=== PATIENT | female | born 1955 | race African-American/Black ===

== ENCOUNTER 2016-09-27 15:43 | Inpatient (IN) | payer OTHER ==
[2016-09-27 16:54] LABS: BASOPHIL 0.5 % (0-2.0); EOSINOPHIL 1.6 % (0-4.5); MCH 26.3 pg (25.7-33.7); MCHC 30.2 g/dl (32.0-36.0); MEAN CELL VOLUME 87.2 fl (80-96); NEUTROPHILS 73.9 % (42.8-82.8); PLATELET COUNT 122 K/MM3 (134-434); RDW 18.5 % (11.6-15.6); WHITE BLOOD COUNT 7.3 K/mm3 (4.0-10.0)
[2016-09-27 17:17] LABS: ALBUMIN 3.4 g/dl (3.4-5.0); CALCIUM 9.5 mg/dL (8.5-10.1); CREATININE 1.2 mg/dL (0.55-1.02)
[2016-09-27 17:21] LABS: BILIRUBIN,TOTAL 1.2 mg/dL (0.2-1.0)
[2016-09-27] MEDS ORDERED: oxyCODONE HCL 5 MG TABLET PO ONE (17:23)
--- NOTE | 2016-09-27 17:23 | PDOC ---
History of Present Illness - General History Source: Patient Exam Limitations: No Limitations - History of Present Illness Initial Comments: 09/27/16 17:49 The patient is a 61 year old female, with significant past medical history of A- fib,CHF, COPD, GERD, DM, sarcoidosis, renal insufficiency, chronic back pain, who presents today complaining of bilateral LE edema for 2 to 3 weeks. She reports that she has a small hole on the medial aspect of the right ankle that has been leaking pus since this afternoon. She reports that her normal weight is 220lb and her weight today is 260lb. She reports that her breasts have also been edematous. She is taking Lasix regularly. Dr. Estrada has advised her to take 1 additional Lasix every other day, which she has not done. She states that she lives at home with her daughter. Denies fever, chills, nausea, vomiting. Denies chest pain, SOB. Allergies: None reported PCP- Dr. Kt Estrada Marine Service Operator: Dr. Emily Hurt <Ro Dorado - Last Filed: 09/27/16 17:59> <Lu Raphael - Last Filed: 09/27/16 18:17> - General Chief Complaint: Edema Stated Complaint: WEAKNESS, SWOLLEN LEGS Time Seen by Provider: 09/27/16 16:06 Past History <Ro Dorado - Last Filed: 09/27/16 17:59> - Past Medical History Anemia: No Asthma: No Cancer: No Cardiac Disorders: No CVA: No COPD: (SARCOIDOSIS) CHF: Yes Dementia: No Diabetes: Yes GI Disorders: Yes (Acid reflex) Disorders: Yes (renal insufficiency from NSAIDs) HTN: Yes Hypercholesterolemia: No Liver Disease: No Psychiatric Problems: Yes (DEPRESSION.) Seizures: No Thyroid Disease: No - Surgical History Abdominal Surgery: No Appendectomy: No Cardiac Surgery: No Cholecystectomy: No Lung Surgery: No Neurologic Surgery: No Orthopedic Surgery: Yes (Herniated discs removed) - Psycho/Social/Smoking Cessation Hx Anxiety: No Suicidal Ideation: No Smoking Status: Yes Smoking History: Former smoker Have you smoked in the past 12 months: No Number of Cigarettes Smoked Daily: 0 If you are a former smoker, when did you quit?: 2007 Information on smoking cessation initiated: No Hx Alcohol Use: No Drug/Substance Use Hx: No Substance Use Type: None Hx Substance Use Treatment: No <DonavonJorge LuisLu - Last Filed: 09/27/16 18:17> - Past Medical History Allergies/Adverse Reactions: Allergies Allergy/AdvReac Type Severity Reaction Status Date / Time No Known Allergies Allergy Verified 09/27/16 15:45 Home Medications: Ambulatory Orders Rivaroxaban [Xarelto -] 20 mg PO DAILY #0 tablet 06/13/13 Albuterol 0.083% Nebulizer Felipa [Ventolin 0.083% Nebulizer Soln -] 1 neb NEB Q8H PRN #0 vial 03/19/15 Docusate Sodium [Colace -] 100 mg PO Q12H PRN #0 capsule 03/19/15 Duloxetine HCl [Cymbalta -] 30 mg PO DAILY capsule. 03/19/15 Montelukast Na [Singulair -] 10 mg PO HS tablet 03/19/15 Ranitidine [Zantac -] 150 mg PO BID tablet 03/19/15 Calcium Carbonate/Vitamin D3 [Calcium 600-Vit D3 800 Tablet] 1 each PO DAILY Cholecalciferol (Vitamin D3) [Vitamin D3] 2,000 unit PO DAILY 05/05/15 Digoxin [Digitek] 125 mcg PO DAILY 05/05/15 Isosorbide Mononitrate [Isosorbide Mononitrate ER] 30 mg PO DAILY 05/05/15 Sennosides [Senna Lax] 2 tab PO HS 05/05/15 Losartan Potassium [Cozaar -] 25 mg PO DAILY #30 tablet 05/11/15 Nystatin/Triamcinolone Top Cr [Mycolog II -] 1 applic TP BID #1 applic 05/11/15 Oxycodone HCl [Roxicodone -] 10 mg PO Q6H PRN #0 tablet 05/11/15 Bupropion HCl [Wellbutrin Xl -] 150 mg PO DAILY 06/14/15 Cyanocobalamin (Vitamin B-12) [Vitamin B-12] 1,000 mcg PO DAILY 06/14/15 Prednisone 10 mg PO DAILY 06/14/15 Atorvastatin Ca [Lipitor -] 10 mg PO HS #30 tablet 06/26/15 Cefuroxime Axetil [Ceftin -] 250 mg PO BID #20 tablet 10/09/15 Furosemide [Lasix -] 80 mg PO DAILY #30 tablet 06/26/15 Magnesium Chloride [Slow-Mag -] 128 mg PO DAILY #100 tablet.sa 06/26/15 Metoprolol Succinate [Toprol XL -] 50 mg PO DAILY #30 tab.sr.24h 06/26/15 Spironolactone [Aldactone] 25 mg PO DAILY #30 tablet 06/26/15 Review of Systems - Review of Systems Able to Perform ROS?: Yes Comments:: 09/27/16 17:50 GENERAL/CONSTITUTIONAL: No: fever, chills, weakness, loss of appetite. HEAD, EYES, EARS, NOSE AND THROAT: No: change in vision, ear pain, discharge, sore throat, throat swelling. CARDIOVASCULAR: No: chest pain, lightheadedness, palpitations, syncope RESPIRATORY: No: cough, shortness of breath, wheezing, hemoptysis, stridor. GASTROINTESTINAL: No: nausea, vomiting, abdominal cramping, diarrhea, rectal bleeding, constipation. GENITOURINARY: No: dysuria, hematuria, frequency, urgency, flank pain. MUSCULOSKELETAL: No: back pain, neck pain, joint pain, muscle swelling or pain SKIN: Yes: bilateral LE edema. No: lesions, pallor, rash or easy bruising. NEUROLOGIC: No: headache, vertigo, paresthesias, weakness ENDOCRINE: No: unexplained weight gain or loss HEMATOLOGIC/LYMPHATIC: No: anemia, easy bleeding, swelling nodes <Ro Dorado - Last Filed: 09/27/16 17:59> *Physical Exam - Vital Signs Last Vital Signs Temp Pulse Resp BP Pulse Ox 98.3 F 87 18 129/66 93 L 09/27/16 15:46 09/27/16 15:46 09/27/16 15:46 09/27/16 15:46 09/27/16 15:46 - Physical Exam Comments: 09/27/16 17:50 GENERAL: The patient is in no acute distress. HEAD: Normal with no signs of trauma. EYES: PERRLA, EOMI, sclera anicteric, conjunctiva clear. ENT: Ears normal, nares patent, oropharynx clear without exudates. Moist mucous membranes. NECK: Normal range of motion, supple without lymphadenopathy, JVD, or masses. LUNGS: Breath sounds equal, clear to auscultation bilaterally. No wheezes, and no crackles. HEART:Regular rate and rhythm, normal S1 and S2 without murmur, rub or gallop. ABDOMEN: Soft, nontender, normoactive bowel sounds. No guarding, no rebound. EXTREMITIES: 3+ pitting edema. Normal range of motion. No clubbing or cyanosis. No erythema, or tenderness. NEUROLOGICAL: Cranial nerves II through XII grossly intact. Normal speech. No focal neurological deficits. MUSCULOSKELETAL: Back nontender to palpation, no CVA tenderness SKIN: skin defect in the right medial distal LE. No visible purulence but a streak of dried fluid on that leg.Warm, Dry, normal turgor, no lesions noted. <Ro Dorado - Last Filed: 09/27/16 17:59> - Vital Signs Last Vital Signs Temp Pulse Resp BP Pulse Ox 98.3 F 87 18 129/66 93 L 09/27/16 15:46 09/27/16 15:46 09/27/16 15:46 09/27/16 15:46 09/27/16 15:46 <Lu Raphael - Last Filed: 09/27/16 18:17> ED Treatment Course - LABORATORY CBC & Chemistry Diagram: 09/27/16 16:43 09/27/16 16:43 - ADDITIONAL ORDERS Additional order review: Laboratory Results 09/27/16 16:43 Sodium 141 Potassium 3.8 Chloride 103 Carbon Dioxide 35 H D Anion Gap 3 L BUN 20 H Creatinine 1.2 H Creat Clearance w eGFR 45.67 Random Glucose 88 D Calcium 9.5 Total Bilirubin 1.2 H AST 15 ALT 11 L Alkaline Phosphatase 121 H B-Natriuretic Peptide 5368.83 H Total Protein 7.0 Albumin 3.4 09/27/16 16:43 RBC 5.13 MCV 87.2 MCHC 30.2 L RDW 18.5 H MPV 8.0 Neutrophils % 73.9 Lymphocytes % 12.3 Monocytes % 11.7 H Eosinophils % 1.6 D Basophils % 0.5 - RADIOLOGY Radiograph Interpretation: 09/27/16 17:59 EXAM#: TYPE/EXAM: RESULT: [id number] RAD/CHEST X-RAY PORTABLE* Edema Portable chest x-ray in upright position. Since 06/16/2015, there remains moderate cardiomegaly with mild unfolding of the aortic arch. There are bilateral interstitial opacities is suggestive of mild pulmonary venous congestion. Impression: Moderate cardiomegaly and mild pulmonary venous congestion. Cannot rule out superimposed infiltrates. Reported By: Morris Murrieta MD 09/27/16 [id number] <Ro Dorado - Last Filed: 09/27/16 17:59> - LABORATORY CBC & Chemistry Diagram: 09/27/16 16:43 09/27/16 16:43 - RADIOLOGY Radiology Studies Ordered: Category Date Time Status CHEST X-RAY PORTABLE* [RAD] Stat Radiology 09/27/16 16:20 Completed <Lu Raphael - Last Filed: 09/27/16 18:17> Medical Decision Making - Medical Decision Making 09/27/16 17:50 Dr. Estrada was paged via sceniosing service at 5:51pm. Awaiting call back. Dr. Estrada called back at 6:00pm and spoke with Dr. Raphael regarding the patient's care. <Ro Doardo - Last Filed: 09/27/16 17:59> - Medical Decision Making A portion of this note was documented by scribe services under my direction. I have reviewed the details of the note, within reason, and agree with the documentation with the following case summary and management plan written by me. Nursing documentation reviewed and incorporated into medical decision making 09/27/16 18:03 This is a 61-year-old female with a history of congestive heart failure, fluid overloading, COPD, diabetes (ebt-advwvud-sqnoitxzf dependent) disease, chronic pain in physical therapy who presents emergency department with a complaint of worsening lotion be edema. Patient has been on Lasix, was told by her primary care physician to start taking an additional dose of Lasix today. Patient has not been compliant with this and reports that she is a possibly [address] No fevers, no chills. Patient denies cough. Pt has lower extremity edema (she is currently on a blood thinners) Pt has been drinking a 2L pepsi daily due to increased thirst Pt has chronic back/hip pain DD CHF Will do labs including BNP Will do cxr Will give pt her home medications for pain Will re assess 09/27/16 18:09 Laboratory Tests 07/29/16 07/29/16 09/27/16 12:04 12:04 16:43 WBC 7.9 7.3 Hgb 14.3 13.5 Hct 44.5 44.4 Plt Count 109 L 122 L BUN 17 D Creatinine 1.0 D B-Natriuretic Peptide 09/27/16 16:43 WBC Hgb Hct Plt Count BUN 20 H Creatinine 1.2 H B-Natriuretic Peptide 5368.83 H Case reviewed with Dr Estrada Pt is not doing well with diuresing herself as an outpatient Will give LAsix Will do blood cultures Will give a dose of Ancef for possible cellulitis Will hold on duplex (pt is on anticoagulant) <Lu Raphael - Last Filed: 09/27/16 18:17> *DC/Admit/Observation/Transfer - Attestations Scribe Attestion: 09/27/16 17:52 Documentation prepared by BAMBI Givens, acting as medical record librarian for Lu Raphael MD. <Ro Dorado - Last Filed: 09/27/16 17:59> - Discharge Dispostion Admit: Yes <Lu Raphael - Last Filed: 09/27/16 18:17> Diagnosis at time of Disposition: CHF (congestive heart failure) Qualifiers: Congestive heart failure type: unspecified congestive heart failure type Congestive heart failure chronicity: acute on chronic Qualified Code(s): I50.9 - Heart failure, unspecified Cellulitis Qualifiers: Site of cellulitis: extremity Site of cellulitis of extremity: lower extremity Laterality: right Qualified Code(s): L03.115 - Cellulitis of right lower limb - Discharge Dispostion Condition at time of disposition: Stable - Referrals Referrals: Kt Estrada MD [Primary Care Provider] -
[2016-09-27] MEDS ORDERED: OXYCODONE/APAP 5/325MG COMBO TABLET ONE (17:55)
[2016-09-27] MEDS ORDERED: FUROSEMIDE 40 MG/4 ML INJECTABLE VIAL IVPB ONE (18:02)
[2016-09-27] MEDS ORDERED: CEFAZOLIN 1 GM in DEXTROSE 5%-WATER - 50 ML IVPB ONE (18:15)
[2016-09-27] MEDS ORDERED: FUROSEMIDE 40 MG/4 ML INJECTABLE VIAL ONE (18:22)
[2016-09-27] MEDS ORDERED: CEFAZOLIN (PRE-DOCKED) 50 ML IVPB ONE (18:22)
[2016-09-27 19:01] LABS: TROPONIN I 0.04 ng/ml (0.00-0.05)
[2016-09-27] MEDS ORDERED: morphine CARPU-JECT 4 MG/1 ML DISP.SYRIN IVPUSH ONE (19:04)
[2016-09-27] MEDS ORDERED: morphine CARPU-JECT 2 MG/1 ML DISP.SYRIN ONE (20:05)
[2016-09-27] MEDS ORDERED: oxyCODONE HCL 5 MG TABLET PO PRN (21:22)
[2016-09-27] MEDS: CEFAZOLIN 1 GM/D5W 50 ML IVPB SCH (22:01)
[2016-09-27] MEDS: PRAMIPEXOLE DIHYDROCHLORIDE 0.5 MG TABLET PO SCH (22:55)
[2016-09-27] MEDS: DABIGATRAN ETEXILATE MESYLATE 150 MG CAPSULE PO SCH (22:55)
[2016-09-27] MEDS: ATORVASTATIN CA 10 MG TABLET (FP) PO SCH (22:55)
[2016-09-27] MEDS: MONTELUKAST NA 10 MG TABLET PO SCH (22:56)
[2016-09-28 00:32] VITALS: BMI 44.1
[2016-09-28] MEDS ORDERED: morphine CARPU-JECT 2 MG/1 ML DISP.SYRIN IVPUSH ONE ×2 (02:30→11:40)
[2016-09-28 06:15] LABS: URINE APPEARANCE CLEAR; URINE BILIRUBIN NEGATIVE (NEGATIVE); URINE BLOOD NEGATIVE (NEGATIVE); URINE COLOR LT. YELLOW; URINE GLUCOSE (UA) NEGATIVE (NEGATIVE); URINE KETONE NEGATIVE (NEGATIVE); URINE NITRITE NEGATIVE (NEGATIVE); URINE PROTEIN NEGATIVE (NEGATIVE); URINE UROBILINOGEN 0.2 E.U/dl E.U./dl (0.2-1.0)
[2016-09-28 06:19] LABS: URINE LEUK ESTERASE 1+ (NEGATIVE)
[2016-09-28 06:34] LABS: URINE BACTERIA RARE /hpf (NONE SEEN); URINE RBC 1 /hpf (0-3); URINE WBC 9 /hpf (3-5)
[2016-09-28 08:41] LABS: CALCIUM 8.8 mg/dL (8.5-10.1); CREATININE 1.3 mg/dL (0.55-1.02); DIGOXIN LEVEL 0.6943 ng/ml (0.8-2.0); MAGNESIUM 2.2 mg/dL (1.8-2.4); THYROID STIMULATING HORMONE 1.16 uIU/ml (0.358-3.74)
[2016-09-28] MEDS ORDERED: PT OWN MED DRAWER 7, Y5N ONE ×3 (08:45→21:00)
--- NOTE | 2016-09-28 09:37 | EKG ---
Test Reason : Blood Pressure : / mmHG Vent. Rate : 086 BPM Atrial Rate : 082 BPM P-R Int : 000 ms QRS Dur : 132 ms QT Int : 384 ms P-R-T Axes : 000 -55 142 degrees QTc Int : 459 ms POOR DATA QUALITY, INTERPRETATION MAY BE ADVERSELY AFFECTED WIDE QRS RHYTHM LEFT AXIS DEVIATION RIGHT BUNDLE BRANCH BLOCK POSSIBLE LATERAL INFARCT , AGE UNDETERMINED ABNORMAL ECG Confirmed by ORAL PÉREZ, PABLO ([id number]) on 09/28/2016 9:37:13 AM Referred By: Confirmed By:PABLO MIXON MD
[2016-09-28] MEDS: FUROSEMIDE 40 MG/4 ML INJECTABLE VIAL IVPUSH SCH (10:32)
[2016-09-28] MEDS: CEFAZOLIN 1 GM/D5W 50 ML IVPB SCH ×2 (10:32→21:21)
[2016-09-28] MEDS: RANITIDINE HCL 150 MG TABLET (FP) PO SCH (10:33)
[2016-09-28] MEDS: METOPROLOL SUCCINATE 25 MG TAB.SR.24H (FP) PO SCH (10:33)
[2016-09-28] MEDS: predniSONE 10 MG TABLET (UD) PO SCH (10:33)
[2016-09-28] MEDS: ISOSORBIDE MONONITRATE 30 MG TAB.SR.24H (FP) PO SCH (10:34)
[2016-09-28] MEDS: DABIGATRAN ETEXILATE MESYLATE 150 MG CAPSULE PO SCH ×2 (10:35→21:21)
[2016-09-28] MEDS: DOCUSATE SODIUM 100 MG CAPSULE (FP) PO SCH (10:35)
[2016-09-28] MEDS: DULoxetine HCL 20 MG CAPSULE.DR (FP) PO SCH (10:35)
[2016-09-28] MEDS: DIGOXIN 0.125 MG TABLET (FP) PO SCH (10:35)
--- NOTE | 2016-09-28 11:21 | CONSULT ---
Consult Consult Specialty:: Cardiology - History of Present Illness History of Present Illness: The patient is a 61 year old female, with significant past medical history of A- fib,CHF, COPD, GERD, DM, sarcoidosis, renal insufficiency, chronic back pain, who presents today complaining of bilateral LE edema for 2 to 3 weeks. She reports that she has a small hole on the medial aspect of the right ankle that has been leaking pus since this afternoon. She reports that her normal weight is 220lb and her weight today is 260lb. She reports that her breasts have also been edematous. She is taking Lasix regularly. Dr. Estrada has advised her to take 1 additional Lasix every other day, which she has not done. She states that she lives at home with her daughter. Denies fever, chills, nausea, vomiting. Denies chest pain, SOB. Allergies: None reported PCP- Dr. Kt Estrada Orientor: Dr. Emily Hurt - Past Medical History Cardio/Vascular: Yes: AFIB (? paroxysmal), CHF, HTN, Hyperlipdemia, Pulmonary Hypertension Pulmonary: Yes: COPD (ex-smoker), O2 Dependent, Other (Hx of sarcoid?) Gastrointestinal: Yes: Diverticulosis, GERD Renal/: Yes: Renal Inusuff Psych: Yes: Depression Musculoskeletal: Yes: Chronic low back pain, Osteoarthritis (Rt hip) Rheumatology: Yes: Sarcoidosis Endocrine: Yes: Osteopenia, Other (obesity//Possible DM) - Alcohol/Substance Use Hx Alcohol Use: No History of Substance Use: reports: None - Smoking History Smoking history: Former smoker Have you smoked in the past 12 months: No Aproximately how many cigarettes per day: 0 If you are a former smoker, when did you quit?: 2007 - Social History Usual Living Arrangement: With Child ADL: Family Assistance 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 Travel: No Home Medications - Allergies Allergies/Adverse Reactions: Allergies Allergy/AdvReac Type Severity Reaction Status Date / Time No Known Allergies Allergy Verified 09/27/16 15:45 - Home Medications Home Medications: Ambulatory Orders Albuterol Sulfate Inhaler - [Ventolin Hfa Inhaler -] 1 - 2 inh PO QID 09/27/16 Atorvastatin Ca [Lipitor] 10 mg PO HS 09/27/16 Bupropion HCl [Bupropion HCl ER] 150 mg PO DAILY 09/27/16 Calcium Carbonate [Calcium] 1,200 mg PO DAILY 09/27/16 Dabigatran Etexilate Mesylate [Pradaxa -] 150 mg PO BID 09/27/16 Digoxin [Digitek] 125 mcg PO DAILY 09/27/16 Duloxetine HCl 30 mg PO DAILY 09/27/16 Furosemide [Lasix] 80 mg PO DAILY 09/27/16 Isosorbide Mononitrate [Isosorbide Mononitrate ER] 30 mg PO DAILY 09/27/16 Magnesium Oxide [Magnesium] 500 mg PO DAILY 09/27/16 Metformin HCl [Metformin HCl ER] 500 mg PO DAILY 09/27/16 Metoprolol Succinate [Toprol Xl] 50 mg PO DAILY 09/27/16 Montelukast Na [Singulair -] 10 mg PO HS 09/27/16 Oxycodone HCl/Acetaminophen [Oxycodone-Acetaminophen 10-325] 1 each PO DAILY 07/04 Pramipexole Dihydrochloride [Mirapex -] 0.5 mg PO TID 09/27/16 Prednisone 10 mg PO DAILY 09/27/16 Ranitidine [Zantac -] 150 mg PO DAILY 09/27/16 Spironolactone 25 mg PO DAILY 09/27/16 Review of Systems - Review of Systems Constitutional: reports: No Symptoms Eyes: reports: No Symptoms HENT: reports: No Symptoms Neck: reports: No Symptoms Cardiovascular: reports: Edema Respiratory: reports: SOB Gastrointestinal: reports: No Symptoms Genitourinary: reports: No Symptoms Breasts: reports: No Symptoms Reported Musculoskeletal: reports: No Symptoms Integumentary: reports: No Symptoms Neurological: reports: No Symptoms Endocrine: reports: No Symptoms Hematology/Lymphatic: reports: No Symptoms Psychiatric: reports: No Symptoms Vital Signs: Vital Signs Temperature 97.7 F 09/28/16 06:00 Pulse Rate 76 09/28/16 10:35 Respiratory Rate 20 09/28/16 10:00 Blood Pressure 112/56 09/28/16 10:00 O2 Sat by Pulse Oximetry (%) 96 09/27/16 22:28 Constitutional: Yes: Well Nourished, No Distress, Calm Eyes: Yes: WNL, Conjunctiva Clear, EOM Intact HENT: Yes: WNL, Atraumatic, Normocephalic Neck: Yes: WNL, Supple, Trachea Midline Respiratory: Yes: WNL, Regular, CTA Bilaterally Gastrointestinal: Yes: WNL, Normal Bowel Sounds Renal/: Yes: WNL Cardiovascular: Yes: WNL, Regular Rate and Rhythm Musculoskeletal: Yes: WNL Extremities: Yes: WNL Integumentary: Yes: WNL Neurological: Yes: WNL, Alert, Oriented ...Motor Strength: WNL Psychiatric: Yes: WNL, Alert, Oriented - Other Data Labs, Other Data: CBC, BMP 09/28/16 06:20 Laboratory Tests 09/27/16 09/27/16 09/27/16 16:43 16:43 16:43 WBC 7.3 RBC 5.13 Hgb 13.5 Hct 44.4 MCV 87.2 MCHC 30.2 L RDW 18.5 H Plt Count 122 L MPV 8.0 Neutrophils % 73.9 Lymphocytes % 12.3 Monocytes % 11.7 H Eosinophils % 1.6 D Basophils % 0.5 Sodium 141 Potassium 3.8 Chloride 103 Carbon Dioxide 35 H D Anion Gap 3 L BUN 20 H Creatinine 1.2 H Creat Clearance w eGFR 45.67 POC Glucometer Random Glucose 88 D Calcium 9.5 Magnesium Total Bilirubin 1.2 H AST 15 ALT 11 L Alkaline Phosphatase 121 H Creatine Kinase 46 Troponin I 0.04 B-Natriuretic Peptide 5368.83 H Total Protein 7.0 Albumin 3.4 TSH Urine Color Urine Appearance Urine pH Ur Specific [place] Urine Protein Urine Glucose (UA) Urine Ketones Urine Blood Urine Nitrite Urine Bilirubin Urine Urobilinogen Ur Leukocyte Esterase Urine RBC Urine WBC Ur Epithelial Cells Urine Bacteria Digoxin 09/27/16 09/28/16 09/28/16 18:09 00:30 05:56 WBC RBC Hgb Hct MCV MCHC RDW Plt Count MPV Neutrophils % Lymphocytes % Monocytes % Eosinophils % Basophils % Sodium Potassium Chloride Carbon Dioxide Anion Gap BUN Creatinine Creat Clearance w eGFR POC Glucometer 107 Random Glucose Calcium Magnesium Total Bilirubin AST ALT Alkaline Phosphatase Creatine Kinase Cancelled Troponin I Cancelled B-Natriuretic Peptide Total Protein Albumin TSH Urine Color Lt. yellow Urine Appearance Clear Urine pH 7.0 Ur Specific [place] 1.010 Urine Protein Negative Urine Glucose (UA) Negative Urine Ketones Negative Urine Blood Negative Urine Nitrite Negative Urine Bilirubin Negative Urine Urobilinogen 0.2 e.u/dl Ur Leukocyte Esterase 1+ H Urine RBC 1 Urine WBC 9 Ur Epithelial Cells Few Urine Bacteria Rare Digoxin 09/28/16 06:20 WBC RBC Hgb Hct MCV MCHC RDW Plt Count MPV Neutrophils % Lymphocytes % Monocytes % Eosinophils % Basophils % Sodium 143 Potassium 3.7 Chloride 103 Carbon Dioxide 32 Anion Gap 8 BUN 19 H Creatinine 1.3 H Creat Clearance w eGFR POC Glucometer Random Glucose 105 Calcium 8.8 Magnesium 2.2 Total Bilirubin AST ALT Alkaline Phosphatase Creatine Kinase Troponin I B-Natriuretic Peptide Total Protein Albumin TSH 1.16 D Urine Color Urine Appearance Urine pH Ur Specific [place] Urine Protein Urine Glucose (UA) Urine Ketones Urine Blood Urine Nitrite Urine Bilirubin Urine Urobilinogen Ur Leukocyte Esterase Urine RBC Urine WBC Ur Epithelial Cells Urine Bacteria Digoxin 0.6943 L Imaging - Results Chest X-ray: Image Reviewed (no i/e) EKG: Image Reviewed (sr RBBB) Problem List - Problems (1) CHF (congestive heart failure) Code(s): I50.9 - HEART FAILURE, UNSPECIFIED Qualifiers: Congestive heart failure type: unspecified congestive heart failure type Congestive heart failure chronicity: acute on chronic Qualified Code(s ): I50.9 - Heart failure, unspecified (2) Cellulitis Code(s): L03.90 - CELLULITIS, UNSPECIFIED Qualifiers: Site of cellulitis: extremity Site of cellulitis of extremity: lower extremity Laterality: right Qualified Code(s): L03.115 - Cellulitis of right lower limb (3) A-fib Code(s): I48.91 - UNSPECIFIED ATRIAL FIBRILLATION (4) Acute on chronic systolic and diastolic heart failure, NYHA class 3 Code(s): I50.43 - ACUTE ON CHRONIC COMBINED SYSTOLIC AND DIASTOLIC HRT FAIL (5) Atrial fib/flutter, transient Code(s): [id number] - (6) Back pain Code(s): M54.9 - DORSALGIA, UNSPECIFIED (7) COPD (chronic obstructive pulmonary disease) with emphysema Code(s): J43.9 - EMPHYSEMA, UNSPECIFIED Qualifiers: Emphysema type: unspecified Qualified Code(s): J43.9 - Emphysema, unspecified (8) Cat bite - wound Code(s): W55.01XA - BITTEN BY CAT, INITIAL ENCOUNTER (9) Cellulitis of calf Code(s): L03.119 - CELLULITIS OF UNSPECIFIED PART OF LIMB (10) Dehydration Code(s): E86.0 - DEHYDRATION (11) Depression Code(s): F32.9 - MAJOR DEPRESSIVE DISORDER, SINGLE EPISODE, UNSPECIFIED (12) Edema Code(s): R60.9 - EDEMA, UNSPECIFIED (13) Edema leg Code(s): R60.0 - LOCALIZED EDEMA Qualifiers: Laterality: left Qualified Code(s): R60.0 - Localized edema (14) Failure to thrive in adult Code(s): R62.7 - ADULT FAILURE TO THRIVE (15) GERD (gastroesophageal reflux disease) Code(s): K21.9 - GASTRO-ESOPHAGEAL REFLUX DISEASE WITHOUT ESOPHAGITIS Qualifiers: Esophagitis presence: without esophagitis Qualified Code(s): K21.9 - Gastro-esophageal reflux disease without esophagitis (16) Hip osteoarthritis Code(s): M16.9 - OSTEOARTHRITIS OF HIP, UNSPECIFIED Qualifiers: Osteoarthritis type: primary Laterality: right Qualified Code(s): M16.11 - Unilateral primary osteoarthritis, right hip (17) Hyperlipidemia Code(s): E78.5 - HYPERLIPIDEMIA, UNSPECIFIED (18) Hypertensive cardiovascular disease Code(s): I11.9 - HYPERTENSIVE HEART DISEASE WITHOUT HEART FAILURE (19) Intractable pain Code(s): R52 - PAIN, UNSPECIFIED (20) Lumbar pain with radiation down right leg Code(s): M54.5 - LOW BACK PAIN (21) Major depressive disorder, recurrent Code(s): F33.9 - MAJOR DEPRESSIVE DISORDER, RECURRENT, UNSPECIFIED (22) ROHIT (obstructive sleep apnea) Code(s): G47.33 - OBSTRUCTIVE SLEEP APNEA (ADULT) (PEDIATRIC) (23) ROHIT treated with BiPAP Code(s): G47.33 - OBSTRUCTIVE SLEEP APNEA (ADULT) (PEDIATRIC) (24) Obesities, morbid Code(s): E66.01 - MORBID (SEVERE) OBESITY DUE TO EXCESS CALORIES Qualifiers: Obesity type: due to excess calories Qualified Code(s): E66.01 - Morbid (severe) obesity due to excess calories (25) Obesity Code(s): E66.9 - OBESITY, UNSPECIFIED (26) Osteoarthritis Code(s): M19.90 - UNSPECIFIED OSTEOARTHRITIS, UNSPECIFIED SITE (27) Sacroiliitis Code(s): M46.1 - SACROILIITIS, NOT ELSEWHERE CLASSIFIED (28) Sarcoid Code(s): D86.9 - SARCOIDOSIS, UNSPECIFIED (29) Somnolence Code(s): R40.0 - SOMNOLENCE (30) UTI (urinary tract infection) Code(s): N39.0 - URINARY TRACT INFECTION, SITE NOT SPECIFIED Qualifiers: Urinary tract infection type: site unspecified Hematuria presence: without hematuria Qualified Code(s): N39.0 - Urinary tract infection, site not specified Assessment/Plan paf chf edema copd cri plan; agree with ABX and IV lasix cont AC
--- NOTE | 2016-09-28 17:10 | HP ---
Admitting History and Physical - Primary Care Physician PCP: Kt Estrada - Admission Chief Complaint: worsening swelling of legs History of Present Illness: 61 y/o F with Hx of CHF, COPD, ATF, DM who is steroid dependent, now has worsening of chronic swelling, or both legs; feels more lethargic. Denies any CP ; dizziness, denies any SOB. She also noted some drainage of cloudy fluid from pin-point lesion on the distal rLE, which developed when may have scratched it some weeks ago.She also denies any fever, chills, malaise, diarrhea, rashes. History Source: Patient, Medical Record Limitations to Obtaining History: No Limitations - Past Medical History Cardiovascular: Yes: AFIB (? paroxysmal), CHF, HTN, Hyperlipdemia, Pulmonary Hypertension Pulmonary: Yes: COPD (ex-smoker), O2 Dependent, Other (Hx of sarcoid?) Gastrointestinal: Yes: Diverticulosis, GERD Renal/: Yes: Renal Inusuff ...: No Heme/Onc: Yes: Other (Hx of erythrocytosis) Psych: Yes: Depression Musculoskeletal: Yes: Chronic low back pain, Osteoarthritis (Rt hip) Rheumatology: Yes: Sarcoidosis Endocrine: Yes: Osteopenia, Other (obesity//Possible DM) - Smoking History Smoking history: Former smoker Have you smoked in the past 12 months: No Aproximately how many cigarettes per day: 0 If you are a former smoker, when did you quit?: 2007 - Alcohol/Substance Use Hx Alcohol Use: No History of Substance Use: reports: None - Social History Usual [facility] Arrangement: [facility]: [facility] ADL: Family Assistance 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 Travel: No Home Medications - Allergies Allergies/Adverse Reactions: Allergies Allergy/AdvReac Type Severity Reaction Status Date / Time No Known Allergies Allergy Verified 09/27/16 15:45 - Home Medications Home Medications: Ambulatory Orders Albuterol Sulfate Inhaler - [Ventolin Hfa Inhaler -] 1 - 2 inh PO QID 09/27/16 Atorvastatin Ca [Lipitor] 10 mg PO HS 09/27/16 Bupropion HCl [Bupropion HCl ER] 150 mg PO DAILY 09/27/16 Calcium Carbonate [Calcium] 1,200 mg PO DAILY 09/27/16 Dabigatran Etexilate Mesylate [Pradaxa -] 150 mg PO BID 09/27/16 Digoxin [Digitek] 125 mcg PO DAILY 09/27/16 Duloxetine HCl 30 mg PO DAILY 09/27/16 Furosemide [Lasix] 80 mg PO DAILY 09/27/16 Isosorbide Mononitrate [Isosorbide Mononitrate ER] 30 mg PO DAILY 09/27/16 Magnesium Oxide [Magnesium] 500 mg PO DAILY 09/27/16 Metformin HCl [Metformin HCl ER] 500 mg PO DAILY 09/27/16 Metoprolol Succinate [Toprol Xl] 50 mg PO DAILY 09/27/16 Montelukast Na [Singulair -] 10 mg PO HS 09/27/16 Oxycodone HCl/Acetaminophen [Oxycodone-Acetaminophen 10-325] 1 each PO DAILY 07/04 Pramipexole Dihydrochloride [Mirapex -] 0.5 mg PO TID 09/27/16 Prednisone 10 mg PO DAILY 09/27/16 Ranitidine [Zantac -] 150 mg PO DAILY 09/27/16 Spironolactone 25 mg PO DAILY 09/27/16 Family Disease History - Family Disease History Family History: Unremarkable Review of Systems - Review of Systems Constitutional: reports: Lethargy Eyes: reports: No Symptoms HENT: reports: No Symptoms Neck: reports: No Symptoms Cardiovascular: reports: No Symptoms Respiratory: reports: Exercise Intolerance Gastrointestinal: reports: No Symptoms Genitourinary: reports: No Symptoms Breasts: reports: Skin Changes (feel heavy) Musculoskeletal: reports: Back Pain, Decreased ROM Integumentary: reports: Other (focal drainage from rLE) Neurological: reports: No Symptoms Endocrine: reports: No Symptoms Hematology/Lymphatic: reports: No Symptoms Psychiatric: reports: No Symptoms Physical Examination Vital Signs: Vital Signs Temperature 98.6 F 09/28/16 14:24 Pulse Rate 80 09/28/16 14:24 Respiratory Rate 24 09/28/16 14:24 Blood Pressure 132/68 09/28/16 14:24 O2 Sat by Pulse Oximetry (%) 96 09/27/16 22:28 Constitutional: Yes: No Distress Eyes: Yes: Conjunctiva Clear, EOM Intact HENT: Yes: WNL, Other (upper edentoulus) Neck: Yes: WNL Cardiovascular: Yes: Regular Rate and Rhythm Respiratory: Yes: Regular Gastrointestinal: Yes: Normal Bowel Sounds, Soft, Abdomen, Obese ...Rectal Exam: Yes: Deferred Renal/: Yes: WNL Breast(s): Yes: Other (no masses felt) Musculoskeletal: Yes: Back Pain Extremities: Yes: WNL Edema: Yes Edema: LLE: 3+, RLE: 3+ Peripheral Pulses: Left Radial: 1+, Right Radial: 1+, Left Doralis Pedis: 1+, Right Dorsalis Pedis: 1+ Integumentary: Yes: Skin Tear (tiny skin tear on distal ant Rt ankle) Neurological: Yes: WNL, Alert, Oriented, Pre-Existing Deficit, Unsteady Gait ...Motor Strength: WNL Psychiatric: Yes: WNL Labs: CBC, BMP 09/28/16 06:20 CBCD WBC 7.3 K/mm3 (4.0-10.0) 09/27/16 16:43 RBC 5.13 M/mm3 (3.60-5.2) 09/27/16 16:43 Hgb 13.5 GM/dL (10.7-15.3) 09/27/16 16:43 Hct 44.4 % (32.4-45.2) 09/27/16 16:43 MCV 87.2 fl (80-96) 09/27/16 16:43 MCHC 30.2 g/dl (32.0-36.0) L 09/27/16 16:43 RDW 18.5 % (11.6-15.6) H 09/27/16 16:43 Plt Count 122 K/MM3 (134-434) L 09/27/16 16:43 MPV 8.0 fl (7.5-11.1) 09/27/16 16:43 CMP Sodium 143 mmol/L (136-145) 09/28/16 06:20 Potassium 3.7 mmol/L (3.5-5.1) 09/28/16 06:20 Chloride 103 mmol/L (98-107) 09/28/16 06:20 Carbon Dioxide 32 mmol/L (21-32) 09/28/16 06:20 Anion Gap 8 (8-16) 09/28/16 06:20 BUN 19 mg/dL (7-18) H 09/28/16 06:20 Creatinine 1.3 mg/dL (0.55-1.02) H 09/28/16 06:20 Creat Clearance w eGFR 45.67 (>60) 09/27/16 16:43 Random Glucose 105 mg/dL (74-106) 09/28/16 06:20 Calcium 8.8 mg/dL (8.5-10.1) 09/28/16 06:20 Total Bilirubin 1.2 mg/dL (0.2-1.0) H 09/27/16 16:43 AST 15 U/L (15-37) 09/27/16 16:43 ALT 11 U/L (12-78) L 09/27/16 16:43 Alkaline Phosphatase 121 U/L (45-117) H 09/27/16 16:43 Total Protein 7.0 g/dl (6.4-8.2) 09/27/16 16:43 Albumin 3.4 g/dl (3.4-5.0) 09/27/16 16:43 CARDIAC ENZYMES Creatine Kinase Cancelled 09/27/16 18:09 Troponin I Cancelled 09/27/16 18:09 Urine Test Results Urine Color Lt. yellow 09/28/16 00:30 Urine Appearance Clear 09/28/16 00:30 Urine pH 7.0 (5.0-8.0) 09/28/16 00:30 Ur Specific [place] 1.010 (1.001-1.035) 09/28/16 00:30 Urine Protein Negative (NEGATIVE) 09/28/16 00:30 Urine Glucose (UA) Negative (NEGATIVE) 09/28/16 00:30 Urine Ketones Negative (NEGATIVE) 09/28/16 00:30 Urine Blood Negative (NEGATIVE) 09/28/16 00:30 Urine Nitrite Negative (NEGATIVE) 09/28/16 00:30 Urine Bilirubin Negative (NEGATIVE) 09/28/16 00:30 Ur Leukocyte Esterase 1+ (NEGATIVE) H 09/28/16 00:30 Urine RBC 1 /hpf (0-3) 09/28/16 00:30 Urine WBC 9 /hpf (3-5) 09/28/16 00:30 Ur Epithelial Cells Few /hpf (FEW) 09/28/16 00:30 Urine Bacteria Rare /hpf (NONE SEEN) 09/28/16 00:30 Imaging - Results Chest X-ray: Report Reviewed EKG: Report Reviewed Problem List - Problems (1) CHF (congestive heart failure) Assessment/Plan: combined CHF; BNP high; with physical evidence and Radiol evidence of fluid overload; PLAN: Diuresis; NTG, BB, (may not be a good candidate for CARLOS-I) Code(s): I50.9 - HEART FAILURE, UNSPECIFIED Qualifiers: Congestive heart failure type: unspecified congestive heart failure type Congestive heart failure chronicity: acute on chronic Qualified Code(s ): I50.9 - Heart failure, unspecified (2) A-fib Assessment/Plan: on Pradaxa Code(s): I48.91 - UNSPECIFIED ATRIAL FIBRILLATION Qualifiers: Atrial fibrillation type: paroxysmal Qualified Code(s): I48.0 - Paroxysmal atrial fibrillation (3) Cellulitis Assessment/Plan: as suggested by mild erythema of the skin of the RLE; no gross tenderness. PLAN : IV Cefaz Code(s): L03.90 - CELLULITIS, UNSPECIFIED Qualifiers: Site of cellulitis: extremity Site of cellulitis of extremity: lower extremity Laterality: right Qualified Code(s): L03.115 - Cellulitis of right lower limb (4) COPD (chronic obstructive pulmonary disease) with emphysema Assessment/Plan: does not wish to use oxygen at home; nor CPAP for ASA: PLAN: nasal Oxygen Code(s): J43.9 - EMPHYSEMA, UNSPECIFIED Qualifiers: Emphysema type: unspecified Qualified Code(s): J43.9 - Emphysema, unspecified (5) Edema Assessment/Plan: affecting her beyond the legs; excess fluid also seen on her recent Mammogaphy; PLAN: IV Lasix Code(s): R60.9 - EDEMA, UNSPECIFIED Qualifiers: Edema type: generalized Qualified Code(s): R60.1 - Generalized edema (6) Back pain Assessment/Plan: chronic LBP; longstanding; for which she has been RX opiates at home. She is not a candidate for corrective surgery; use of NSAIDs, and has not been helped by epidural shots. PLAN: Cont IV MS Prn; with precautions Code(s): M54.9 - DORSALGIA, UNSPECIFIED Qualifiers: Back pain location: low back pain Back pain laterality: bilateral Sciatica presence: without sciatica (7) Hip osteoarthritis Assessment/Plan: advanced; but she is not deemed a candidate for THR Code(s): M16.9 - OSTEOARTHRITIS OF HIP, UNSPECIFIED Qualifiers: Osteoarthritis type: primary Laterality: right Qualified Code(s): M16.11 - Unilateral primary osteoarthritis, right hip (8) Sarcoid Assessment/Plan: controlled with Prednisone Code(s): D86.9 - SARCOIDOSIS, UNSPECIFIED (9) Hypertensive heart and renal disease with heart failure Assessment/Plan: not new; Bun/Cr has been stable; watch daily chemistries Code(s): I13.0 - HYP HRT & CHR KDNY DIS W HRT FAIL AND STG 1-4/UNSP CHR KDNY I50.9 - HEART FAILURE, UNSPECIFIED N18.9 - CHRONIC KIDNEY DISEASE, UNSPECIFIED (10) Restless leg syndrome Assessment/Plan: on Mirapex Code(s): G25.81 - RESTLESS LEGS SYNDROME (11) Hyperlipidemia Assessment/Plan: on Statin Code(s): E78.5 - HYPERLIPIDEMIA, UNSPECIFIED Assessment/Plan 61 y/o with advanced heart Dz /COPD who is in decomp heart failure ~~~~~~~~~~~~~~~~~~~~~~~~ Dr Estrada--50 Min
[2016-09-28] MEDS: PRAMIPEXOLE DIHYDROCHLORIDE 0.5 MG TABLET PO SCH (21:21)
[2016-09-28] MEDS: MONTELUKAST NA 10 MG TABLET PO SCH (21:21)
[2016-09-28] MEDS: ATORVASTATIN CA 10 MG TABLET (FP) PO SCH (21:21)
[2016-09-29] MEDS ORDERED: PT OWN MED DRAWER 7, Y5N ONE ×3 (09:19→22:41)
[2016-09-29] MEDS ORDERED: METOLAZONE 2.5 MG TABLET (FP) PO ONE (09:30)
[2016-09-29] MEDS: morphine CARPU-JECT 2 MG/1 ML DISP.SYRIN IVPUSH PRN ×2 (10:38→23:12)
[2016-09-29] MEDS: DABIGATRAN ETEXILATE MESYLATE 150 MG CAPSULE PO SCH ×2 (10:39→22:39)
[2016-09-29] MEDS: DULoxetine HCL 20 MG CAPSULE.DR (FP) PO SCH (10:39)
[2016-09-29] MEDS: predniSONE 10 MG TABLET (UD) PO SCH (10:39)
[2016-09-29] MEDS: ISOSORBIDE MONONITRATE 30 MG TAB.SR.24H (FP) PO SCH (10:40)
[2016-09-29] MEDS: METOPROLOL SUCCINATE 25 MG TAB.SR.24H (FP) PO SCH (10:40)
[2016-09-29] MEDS: DOCUSATE SODIUM 100 MG CAPSULE (FP) PO SCH (10:40)
[2016-09-29] MEDS: DIGOXIN 0.125 MG TABLET (FP) PO SCH (10:40)
[2016-09-29] MEDS: RANITIDINE HCL 150 MG TABLET (FP) PO SCH (10:41)
[2016-09-29] MEDS: CEFAZOLIN 1 GM/D5W 50 ML IVPB SCH ×2 (10:41→22:39)
[2016-09-29] MEDS: FUROSEMIDE 40 MG/4 ML INJECTABLE VIAL IVPUSH SCH (11:21)
[2016-09-29 13:32] LABS: CALCIUM 8.6 mg/dL (8.5-10.1); CREATININE 1.1 mg/dL (0.55-1.02)
--- NOTE | 2016-09-29 15:21 | PN ---
Progress Note, Physician Chief Complaint: Pt alert and oriented; no chest pain or dyspnea; depressed that her health remains poor. History of Present Illness: The patient is a 61 year old female, with significant past medical history of A- fib,CHF, COPD, GERD, DM, sarcoidosis, renal insufficiency, chronic back pain, who presents today complaining of bilateral LE edema for 2 to 3 weeks. She reports that she has a small hole on the medial aspect of the right ankle that has been leaking pus since this afternoon. She reports that her normal weight is 220lb and her weight today is 260lb. She reports that her breasts have also been edematous. She is taking Lasix regularly. Dr. Estrada has advised her to take 1 additional Lasix every other day, which she has not done. She states that she lives at home with her daughter. Denies fever, chills, nausea, vomiting. Denies chest pain, SOB. Allergies: None reported PCP- Dr. Kt Estrada Resident Assistant Cna: Dr. Emily Hurt - Current Medication List Current Medications: Active Medications Atorvastatin Calcium (Lipitor -) 10 mg PO HS [facility] Last Admin: 09/28/16 21:21 Dose: 10 mg Bupropion HCl (Wellbutrin Xl -) 150 mg PO DAILY [facility] Last Admin: 09/29/16 10:39 Dose: 150 mg Dabigatran (Pradaxa -) 150 mg PO BID [facility] Last Admin: 09/29/16 10:39 Dose: 150 mg Digoxin (Lanoxin -) 0.125 mg PO DAILY [facility] Last Admin: 09/29/16 10:40 Dose: 0.125 mg Docusate Sodium (Colace -) 100 mg PO DAILY [facility] Last Admin: 09/29/16 10:40 Dose: 100 mg Duloxetine HCl (Cymbalta -) 40 mg PO DAILY [facility] Last Admin: 09/29/16 10:39 Dose: 40 mg Furosemide (Lasix Injection -) 40 mg IVPUSH DAILY [facility] Last Admin: 09/29/16 11:21 Dose: 40 mg Cefazolin Sodium (Ancef 1 Gm Premixed Ivpb -) 50 mls @ 100 mls/hr IVPB BID [facility] Last Admin: 09/29/16 10:41 Dose: 100 mls/hr Isosorbide Mononitrate (Imdur -) 30 mg PO DAILY [facility] Last Admin: 09/29/16 10:40 Dose: 30 mg Metoprolol Succinate (Toprol Xl -) 12.5 mg PO DAILY [facility] Last Admin: 09/29/16 10:40 Dose: 12.5 mg Montelukast Sodium (Singulair -) 10 mg PO HS [facility] Last Admin: 09/28/16 21:21 Dose: 10 mg Morphine Sulfate (Morphine Injection -) 0.5 mg IVPUSH Q8H PRN PRN Reason: PAIN Last Admin: 09/29/16 10:38 Dose: 0.5 mg Pramipexole Dihydrochloride (Mirapex -) 0.5 mg PO HS [facility] Last Admin: 09/28/16 21:21 Dose: 0.5 mg Prednisone (Deltasone -) 10 mg PO DAILY [facility] Last Admin: 09/29/16 10:39 Dose: 10 mg Ranitidine HCl (Zantac -) 150 mg PO DAILY [facility] Last Admin: 09/29/16 10:41 Dose: 150 mg - Objective Vital Signs: Vital Signs Temperature 98.3 F 09/29/16 10:00 Pulse Rate 65 09/29/16 10:40 Respiratory Rate 20 09/29/16 10:00 Blood Pressure 124/56 09/29/16 10:00 O2 Sat by Pulse Oximetry (%) 92 L 09/29/16 09:00 Constitutional: Yes: Anxious Eyes: Yes: WNL HENT: Yes: WNL Neck: Yes: WNL Cardiovascular: Yes: Pulse Irregular Respiratory: Yes: Diminished Gastrointestinal: Yes: Soft, Abdomen, Obese ...Rectal Exam: Yes: Deferred Genitourinary: No: Anuria Breast(s): Yes: WNL Musculoskeletal: Yes: Back Pain, Joint Stiffness, Muscle Weakness Extremities: Yes: Cool Edema: Yes Edema: LLE: Trace, RLE: Trace Peripheral Pulses WNL: No Peripheral Pulses: Left Doralis Pedis: 1+, Right Dorsalis Pedis: 1+ Integumentary: Yes: Bruising Neurological: Yes: Alert, Oriented, Weakness Psychiatric: Yes: Other (anxiety/depression) Labs: CBC, BMP 09/29/16 07:00 Abnormal Lab Results 09/29/16 07:00 Anion Gap 7 L BUN 19 H Creatinine 1.1 H - ....Imaging Ultrasound: Image Reviewed (ECHO: normal LVEF; moderate pulmonary HTN) Problem List - Problems (1) Cellulitis Code(s): L03.90 - CELLULITIS, UNSPECIFIED Qualifiers: Site of cellulitis: extremity Site of cellulitis of extremity: lower extremity Laterality: right Qualified Code(s): L03.115 - Cellulitis of right lower limb (2) Hypertensive heart and renal disease with heart failure Code(s): I13.0 - HYP HRT & CHR KDNY DIS W HRT FAIL AND STG 1-4/UNSP CHR KDNY I50.9 - HEART FAILURE, UNSPECIFIED N18.9 - CHRONIC KIDNEY DISEASE, UNSPECIFIED (3) A-fib Code(s): I48.91 - UNSPECIFIED ATRIAL FIBRILLATION Qualifiers: Atrial fibrillation type: paroxysmal Qualified Code(s): I48.0 - Paroxysmal atrial fibrillation (4) Back pain Code(s): M54.9 - DORSALGIA, UNSPECIFIED Qualifiers: Back pain location: low back pain Back pain laterality: bilateral Sciatica presence: without sciatica (5) COPD (chronic obstructive pulmonary disease) with emphysema Code(s): J43.9 - EMPHYSEMA, UNSPECIFIED Qualifiers: Emphysema type: unspecified Qualified Code(s): J43.9 - Emphysema, unspecified (6) Depression Assessment/Plan: Pt is depressed over her health. Her weight (and wheelchair), combined with a lack of easy elevator access, make her feel "like a prisoner" at home. She takes antidepressants, and feels seeing a psychiatrist would just give her another doctor to see. Code(s): F32.9 - MAJOR DEPRESSIVE DISORDER, SINGLE EPISODE, UNSPECIFIED (7) Edema Code(s): R60.9 - EDEMA, UNSPECIFIED Qualifiers: Edema type: generalized Qualified Code(s): R60.1 - Generalized edema (8) GERD (gastroesophageal reflux disease) Code(s): K21.9 - GASTRO-ESOPHAGEAL REFLUX DISEASE WITHOUT ESOPHAGITIS Qualifiers: Esophagitis presence: without esophagitis Qualified Code(s): K21.9 - Gastro-esophageal reflux disease without esophagitis (9) Hyperlipidemia Code(s): E78.5 - HYPERLIPIDEMIA, UNSPECIFIED (10) ROHIT (obstructive sleep apnea) Code(s): G47.33 - OBSTRUCTIVE SLEEP APNEA (ADULT) (PEDIATRIC) (11) Obesity Code(s): E66.9 - OBESITY, UNSPECIFIED (12) Osteoarthritis Code(s): M19.90 - UNSPECIFIED OSTEOARTHRITIS, UNSPECIFIED SITE (13) Sarcoid Code(s): D86.9 - SARCOIDOSIS, UNSPECIFIED (14) Diastolic CHF Assessment/Plan: On furosemide and Xeroxylyn. F/u BUN/Cr, electrolytes, Is and Os, daily weight. Pt says depression over her health makes her binge eat and drink (sodas, tea). Code(s): I50.30 - UNSPECIFIED DIASTOLIC (CONGESTIVE) HEART FAILURE
--- NOTE | 2016-09-29 16:08 | PN ---
Progress Note (short form) - Note Progress Note: Current Medications Atorvastatin Calcium (Lipitor -) 10 mg PO HS [facility] Last Admin: 09/28/16 21:21 Dose: 10 mg Bupropion HCl (Wellbutrin Xl -) 150 mg PO DAILY [facility] Last Admin: 09/29/16 10:39 Dose: 150 mg Dabigatran (Pradaxa -) 150 mg PO BID [facility] Last Admin: 09/29/16 10:39 Dose: 150 mg Digoxin (Lanoxin -) 0.125 mg PO DAILY [facility] Last Admin: 09/29/16 10:40 Dose: 0.125 mg Docusate Sodium (Colace -) 100 mg PO DAILY [facility] Last Admin: 09/29/16 10:40 Dose: 100 mg Duloxetine HCl (Cymbalta -) 40 mg PO DAILY [facility] Last Admin: 09/29/16 10:39 Dose: 40 mg Furosemide (Lasix Injection -) 40 mg IVPUSH DAILY [facility] Last Admin: 09/29/16 11:21 Dose: 40 mg Cefazolin Sodium (Ancef 1 Gm Premixed Ivpb -) 50 mls @ 100 mls/hr IVPB BID [facility] Last Admin: 09/29/16 10:41 Dose: 100 mls/hr Isosorbide Mononitrate (Imdur -) 30 mg PO DAILY [facility] Last Admin: 09/29/16 10:40 Dose: 30 mg Metoprolol Succinate (Toprol Xl -) 12.5 mg PO DAILY [facility] Last Admin: 09/29/16 10:40 Dose: 12.5 mg Montelukast Sodium (Singulair -) 10 mg PO HS [facility] Last Admin: 09/28/16 21:21 Dose: 10 mg Morphine Sulfate (Morphine Injection -) 0.5 mg IVPUSH Q8H PRN PRN Reason: PAIN Last Admin: 09/29/16 10:38 Dose: 0.5 mg Pramipexole Dihydrochloride (Mirapex -) 0.5 mg PO HS [facility] Last Admin: 09/28/16 21:21 Dose: 0.5 mg Prednisone (Deltasone -) 10 mg PO DAILY [facility] Last Admin: 09/29/16 10:39 Dose: 10 mg Ranitidine HCl (Zantac -) 150 mg PO DAILY [facility] Last Admin: 09/29/16 10:41 Dose: 150 mg Laboratory Results - last 24 hr 09/28/16 09/29/16 09/29/16 17:45 06:48 07:00 Sodium 143 Potassium 3.7 Chloride 105 Carbon Dioxide 31 Anion Gap 7 L BUN 19 H Creatinine 1.1 H POC Glucometer 123 99 Random Glucose 89 Calcium 8.6 Vital Signs Temp 98.5 F 09/29/16 14:57 Pulse 74 09/29/16 14:57 Resp 24 09/29/16 14:57 BP 121/72 09/29/16 14:57 Pulse Ox 92 L 09/29/16 09:00 Intake & Output 09/28/16 09/29/16 09/29/16 23:59 11:59 23:59 Intake Total 750 335 235 Balance 750 335 235 Weight 240 lb 2 oz Intake: IVPB 50 Oral 750 285 235 Other: Voiding Method Toilet Diaper Bowel Movement No Yes # Bowel Movements 0 1 Weight Measurement Method Standing Scale CC: no new issues; other than pain `````````````````````````````` skin--no new lesions RLE focus seems to be closed; erythema less lungs--diminished heart--Distant irreg abd--obese ext--no ischemic changes; (+) bilat edema neuro--fully coherent; no focal deficits ``````````````````````````````````` Summ > CHF--significantly volume over loaded; but appears to have lost a fair amount of weight, and says that she is voiding heavily. Bun/cr stable; and will cont same regimen for now. Echo shows preserved LVF; but increased RT Vent pressures > ATF--HR okay; cont BB & Dig & Pradaxa > wound infection--RLE; but seems subclinical; on IV Cefazolin; will switch to Keflex PO; and await C&S. > DM--made worse by use of Prednisone; but seems to be controlled now. > Sarcoid--chronic but seems stable; managed by Prednisone ~~~~~~~~~~~~~~~~~~~~~~ Dr Estrada Problem List - Problems (1) CHF (congestive heart failure) Code(s): I50.9 - HEART FAILURE, UNSPECIFIED Qualifiers: Congestive heart failure type: unspecified congestive heart failure type Congestive heart failure chronicity: acute on chronic Qualified Code(s ): I50.9 - Heart failure, unspecified (2) A-fib Code(s): I48.91 - UNSPECIFIED ATRIAL FIBRILLATION Qualifiers: Atrial fibrillation type: paroxysmal Qualified Code(s): I48.0 - Paroxysmal atrial fibrillation (3) Cellulitis Code(s): L03.90 - CELLULITIS, UNSPECIFIED Qualifiers: Site of cellulitis: extremity Site of cellulitis of extremity: lower extremity Laterality: right Qualified Code(s): L03.115 - Cellulitis of right lower limb (4) COPD (chronic obstructive pulmonary disease) with emphysema Code(s): J43.9 - EMPHYSEMA, UNSPECIFIED Qualifiers: Emphysema type: unspecified Qualified Code(s): J43.9 - Emphysema, unspecified (5) Edema Code(s): R60.9 - EDEMA, UNSPECIFIED Qualifiers: Edema type: generalized Qualified Code(s): R60.1 - Generalized edema (6) Back pain Code(s): M54.9 - DORSALGIA, UNSPECIFIED Qualifiers: Back pain location: low back pain Back pain laterality: bilateral Sciatica presence: without sciatica (7) Hip osteoarthritis Code(s): M16.9 - OSTEOARTHRITIS OF HIP, UNSPECIFIED Qualifiers: Osteoarthritis type: primary Laterality: right Qualified Code(s): M16.11 - Unilateral primary osteoarthritis, right hip (8) Sarcoid Code(s): D86.9 - SARCOIDOSIS, UNSPECIFIED (9) Hypertensive heart and renal disease with heart failure Code(s): I13.0 - HYP HRT & CHR KDNY DIS W HRT FAIL AND STG 1-4/UNSP CHR KDNY I50.9 - HEART FAILURE, UNSPECIFIED N18.9 - CHRONIC KIDNEY DISEASE, UNSPECIFIED (10) Restless leg syndrome Code(s): G25.81 - RESTLESS LEGS SYNDROME (11) Hyperlipidemia Code(s): E78.5 - HYPERLIPIDEMIA, UNSPECIFIED
[2016-09-29] MEDS: ATORVASTATIN CA 10 MG TABLET (FP) PO SCH (22:39)
[2016-09-29] MEDS: MONTELUKAST NA 10 MG TABLET PO SCH (22:39)
[2016-09-29] MEDS: PRAMIPEXOLE DIHYDROCHLORIDE 0.5 MG TABLET PO SCH (23:05)
[2016-09-30] MEDS: morphine CARPU-JECT 2 MG/1 ML DISP.SYRIN IVPUSH PRN (05:43)
[2016-09-30 08:43] LABS: CREATININE 1.1 mg/dL (0.55-1.02); MAGNESIUM 2.1 mg/dL (1.8-2.4)
[2016-09-30] MEDS ORDERED: METOLAZONE 2.5 MG TABLET (FP) PO ONE (09:30)
[2016-09-30] MEDS ORDERED: PT OWN MED DRAWER 7, Y5N ONE ×2 (09:53→22:55)
[2016-09-30] MEDS: CEFAZOLIN 1 GM/D5W 50 ML IVPB SCH (10:11)
[2016-09-30] MEDS: DULoxetine HCL 20 MG CAPSULE.DR (FP) PO SCH (10:12)
[2016-09-30] MEDS: DIGOXIN 0.125 MG TABLET (FP) PO SCH (10:13)
[2016-09-30] MEDS: ISOSORBIDE MONONITRATE 30 MG TAB.SR.24H (FP) PO SCH (10:13)
[2016-09-30] MEDS: DABIGATRAN ETEXILATE MESYLATE 150 MG CAPSULE PO SCH ×2 (10:14→23:03)
[2016-09-30] MEDS: METOPROLOL SUCCINATE 25 MG TAB.SR.24H (FP) PO SCH (10:15)
[2016-09-30] MEDS: DOCUSATE SODIUM 100 MG CAPSULE (FP) PO SCH (10:17)
[2016-09-30] MEDS: predniSONE 10 MG TABLET (UD) PO SCH (10:19)
[2016-09-30] MEDS: RANITIDINE HCL 150 MG TABLET (FP) PO SCH (10:19)
[2016-09-30] MEDS: FUROSEMIDE 40 MG/4 ML INJECTABLE VIAL IVPUSH SCH (11:01)
--- NOTE | 2016-09-30 11:47 | PN ---
Progress Note, Physician History of Present Illness: The patient is a 61 year old female, with significant past medical history of A- fib,CHF, COPD, GERD, DM, sarcoidosis, renal insufficiency, chronic back pain, who presents today complaining of bilateral LE edema for 2 to 3 weeks. She reports that she has a small hole on the medial aspect of the right ankle that has been leaking pus since this afternoon. She reports that her normal weight is 220lb and her weight today is 260lb. She reports that her breasts have also been edematous. She is taking Lasix regularly. Dr. Estrada has advised her to take 1 additional Lasix every other day, which she has not done. She states that she lives at home with her daughter. Denies fever, chills, nausea, vomiting. Denies chest pain, SOB. Allergies: None reported PCP- Dr. Kt Estrada Manager Shell: Dr. Emily Hurt - Current Medication List Current Medications: Active Medications Atorvastatin Calcium (Lipitor -) 10 mg PO HS [facility] Last Admin: 09/29/16 22:39 Dose: 10 mg Bupropion HCl (Wellbutrin Xl -) 150 mg PO DAILY [facility] Last Admin: 09/30/16 10:15 Dose: 150 mg Dabigatran (Pradaxa -) 150 mg PO BID [facility] Last Admin: 09/30/16 10:14 Dose: 150 mg Digoxin (Lanoxin -) 0.125 mg PO DAILY [facility] Last Admin: 09/30/16 10:13 Dose: 0.125 mg Docusate Sodium (Colace -) 100 mg PO DAILY [facility] Last Admin: 09/30/16 10:17 Dose: Not Given Duloxetine HCl (Cymbalta -) 40 mg PO DAILY [facility] Last Admin: 09/30/16 10:12 Dose: 40 mg Furosemide (Lasix Injection -) 40 mg IVPUSH DAILY [facility] Last Admin: 09/30/16 11:01 Dose: 40 mg Cefazolin Sodium (Ancef 1 Gm Premixed Ivpb -) 50 mls @ 100 mls/hr IVPB BID [facility] Last Admin: 09/30/16 10:11 Dose: 100 mls/hr Isosorbide Mononitrate (Imdur -) 30 mg PO DAILY [facility] Last Admin: 09/30/16 10:13 Dose: 30 mg Metoprolol Succinate (Toprol Xl -) 12.5 mg PO DAILY [facility] Last Admin: 09/30/16 10:15 Dose: 12.5 mg Montelukast Sodium (Singulair -) 10 mg PO [facility] Last Admin: 09/29/16 22:39 Dose: 10 mg Morphine Sulfate (Morphine Injection -) 0.5 mg IVPUSH Q8H PRN PRN Reason: PAIN Last Admin: 09/30/16 05:43 Dose: 0.5 mg Pramipexole Dihydrochloride (Mirapex -) 0.5 mg PO [facility] Last Admin: 09/29/16 23:05 Dose: 0.5 mg Prednisone (Deltasone -) 10 mg PO DAILY [facility] Last Admin: 09/30/16 10:19 Dose: 10 mg Ranitidine HCl (Zantac -) 150 mg PO DAILY [facility] Last Admin: 09/30/16 10:19 Dose: 150 mg - Objective Vital Signs: Vital Signs Temperature 98.0 F 09/30/16 10:00 Pulse Rate 82 09/30/16 10:13 Respiratory Rate 20 09/30/16 10:00 Blood Pressure 108/70 09/30/16 10:00 O2 Sat by Pulse Oximetry (%) 92 L 09/29/16 09:00 Eyes: Yes: WNL, Conjunctiva Clear, EOM Intact HENT: Yes: WNL, Atraumatic, Normocephalic Neck: Yes: WNL, Supple, Trachea Midline Cardiovascular: Yes: WNL, Regular Rate and Rhythm Respiratory: Yes: WNL, Regular, CTA Bilaterally Gastrointestinal: Yes: WNL, Normal Bowel Sounds Genitourinary: Yes: WNL Musculoskeletal: Yes: WNL Extremities: Yes: WNL Edema: Yes Edema: LLE: 1+, RLE: 1+ Integumentary: Yes: WNL Neurological: Yes: WNL, Alert, Oriented ...Motor Strength: WNL Psychiatric: Yes: WNL Labs: CBC, BMP 09/30/16 07:00 Problem List - Problems (1) CHF (congestive heart failure) Code(s): I50.9 - HEART FAILURE, UNSPECIFIED Qualifiers: Congestive heart failure type: unspecified congestive heart failure type Congestive heart failure chronicity: acute on chronic Qualified Code(s ): I50.9 - Heart failure, unspecified (2) Cellulitis Code(s): L03.90 - CELLULITIS, UNSPECIFIED Qualifiers: Site of cellulitis: extremity Site of cellulitis of extremity: lower extremity Laterality: right Qualified Code(s): L03.115 - Cellulitis of right lower limb (3) A-fib Code(s): I48.91 - UNSPECIFIED ATRIAL FIBRILLATION Qualifiers: Atrial fibrillation type: paroxysmal Qualified Code(s): I48.0 - Paroxysmal atrial fibrillation (4) Acute on chronic systolic and diastolic heart failure, NYHA class 3 Code(s): I50.43 - ACUTE ON CHRONIC COMBINED SYSTOLIC AND DIASTOLIC HRT FAIL (5) Atrial fib/flutter, transient Code(s): [id number] - (6) Back pain Code(s): M54.9 - DORSALGIA, UNSPECIFIED Qualifiers: Back pain location: low back pain Back pain laterality: bilateral Sciatica presence: without sciatica (7) COPD (chronic obstructive pulmonary disease) with emphysema Code(s): J43.9 - EMPHYSEMA, UNSPECIFIED Qualifiers: Emphysema type: unspecified Qualified Code(s): J43.9 - Emphysema, unspecified (8) Cat bite - wound Code(s): W55.01XA - BITTEN BY CAT, INITIAL ENCOUNTER (9) Cellulitis of calf Code(s): L03.119 - CELLULITIS OF UNSPECIFIED PART OF LIMB (10) Dehydration Code(s): E86.0 - DEHYDRATION (11) Depression Code(s): F32.9 - MAJOR DEPRESSIVE DISORDER, SINGLE EPISODE, UNSPECIFIED (12) Edema Code(s): R60.9 - EDEMA, UNSPECIFIED Qualifiers: Edema type: generalized Qualified Code(s): R60.1 - Generalized edema (13) Edema leg Code(s): R60.0 - LOCALIZED EDEMA Qualifiers: Laterality: left Qualified Code(s): R60.0 - Localized edema (14) Failure to thrive in adult Code(s): R62.7 - ADULT FAILURE TO THRIVE (15) GERD (gastroesophageal reflux disease) Code(s): K21.9 - GASTRO-ESOPHAGEAL REFLUX DISEASE WITHOUT ESOPHAGITIS Qualifiers: Esophagitis presence: without esophagitis Qualified Code(s): K21.9 - Gastro-esophageal reflux disease without esophagitis (16) Hip osteoarthritis Code(s): M16.9 - OSTEOARTHRITIS OF HIP, UNSPECIFIED Qualifiers: Osteoarthritis type: primary Laterality: right Qualified Code(s): M16.11 - Unilateral primary osteoarthritis, right hip (17) Hyperlipidemia Code(s): E78.5 - HYPERLIPIDEMIA, UNSPECIFIED (18) Hypertensive cardiovascular disease Code(s): I11.9 - HYPERTENSIVE HEART DISEASE WITHOUT HEART FAILURE (19) Intractable pain Code(s): R52 - PAIN, UNSPECIFIED (20) Lumbar pain with radiation down right leg Code(s): M54.5 - LOW BACK PAIN (21) Major depressive disorder, recurrent Code(s): F33.9 - MAJOR DEPRESSIVE DISORDER, RECURRENT, UNSPECIFIED (22) ROHIT (obstructive sleep apnea) Code(s): G47.33 - OBSTRUCTIVE SLEEP APNEA (ADULT) (PEDIATRIC) (23) ROHIT treated with BiPAP Code(s): G47.33 - OBSTRUCTIVE SLEEP APNEA (ADULT) (PEDIATRIC) (24) Obesities, morbid Code(s): E66.01 - MORBID (SEVERE) OBESITY DUE TO EXCESS CALORIES Qualifiers: Obesity type: due to excess calories Qualified Code(s): E66.01 - Morbid (severe) obesity due to excess calories (25) Obesity Code(s): E66.9 - OBESITY, UNSPECIFIED (26) Osteoarthritis Code(s): M19.90 - UNSPECIFIED OSTEOARTHRITIS, UNSPECIFIED SITE (27) Sacroiliitis Code(s): M46.1 - SACROILIITIS, NOT ELSEWHERE CLASSIFIED (28) Sarcoid Code(s): D86.9 - SARCOIDOSIS, UNSPECIFIED (29) Somnolence Code(s): R40.0 - SOMNOLENCE (30) UTI (urinary tract infection) Code(s): N39.0 - URINARY TRACT INFECTION, SITE NOT SPECIFIED Qualifiers: Urinary tract infection type: site unspecified Hematuria presence: without hematuria Qualified Code(s): N39.0 - Urinary tract infection, site not specified Assessment/Plan paf chf edema copd cri plan; agree with ABX and IV lasix cont AC - Problems (1) Cellulitis Code(s): L03.90 - CELLULITIS, UNSPECIFIED Qualifiers: Site of cellulitis: extremity Site of cellulitis of extremity: lower extremity Laterality: right Qualified Code(s): L03.115 - Cellulitis of right lower limb (2) Hypertensive heart and renal disease with heart failure Code(s): I13.0 - HYP HRT & CHR KDNY DIS W HRT FAIL AND STG 1-4/UNSP CHR KDNY I50.9 - HEART FAILURE, UNSPECIFIED N18.9 - CHRONIC KIDNEY DISEASE, UNSPECIFIED (3) A-fib Code(s): I48.91 - UNSPECIFIED ATRIAL FIBRILLATION Qualifiers: Atrial fibrillation type: paroxysmal Qualified Code(s): I48.0 - Paroxysmal atrial fibrillation (4) Back pain Code(s): M54.9 - DORSALGIA, UNSPECIFIED Qualifiers: Back pain location: low back pain Back pain laterality: bilateral Sciatica presence: without sciatica (5) COPD (chronic obstructive pulmonary disease) with emphysema Code(s): J43.9 - EMPHYSEMA, UNSPECIFIED Qualifiers: Emphysema type: unspecified Qualified Code(s): J43.9 - Emphysema, unspecified (6) Depression Assessment/Plan: Pt is depressed over her health. Her weight (and wheelchair), combined with a lack of easy elevator access, make her feel "like a prisoner" at home. She takes antidepressants, and feels seeing a psychiatrist would just give her another doctor to see. Code(s): F32.9 - MAJOR DEPRESSIVE DISORDER, SINGLE EPISODE, UNSPECIFIED (7) Edema Code(s): R60.9 - EDEMA, UNSPECIFIED Qualifiers: Edema type: generalized Qualified Code(s): R60.1 - Generalized edema (8) GERD (gastroesophageal reflux disease) Code(s): K21.9 - GASTRO-ESOPHAGEAL REFLUX DISEASE WITHOUT ESOPHAGITIS Qualifiers: Esophagitis presence: without esophagitis Qualified Code(s): K21.9 - Gastro-esophageal reflux disease without esophagitis (9) Hyperlipidemia Code(s): E78.5 - HYPERLIPIDEMIA, UNSPECIFIED (10) ROHIT (obstructive sleep apnea) Code(s): G47.33 - OBSTRUCTIVE SLEEP APNEA (ADULT) (PEDIATRIC) (11) Obesity Code(s): E66.9 - OBESITY, UNSPECIFIED (12) Osteoarthritis Code(s): M19.90 - UNSPECIFIED OSTEOARTHRITIS, UNSPECIFIED SITE (13) Sarcoid Code(s): D86.9 - SARCOIDOSIS, UNSPECIFIED (14) Diastolic CHF Assessment/Plan: On furosemide and Xeroxylyn. F/u BUN/Cr, electrolytes, Is and Os, daily weight. Pt says depression over her health makes her binge eat and drink (sodas, tea). Code(s): I50.30 - UNSPECIFIED DIASTOLIC (CONGESTIVE) HEART FAILURE
--- NOTE | 2016-09-30 17:26 | PN ---
Progress Note (short form) - Note Progress Note: Current Medications Atorvastatin Calcium (Lipitor -) 10 mg PO HS [facility] Last Admin: 09/29/16 22:39 Dose: 10 mg Bupropion HCl (Wellbutrin Xl -) 150 mg PO DAILY [facility] Last Admin: 09/30/16 10:15 Dose: 150 mg Cephalexin HCl (Keflex -) 500 mg PO BID [facility] Dabigatran (Pradaxa -) 150 mg PO BID [facility] Last Admin: 09/30/16 10:14 Dose: 150 mg Digoxin (Lanoxin -) 0.125 mg PO DAILY [facility] Last Admin: 09/30/16 10:13 Dose: 0.125 mg Docusate Sodium (Colace -) 100 mg PO DAILY [facility] Last Admin: 09/30/16 10:17 Dose: Not Given Duloxetine HCl (Cymbalta -) 40 mg PO DAILY [facility] Last Admin: 09/30/16 10:12 Dose: 40 mg Furosemide (Lasix Injection -) 40 mg IVPUSH DAILY [facility] Last Admin: 09/30/16 11:01 Dose: 40 mg Isosorbide Mononitrate (Imdur -) 30 mg PO DAILY [facility] Last Admin: 09/30/16 10:13 Dose: 30 mg Metolazone (Zaroxolyn -) 2.5 mg PO ONCE ONE Stop: 10/01/16 09:31 Metoprolol Succinate (Toprol Xl -) 12.5 mg PO DAILY [facility] Last Admin: 09/30/16 10:15 Dose: 12.5 mg Montelukast Sodium (Singulair -) 10 mg PO HS [facility] Last Admin: 09/29/16 22:39 Dose: 10 mg Morphine Sulfate (Morphine Injection -) 0.5 mg IVPUSH Q8H PRN PRN Reason: PAIN Last Admin: 09/30/16 05:43 Dose: 0.5 mg Potassium Chloride (K-Dur -) 10 meq PO DAILY [facility] Pramipexole Dihydrochloride (Mirapex -) 0.5 mg PO HS [facility] Last Admin: 09/29/16 23:05 Dose: 0.5 mg Prednisone (Deltasone -) 10 mg PO DAILY [facility] Last Admin: 09/30/16 10:19 Dose: 10 mg Ranitidine HCl (Zantac -) 150 mg PO DAILY [facility] Last Admin: 09/30/16 10:19 Dose: 150 mg Laboratory Results - last 24 hr 09/30/16 09/30/16 09/30/16 05:25 07:00 17:03 Sodium 143 Potassium 3.4 L Chloride 100 Carbon Dioxide 36 H Anion Gap 7 L BUN 21 H Creatinine 1.1 H POC Glucometer 89 113 Random Glucose 83 Calcium 9.0 Magnesium 2.1 Vital Signs Temp 97.9 F 09/30/16 14:51 Pulse 68 09/30/16 14:51 Resp 24 09/30/16 14:51 BP 125/63 09/30/16 14:51 Pulse Ox 92 L 09/30/16 09:00 Intake & Output 09/29/16 09/30/16 09/30/16 23:59 11:59 23:59 Intake Total 685 465 160 Balance 685 465 160 Weight 245 lb 0.8 oz Intake: IVPB 100 100 Oral 585 365 160 Other: Voiding Method Incontinent Toilet # Unmeasured Voids Void 3 Bowel Movement No Yes # Bowel Movements 1 1 Weight Measurement Method Standing Scale CC: no new issues; other than usual pain `````````````````````````````` skin--no new lesions RLE focus seems to be closed; erythema less lungs--diminished heart--Distant irreg abd--obese ext--no ischemic changes; (+) bilat edema neuro--drowsy but fully coherent; no focal deficits ``````````````````````````````````` Summ > CHF--significantly volume over loaded; again says that she is voiding heavily. Bun/cr stable; and will cont same regimen for now. Echo shows preserved LVF; but increased RT Vent pressures > ATF--HR okay; cont BB & Dig & Pradaxa > wound infection--RLE; but seems subclinical; fluid culture is negative; will switch to Keflex PO > DM--made worse by use of Prednisone; but glucose levels in low 100's now. > Sarcoid--chronic but seems stable; managed by Prednisone > Low K+--will replenish as needed; 2nd Diuresis ~~~~~~~~~~~~~~~~~~~~~~ Dr Sean Problem List - Problems (1) CHF (congestive heart failure) Code(s): I50.9 - HEART FAILURE, UNSPECIFIED Qualifiers: Congestive heart failure type: unspecified congestive heart failure type Congestive heart failure chronicity: acute on chronic Qualified Code(s ): I50.9 - Heart failure, unspecified (2) A-fib Code(s): I48.91 - UNSPECIFIED ATRIAL FIBRILLATION Qualifiers: Atrial fibrillation type: paroxysmal Qualified Code(s): I48.0 - Paroxysmal atrial fibrillation (3) Cellulitis Code(s): L03.90 - CELLULITIS, UNSPECIFIED Qualifiers: Site of cellulitis: extremity Site of cellulitis of extremity: lower extremity Laterality: right Qualified Code(s): L03.115 - Cellulitis of right lower limb (4) COPD (chronic obstructive pulmonary disease) with emphysema Code(s): J43.9 - EMPHYSEMA, UNSPECIFIED Qualifiers: Emphysema type: unspecified Qualified Code(s): J43.9 - Emphysema, unspecified (5) Edema Code(s): R60.9 - EDEMA, UNSPECIFIED Qualifiers: Edema type: generalized Qualified Code(s): R60.1 - Generalized edema (6) Back pain Code(s): M54.9 - DORSALGIA, UNSPECIFIED Qualifiers: Back pain location: low back pain Back pain laterality: bilateral Sciatica presence: without sciatica (7) Hip osteoarthritis Code(s): M16.9 - OSTEOARTHRITIS OF HIP, UNSPECIFIED Qualifiers: Osteoarthritis type: primary Laterality: right Qualified Code(s): M16.11 - Unilateral primary osteoarthritis, right hip (8) Sarcoid Code(s): D86.9 - SARCOIDOSIS, UNSPECIFIED (9) Hypertensive heart and renal disease with heart failure Code(s): I13.0 - HYP HRT & CHR KDNY DIS W HRT FAIL AND STG 1-4/UNSP CHR KDNY I50.9 - HEART FAILURE, UNSPECIFIED N18.9 - CHRONIC KIDNEY DISEASE, UNSPECIFIED (10) Restless leg syndrome Code(s): G25.81 - RESTLESS LEGS SYNDROME (11) Hyperlipidemia Code(s): E78.5 - HYPERLIPIDEMIA, UNSPECIFIED
[2016-09-30] MEDS: POTASSIUM CHLORIDE TABS 10 MEQ TABLET.ER (FP) PO SCH (18:30)
[2016-09-30] MEDS: CEPHALEXIN MONOHYDRATE 500 MG CAPSULE (UD) PO SCH (23:02)
[2016-09-30] MEDS: ATORVASTATIN CA 10 MG TABLET (FP) PO SCH (23:02)
[2016-09-30] MEDS: PRAMIPEXOLE DIHYDROCHLORIDE 0.5 MG TABLET PO SCH (23:03)
[2016-09-30] MEDS: MONTELUKAST NA 10 MG TABLET PO SCH (23:04)
[2016-10-01] MEDS ORDERED: METOLAZONE 2.5 MG TABLET (FP) PO ONE (09:30)
[2016-10-01] MEDS ORDERED: PT OWN MED DRAWER 7, Y5N ONE ×3 (10:18→21:00)
[2016-10-01 10:37] LABS: MCH 27.6 pg (25.7-33.7); MCHC 31.7 g/dl (32.0-36.0); MEAN CELL VOLUME 87.1 fl (80-96); MEAN PLT VOLUME 8.2 fl (7.5-11.1); PLATELET COUNT 107 K/MM3 (134-434); RDW 18.1 % (11.6-15.6); WHITE BLOOD COUNT 6.3 K/mm3 (4.0-10.0)
[2016-10-01] MEDS: FUROSEMIDE 40 MG/4 ML INJECTABLE VIAL IVPUSH SCH (10:53)
[2016-10-01] MEDS: ISOSORBIDE MONONITRATE 30 MG TAB.SR.24H (FP) PO SCH (10:56)
[2016-10-01] MEDS: POTASSIUM CHLORIDE TABS 10 MEQ TABLET.ER (FP) PO SCH (10:56)
[2016-10-01] MEDS: DIGOXIN 0.125 MG TABLET (FP) PO SCH (10:57)
[2016-10-01] MEDS: predniSONE 10 MG TABLET (UD) PO SCH (10:57)
[2016-10-01] MEDS: DOCUSATE SODIUM 100 MG CAPSULE (FP) PO SCH (10:57)
[2016-10-01] MEDS: RANITIDINE HCL 150 MG TABLET (FP) PO SCH (10:58)
[2016-10-01] MEDS: METOPROLOL SUCCINATE 25 MG TAB.SR.24H (FP) PO SCH (10:58)
[2016-10-01] MEDS: DULoxetine HCL 20 MG CAPSULE.DR (FP) PO SCH (10:59)
[2016-10-01] MEDS: CEPHALEXIN MONOHYDRATE 500 MG CAPSULE (UD) PO SCH ×2 (10:59→22:10)
[2016-10-01] MEDS: DABIGATRAN ETEXILATE MESYLATE 150 MG CAPSULE PO SCH ×2 (10:59→22:11)
[2016-10-01 11:14] LABS: CALCIUM 9.4 mg/dL (8.5-10.1); CREATININE 1.2 mg/dL (0.55-1.02)
--- NOTE | 2016-10-01 14:44 | PN ---
Progress Note, Physician Chief Complaint: Pt alert and oriented; no chest pain or dyspnea. History of Present Illness: The patient is a 61 year old female, with significant past medical history of A- fib,CHF, COPD, GERD, DM, sarcoidosis, renal insufficiency, chronic back pain, who presents today complaining of bilateral LE edema for 2 to 3 weeks. She reports that she has a small hole on the medial aspect of the right ankle that has been leaking pus since this afternoon. She reports that her normal weight is 220lb and her weight today is 260lb. She reports that her breasts have also been edematous. She is taking Lasix regularly. Dr. Estrada has advised her to take 1 additional Lasix every other day, which she has not done. She states that she lives at home with her daughter. Denies fever, chills, nausea, vomiting. Denies chest pain, SOB. Allergies: None reported PCP- Dr. Kt Estrada Hydrologic Engineer: Dr. Emily Hurt - Current Medication List Current Medications: Active Medications Atorvastatin Calcium (Lipitor -) 10 mg PO HS [facility] Last Admin: 09/30/16 23:02 Dose: 10 mg Bupropion HCl (Wellbutrin Xl -) 150 mg PO DAILY [facility] Last Admin: 10/01/16 10:59 Dose: 150 mg Cephalexin HCl (Keflex -) 500 mg PO BID [facility] Last Admin: 10/01/16 10:59 Dose: 500 mg Dabigatran (Pradaxa -) 150 mg PO BID [facility] Last Admin: 10/01/16 10:59 Dose: 150 mg Digoxin (Lanoxin -) 0.125 mg PO DAILY [facility] Last Admin: 10/01/16 10:57 Dose: 0.125 mg Docusate Sodium (Colace -) 100 mg PO DAILY [facility] Last Admin: 10/01/16 10:57 Dose: 100 mg Duloxetine HCl (Cymbalta -) 40 mg PO DAILY [facility] Last Admin: 10/01/16 10:59 Dose: 40 mg Furosemide (Lasix Injection -) 40 mg IVPUSH DAILY [facility] Last Admin: 10/01/16 10:53 Dose: 40 mg Isosorbide Mononitrate (Imdur -) 30 mg PO DAILY [facility] Last Admin: 10/01/16 10:56 Dose: 30 mg Metoprolol Succinate (Toprol Xl -) 12.5 mg PO DAILY [facility] Last Admin: 10/01/16 10:58 Dose: 12.5 mg Montelukast Sodium (Singulair -) 10 mg PO HS [facility] Last Admin: 09/30/16 23:04 Dose: 10 mg Morphine Sulfate (Morphine Injection -) 0.5 mg IVPUSH Q8H PRN PRN Reason: PAIN Last Admin: 09/30/16 05:43 Dose: 0.5 mg Potassium Chloride (K-Dur -) 10 meq PO DAILY [facility] Last Admin: 10/01/16 10:56 Dose: 10 meq Pramipexole Dihydrochloride (Mirapex -) 0.5 mg PO HS [facility] Last Admin: 09/30/16 23:03 Dose: 0.5 mg Prednisone (Deltasone -) 10 mg PO DAILY [facility] Last Admin: 10/01/16 10:57 Dose: 10 mg Ranitidine HCl (Zantac -) 150 mg PO DAILY [facility] Last Admin: 10/01/16 10:58 Dose: 150 mg - Objective Vital Signs: Vital Signs Temperature 97.7 F 10/01/16 06:00 Pulse Rate 90 10/01/16 11:09 Respiratory Rate 20 10/01/16 06:00 Blood Pressure 128/67 10/01/16 06:00 O2 Sat by Pulse Oximetry (%) 96 10/01/16 11:09 Constitutional: Yes: Calm Eyes: Yes: WNL HENT: Yes: WNL Neck: Yes: WNL Respiratory: Yes: Diminished Gastrointestinal: Yes: Soft, Abdomen, Obese ...Rectal Exam: Yes: Deferred Genitourinary: No: Anuria Breast(s): Yes: Other (less edematous) Musculoskeletal: Yes: Joint Stiffness, Muscle Weakness Extremities: Yes: Cool Edema: Yes Edema: LLE: 2+, RLE: 2+ Peripheral Pulses WNL: No Peripheral Pulses: Left Doralis Pedis: 1+, Right Dorsalis Pedis: 1+ Integumentary: Yes: Erythema, Venous Stasis Changes Wound/Incision: Yes: Dressing Dry and Intact Neurological: Yes: Alert, Oriented, Weakness Psychiatric: Yes: Alert, Oriented Labs: CBC, BMP 10/01/16 10:15 10/01/16 10:15 Abnormal Lab Results 10/01/16 10/01/16 10:15 10:15 MCHC 31.7 L RDW 18.1 H Plt Count 107 L Chloride 96 L Carbon Dioxide 37 H Anion Gap 7 L BUN 24 H Creatinine 1.2 H Problem List - Problems (1) Cellulitis Assessment/Plan: Antibiotics; F/u blood and wound cultures. Code(s): L03.90 - CELLULITIS, UNSPECIFIED Qualifiers: Qualified Code(s): L03.115 - Cellulitis of right lower limb (2) Hypertensive heart and renal disease with heart failure Assessment/Plan: On Imdur, metoprolol, and furosemide. Code(s): I13.0 - HYP HRT & CHR KDNY DIS W HRT FAIL AND STG 1-4/UNSP CHR KDNY I50.9 - HEART FAILURE, UNSPECIFIED N18.9 - CHRONIC KIDNEY DISEASE, UNSPECIFIED (3) A-fib Assessment/Plan: On metoprolol ER and digoxin for HR control. On Pradaxa for anticoagulation. Code(s): I48.91 - UNSPECIFIED ATRIAL FIBRILLATION Qualifiers: Qualified Code(s): I48.0 - Paroxysmal atrial fibrillation (4) Back pain Code(s): M54.9 - DORSALGIA, UNSPECIFIED (5) COPD (chronic obstructive pulmonary disease) with emphysema Code(s): J43.9 - EMPHYSEMA, UNSPECIFIED Qualifiers: Qualified Code(s): J43.9 - Emphysema, unspecified (6) Depression Assessment/Plan: Pt is depressed over her health. Her weight (and wheelchair), combined with a lack of easy elevator access, make her feel "like a prisoner" at home. She takes antidepressants, and feels seeing a psychiatrist would just give her another doctor to see. On Cymbalta and Welbutrin. Code(s): F32.9 - MAJOR DEPRESSIVE DISORDER, SINGLE EPISODE, UNSPECIFIED (7) Edema Code(s): R60.9 - EDEMA, UNSPECIFIED Qualifiers: Qualified Code(s): R60.1 - Generalized edema (8) GERD (gastroesophageal reflux disease) Code(s): K21.9 - GASTRO-ESOPHAGEAL REFLUX DISEASE WITHOUT ESOPHAGITIS Qualifiers: Qualified Code(s): K21.9 - Gastro-esophageal reflux disease without esophagitis (9) Hyperlipidemia Code(s): E78.5 - HYPERLIPIDEMIA, UNSPECIFIED (10) ROHIT (obstructive sleep apnea) Code(s): G47.33 - OBSTRUCTIVE SLEEP APNEA (ADULT) (PEDIATRIC) (11) Obesity Code(s): E66.9 - OBESITY, UNSPECIFIED (12) Osteoarthritis Code(s): M19.90 - UNSPECIFIED OSTEOARTHRITIS, UNSPECIFIED SITE (13) Sarcoid Code(s): D86.9 - SARCOIDOSIS, UNSPECIFIED (14) Diastolic CHF Assessment/Plan: On furosemide and Xeroxylyn. F/u BUN/Cr, electrolytes, Is and Os, daily weight. Pt says depression over her health makes her binge eat and drink (sodas, tea). Code(s): I50.30 - UNSPECIFIED DIASTOLIC (CONGESTIVE) HEART FAILURE
--- NOTE | 2016-10-01 16:32 | PN ---
Progress Note (short form) - Note Progress Note: Vital Signs Temperature 98.2 F 10/01/16 15:20 Pulse Rate 75 10/01/16 15:20 Respiratory Rate 20 10/01/16 15:20 Blood Pressure 113/67 10/01/16 15:20 O2 Sat by Pulse Oximetry (%) 96 10/01/16 11:09 Active Medications Atorvastatin Calcium (Lipitor -) 10 mg PO HS [facility] Last Admin: 09/30/16 23:02 Dose: 10 mg Bupropion HCl (Wellbutrin Xl -) 150 mg PO DAILY [facility] Last Admin: 10/01/16 10:59 Dose: 150 mg Cephalexin HCl (Keflex -) 500 mg PO BID [facility] Last Admin: 10/01/16 10:59 Dose: 500 mg Dabigatran (Pradaxa -) 150 mg PO BID [facility] Last Admin: 10/01/16 10:59 Dose: 150 mg Digoxin (Lanoxin -) 0.125 mg PO DAILY [facility] Last Admin: 10/01/16 10:57 Dose: 0.125 mg Docusate Sodium (Colace -) 100 mg PO DAILY [facility] Last Admin: 10/01/16 10:57 Dose: 100 mg Duloxetine HCl (Cymbalta -) 40 mg PO DAILY [facility] Last Admin: 10/01/16 10:59 Dose: 40 mg Furosemide (Lasix Injection -) 40 mg IVPUSH DAILY [facility] Last Admin: 10/01/16 10:53 Dose: 40 mg Isosorbide Mononitrate (Imdur -) 30 mg PO DAILY [facility] Last Admin: 10/01/16 10:56 Dose: 30 mg Metoprolol Succinate (Toprol Xl -) 12.5 mg PO DAILY [facility] Last Admin: 10/01/16 10:58 Dose: 12.5 mg Montelukast Sodium (Singulair -) 10 mg PO HS [facility] Last Admin: 09/30/16 23:04 Dose: 10 mg Morphine Sulfate (Morphine Injection -) 0.5 mg IVPUSH Q8H PRN PRN Reason: PAIN Last Admin: 09/30/16 05:43 Dose: 0.5 mg Potassium Chloride (K-Dur -) 10 meq PO DAILY [facility] Last Admin: 10/01/16 10:56 Dose: 10 meq Pramipexole Dihydrochloride (Mirapex -) 0.5 mg PO HS [facility] Last Admin: 09/30/16 23:03 Dose: 0.5 mg Prednisone (Deltasone -) 10 mg PO DAILY [facility] Last Admin: 10/01/16 10:57 Dose: 10 mg Ranitidine HCl (Zantac -) 150 mg PO DAILY [facility] Last Admin: 10/01/16 10:58 Dose: 150 mg Laboratory Results - last 24 hr 09/30/16 10/01/16 10/01/16 17:03 06:03 10:15 WBC 6.3 RBC 5.01 Hgb 13.9 Hct 43.7 MCV 87.1 MCHC 31.7 L RDW 18.1 H Plt Count 107 L MPV 8.2 Sodium Potassium Chloride Carbon Dioxide Anion Gap BUN Creatinine POC Glucometer 113 76 Random Glucose Calcium 10/01/16 10:15 WBC RBC Hgb Hct MCV MCHC RDW Plt Count MPV Sodium 140 Potassium 3.5 Chloride 96 L Carbon Dioxide 37 H Anion Gap 7 L BUN 24 H Creatinine 1.2 H POC Glucometer Random Glucose 103 D Calcium 9.4 CC: no new issues; other than usual pain `````````````````````````````` skin--no new lesions RLE focus seems to be closed; erythema less lungs--diminished heart--Distant irreg abd--obese ext--no ischemic changes; (+) bilat edema nearly to knees neuro--drowsy but fully coherent; no focal deficits ``````````````````````````````````` Summ > CHF--significantly volume over loaded; again says that she is voiding heavily. Bun/cr slightly up as the negative fluid balance proceeds, will need to be cautious of diuresis because of renal concerns but will cont same regimen for now. howvwer, if Bun/Cr rises significantly, will need to reduce diuretics > ATF--HR okay; cont BB & Dig & Pradaxa > wound infection--RLE; but seems subclinical; fluid culture is negative; will switch to Keflex PO > DM--made worse by use of Prednisone; but glucose levels in low 100's now. > Sarcoid--chronic but seems stable; managed with Prednisone > Low K+--will replenish as needed; 2nd Diuresis ~~~~~~~~~~~~~~~~~~~~~~ Dr Estrada Problem List - Problems (1) CHF (congestive heart failure) Code(s): I50.9 - HEART FAILURE, UNSPECIFIED Qualifiers: Qualified Code(s): I50.9 - Heart failure, unspecified (2) A-fib Code(s): I48.91 - UNSPECIFIED ATRIAL FIBRILLATION Qualifiers: Qualified Code(s): I48.0 - Paroxysmal atrial fibrillation (3) Cellulitis Code(s): L03.90 - CELLULITIS, UNSPECIFIED Qualifiers: Qualified Code(s): L03.115 - Cellulitis of right lower limb (4) COPD (chronic obstructive pulmonary disease) with emphysema Code(s): J43.9 - EMPHYSEMA, UNSPECIFIED Qualifiers: Qualified Code(s): J43.9 - Emphysema, unspecified (5) Edema Code(s): R60.9 - EDEMA, UNSPECIFIED Qualifiers: Qualified Code(s): R60.1 - Generalized edema (6) Back pain Code(s): M54.9 - DORSALGIA, UNSPECIFIED (7) Hip osteoarthritis Code(s): M16.9 - OSTEOARTHRITIS OF HIP, UNSPECIFIED Qualifiers: Qualified Code(s): M16.11 - Unilateral primary osteoarthritis, right hip (8) Sarcoid Code(s): D86.9 - SARCOIDOSIS, UNSPECIFIED (9) Hypertensive heart and renal disease with heart failure Code(s): I13.0 - HYP HRT & CHR KDNY DIS W HRT FAIL AND STG 1-4/UNSP CHR KDNY I50.9 - HEART FAILURE, UNSPECIFIED N18.9 - CHRONIC KIDNEY DISEASE, UNSPECIFIED (10) Restless leg syndrome Code(s): G25.81 - RESTLESS LEGS SYNDROME (11) Hyperlipidemia Code(s): E78.5 - HYPERLIPIDEMIA, UNSPECIFIED
[2016-10-01] MEDS ORDERED: POTASSIUM CHLORIDE TABS 10 MEQ TABLET.ER (FP) PO ONE (20:00)
[2016-10-01] MEDS: MONTELUKAST NA 10 MG TABLET PO SCH (22:11)
[2016-10-01] MEDS: ATORVASTATIN CA 10 MG TABLET (FP) PO SCH (22:11)
[2016-10-01] MEDS: PRAMIPEXOLE DIHYDROCHLORIDE 0.5 MG TABLET PO SCH (22:26)
[2016-10-02] MEDS: morphine CARPU-JECT 2 MG/1 ML DISP.SYRIN IVPUSH PRN ×2 (08:15→22:25)
[2016-10-02 08:42] LABS: CALCIUM 9.5 mg/dL (8.5-10.1); CREATININE 1.4 mg/dL (0.55-1.02); MAGNESIUM 1.9 mg/dL (1.8-2.4)
[2016-10-02] MEDS: DABIGATRAN ETEXILATE MESYLATE 150 MG CAPSULE PO SCH ×2 (10:01→22:24)
[2016-10-02] MEDS: FUROSEMIDE 40 MG/4 ML INJECTABLE VIAL IVPUSH SCH (10:02)
[2016-10-02] MEDS: METOPROLOL SUCCINATE 25 MG TAB.SR.24H (FP) PO SCH (10:02)
[2016-10-02] MEDS: DULoxetine HCL 20 MG CAPSULE.DR (FP) PO SCH (10:02)
[2016-10-02] MEDS: CEPHALEXIN MONOHYDRATE 500 MG CAPSULE (UD) PO SCH ×2 (10:02→22:23)
[2016-10-02] MEDS: POTASSIUM CHLORIDE TABS 10 MEQ TABLET.ER (FP) PO SCH (10:02)
[2016-10-02] MEDS: DIGOXIN 0.125 MG TABLET (FP) PO SCH (10:03)
[2016-10-02] MEDS: RANITIDINE HCL 150 MG TABLET (FP) PO SCH (10:03)
[2016-10-02] MEDS: predniSONE 10 MG TABLET (UD) PO SCH (10:03)
[2016-10-02] MEDS: DOCUSATE SODIUM 100 MG CAPSULE (FP) PO SCH (10:03)
[2016-10-02] MEDS: ISOSORBIDE MONONITRATE 30 MG TAB.SR.24H (FP) PO SCH (10:03)
[2016-10-02] MEDS ORDERED: KCL 10 MEQ IVPB 100 ML IVPB SCH ×2 (10:45→14:00)
--- NOTE | 2016-10-02 13:59 | PN ---
Progress Note (short form) - Note Progress Note: Current Medications Atorvastatin Calcium (Lipitor -) 10 mg PO HS [facility] Last Admin: 10/01/16 22:11 Dose: 10 mg Bupropion HCl (Wellbutrin Xl -) 150 mg PO DAILY [facility] Last Admin: 10/02/16 10:03 Dose: 150 mg Cephalexin HCl (Keflex -) 500 mg PO BID [facility] Last Admin: 10/02/16 10:02 Dose: 500 mg Dabigatran (Pradaxa -) 150 mg PO BID [facility] Last Admin: 10/02/16 10:01 Dose: 150 mg Digoxin (Lanoxin -) 0.125 mg PO DAILY [facility] Last Admin: 10/02/16 10:03 Dose: 0.125 mg Docusate Sodium (Colace -) 100 mg PO DAILY [facility] Last Admin: 10/02/16 10:03 Dose: 100 mg Duloxetine HCl (Cymbalta -) 40 mg PO DAILY [facility] Last Admin: 10/02/16 10:02 Dose: 40 mg Furosemide (Lasix Injection -) 40 mg IVPUSH DAILY [facility] Last Admin: 10/02/16 10:02 Dose: 40 mg Potassium Chloride (Potassium Chloride 10 Meq Premix Ivpb -) 100 mls @ 100 mls/ hr IVPB Q60M [facility] Stop: 10/02/16 14:59 Isosorbide Mononitrate (Imdur -) 30 mg PO DAILY [facility] Last Admin: 10/02/16 10:03 Dose: 30 mg Metoprolol Succinate (Toprol Xl -) 12.5 mg PO DAILY [facility] Last Admin: 10/02/16 10:02 Dose: 12.5 mg Montelukast Sodium (Singulair -) 10 mg PO HS [facility] Last Admin: 10/01/16 22:11 Dose: 10 mg Morphine Sulfate (Morphine Injection -) 0.5 mg IVPUSH Q8H PRN PRN Reason: PAIN Last Admin: 10/02/16 08:15 Dose: 0.5 mg Multivitamins/Minerals (Theragran-M) 1 each PO DAILY [facility] Potassium Chloride (K-Dur -) 10 meq PO DAILY [facility] Last Admin: 10/02/16 10:02 Dose: 10 meq Pramipexole Dihydrochloride (Mirapex -) 0.5 mg PO [facility] Last Admin: 10/01/16 22:26 Dose: 0.5 mg Prednisone (Deltasone -) 10 mg PO DAILY [facility] Last Admin: 10/02/16 10:03 Dose: 10 mg Ranitidine HCl (Zantac -) 150 mg PO DAILY [facility] Last Admin: 10/02/16 10:03 Dose: 150 mg Spironolactone (Aldactone -) 25 mg PO BID [facility] Vital Signs Temperature 97.9 F 10/02/16 06:00 Pulse Rate 68 10/02/16 10:50 Respiratory Rate 20 10/02/16 06:00 Blood Pressure 123/52 10/02/16 06:00 O2 Sat by Pulse Oximetry (%) 92 L 10/02/16 10:50 Laboratory Results - last 24 hr 10/01/16 10/02/16 17:58 06:35 Sodium 143 Potassium 3.3 L Chloride 96 L Carbon Dioxide 38 H Anion Gap 9 BUN 33 H D Creatinine 1.4 H POC Glucometer 142 Random Glucose 103 Calcium 9.5 Magnesium 1.9 CC: no new issues; other than usual pain `````````````````````````````` skin--no new lesions RLE focus seems to be closed lungs--diminished heart--Distant irreg abd--obese ext--no ischemic changes; (+) bilat edema nearly to knees neuro--drowsy but fully coherent; no focal deficits ``````````````````````````````````` Summ > CHF--significantly volume over loaded; Bun/cr slightly up again thus may need to cut out Metolazone. Will need to be cautious of diuresis because of renal concerns.will add K sparing agents > ATF--HR okay; cont BB & Dig & Pradaxa > wound infection--RLE; but seems subclinical; fluid culture is negative; will switch to Keflex PO > DM--made worse by use of Prednisone; but glucose levels in low 100's now. > Sarcoid--chronic but seems stable; managed with Prednisone > Low K+--will replenish as needed; 2nd Diuresis; adding Aldactone ~~~~~~~~~~~~~~~~~~~~~~ Dr Commentucci Problem List - Problems (1) CHF (congestive heart failure) Code(s): I50.9 - HEART FAILURE, UNSPECIFIED Qualifiers: Qualified Code(s): I50.9 - Heart failure, unspecified (2) A-fib Code(s): I48.91 - UNSPECIFIED ATRIAL FIBRILLATION Qualifiers: Qualified Code(s): I48.0 - Paroxysmal atrial fibrillation (3) Cellulitis Code(s): L03.90 - CELLULITIS, UNSPECIFIED Qualifiers: Qualified Code(s): L03.115 - Cellulitis of right lower limb (4) COPD (chronic obstructive pulmonary disease) with emphysema Code(s): J43.9 - EMPHYSEMA, UNSPECIFIED Qualifiers: Qualified Code(s): J43.9 - Emphysema, unspecified (5) Edema Code(s): R60.9 - EDEMA, UNSPECIFIED Qualifiers: Qualified Code(s): R60.1 - Generalized edema (6) Back pain Code(s): M54.9 - DORSALGIA, UNSPECIFIED (7) Hip osteoarthritis Code(s): M16.9 - OSTEOARTHRITIS OF HIP, UNSPECIFIED Qualifiers: Qualified Code(s): M16.11 - Unilateral primary osteoarthritis, right hip (8) Sarcoid Code(s): D86.9 - SARCOIDOSIS, UNSPECIFIED (9) Hypertensive heart and renal disease with heart failure Code(s): I13.0 - HYP HRT & CHR KDNY DIS W HRT FAIL AND STG 1-4/UNSP CHR KDNY I50.9 - HEART FAILURE, UNSPECIFIED N18.9 - CHRONIC KIDNEY DISEASE, UNSPECIFIED (10) Restless leg syndrome Code(s): G25.81 - RESTLESS LEGS SYNDROME (11) Hyperlipidemia Code(s): E78.5 - HYPERLIPIDEMIA, UNSPECIFIED
[2016-10-02] MEDS: MULTIVITAMINS THER W-MINERALS COMBO TABLET (FP) PO SCH (15:19)
[2016-10-02] MEDS ORDERED: PT OWN MED DRAWER 7, Y5N ONE (21:21)
[2016-10-02] MEDS: SPIRONOLACTONE 25 MG TABLET (FP) PO SCH (22:23)
[2016-10-02] MEDS: ATORVASTATIN CA 10 MG TABLET (FP) PO SCH (22:23)
[2016-10-02] MEDS: PRAMIPEXOLE DIHYDROCHLORIDE 0.5 MG TABLET PO SCH (22:24)
[2016-10-02] MEDS: MONTELUKAST NA 10 MG TABLET PO SCH (22:25)
[2016-10-03] MEDS ORDERED: ACETAMINOPHEN 325 MG TABLET (FP) PO ONE (01:30)
--- NOTE | 2016-10-03 04:17 | PN ---
Progress Note, Physician Chief Complaint: Pt alert and oriented; sitting up at bedside; feels better; no chest pain or dyspnea; legs still feel tight. History of Present Illness: The patient is a 61 year old white female, with significant past medical history of A-fib, diastolic CHF, COPD, GERD, DM, sarcoidosis, renal insufficiency, chronic back pain, morbid obesity, sedentary lifestyle, who presents today complaining of bilateral LE edema for 2 to 3 weeks. She reports that she has a small hole on the medial aspect of the right ankle that has been leaking pus since this afternoon. She reports that her normal weight is 220lb and her weight today is 260lb. She reports that her breasts and legs have been edematous. She is taking Lasix regularly. Dr. Estrada has advised her to take 1 additional Lasix every other day, which she has not done. She states that she lives at home with her daughter. Denies fever, chills, nausea, vomiting. Denies chest pain, SOB. Allergies: None reported PCP- Dr. Kt Estrada Interlocking Tower Operator: Dr. Emily Hurt Free Lance Artist: Dr. David Nathan - Current Medication List Current Medications: Active Medications Atorvastatin Calcium (Lipitor -) 10 mg PO HS [facility] Last Admin: 10/02/16 22:23 Dose: 10 mg Bupropion HCl (Wellbutrin Xl -) 150 mg PO DAILY [facility] Last Admin: 10/02/16 10:03 Dose: 150 mg Cephalexin HCl (Keflex -) 500 mg PO BID [facility] Last Admin: 10/02/16 22:23 Dose: 500 mg Dabigatran (Pradaxa -) 150 mg PO BID [facility] Last Admin: 10/02/16 22:24 Dose: 150 mg Digoxin (Lanoxin -) 0.125 mg PO DAILY [facility] Last Admin: 10/02/16 10:03 Dose: 0.125 mg Docusate Sodium (Colace -) 100 mg PO DAILY [facility] Last Admin: 10/02/16 10:03 Dose: 100 mg Duloxetine HCl (Cymbalta -) 40 mg PO DAILY [facility] Last Admin: 10/02/16 10:02 Dose: 40 mg Furosemide (Lasix Injection -) 40 mg IVPUSH DAILY [facility] Last Admin: 10/02/16 10:02 Dose: 40 mg Isosorbide Mononitrate (Imdur -) 30 mg PO DAILY [facility] Last Admin: 10/02/16 10:03 Dose: 30 mg Metoprolol Succinate (Toprol Xl -) 12.5 mg PO DAILY [facility] Last Admin: 10/02/16 10:02 Dose: 12.5 mg Montelukast Sodium (Singulair -) 10 mg PO HS [facility] Last Admin: 10/02/16 22:25 Dose: 10 mg Morphine Sulfate (Morphine Injection -) 0.5 mg IVPUSH Q8H PRN PRN Reason: PAIN Last Admin: 10/02/16 22:25 Dose: 0.5 mg Multivitamins/Minerals (Theragran-M) 1 each PO DAILY [facility] Last Admin: 10/02/16 15:19 Dose: 1 each Potassium Chloride (K-Dur -) 10 meq PO DAILY [facility] Last Admin: 10/02/16 10:02 Dose: 10 meq Pramipexole Dihydrochloride (Mirapex -) 0.5 mg PO HS [facility] Last Admin: 10/02/16 22:24 Dose: 0.5 mg Prednisone (Deltasone -) 10 mg PO DAILY [facility] Last Admin: 10/02/16 10:03 Dose: 10 mg Ranitidine HCl (Zantac -) 150 mg PO DAILY [facility] Last Admin: 10/02/16 10:03 Dose: 150 mg Spironolactone (Aldactone -) 25 mg PO BID [facility] Last Admin: 10/02/16 22:23 Dose: 25 mg - Objective Vital Signs: Vital Signs Temperature 97.7 F 10/03/16 02:00 Pulse Rate 90 10/03/16 02:00 Respiratory Rate 18 10/03/16 02:00 Blood Pressure 122/55 10/03/16 02:00 O2 Sat by Pulse Oximetry (%) 90 L 10/02/16 21:00 Constitutional: Yes: Calm, Obese Eyes: Yes: WNL HENT: Yes: WNL Neck: Yes: WNL Cardiovascular: Yes: Pulse Irregular, S1 (varies in intensity), S2 (split) Respiratory: Yes: Diminished. No: Wheezes Gastrointestinal: Yes: Soft, Abdomen, Obese ...Rectal Exam: Yes: Deferred Genitourinary: No: Anuria Breast(s): Yes: Other (nontender; smaller than on admission) Musculoskeletal: Yes: Joint Stiffness, Muscle Weakness Extremities: Yes: Cool Edema: Yes Edema: LLE: 1+, RLE: 1+ Peripheral Pulses WNL: No Peripheral Pulses: Left Doralis Pedis: 1+, Right Dorsalis Pedis: 1+ Integumentary: Yes: Skin Tear, Venous Stasis Changes Wound/Incision: Yes: Dressing Dry and Intact Neurological: Yes: Alert, Oriented, Weakness Psychiatric: Yes: Alert, Oriented, Other (anxiety/depression) Labs: CBC, BMP 10/01/16 10:15 10/02/16 06:35 - ....Imaging Chest X-ray: Image Reviewed (mild pulmonary vascular congestion) EKG: Image Reviewed (AF; LBBB) Problem List - Problems (1) Cellulitis Assessment/Plan: On antibiotics; F/u blood and wound cultures. Code(s): L03.90 - CELLULITIS, UNSPECIFIED Qualifiers: Qualified Code(s): L03.115 - Cellulitis of right lower limb (2) Hypertensive heart and renal disease with heart failure Assessment/Plan: On Imdur, metoprolol, and furosemide. Hypokalemia: replete, and consider changing metolazone to spironolactone if renal function allows. Code(s): I13.0 - HYP HRT & CHR KDNY DIS W HRT FAIL AND STG 1-4/UNSP CHR KDNY I50.9 - HEART FAILURE, UNSPECIFIED N18.9 - CHRONIC KIDNEY DISEASE, UNSPECIFIED (3) A-fib Assessment/Plan: On metoprolol ER and digoxin (level 0.69) for HR control. TNI 0.04; TSH 1.16. On Pradaxa for anticoagulation. Code(s): I48.91 - UNSPECIFIED ATRIAL FIBRILLATION Qualifiers: Qualified Code(s): I48.0 - Paroxysmal atrial fibrillation (4) Back pain Assessment/Plan: Pt is losing weight. Physical rehabilitation. Code(s): M54.9 - DORSALGIA, UNSPECIFIED (5) COPD (chronic obstructive pulmonary disease) with emphysema Code(s): J43.9 - EMPHYSEMA, UNSPECIFIED Qualifiers: Qualified Code(s): J43.9 - Emphysema, unspecified (6) Depression Assessment/Plan: Pt is depressed over her health. Her weight (and wheelchair), combined with a lack of easy elevator access, make her feel "like a prisoner" at home. She takes antidepressants, and feels seeing a psychiatrist would just give her another doctor to see. On Cymbalta and Welbutrin. Code(s): F32.9 - MAJOR DEPRESSIVE DISORDER, SINGLE EPISODE, UNSPECIFIED (7) Edema Code(s): R60.9 - EDEMA, UNSPECIFIED Qualifiers: Qualified Code(s): R60.1 - Generalized edema (8) GERD (gastroesophageal reflux disease) Code(s): K21.9 - GASTRO-ESOPHAGEAL REFLUX DISEASE WITHOUT ESOPHAGITIS Qualifiers: Qualified Code(s): K21.9 - Gastro-esophageal reflux disease without esophagitis (9) Hyperlipidemia Code(s): E78.5 - HYPERLIPIDEMIA, UNSPECIFIED (10) ROHIT (obstructive sleep apnea) Code(s): G47.33 - OBSTRUCTIVE SLEEP APNEA (ADULT) (PEDIATRIC) (11) Obesity Code(s): E66.9 - OBESITY, UNSPECIFIED (12) Osteoarthritis Code(s): M19.90 - UNSPECIFIED OSTEOARTHRITIS, UNSPECIFIED SITE (13) Sarcoid Assessment/Plan: 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 Code(s): D86.9 - SARCOIDOSIS, UNSPECIFIED (14) Diastolic CHF Assessment/Plan: On furosemide and Xeroxylyn; replete K+, and consider changing Xeroxylyn to spironolactone if renal function allows. F/u BUN/Cr, electrolytes, Is and Os, daily weight. Pt says depression over her health makes her binge eat and drink (sodas, tea). Code(s): I50.30 - UNSPECIFIED DIASTOLIC (CONGESTIVE) HEART FAILURE
[2016-10-03] MEDS: ISOSORBIDE MONONITRATE 30 MG TAB.SR.24H (FP) PO SCH (10:38)
[2016-10-03] MEDS: SPIRONOLACTONE 25 MG TABLET (FP) PO SCH ×2 (10:38→23:36)
[2016-10-03] MEDS: METOPROLOL SUCCINATE 25 MG TAB.SR.24H (FP) PO SCH (10:38)
[2016-10-03] MEDS: MULTIVITAMINS THER W-MINERALS COMBO TABLET (FP) PO SCH (10:38)
[2016-10-03] MEDS: POTASSIUM CHLORIDE TABS 10 MEQ TABLET.ER (FP) PO SCH (10:38)
[2016-10-03] MEDS: RANITIDINE HCL 150 MG TABLET (FP) PO SCH (10:38)
[2016-10-03] MEDS: DOCUSATE SODIUM 100 MG CAPSULE (FP) PO SCH (10:38)
[2016-10-03] MEDS: DIGOXIN 0.125 MG TABLET (FP) PO SCH (10:38)
[2016-10-03] MEDS: FUROSEMIDE 40 MG/4 ML INJECTABLE VIAL IVPUSH SCH (10:39)
[2016-10-03] MEDS: DULoxetine HCL 20 MG CAPSULE.DR (FP) PO SCH (10:39)
[2016-10-03] MEDS: predniSONE 10 MG TABLET (UD) PO SCH (10:40)
[2016-10-03] MEDS: CEPHALEXIN MONOHYDRATE 500 MG CAPSULE (UD) PO SCH ×2 (10:40→23:36)
[2016-10-03] MEDS: DABIGATRAN ETEXILATE MESYLATE 150 MG CAPSULE PO SCH ×2 (10:41→23:36)
--- NOTE | 2016-10-03 11:09 | PN ---
Progress Note (short form) - Note Progress Note: SUBJECTIVE: Patient seen and examined. Chart reviewed. Patient lying in bed. Comfortable. No complaints offered to me. OBJECTIVE: Vital Signs - 8 hr 10/03/16 10/03/16 06:00 10:38 Temperature 98.8 F Pulse Rate 67 86 Respiratory 20 Rate Blood Pressure 127/70 Intake & Output 10/02/16 10/03/16 10/03/16 23:59 07:59 15:59 Intake Total 620 120 Balance 620 120 Weight 106.764 kg Intake: IVPB 100 Oral 520 120 Other: Voiding Method Toilet # Unmeasured Voids Void 3 Bowel Movement No Weight Measurement Method Standing Scale Active Medications Atorvastatin Calcium (Lipitor -) 10 mg PO HS [facility] Last Admin: 10/02/16 22:23 Dose: 10 mg Bupropion HCl (Wellbutrin Xl -) 150 mg PO DAILY [facility] Last Admin: 10/03/16 10:38 Dose: 150 mg Cephalexin HCl (Keflex -) 500 mg PO BID [facility] Last Admin: 10/03/16 10:40 Dose: 500 mg Dabigatran (Pradaxa -) 150 mg PO BID [facility] Last Admin: 10/03/16 10:41 Dose: 150 mg Digoxin (Lanoxin -) 0.125 mg PO DAILY [facility] Last Admin: 10/03/16 10:38 Dose: 0.125 mg Docusate Sodium (Colace -) 100 mg PO DAILY [facility] Last Admin: 10/03/16 10:38 Dose: 100 mg Duloxetine HCl (Cymbalta -) 40 mg PO DAILY [facility] Last Admin: 10/03/16 10:39 Dose: 40 mg Furosemide (Lasix Injection -) 40 mg IVPUSH DAILY [facility] Last Admin: 10/03/16 10:39 Dose: 40 mg Isosorbide Mononitrate (Imdur -) 30 mg PO DAILY [facility] Last Admin: 10/03/16 10:38 Dose: 30 mg Metoprolol Succinate (Toprol Xl -) 12.5 mg PO DAILY [facility] Last Admin: 10/03/16 10:38 Dose: 12.5 mg Montelukast Sodium (Singulair -) 10 mg PO HS [facility] Last Admin: 10/02/16 22:25 Dose: 10 mg Morphine Sulfate (Morphine Injection -) 0.5 mg IVPUSH Q8H PRN PRN Reason: PAIN Last Admin: 10/02/16 22:25 Dose: 0.5 mg Multivitamins/Minerals (Theragran-M) 1 each PO DAILY [facility] Last Admin: 10/03/16 10:38 Dose: 1 each Potassium Chloride (K-Dur -) 10 meq PO DAILY [facility] Last Admin: 10/03/16 10:38 Dose: 10 meq Pramipexole Dihydrochloride (Mirapex -) 0.5 mg PO HS [facility] Last Admin: 10/02/16 22:24 Dose: 0.5 mg Prednisone (Deltasone -) 10 mg PO DAILY [facility] Last Admin: 10/03/16 10:40 Dose: 10 mg Ranitidine HCl (Zantac -) 150 mg PO DAILY [facility] Last Admin: 10/03/16 10:38 Dose: 150 mg Spironolactone (Aldactone -) 25 mg PO BID [facility] Last Admin: 10/03/16 10:38 Dose: 25 mg CBC, BMP 10/01/16 10:15 10/02/16 06:35 Laboratory Results - last 24 hr 10/02/16 10/03/16 17:39 06:59 POC Glucometer 131 96 Microbiology 09/27/16 18:09 Blood Culture - Final Blood - Peripheral Venous NO GROWTH AFTER 5 DAYS INCUBATION 09/27/16 18:09 Blood Culture - Final Blood - Peripheral Venous NO GROWTH AFTER 5 DAYS INCUBATION PHYSICAL EXAMINATION: Constitutional: Morbidly obese/ No Distress. Cardiovascular: Irregular. Distant heart sounds. Respiratory: Diminished lung sounds at the bases. Gastrointestinal: Obese Extremities: +Bilateral lower extremity edema to the knees. Neurological: Awake. ASSESSMENT & PLAN: - Clinically stable. - Medications reviewed. - Continue IV Lasix. - Follow up labs. - Daily out of bed to chair. - Dr. Woodward- Covering for Dr. Estrada today. Problem List - Problems (1) CHF (congestive heart failure) Code(s): I50.9 - HEART FAILURE, UNSPECIFIED Qualifiers: Qualified Code(s): I50.9 - Heart failure, unspecified (2) A-fib Code(s): I48.91 - UNSPECIFIED ATRIAL FIBRILLATION Qualifiers: Qualified Code(s): I48.0 - Paroxysmal atrial fibrillation (3) Cellulitis Code(s): L03.90 - CELLULITIS, UNSPECIFIED Qualifiers: Qualified Code(s): L03.115 - Cellulitis of right lower limb (4) COPD (chronic obstructive pulmonary disease) with emphysema Code(s): J43.9 - EMPHYSEMA, UNSPECIFIED Qualifiers: Qualified Code(s): J43.9 - Emphysema, unspecified (5) Edema Code(s): R60.9 - EDEMA, UNSPECIFIED Qualifiers: Qualified Code(s): R60.1 - Generalized edema (6) Back pain Code(s): M54.9 - DORSALGIA, UNSPECIFIED (7) Hip osteoarthritis Code(s): M16.9 - OSTEOARTHRITIS OF HIP, UNSPECIFIED Qualifiers: Qualified Code(s): M16.11 - Unilateral primary osteoarthritis, right hip (8) Sarcoid Code(s): D86.9 - SARCOIDOSIS, UNSPECIFIED (9) Hypertensive heart and renal disease with heart failure Code(s): I13.0 - HYP HRT & CHR KDNY DIS W HRT FAIL AND STG 1-4/UNSP CHR KDNY I50.9 - HEART FAILURE, UNSPECIFIED N18.9 - CHRONIC KIDNEY DISEASE, UNSPECIFIED (10) Restless leg syndrome Code(s): G25.81 - RESTLESS LEGS SYNDROME (11) Hyperlipidemia Code(s): E78.5 - HYPERLIPIDEMIA, UNSPECIFIED Documentation prepared by Barb Haley, acting as a medical billing clerk for Ismael Woodward MD
[2016-10-03 12:28] LABS: CALCIUM 9.9 mg/dL (8.5-10.1); CREATININE 1.1 mg/dL (0.55-1.02)
[2016-10-03] MEDS ORDERED: MAG HYDROX/AL HYDROX/SIMETH 30 ML UNIT-DOSE CUP PO ONE (14:15)
[2016-10-03] MEDS ORDERED: KCL 10 MEQ IVPB 100 ML IVPB ONE (14:30)
--- NOTE | 2016-10-03 15:46 | PN ---
Progress Note, Physician History of Present Illness: The patient is a 61 year old female, with significant past medical history of A- fib,CHF, COPD, GERD, DM, sarcoidosis, renal insufficiency, chronic back pain, who presents today complaining of bilateral LE edema for 2 to 3 weeks. She reports that she has a small hole on the medial aspect of the right ankle that has been leaking pus since this afternoon. She reports that her normal weight is 220lb and her weight today is 260lb. She reports that her breasts have also been edematous. She is taking Lasix regularly. Dr. Estrada has advised her to take 1 additional Lasix every other day, which she has not done. She states that she lives at home with her daughter. Denies fever, chills, nausea, vomiting. Denies chest pain, SOB. Allergies: None reported PCP- Dr. Kt Estrada Java Developer Consultant: Dr. Emily Hurt - Current Medication List Current Medications: Active Medications Atorvastatin Calcium (Lipitor -) 10 mg PO HS [facility] Last Admin: 10/02/16 22:23 Dose: 10 mg Bupropion HCl (Wellbutrin Xl -) 150 mg PO DAILY [facility] Last Admin: 10/03/16 10:38 Dose: 150 mg Cephalexin HCl (Keflex -) 500 mg PO BID [facility] Last Admin: 10/03/16 10:40 Dose: 500 mg Dabigatran (Pradaxa -) 150 mg PO BID [facility] Last Admin: 10/03/16 10:41 Dose: 150 mg Digoxin (Lanoxin -) 0.125 mg PO DAILY [facility] Last Admin: 10/03/16 10:38 Dose: 0.125 mg Docusate Sodium (Colace -) 100 mg PO DAILY [facility] Last Admin: 10/03/16 10:38 Dose: 100 mg Duloxetine HCl (Cymbalta -) 40 mg PO DAILY [facility] Last Admin: 10/03/16 10:39 Dose: 40 mg Furosemide (Lasix Injection -) 40 mg IVPUSH DAILY [facility] Last Admin: 10/03/16 10:39 Dose: 40 mg Isosorbide Mononitrate (Imdur -) 30 mg PO DAILY [facility] Last Admin: 10/03/16 10:38 Dose: 30 mg Metoprolol Succinate (Toprol Xl -) 12.5 mg PO DAILY [facility] Last Admin: 10/03/16 10:38 Dose: 12.5 mg Montelukast Sodium (Singulair -) 10 mg PO HS [facility] Last Admin: 10/02/16 22:25 Dose: 10 mg Morphine Sulfate (Morphine Injection -) 0.5 mg IVPUSH Q8H PRN PRN Reason: PAIN Last Admin: 10/02/16 22:25 Dose: 0.5 mg Multivitamins/Minerals (Theragran-M) 1 each PO DAILY [facility] Last Admin: 10/03/16 10:38 Dose: 1 each Potassium Chloride (K-Dur -) 10 meq PO DAILY [facility] Last Admin: 10/03/16 10:38 Dose: 10 meq Pramipexole Dihydrochloride (Mirapex -) 0.5 mg PO HS [facility] Last Admin: 10/02/16 22:24 Dose: 0.5 mg Prednisone (Deltasone -) 10 mg PO DAILY [facility] Last Admin: 10/03/16 10:40 Dose: 10 mg Ranitidine HCl (Zantac -) 150 mg PO DAILY [facility] Last Admin: 10/03/16 10:38 Dose: 150 mg Spironolactone (Aldactone -) 25 mg PO BID [facility] Last Admin: 10/03/16 10:38 Dose: 25 mg - Objective Vital Signs: Vital Signs Temperature 97.8 F 10/03/16 15:19 Pulse Rate 80 10/03/16 15:19 Respiratory Rate 18 10/03/16 15:19 Blood Pressure 109/67 10/03/16 15:19 O2 Sat by Pulse Oximetry (%) 92 L 10/03/16 09:00 Eyes: Yes: WNL, Conjunctiva Clear, EOM Intact HENT: Yes: WNL, Atraumatic, Normocephalic Neck: Yes: WNL, Supple, Trachea Midline Cardiovascular: Yes: WNL, Regular Rate and Rhythm Respiratory: Yes: WNL, Regular, CTA Bilaterally Gastrointestinal: Yes: WNL, Normal Bowel Sounds Genitourinary: Yes: WNL Musculoskeletal: Yes: WNL Extremities: Yes: WNL Edema: No Integumentary: Yes: WNL Neurological: Yes: WNL, Alert, Oriented ...Motor Strength: WNL Psychiatric: Yes: WNL Labs: CBC, BMP 10/01/16 10:15 10/03/16 11:24 Problem List - Problems (1) CHF (congestive heart failure) Code(s): I50.9 - HEART FAILURE, UNSPECIFIED Qualifiers: Qualified Code(s): I50.9 - Heart failure, unspecified (2) Cellulitis Code(s): L03.90 - CELLULITIS, UNSPECIFIED Qualifiers: Qualified Code(s): L03.115 - Cellulitis of right lower limb (3) A-fib Code(s): I48.91 - UNSPECIFIED ATRIAL FIBRILLATION Qualifiers: Qualified Code(s): I48.0 - Paroxysmal atrial fibrillation (4) Acute on chronic systolic and diastolic heart failure, NYHA class 3 Code(s): I50.43 - ACUTE ON CHRONIC COMBINED SYSTOLIC AND DIASTOLIC HRT FAIL (5) Atrial fib/flutter, transient Code(s): [id number] - (6) Back pain Code(s): M54.9 - DORSALGIA, UNSPECIFIED (7) COPD (chronic obstructive pulmonary disease) with emphysema Code(s): J43.9 - EMPHYSEMA, UNSPECIFIED Qualifiers: Qualified Code(s): J43.9 - Emphysema, unspecified (8) Cat bite - wound Code(s): W55.01XA - BITTEN BY CAT, INITIAL ENCOUNTER (9) Cellulitis of calf Code(s): L03.119 - CELLULITIS OF UNSPECIFIED PART OF LIMB (10) Dehydration Code(s): E86.0 - DEHYDRATION (11) Depression Code(s): F32.9 - MAJOR DEPRESSIVE DISORDER, SINGLE EPISODE, UNSPECIFIED (12) Edema Code(s): R60.9 - EDEMA, UNSPECIFIED Qualifiers: Qualified Code(s): R60.1 - Generalized edema (13) Edema leg Code(s): R60.0 - LOCALIZED EDEMA Qualifiers: Qualified Code(s): R60.0 - Localized edema (14) Failure to thrive in adult Code(s): R62.7 - ADULT FAILURE TO THRIVE (15) GERD (gastroesophageal reflux disease) Code(s): K21.9 - GASTRO-ESOPHAGEAL REFLUX DISEASE WITHOUT ESOPHAGITIS Qualifiers: Qualified Code(s): K21.9 - Gastro-esophageal reflux disease without esophagitis (16) Hip osteoarthritis Code(s): M16.9 - OSTEOARTHRITIS OF HIP, UNSPECIFIED Qualifiers: Qualified Code(s): M16.11 - Unilateral primary osteoarthritis, right hip (17) Hyperlipidemia Code(s): E78.5 - HYPERLIPIDEMIA, UNSPECIFIED (18) Hypertensive cardiovascular disease Code(s): I11.9 - HYPERTENSIVE HEART DISEASE WITHOUT HEART FAILURE (19) Intractable pain Code(s): R52 - PAIN, UNSPECIFIED (20) Lumbar pain with radiation down right leg Code(s): M54.5 - LOW BACK PAIN (21) Major depressive disorder, recurrent Code(s): F33.9 - MAJOR DEPRESSIVE DISORDER, RECURRENT, UNSPECIFIED (22) ROHIT (obstructive sleep apnea) Code(s): G47.33 - OBSTRUCTIVE SLEEP APNEA (ADULT) (PEDIATRIC) (23) ROHIT treated with BiPAP Code(s): G47.33 - OBSTRUCTIVE SLEEP APNEA (ADULT) (PEDIATRIC) (24) Obesities, morbid Code(s): E66.01 - MORBID (SEVERE) OBESITY DUE TO EXCESS CALORIES Qualifiers: Qualified Code(s): E66.01 - Morbid (severe) obesity due to excess calories (25) Obesity Code(s): E66.9 - OBESITY, UNSPECIFIED (26) Osteoarthritis Code(s): M19.90 - UNSPECIFIED OSTEOARTHRITIS, UNSPECIFIED SITE (27) Sacroiliitis Code(s): M46.1 - SACROILIITIS, NOT ELSEWHERE CLASSIFIED (28) Sarcoid Code(s): D86.9 - SARCOIDOSIS, UNSPECIFIED (29) Somnolence Code(s): R40.0 - SOMNOLENCE (30) UTI (urinary tract infection) Code(s): N39.0 - URINARY TRACT INFECTION, SITE NOT SPECIFIED Qualifiers: Qualified Code(s): N39.0 - Urinary tract infection, site not specified Assessment/Plan - Problems (1) Cellulitis Assessment/Plan: On antibiotics; F/u blood and wound cultures. Code(s): L03.90 - CELLULITIS, UNSPECIFIED Qualifiers: Qualified Code(s): L03.115 - Cellulitis of right lower limb (2) Hypertensive heart and renal disease with heart failure Assessment/Plan: On Imdur, metoprolol, and furosemide. Hypokalemia: replete, and consider changing metolazone to spironolactone if renal function allows. Code(s): I13.0 - HYP HRT & CHR KDNY DIS W HRT FAIL AND STG 1-4/UNSP CHR KDNY I50.9 - HEART FAILURE, UNSPECIFIED N18.9 - CHRONIC KIDNEY DISEASE, UNSPECIFIED (3) A-fib Assessment/Plan: On metoprolol ER and digoxin (level 0.69) for HR control. TNI 0.04; TSH 1.16. On Pradaxa for anticoagulation. Code(s): I48.91 - UNSPECIFIED ATRIAL FIBRILLATION Qualifiers: Qualified Code(s): I48.0 - Paroxysmal atrial fibrillation (4) Back pain Assessment/Plan: Pt is losing weight. Physical rehabilitation. Code(s): M54.9 - DORSALGIA, UNSPECIFIED (5) COPD (chronic obstructive pulmonary disease) with emphysema Code(s): J43.9 - EMPHYSEMA, UNSPECIFIED Qualifiers: Qualified Code(s): J43.9 - Emphysema, unspecified (6) Depression Assessment/Plan: Pt is depressed over her health. Her weight (and wheelchair), combined with a lack of easy elevator access, make her feel "like a prisoner" at home. She takes antidepressants, and feels seeing a psychiatrist would just give her another doctor to see. On Cymbalta and Welbutrin. Code(s): F32.9 - MAJOR DEPRESSIVE DISORDER, SINGLE EPISODE, UNSPECIFIED (7) Edema Code(s): R60.9 - EDEMA, UNSPECIFIED Qualifiers: Qualified Code(s): R60.1 - Generalized edema (8) GERD (gastroesophageal reflux disease) Code(s): K21.9 - GASTRO-ESOPHAGEAL REFLUX DISEASE WITHOUT ESOPHAGITIS Qualifiers: Qualified Code(s): K21.9 - Gastro-esophageal reflux disease without esophagitis (9) Hyperlipidemia Code(s): E78.5 - HYPERLIPIDEMIA, UNSPECIFIED (10) ROHIT (obstructive sleep apnea) Code(s): G47.33 - OBSTRUCTIVE SLEEP APNEA (ADULT) (PEDIATRIC) (11) Obesity Code(s): E66.9 - OBESITY, UNSPECIFIED (12) Osteoarthritis Code(s): M19.90 - UNSPECIFIED OSTEOARTHRITIS, UNSPECIFIED SITE (13) Sarcoid Assessment/Plan: f/u with seasoner hand, wheat cleaner. Code(s): D86.9 - SARCOIDOSIS, UNSPECIFIED (14) Diastolic CHF Assessment/Plan: On furosemide and Xeroxylyn; replete K+, and consider changing Xeroxylyn to spironolactone if renal function allows. F/u BUN/Cr, electrolytes, Is and Os, daily weight. Pt says depression over her health makes her binge eat and drink (sodas, tea). Code(s): I50.30 - UNSPECIFIED DIASTOLIC (CONGESTIVE) HEART FAILURE
[2016-10-03] MEDS ORDERED: PT OWN MED DRAWER 7, Y5N ONE (22:34)
[2016-10-03] MEDS: ATORVASTATIN CA 10 MG TABLET (FP) PO SCH (23:36)
[2016-10-03] MEDS: PRAMIPEXOLE DIHYDROCHLORIDE 0.5 MG TABLET PO SCH (23:36)
[2016-10-03] MEDS: MONTELUKAST NA 10 MG TABLET PO SCH (23:36)
[2016-10-04 08:21] LABS: BILIRUBIN,TOTAL 0.9 mg/dL (0.2-1.0); CALCIUM 9.6 mg/dL (8.5-10.1); CREATININE 1.1 mg/dL (0.55-1.02); TOT PROT 6.2 g/dl (6.4-8.2)
[2016-10-04 08:24] LABS: BASOPHIL 0.5 % (0-2.0); EOSINOPHIL 1.6 % (0-4.5); MCH 27.7 pg (25.7-33.7); MCHC 31.7 g/dl (32.0-36.0); MEAN CELL VOLUME 87.3 fl (80-96); MEAN PLT VOLUME 8.6 fl (7.5-11.1); NEUTROPHILS 66.7 % (42.8-82.8); PLATELET COUNT 96 K/MM3 (134-434); RDW 18.2 % (11.6-15.6); WHITE BLOOD COUNT 6.8 K/mm3 (4.0-10.0)
[2016-10-04] MEDS ORDERED: METOLAZONE 2.5 MG TABLET (FP) PO ONE (09:30)
[2016-10-04] MEDS: MULTIVITAMINS THER W-MINERALS COMBO TABLET (FP) PO SCH (10:19)
[2016-10-04] MEDS: DOCUSATE SODIUM 100 MG CAPSULE (FP) PO SCH (10:19)
[2016-10-04] MEDS: RANITIDINE HCL 150 MG TABLET (FP) PO SCH (10:20)
[2016-10-04] MEDS: predniSONE 10 MG TABLET (UD) PO SCH (10:20)
[2016-10-04] MEDS: CEPHALEXIN MONOHYDRATE 500 MG CAPSULE (UD) PO SCH (10:20)
[2016-10-04] MEDS: DIGOXIN 0.125 MG TABLET (FP) PO SCH (10:20)
[2016-10-04] MEDS: POTASSIUM CHLORIDE TABS 10 MEQ TABLET.ER (FP) PO SCH (10:20)
[2016-10-04] MEDS: DULoxetine HCL 20 MG CAPSULE.DR (FP) PO SCH (10:21)
[2016-10-04] MEDS: DABIGATRAN ETEXILATE MESYLATE 150 MG CAPSULE PO SCH ×2 (10:21→23:09)
[2016-10-04] MEDS: ISOSORBIDE MONONITRATE 30 MG TAB.SR.24H (FP) PO SCH (11:10)
[2016-10-04] MEDS: FUROSEMIDE 40 MG/4 ML INJECTABLE VIAL IVPUSH SCH (11:10)
[2016-10-04] MEDS: SPIRONOLACTONE 25 MG TABLET (FP) PO SCH ×2 (11:10→23:08)
[2016-10-04] MEDS: METOPROLOL SUCCINATE 25 MG TAB.SR.24H (FP) PO SCH (11:10)
[2016-10-04] MEDS ORDERED: POTASSIUM CHLORIDE TABS 20 MEQ TABLET.ER (FP) PO ONE ×2 (15:07→17:45)
--- NOTE | 2016-10-04 15:13 | PN ---
Progress Note (short form) - Note Progress Note: Current Medications Generic Name Dose Route Start Last Admin Trade Name Freq PRN Reason Stop Dose Admin Atorvastatin Calcium 10 mg 09/27/16 22:00 10/03/16 23:36 Lipitor - PO 10 mg HS [facility] Administration Bupropion HCl 150 mg 09/28/16 10:00 10/04/16 10:19 Wellbutrin Xl - PO 150 mg DAILY [facility] Administration Dabigatran 150 mg 09/27/16 22:00 10/04/16 10:21 Pradaxa - PO 150 mg BID [facility] Administration Digoxin 0.125 mg 09/28/16 10:00 10/04/16 10:20 Lanoxin - PO 0.125 mg DAILY [facility] Administration Docusate Sodium 100 mg 09/28/16 10:00 10/04/16 10:19 Colace - PO 100 mg DAILY [facility] Administration Duloxetine HCl 40 mg 09/28/16 10:00 10/04/16 10:21 Cymbalta - PO 40 mg DAILY [facility] Administration Furosemide 40 mg 09/28/16 10:00 10/04/16 11:10 Lasix Injection - IVPUSH 40 mg DAILY [facility] Administration Isosorbide Mononitrate 30 mg 09/28/16 10:00 10/04/16 11:10 Imdur - PO 30 mg DAILY [facility] Administration Metolazone 5 mg 10/05/16 09:30 Zaroxolyn - PO 10/05/16 09:31 ONCE ONE Metoprolol Succinate 12.5 mg 09/28/16 10:00 10/04/16 11:10 Toprol Xl - PO 12.5 mg DAILY [facility] Administration Montelukast Sodium 10 mg 09/27/16 22:00 10/03/16 23:36 Singulair - PO 10 mg HS [facility] Administration Morphine Sulfate 0.5 mg 10/02/16 07:47 10/02/16 22:25 Morphine Injection - IVPUSH 0.5 mg Q8H PRN Administration PAIN Multivitamins/Minerals 1 each 10/02/16 10:45 10/04/16 10:19 Theragran-M PO 1 each DAILY [facility] Administration Potassium Chloride 10 meq 09/30/16 17:30 10/04/16 10:20 K-Dur - PO 10 meq DAILY [facility] Administration Potassium Chloride 20 meq 10/04/16 15:07 K-Dur - PO 10/04/16 15:08 ONCE ONE Pramipexole Dihydrochloride 0.5 mg 09/27/16 22:00 10/03/16 23:36 Mirapex - PO 0.5 mg HS [facility] Administration Prednisone 10 mg 09/28/16 10:00 10/04/16 10:20 Deltasone - PO 10 mg DAILY [facility] Administration Ranitidine HCl 150 mg 09/28/16 10:00 10/04/16 10:20 Zantac - PO 150 mg DAILY [facility] Administration Spironolactone 25 mg 10/02/16 22:00 10/04/16 11:10 Aldactone - PO 25 mg BID [facility] Administration Laboratory Results - last 24 hr 10/03/16 10/04/16 10/04/16 17:43 06:25 06:25 WBC 6.8 RBC 4.56 Hgb 12.6 Hct 39.9 MCV 87.3 MCHC 31.7 L RDW 18.2 H Plt Count 96 L MPV 8.6 Neutrophils % 66.7 Lymphocytes % 19.5 D Monocytes % 11.7 H Eosinophils % 1.6 Basophils % 0.5 Sodium 143 Potassium 3.4 L Chloride 98 Carbon Dioxide 41 H Anion Gap 4 L BUN 32 H Creatinine 1.1 H Creat Clearance w eGFR 50.50 POC Glucometer 207 Random Glucose 100 D Calcium 9.6 Total Bilirubin 0.9 D AST 15 ALT 10 L Alkaline Phosphatase 108 Total Protein 6.2 L Albumin 3.0 L 10/04/16 06:47 WBC RBC Hgb Hct MCV MCHC RDW Plt Count MPV Neutrophils % Lymphocytes % Monocytes % Eosinophils % Basophils % Sodium Potassium Chloride Carbon Dioxide Anion Gap BUN Creatinine Creat Clearance w eGFR POC Glucometer 112 Random Glucose Calcium Total Bilirubin AST ALT Alkaline Phosphatase Total Protein Albumin Vital Signs Temperature 97.8 F 10/04/16 09:15 Pulse Rate 78 10/04/16 11:00 Respiratory Rate 18 10/04/16 11:00 Blood Pressure 112/67 10/04/16 11:00 O2 Sat by Pulse Oximetry (%) 96 10/04/16 10:20 CC: no new issues; other than usual pain `````````````````````````````` skin--no new lesions RLE focus seems to be closed lungs--diminished heart--Distant irreg abd--obese ext--no ischemic changes; (+) bilat edema neuro--fully coherent; no focal deficits ``````````````````````````````````` Summ > CHF--significantly volume over loaded; Bun/cr up but stable; will re-Rx Metolazone for AM but will need to be cautious of diuresis because of renal concerns. > ATF--HR okay; cont BB & Dig & Pradaxa > wound infection--resolved; stop Keflex > DM--made worse by use of Prednisone; but glucose levels mostly in low 100's now. > Sarcoid--chronic but seems stable; managed with Prednisone > Low K+--will replenish as needed; 2nd Diuresis; adding Aldactone ~~~~~~~~~~~~~~~~~~~~~~ Dr Estrada Problem List - Problems (1) CHF (congestive heart failure) Code(s): I50.9 - HEART FAILURE, UNSPECIFIED Qualifiers: Qualified Code(s): I50.9 - Heart failure, unspecified (2) A-fib Code(s): I48.91 - UNSPECIFIED ATRIAL FIBRILLATION Qualifiers: Qualified Code(s): I48.0 - Paroxysmal atrial fibrillation (3) Cellulitis Code(s): L03.90 - CELLULITIS, UNSPECIFIED Qualifiers: Qualified Code(s): L03.115 - Cellulitis of right lower limb (4) COPD (chronic obstructive pulmonary disease) with emphysema Code(s): J43.9 - EMPHYSEMA, UNSPECIFIED Qualifiers: Qualified Code(s): J43.9 - Emphysema, unspecified (5) Edema Code(s): R60.9 - EDEMA, UNSPECIFIED Qualifiers: Qualified Code(s): R60.1 - Generalized edema (6) Back pain Code(s): M54.9 - DORSALGIA, UNSPECIFIED (7) Hip osteoarthritis Code(s): M16.9 - OSTEOARTHRITIS OF HIP, UNSPECIFIED Qualifiers: Qualified Code(s): M16.11 - Unilateral primary osteoarthritis, right hip (8) Sarcoid Code(s): D86.9 - SARCOIDOSIS, UNSPECIFIED (9) Hypertensive heart and renal disease with heart failure Code(s): I13.0 - HYP HRT & CHR KDNY DIS W HRT FAIL AND STG 1-4/UNSP CHR KDNY I50.9 - HEART FAILURE, UNSPECIFIED N18.9 - CHRONIC KIDNEY DISEASE, UNSPECIFIED (10) Restless leg syndrome Code(s): G25.81 - RESTLESS LEGS SYNDROME (11) Hyperlipidemia Code(s): E78.5 - HYPERLIPIDEMIA, UNSPECIFIED
--- NOTE | 2016-10-04 15:44 | PN ---
Progress Note, Physician Chief Complaint: Pt alert and oriented; dyspnea on mild exertion; Bilateral LE swelling. History of Present Illness: The patient is a 61 year old white female, with significant past medical history of A-fib, diastolic CHF, COPD, GERD, DM, sarcoidosis, renal insufficiency, chronic back pain, morbid obesity, sedentary lifestyle, who presents today complaining of bilateral LE edema for 2 to 3 weeks. She reports that she has a small hole on the medial aspect of the right ankle that has been leaking pus since this afternoon. She reports that her normal weight is 220lb and her weight today is 260lb. She reports that her breasts and legs have been edematous. She is taking Lasix regularly. Dr. Estrada has advised her to take 1 additional Lasix every other day, which she has not done. She states that she lives at home with her daughter. Denies fever, chills, nausea, vomiting. Denies chest pain, SOB. Allergies: None reported PCP- Dr. Kt Estrada Web Producer: Dr. Emily Hurt Audio Video Repairer: Dr. David Nathan - Current Medication List Current Medications: Active Medications Atorvastatin Calcium (Lipitor -) 10 mg PO HS [facility] Last Admin: 10/03/16 23:36 Dose: 10 mg Bupropion HCl (Wellbutrin Xl -) 150 mg PO DAILY [facility] Last Admin: 10/04/16 10:19 Dose: 150 mg Dabigatran (Pradaxa -) 150 mg PO BID [facility] Last Admin: 10/04/16 10:21 Dose: 150 mg Digoxin (Lanoxin -) 0.125 mg PO DAILY [facility] Last Admin: 10/04/16 10:20 Dose: 0.125 mg Docusate Sodium (Colace -) 100 mg PO DAILY [facility] Last Admin: 10/04/16 10:19 Dose: 100 mg Duloxetine HCl (Cymbalta -) 40 mg PO DAILY [facility] Last Admin: 10/04/16 10:21 Dose: 40 mg Furosemide (Lasix Injection -) 40 mg IVPUSH DAILY [facility] Last Admin: 10/04/16 11:10 Dose: 40 mg Isosorbide Mononitrate (Imdur -) 30 mg PO DAILY [facility] Last Admin: 10/04/16 11:10 Dose: 30 mg Metolazone (Zaroxolyn -) 5 mg PO ONCE ONE Stop: 10/05/16 09:31 Metoprolol Succinate (Toprol Xl -) 12.5 mg PO DAILY [facility] Last Admin: 10/04/16 11:10 Dose: 12.5 mg Montelukast Sodium (Singulair -) 10 mg PO HS [facility] Last Admin: 10/03/16 23:36 Dose: 10 mg Morphine Sulfate (Morphine Injection -) 0.5 mg IVPUSH Q8H PRN PRN Reason: PAIN Last Admin: 10/02/16 22:25 Dose: 0.5 mg Multivitamins/Minerals (Theragran-M) 1 each PO DAILY [facility] Last Admin: 10/04/16 10:19 Dose: 1 each Potassium Chloride (K-Dur -) 10 meq PO DAILY [facility] Last Admin: 10/04/16 10:20 Dose: 10 meq Potassium Chloride (K-Dur -) 20 meq PO ONCE ONE Stop: 10/04/16 15:08 Pramipexole Dihydrochloride (Mirapex -) 0.5 mg PO HS [facility] Last Admin: 10/03/16 23:36 Dose: 0.5 mg Prednisone (Deltasone -) 10 mg PO DAILY [facility] Last Admin: 10/04/16 10:20 Dose: 10 mg Ranitidine HCl (Zantac -) 150 mg PO DAILY [facility] Last Admin: 10/04/16 10:20 Dose: 150 mg Spironolactone (Aldactone -) 25 mg PO BID [facility] Last Admin: 10/04/16 11:10 Dose: 25 mg - Objective Vital Signs: Vital Signs Temperature 98.3 F 10/04/16 15:36 Pulse Rate 73 10/04/16 15:36 Respiratory Rate 18 10/04/16 15:36 Blood Pressure 121/67 10/04/16 15:36 O2 Sat by Pulse Oximetry (%) 96 10/04/16 10:20 Constitutional: Yes: Calm Eyes: Yes: WNL HENT: Yes: WNL Neck: Yes: WNL Cardiovascular: Yes: Pulse Irregular Respiratory: Yes: Diminished Gastrointestinal: Yes: Soft, Abdomen, Obese ...Rectal Exam: Yes: Deferred Genitourinary: No: Anuria Breast(s): Yes: WNL Musculoskeletal: Yes: Back Pain, Joint Swelling, Muscle Weakness Extremities: Yes: Cool Edema: Yes Edema: LLE: 2+, RLE: 2+ Peripheral Pulses WNL: No Peripheral Pulses: Left Doralis Pedis: 1+, Right Dorsalis Pedis: 1+ Integumentary: Yes: Venous Stasis Changes Neurological: Yes: Alert, Oriented, Weakness Psychiatric: Yes: Alert, Oriented Labs: CBC, BMP 10/04/16 06:25 10/04/16 06:25 Abnormal Lab Results 10/04/16 10/04/16 06:25 06:25 MCHC 31.7 L RDW 18.2 H Plt Count 96 L Monocytes % 11.7 H Potassium 3.4 L Carbon Dioxide 41 H Anion Gap 4 L BUN 32 H Creatinine 1.1 H ALT 10 L Total Protein 6.2 L Albumin 3.0 L Problem List - Problems (1) Cellulitis Assessment/Plan: On antibiotics; F/u blood and wound cultures (no growth). Code(s): L03.90 - CELLULITIS, UNSPECIFIED Qualifiers: Qualified Code(s): L03.115 - Cellulitis of right lower limb (2) Hypertensive heart and renal disease with heart failure Assessment/Plan: On Imdur, metoprolol, and furosemide. Hypokalemia: replete, and f/u magnesium level; spironolactone has now been started. Code(s): I13.0 - HYP HRT & CHR KDNY DIS W HRT FAIL AND STG 1-4/UNSP CHR KDNY I50.9 - HEART FAILURE, UNSPECIFIED N18.9 - CHRONIC KIDNEY DISEASE, UNSPECIFIED (3) A-fib Assessment/Plan: On metoprolol ER and digoxin (level 0.69) for HR control. TNI 0.04; TSH 1.16. On Pradaxa for anticoagulation. Code(s): I48.91 - UNSPECIFIED ATRIAL FIBRILLATION Qualifiers: Qualified Code(s): I48.0 - Paroxysmal atrial fibrillation (4) Back pain Assessment/Plan: Pt is losing weight. Physical rehabilitation. Code(s): M54.9 - DORSALGIA, UNSPECIFIED (5) COPD (chronic obstructive pulmonary disease) with emphysema Code(s): J43.9 - EMPHYSEMA, UNSPECIFIED Qualifiers: Qualified Code(s): J43.9 - Emphysema, unspecified (6) Depression Assessment/Plan: Pt is depressed over her health. Her weight (and wheelchair), combined with a lack of easy elevator access, make her feel "like a prisoner" at home. She takes antidepressants, and feels seeing a psychiatrist would just give her another doctor to see. On Cymbalta and Welbutrin. Code(s): F32.9 - MAJOR DEPRESSIVE DISORDER, SINGLE EPISODE, UNSPECIFIED (7) Edema Code(s): R60.9 - EDEMA, UNSPECIFIED Qualifiers: Qualified Code(s): R60.1 - Generalized edema (8) GERD (gastroesophageal reflux disease) Code(s): K21.9 - GASTRO-ESOPHAGEAL REFLUX DISEASE WITHOUT ESOPHAGITIS Qualifiers: Qualified Code(s): K21.9 - Gastro-esophageal reflux disease without esophagitis (9) Hyperlipidemia Code(s): E78.5 - HYPERLIPIDEMIA, UNSPECIFIED (10) ROHIT (obstructive sleep apnea) Code(s): G47.33 - OBSTRUCTIVE SLEEP APNEA (ADULT) (PEDIATRIC) (11) Obesity Code(s): E66.9 - OBESITY, UNSPECIFIED (12) Osteoarthritis Code(s): M19.90 - UNSPECIFIED OSTEOARTHRITIS, UNSPECIFIED SITE (13) Sarcoid Assessment/Plan: f/u with iron bender, stator connector. On Prednisone. Code(s): D86.9 - SARCOIDOSIS, UNSPECIFIED (14) Diastolic CHF Assessment/Plan: On furosemide and Xeroxylyn; replete K+ and f/u Mg2+; now on spironolactone. F/u BUN/Cr, electrolytes, Is and Os, daily weight. Pt says depression over her health makes her binge eat and drink (sodas, tea). Code(s): I50.30 - UNSPECIFIED DIASTOLIC (CONGESTIVE) HEART FAILURE
[2016-10-04] MEDS ORDERED: PT OWN MED DRAWER 7, Y5N ONE ×2 (22:53→22:54)
[2016-10-04] MEDS: ATORVASTATIN CA 10 MG TABLET (FP) PO SCH (23:08)
[2016-10-04] MEDS: MONTELUKAST NA 10 MG TABLET PO SCH (23:08)
[2016-10-04] MEDS: PRAMIPEXOLE DIHYDROCHLORIDE 0.5 MG TABLET PO SCH (23:09)
[2016-10-05] MEDS: morphine CARPU-JECT 2 MG/1 ML DISP.SYRIN IVPUSH PRN ×2 (02:23→10:41)
[2016-10-05 08:47] LABS: CALCIUM 10.1 mg/dL (8.5-10.1); CREATININE 1.3 mg/dL (0.55-1.02); MAGNESIUM 1.9 mg/dL (1.8-2.4)
[2016-10-05] MEDS ORDERED: METOLAZONE 2.5 MG TABLET (FP) PO ONE (09:30)
[2016-10-05] MEDS ORDERED: PT OWN MED DRAWER 7, Y5N ONE (09:30)
[2016-10-05] MEDS: DULoxetine HCL 20 MG CAPSULE.DR (FP) PO SCH (10:03)
[2016-10-05] MEDS: predniSONE 10 MG TABLET (UD) PO SCH (10:04)
[2016-10-05] MEDS: MULTIVITAMINS THER W-MINERALS COMBO TABLET (FP) PO SCH (10:05)
[2016-10-05] MEDS: DIGOXIN 0.125 MG TABLET (FP) PO SCH (10:05)
[2016-10-05] MEDS: ISOSORBIDE MONONITRATE 30 MG TAB.SR.24H (FP) PO SCH (10:05)
[2016-10-05] MEDS: DOCUSATE SODIUM 100 MG CAPSULE (FP) PO SCH (10:05)
[2016-10-05] MEDS: RANITIDINE HCL 150 MG TABLET (FP) PO SCH (10:05)
[2016-10-05] MEDS: SPIRONOLACTONE 25 MG TABLET (FP) PO SCH (10:05)
[2016-10-05] MEDS: POTASSIUM CHLORIDE TABS 10 MEQ TABLET.ER (FP) PO SCH (10:06)
[2016-10-05] MEDS: METOPROLOL SUCCINATE 25 MG TAB.SR.24H (FP) PO SCH (10:06)
[2016-10-05] MEDS: DABIGATRAN ETEXILATE MESYLATE 150 MG CAPSULE PO SCH (10:10)
[2016-10-05] MEDS: FUROSEMIDE 40 MG/4 ML INJECTABLE VIAL IVPUSH SCH (10:42)
--- NOTE | 2016-10-05 10:48 | PN ---
Progress Note, Physician History of Present Illness: The patient is a 61 year old female, with significant past medical history of A- fib,CHF, COPD, GERD, DM, sarcoidosis, renal insufficiency, chronic back pain, who presents today complaining of bilateral LE edema for 2 to 3 weeks. She reports that she has a small hole on the medial aspect of the right ankle that has been leaking pus since this afternoon. She reports that her normal weight is 220lb and her weight today is 260lb. She reports that her breasts have also been edematous. She is taking Lasix regularly. Dr. Estrada has advised her to take 1 additional Lasix every other day, which she has not done. She states that she lives at home with her daughter. Denies fever, chills, nausea, vomiting. Denies chest pain, SOB. Allergies: None reported PCP- Dr. Kt Estrada Hair Designer: Dr. Emily Hurt - Current Medication List Current Medications: Active Medications Atorvastatin Calcium (Lipitor -) 10 mg PO [facility] Last Admin: 10/04/16 23:08 Dose: 10 mg Bupropion HCl (Wellbutrin Xl -) 150 mg PO DAILY [facility] Last Admin: 10/05/16 10:05 Dose: 150 mg Dabigatran (Pradaxa -) 150 mg PO BID [facility] Last Admin: 10/05/16 10:10 Dose: 150 mg Digoxin (Lanoxin -) 0.125 mg PO DAILY [facility] Last Admin: 10/05/16 10:05 Dose: 0.125 mg Docusate Sodium (Colace -) 100 mg PO DAILY [facility] Last Admin: 10/05/16 10:05 Dose: Not Given Duloxetine HCl (Cymbalta -) 40 mg PO DAILY [facility] Last Admin: 10/05/16 10:03 Dose: 40 mg Furosemide (Lasix Injection -) 40 mg IVPUSH DAILY [facility] Last Admin: 10/05/16 10:42 Dose: 40 mg Isosorbide Mononitrate (Imdur -) 30 mg PO DAILY [facility] Last Admin: 10/05/16 10:05 Dose: 30 mg Metoprolol Succinate (Toprol Xl -) 12.5 mg PO DAILY [facility] Last Admin: 10/05/16 10:06 Dose: 12.5 mg Montelukast Sodium (Singulair -) 10 mg PO [facility] Last Admin: 10/04/16 23:08 Dose: 10 mg Morphine Sulfate (Morphine Injection -) 0.5 mg IVPUSH Q8H PRN PRN Reason: PAIN Last Admin: 10/05/16 10:41 Dose: 0.5 mg Multivitamins/Minerals (Theragran-M) 1 each PO DAILY [facility] Last Admin: 10/05/16 10:05 Dose: 1 each Potassium Chloride (K-Dur -) 10 meq PO DAILY [facility] Last Admin: 10/05/16 10:06 Dose: 10 meq Pramipexole Dihydrochloride (Mirapex -) 0.5 mg PO HS [facility] Last Admin: 10/04/16 23:09 Dose: 0.5 mg Prednisone (Deltasone -) 10 mg PO DAILY [facility] Last Admin: 10/05/16 10:04 Dose: 10 mg Ranitidine HCl (Zantac -) 150 mg PO DAILY [facility] Last Admin: 10/05/16 10:05 Dose: 150 mg Spironolactone (Aldactone -) 25 mg PO BID [facility] Last Admin: 10/05/16 10:05 Dose: 25 mg - Objective Vital Signs: Vital Signs Temperature 97.3 F L 10/05/16 06:00 Pulse Rate 76 10/05/16 10:05 Respiratory Rate 20 10/05/16 06:00 Blood Pressure 136/76 10/05/16 06:00 O2 Sat by Pulse Oximetry (%) 96 10/04/16 21:00 Eyes: Yes: WNL, Conjunctiva Clear, EOM Intact HENT: Yes: WNL, Atraumatic, Normocephalic Neck: Yes: WNL, Supple, Trachea Midline Cardiovascular: Yes: WNL, Regular Rate and Rhythm Respiratory: Yes: WNL, Regular, CTA Bilaterally Gastrointestinal: Yes: WNL, Normal Bowel Sounds Genitourinary: Yes: WNL Musculoskeletal: Yes: WNL Extremities: Yes: WNL Edema: Yes Edema: LLE: 2+, RLE: 2+ Integumentary: Yes: WNL Neurological: Yes: WNL, Alert, Oriented ...Motor Strength: WNL Psychiatric: Yes: WNL Labs: CBC, BMP 10/04/16 06:25 10/05/16 06:35 Problem List - Problems (1) CHF (congestive heart failure) Code(s): I50.9 - HEART FAILURE, UNSPECIFIED Qualifiers: Qualified Code(s): I50.9 - Heart failure, unspecified (2) Cellulitis Code(s): L03.90 - CELLULITIS, UNSPECIFIED Qualifiers: Qualified Code(s): L03.115 - Cellulitis of right lower limb (3) A-fib Code(s): I48.91 - UNSPECIFIED ATRIAL FIBRILLATION Qualifiers: Qualified Code(s): I48.0 - Paroxysmal atrial fibrillation (4) Acute on chronic systolic and diastolic heart failure, NYHA class 3 Code(s): I50.43 - ACUTE ON CHRONIC COMBINED SYSTOLIC AND DIASTOLIC HRT FAIL (5) Atrial fib/flutter, transient Code(s): [id number] - (6) Back pain Code(s): M54.9 - DORSALGIA, UNSPECIFIED (7) COPD (chronic obstructive pulmonary disease) with emphysema Code(s): J43.9 - EMPHYSEMA, UNSPECIFIED Qualifiers: Qualified Code(s): J43.9 - Emphysema, unspecified (8) Cat bite - wound Code(s): W55.01XA - BITTEN BY CAT, INITIAL ENCOUNTER (9) Cellulitis of calf Code(s): L03.119 - CELLULITIS OF UNSPECIFIED PART OF LIMB (10) Dehydration Code(s): E86.0 - DEHYDRATION (11) Depression Code(s): F32.9 - MAJOR DEPRESSIVE DISORDER, SINGLE EPISODE, UNSPECIFIED (12) Edema Code(s): R60.9 - EDEMA, UNSPECIFIED Qualifiers: Qualified Code(s): R60.1 - Generalized edema (13) Edema leg Code(s): R60.0 - LOCALIZED EDEMA Qualifiers: Qualified Code(s): R60.0 - Localized edema (14) Failure to thrive in adult Code(s): R62.7 - ADULT FAILURE TO THRIVE (15) GERD (gastroesophageal reflux disease) Code(s): K21.9 - GASTRO-ESOPHAGEAL REFLUX DISEASE WITHOUT ESOPHAGITIS Qualifiers: Qualified Code(s): K21.9 - Gastro-esophageal reflux disease without esophagitis (16) Hip osteoarthritis Code(s): M16.9 - OSTEOARTHRITIS OF HIP, UNSPECIFIED Qualifiers: Qualified Code(s): M16.11 - Unilateral primary osteoarthritis, right hip (17) Hyperlipidemia Code(s): E78.5 - HYPERLIPIDEMIA, UNSPECIFIED (18) Hypertensive cardiovascular disease Code(s): I11.9 - HYPERTENSIVE HEART DISEASE WITHOUT HEART FAILURE (19) Intractable pain Code(s): R52 - PAIN, UNSPECIFIED (20) Lumbar pain with radiation down right leg Code(s): M54.5 - LOW BACK PAIN (21) Major depressive disorder, recurrent Code(s): F33.9 - MAJOR DEPRESSIVE DISORDER, RECURRENT, UNSPECIFIED (22) ROHIT (obstructive sleep apnea) Code(s): G47.33 - OBSTRUCTIVE SLEEP APNEA (ADULT) (PEDIATRIC) (23) ROHIT treated with BiPAP Code(s): G47.33 - OBSTRUCTIVE SLEEP APNEA (ADULT) (PEDIATRIC) (24) Obesities, morbid Code(s): E66.01 - MORBID (SEVERE) OBESITY DUE TO EXCESS CALORIES Qualifiers: Qualified Code(s): E66.01 - Morbid (severe) obesity due to excess calories (25) Obesity Code(s): E66.9 - OBESITY, UNSPECIFIED (26) Osteoarthritis Code(s): M19.90 - UNSPECIFIED OSTEOARTHRITIS, UNSPECIFIED SITE (27) Sacroiliitis Code(s): M46.1 - SACROILIITIS, NOT ELSEWHERE CLASSIFIED (28) Sarcoid Code(s): D86.9 - SARCOIDOSIS, UNSPECIFIED (29) Somnolence Code(s): R40.0 - SOMNOLENCE (30) UTI (urinary tract infection) Code(s): N39.0 - URINARY TRACT INFECTION, SITE NOT SPECIFIED Qualifiers: Qualified Code(s): N39.0 - Urinary tract infection, site not specified Assessment/Plan - Problems (1) Cellulitis Assessment/Plan: On antibiotics; F/u blood and wound cultures (no growth). Code(s): L03.90 - CELLULITIS, UNSPECIFIED Qualifiers: Qualified Code(s): L03.115 - Cellulitis of right lower limb (2) Hypertensive heart and renal disease with heart failure Assessment/Plan: On Imdur, metoprolol, and furosemide. Hypokalemia: replete, and f/u magnesium level; spironolactone has now been started. Code(s): I13.0 - HYP HRT & CHR KDNY DIS W HRT FAIL AND STG 1-4/UNSP CHR KDNY I50.9 - HEART FAILURE, UNSPECIFIED N18.9 - CHRONIC KIDNEY DISEASE, UNSPECIFIED (3) A-fib Assessment/Plan: On metoprolol ER and digoxin (level 0.69) for HR control. TNI 0.04; TSH 1.16. On Pradaxa for anticoagulation. Code(s): I48.91 - UNSPECIFIED ATRIAL FIBRILLATION Qualifiers: Qualified Code(s): I48.0 - Paroxysmal atrial fibrillation (4) Back pain Assessment/Plan: Pt is losing weight. Physical rehabilitation. Code(s): M54.9 - DORSALGIA, UNSPECIFIED (5) COPD (chronic obstructive pulmonary disease) with emphysema Code(s): J43.9 - EMPHYSEMA, UNSPECIFIED Qualifiers: Qualified Code(s): J43.9 - Emphysema, unspecified (6) Depression Assessment/Plan: Pt is depressed over her health. Her weight (and wheelchair), combined with a lack of easy elevator access, make her feel "like a prisoner" at home. She takes antidepressants, and feels seeing a psychiatrist would just give her another doctor to see. On Cymbalta and Welbutrin. Code(s): F32.9 - MAJOR DEPRESSIVE DISORDER, SINGLE EPISODE, UNSPECIFIED (7) Edema Code(s): R60.9 - EDEMA, UNSPECIFIED Qualifiers: Qualified Code(s): R60.1 - Generalized edema (8) GERD (gastroesophageal reflux disease) Code(s): K21.9 - GASTRO-ESOPHAGEAL REFLUX DISEASE WITHOUT ESOPHAGITIS Qualifiers: Qualified Code(s): K21.9 - Gastro-esophageal reflux disease without esophagitis (9) Hyperlipidemia Code(s): E78.5 - HYPERLIPIDEMIA, UNSPECIFIED (10) ROHIT (obstructive sleep apnea) Code(s): G47.33 - OBSTRUCTIVE SLEEP APNEA (ADULT) (PEDIATRIC) (11) Obesity Code(s): E66.9 - OBESITY, UNSPECIFIED (12) Osteoarthritis Code(s): M19.90 - UNSPECIFIED OSTEOARTHRITIS, UNSPECIFIED SITE (13) Sarcoid Assessment/Plan: f/u with paste up artist, marketing agent. On Prednisone. Code(s): D86.9 - SARCOIDOSIS, UNSPECIFIED (14) Diastolic CHF Assessment/Plan: On furosemide and Xeroxylyn; replete K+ and f/u Mg2+; now on spironolactone. F/u BUN/Cr, electrolytes, Is and Os, daily weight. Pt says depression over her health makes her binge eat and drink (sodas, tea). Code(s): I50.30 - UNSPECIFIED DIASTOLIC (CONGESTIVE) HEART FAILURE
--- NOTE | 2016-10-05 13:34 | DS ---
Physical Examination Vital Signs: Vital Signs Temperature 97.3 F L 10/05/16 06:00 Pulse Rate 76 10/05/16 10:05 Respiratory Rate 20 10/05/16 06:00 Blood Pressure 136/76 10/05/16 06:00 O2 Sat by Pulse Oximetry (%) 96 10/04/16 21:00 Constitutional: Yes: Well Nourished, No Distress, Calm Eyes: Yes: Conjunctiva Clear Cardiovascular: Yes: Pulse Irregular Respiratory: Yes: Regular, Diminished Gastrointestinal: Yes: Normal Bowel Sounds, Soft Breast(s): Yes: WNL Edema: Yes Edema: LLE: 1+, RLE: 1+ Peripheral Pulses WNL: Yes Integumentary: Yes: Rash (Lt flank) Neurological: Yes: WNL ...Motor Strength: WNL Psychiatric: Yes: WNL Labs: CBC, BMP 10/04/16 06:25 10/05/16 06:35 Discharge Summary Reason For Visit: CONGESTIVE HEART FAILURE; CELLULITIS Current Active Problems CHF (congestive heart failure) (Acute) Cellulitis RLE(Acute) Diastolic CHF (Acute) Hypertensive heart and renal disease with heart failure (Acute) Restless leg syndrome (Acute) ATF DM Sarcoidosis Depression ASthma ROHIT Hospital Course: admitted because she was becoming sluggish, and more listless noting progressive swelling of legs and breasts. She claims she was taking her meds properly, but admits she drinks copious amts of fluids (not new) during the day. She also noted drainage of fluid from a small focus of the Rt ankle, and perhaps some redness surrounding it. This was brought about by her having "scratched" the skin. She was placed on IV/PO abs. The wound culture was negative and the Abs were eventually stopped. The CXR reveals bilat congestion; the BNP was approx 5K. Upon admission, she was vigorously diuresed; and in combination with fluid restriction; was able to lose a fair amount of water weight. Her legs had been swelling to the knees, and on d/c they were only 1/4 up the legs. More aggressive diuresis could not be done to do fluct low BP and rising Bun/cr & vCo2; but felt markedly better on day of discharge. She was advised to continue her same meds but to weigh herself daily and limit fluid intake. Condition: Improved - Instructions Diet, Activity, Other Instructions: low salt; limit fluid intake to 1 quart daily Referrals: Kt Estrada MD [Primary Care Provider] - Disposition: CUSTODIAL FACILITY - Home Medications Comprehensive Discharge Medication List: Ambulatory Orders Albuterol Sulfate Inhaler - [Ventolin HFA Inhaler -] 1 - 2 inh PO QID 09/27/16 Atorvastatin Ca [Lipitor] 10 mg PO HS 09/27/16 Bupropion HCl [Bupropion HCl ER] 150 mg PO DAILY 09/27/16 Calcium Carbonate [Calcium] 1,200 mg PO DAILY 09/27/16 Dabigatran Etexilate Mesylate [Pradaxa -] 150 mg PO BID 09/27/16 Digoxin [Digitek] 125 mcg PO DAILY 09/27/16 Duloxetine HCl 30 mg PO DAILY 09/27/16 Furosemide [Lasix] 80 mg PO DAILY 09/27/16 Isosorbide Mononitrate [Isosorbide Mononitrate ER] 30 mg PO DAILY 09/27/16 Magnesium Oxide [Magnesium] 500 mg PO DAILY 09/27/16 Metformin HCl [Metformin HCl ER] 500 mg PO DAILY 09/27/16 Metoprolol Succinate [Toprol Xl] 50 mg PO DAILY 09/27/16 Montelukast Na [Singulair -] 10 mg PO HS 09/27/16 Oxycodone HCl/Acetaminophen [Oxycodone-Acetaminophen 10-325] 1 each PO DAILY 07/04 Pramipexole Dihydrochloride [Mirapex -] 0.5 mg PO TID 09/27/16 Prednisone 10 mg PO DAILY 09/27/16 Ranitidine [Zantac -] 150 mg PO DAILY 09/27/16 Spironolactone 25 mg PO DAILY 09/27/16
[2016-10-05 15:33] VITALS: BP 107/67; PULSE 78; TEMP 98.5
== END 2016-10-05 17:19 | disposition home or self-care (01) | DRG 291 ==
LOC: JER 15:43 → JERBED 18:23 → UNDOADMIN 18:23 → JERBED 20:42 → UNDOADMIN 20:42 → JERBED 20:52 → J5S 20:52 → JERBED 20:56
PROVIDERS: ADMIT Internal Medicine; ATTEND Internal Medicine
DX: I13.0 Hypertensive heart and chronic kidney disease with heart failure and stage 1 through stage 4 chronic kidney disease, or unspecified chronic kidney disease (principal); I50.33 Acute on chronic diastolic (congestive) heart failure; L03.115 Cellulitis of right lower limb; Z68.41 Body mass index [BMI] 40.0-44.9, adult; J44.9 Chronic obstructive pulmonary disease, unspecified; K21.9 Gastro-esophageal reflux disease without esophagitis; E11.9 Type 2 diabetes mellitus without complications; N18.9 Chronic kidney disease, unspecified; D86.9 Sarcoidosis, unspecified; K57.90 Diverticulosis of intestine, part unspecified, without perforation or abscess without bleeding; I27.2 Other secondary pulmonary hypertension; G25.81 Restless legs syndrome; M54.89 Other dorsalgia; M85.88 Other specified disorders of bone density and structure, other site; I48.0 Paroxysmal atrial fibrillation; M16.11 Unilateral primary osteoarthritis, right hip; E87.6 Hypokalemia; G47.33 Obstructive sleep apnea (adult) (pediatric); F32.9 Major depressive disorder, single episode, unspecified; E66.8 Other obesity; Z71.3 Dietary counseling and surveillance; Z79.51 Long term (current) use of inhaled steroids; Z87.891 Personal history of nicotine dependence; Z99.81 Dependence on supplemental oxygen
CPT/HCPCS: 36415; 71010-TC; 80048; 80053; 80162; 81003; 81015; 82550; 83735; 83880; 84443; 84484; 85025; 85027; 87040; 87070; 87086; 87205; 93005; 93010; 93306-TC; 99283-25

== ENCOUNTER 2017-02-02 02:23 | Inpatient (IN) | payer OTHER ==
[2017-02-02 03:08] VITALS: BMI 42.9
--- NOTE | 2017-02-02 03:10 | PDOC ---
History of Present Illness - General History Source: Patient <Darell Gottlieb - Last Filed: 02/02/17 05:30> - General History Source: Patient, Family Exam Limitations: Clinical Condition, Other - History of Present Illness Initial Comments: 02/02/17 04:12 The patient is a 61 year old female with significant past medical history of afib, CHF, hypertension, hyperlipidemia, diabetes, COPD (ex-smoker), O2 dependent, sarcoidosis, GERD, erythrocytosis, chronic low back pain, and osteoarthritis who presents to the ED for AMS and after being found down on the floor few hours prior to arrival. Patient is a poor historian. As per daughter, at bedside, after arriving home around 12:30 she found the patient on the floor. Daughter noted her eyelids to be crusted shut with surrounding redness and swelling. Daughter reports her sister left the patient at home around 7: 30pm and at that time patient was in her usual state of health. Patient does not recall falling. Unknown LOC or head trauma. Patient states she remembers sitting down on the toilet and the last thing she remembers is being woken up by her daughter. Daughter states patient has not been feeling well within the past week and patients twin sister has also been ill recently. Patient has complaints of right-sided abdominal pain that she describes as a achy sensation and 5/10. Daughter reports patient has chronic leg swelling, but noted her increased swelling to her legs bilaterally. Allergies: NKDA Social History: Former smoker. No alcohol or drug use reported. Past Surgical History: herniated disc removed PCP: Dr. Kt Estrada Cardio: Dr. David Nathan <Bonnie Fletcehr - Last Filed: 02/02/17 05:32> - General Chief Complaint: Injury Stated Complaint: FALL Time Seen by Provider: 02/02/17 02:51 Past History - Past Medical History Anemia: No Asthma: No Cancer: No Cardiac Disorders: No CVA: No COPD: (SARCOIDOSIS) CHF: Yes Dementia: No Diabetes: Yes GI Disorders: Yes (Acid reflex) Disorders: Yes (renal insufficiency from NSAIDs) HTN: Yes Hypercholesterolemia: No Liver Disease: No Psychiatric Problems: Yes (DEPRESSION.) Seizures: No Thyroid Disease: No - Surgical History Abdominal Surgery: No Appendectomy: No Cardiac Surgery: No Cholecystectomy: No Lung Surgery: No Neurologic Surgery: No Orthopedic Surgery: Yes (Herniated discs removed) - Psycho/Social/Smoking Cessation Hx Anxiety: No Suicidal Ideation: No Smoking Status: Yes Smoking History: Never smoked Have you smoked in the past 12 months: No Number of Cigarettes Smoked Daily: 0 If you are a former smoker, when did you quit?: 2007 Information on smoking cessation initiated: No Hx Alcohol Use: No Drug/Substance Use Hx: No Substance Use Type: None Hx Substance Use Treatment: No <Darell Gottlieb - Last Filed: 02/02/17 05:30> <Bonnie Fletcher - Last Filed: 02/02/17 05:32> - Past Medical History Allergies/Adverse Reactions: Allergies Allergy/AdvReac Type Severity Reaction Status Date / Time No Known Allergies Allergy Verified 02/02/17 03:00 Home Medications: Ambulatory Orders Albuterol Sulfate Inhaler - [Ventolin HFA Inhaler -] 1 - 2 inh PO QID 09/27/16 Atorvastatin Ca [Lipitor] 10 mg PO HS 09/27/16 Bupropion HCl [Bupropion HCl ER] 150 mg PO DAILY 09/27/16 Dabigatran Etexilate Mesylate [Pradaxa -] 150 mg PO BID 09/27/16 Digoxin [Digitek] 125 mcg PO DAILY 09/27/16 Duloxetine HCl 30 mg PO DAILY 09/27/16 Furosemide [Lasix] 80 mg PO DAILY 09/27/16 Isosorbide Mononitrate [Isosorbide Mononitrate ER] 30 mg PO DAILY 09/27/16 Magnesium Oxide [Magnesium] 500 mg PO DAILY 09/27/16 Metformin HCl [Metformin HCl ER] 500 mg PO DAILY 09/27/16 Metoprolol Succinate [Toprol Xl] 50 mg PO DAILY 09/27/16 Montelukast Na [Singulair -] 10 mg PO HS 09/27/16 Oxycodone HCl/Acetaminophen [Oxycodone-Acetaminophen 10-325] 1 each PO DAILY 07/04 Pramipexole Dihydrochloride [Mirapex -] 0.5 mg PO TID 09/27/16 Prednisone 10 mg PO DAILY 09/27/16 Ranitidine [Zantac -] 150 mg PO DAILY 09/27/16 Spironolactone 25 mg PO DAILY 09/27/16 Torsemide [Demadex] 100 mg PO DAILY 02/02/17 Review of Systems - Review of Systems Able to Perform ROS?: Yes Comments:: 02/02/17 04:12 Very limited as patient appears to be confused CONSTITUTIONAL: Absent: fever, no chills, no fatigue EYES: +eyelid redness and swelling Absent: visual changes ENT: Absent: ear pain, no sore throat CARDIOVASCULAR: Absent: chest pain RESPIRATORY: Absent: cough, no SOB GI: +right-sided abdominal pain Absent: no nausea, no vomiting, no constipation, no diarrhea MUSCULOSKELETAL: +bilateral leg swelling Absent: back pain, no arthralgia, no myalgia SKIN: Absent: rash NEURO: Absent: headache <Bonnie Fletcher - Last Filed: 02/02/17 05:32> *Physical Exam - Vital Signs Last Vital Signs Temp Pulse Resp BP Pulse Ox 59 L 18 108/56 95 02/02/17 02:57 02/02/17 02:57 02/02/17 02:57 02/02/17 02:57 <Darell Gottlieb - Last Filed: 02/02/17 05:30> - Vital Signs Last Vital Signs Temp Pulse Resp BP Pulse Ox 59 L 18 108/56 95 02/02/17 02:57 02/02/17 02:57 02/02/17 02:57 02/02/17 02:57 - Physical Exam Comments: 02/02/17 04:13 GENERAL: Morbidly obese. Well developed, well nourished. Awake and alert. No acute distress. HEENT: Normocephalic. PERRLA, EOMI. Bilateral eyelid ecchymosis/edema. Diffuse discharge from bilateral eyes that is malodorous. No periorbital ecchymosis. No racoon or sesay sign. No conjunctival pallor. Sclera are non-icteric. Moist mucous membranes. Oropharynx is clear. NECK: Supple. Full ROM. No JVD. Carotid pulses 2+ and symmetric, without bruits. No thyromegaly. No lymphadenopathy. CARDIOVASCULAR: Regular rate and rhythm. No murmurs, rubs, or gallops. Distal pulses are 2+ and symmetric. PULMONARY: No evidence of respiratory distress. Lungs clear to auscultation bilaterally. No wheezing, rales or rhonchi. ABDOMINAL: Soft. Non-tender. Non-distended. No rebound or guarding. No organomegaly. Normoactive bowel sounds. MUSCULOSKELETAL Normal range of motion at all joints. No bony deformities or tenderness. Negative pelvic rock. No CVA tenderness. EXTREMITIES: No cyanosis. No clubbing. +1 bilateral pitting edema. No calf tenderness. SKIN: Warm and dry. Normal capillary refill. No rashes. No jaundice. NEUROLOGICAL: Alert, awake, oriented. Answering questions appropriately. No gross motor deficits. No gross neurological deficits. <Bonnie Fletcher - Last Filed: 02/02/17 05:32> Heart Score/ECG Review - ECG Impressions Comment:: 02/02/17 03:38 Atrial fibrillation with rapid ventricular response @105bpm L axis deviation RBBB Possible lateral infarct, age undetermined Inferior infarct, age undetermined Abnormal ECG <Bonnie Fletcher - Last Filed: 02/02/17 05:32> ED Treatment Course - LABORATORY CBC & Chemistry Diagram: 02/02/17 03:44 02/02/17 03:48 <Darell Gottlieb - Last Filed: 02/02/17 05:30> - LABORATORY CBC & Chemistry Diagram: 02/02/17 03:44 02/02/17 03:48 - RADIOLOGY Radiograph Interpretation: 02/02/17 05:13 EXAM: CT brain without contrast Reviewed by Imaging concrete bucket unloader: FINDINGS: Involutional changes. No hemorrhage. No mass. No visible infarct. Osseous structures are intact. Mucosal thickening maxillary sinuses and left ethmoid sinus. Opacified right mastoid air cells. Could represent granulation tissue but check for inflammation in this area. <Bonnie Fletcher - Last Filed: 02/02/17 05:32> Medical Decision Making - Medical Decision Making 02/02/17 05:29 Dr. Gottlieb: The scribe's documentation has been prepared under my direction and personally reviewed by me in its entirery. I confirm that the note above accurately reflects all work, treatment, procedures, and medical decision making performed by me. <Darell Gottlieb - Last Filed: 02/02/17 05:30> - Medical Decision Making 02/02/17 05:[address] Kt Estrada (via answering service) at 5:18 Awaiting call back 05/18/17 05:20 Patient's case discussed with Dr. Estrada at 5:20 <Bonnie Fletcher - Last Filed: 02/02/17 05:32> *DC/Admit/Observation/Transfer - Discharge Dispostion Admit: Yes <Darell Gottlieb - Last Filed: 02/02/17 05:30> - Attestations Scribe Attestion: 02/02/17 04:13 Documentation prepared by Bonnie Fletcher, acting as medical device sales for Darell Gottlieb MD/DO. <Bonnie Fletcher - Last Filed: 02/02/17 05:32> Diagnosis at time of Disposition: Change in mental status, Diastolic CHF, A-fib Mastoiditis Qualifiers: Laterality: right Qualified Code(s): H70.91 - Unspecified mastoiditis, right ear - Discharge Dispostion Condition at time of disposition: Stable
[2017-02-02] MEDS: SODIUM CHLORIDE 1,000 ML IV SCH (03:38)
[2017-02-02 03:52] LABS: BASOPHIL 0.2 % (0-2.0); MCH 29.5 pg (25.7-33.7); MCHC 31.3 g/dl (32.0-36.0); MEAN CELL VOLUME 94.2 fl (80-96); MEAN PLT VOLUME 8.5 fl (7.5-11.1); NEUTROPHILS 78.4 % (42.8-82.8); PLATELET COUNT 104 K/MM3 (134-434); RDW 21.2 % (11.6-15.6); WHITE BLOOD COUNT 10.2 K/mm3 (4.0-10.0)
[2017-02-02 04:02] LABS: INR 1.79 (0.82-1.09); PROTHROMBIN TIME (PATIENT) 19.9 SEC (9.98-11.88)
[2017-02-02 04:15] LABS: MAGNESIUM 2.2 mg/dL (1.8-2.4)
[2017-02-02 04:18] LABS: TROPONIN I 0.24 ng/ml (0.00-0.05)
[2017-02-02 04:40] LABS: ALBUMIN 2.7 g/dl (3.4-5.0); BILIRUBIN,TOTAL 2.3 mg/dL (0.2-1.0); CALCIUM 8.8 mg/dL (8.5-10.1); COCKROFT - GAULT 62.203; CREATININE 1.7 mg/dL (0.55-1.02); TOT PROT 6.3 g/dl (6.4-8.2)
[2017-02-02] MEDS ORDERED: CEFTRIAXONE 50 ML ONE (05:22)
[2017-02-02 08:21] LABS: ANISOCYTOSIS 2+; MICROCYTOSIS 1+
--- NOTE | 2017-02-02 11:32 | EKG ---
Test Reason : Blood Pressure : / mmHG Vent. Rate : 105 BPM Atrial Rate : 086 BPM P-R Int : 000 ms QRS Dur : 122 ms QT Int : 362 ms P-R-T Axes : 000 -74 159 degrees QTc Int : 478 ms ATRIAL FIBRILLATION WITH RAPID VENTRICULAR RESPONSE LEFT AXIS DEVIATION RIGHT BUNDLE BRANCH BLOCK POSSIBLE LATERAL INFARCT , AGE UNDETERMINED INFERIOR INFARCT , AGE UNDETERMINED ABNORMAL ECG WHEN COMPARED WITH ECG OF 27-SEP-2016 19:08, ATRIAL FIBRILLATION HAS REPLACED WIDE QRS RHYTHM Confirmed by SHASHA MCCARTY MD ([id number]) on 02/02/2017 11:32:15 AM Referred By: Confirmed By:SHASHA MCCARTY MD
[2017-02-02 11:51] LABS: TROPONIN I 0.16 ng/ml (0.00-0.05)
[2017-02-02 12:34] LABS: DIGOXIN LEVEL 1.2729 ng/ml (0.8-2.0)
--- NOTE | 2017-02-02 13:25 | CON.CARD ---
Consult Consult Specialty:: cardiology Reason for Consultation:: syncope - History of Present Illness Chief Complaint: Pt is arousable, but very tired. When asked how she fell, she says she "slipped off the toilet"; does not know if she lost consciousness. Denies chest pain. History of Present Illness: The patient is a 61 year old female with significant past medical history of afib, CHF, hypertension, hyperlipidemia, diabetes, COPD (ex-smoker), O2 dependent, sarcoidosis, GERD, erythrocytosis, chronic low back pain, and osteoarthritis who presents to the ED for AMS and after being found down on the floor few hours prior to arrival. Patient is a poor historian. As per daughter, at bedside, after arriving home around 12:30 she found the patient on the floor. Daughter noted her eyelids to be crusted shut with surrounding redness and swelling. Daughter reports her sister left the patient at home around 7: 30pm and at that time patient was in her usual state of health. Patient does not recall falling. Unknown LOC or head trauma. Patient states she remembers sitting down on the toilet and the last thing she remembers is being woken up by her daughter. Daughter states patient has not been feeling well within the past week and patients twin sister has also been ill recently. Patient has complaints of right-sided abdominal pain that she describes as a achy sensation and 5/10. Daughter reports patient has chronic leg swelling, but noted her increased swelling to her legs bilaterally. Allergies: NKDA Social History: Former smoker. No alcohol or drug use reported. Past Surgical History: herniated disc removed PCP: Dr. Kt Estrada Cardio: Dr. David Nathan - History Source History Provided By: Patient, Family Member, Medical Record Limitations to Obtaining History: No Limitations - Past Medical History Cardio/Vascular: Yes: AFIB (? paroxysmal), CHF, HTN, Hyperlipdemia, Pulmonary Hypertension Pulmonary: Yes: COPD (ex-smoker), O2 Dependent, Other (Hx of sarcoid?) Gastrointestinal: Yes: Diverticulosis, GERD Renal/: Yes: Renal Inusuff Psych: Yes: Depression Musculoskeletal: Yes: Chronic low back pain, Osteoarthritis (Rt hip) Rheumatology: Yes: Sarcoidosis Endocrine: Yes: Osteopenia, Other (obesity//Possible DM) - Alcohol/Substance Use Hx Alcohol Use: No History of Substance Use: reports: None - Smoking History Smoking history: Never smoked Have you smoked in the past 12 months: No Aproximately how many cigarettes per day: 0 If you are a former smoker, when did you quit?: 2007 - Social History Usual Living Arrangement: With Child ADL: Family Assistance 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 Travel: No Home Medications - Allergies Allergies/Adverse Reactions: Allergies Allergy/AdvReac Type Severity Reaction Status Date / Time No Known Allergies Allergy Verified 02/02/17 03:00 - Home Medications Home Medications: Ambulatory Orders Albuterol Sulfate Inhaler - [Ventolin HFA Inhaler -] 1 - 2 inh PO QID 09/27/16 Atorvastatin Ca [Lipitor] 10 mg PO HS 09/27/16 Bupropion HCl [Bupropion HCl ER] 150 mg PO DAILY 09/27/16 Dabigatran Etexilate Mesylate [Pradaxa -] 150 mg PO BID 09/27/16 Digoxin [Digitek] 125 mcg PO DAILY 09/27/16 Duloxetine HCl 30 mg PO DAILY 09/27/16 Furosemide [Lasix] 80 mg PO DAILY 09/27/16 Isosorbide Mononitrate [Isosorbide Mononitrate ER] 30 mg PO DAILY 09/27/16 Magnesium Oxide [Magnesium] 500 mg PO DAILY 09/27/16 Metformin HCl [Metformin HCl ER] 500 mg PO DAILY 09/27/16 Metoprolol Succinate [Toprol Xl] 50 mg PO DAILY 09/27/16 Montelukast Na [Singulair -] 10 mg PO HS 09/27/16 Oxycodone HCl/Acetaminophen [Oxycodone-Acetaminophen 10-325] 1 each PO DAILY 07/04 Pramipexole Dihydrochloride [Mirapex -] 0.5 mg PO TID 09/27/16 Prednisone 10 mg PO DAILY 09/27/16 Ranitidine [Zantac -] 150 mg PO DAILY 09/27/16 Spironolactone 25 mg PO DAILY 09/27/16 Torsemide [Demadex] 100 mg PO DAILY 02/02/17 Review of Systems - Review of Systems Constitutional: reports: Lethargy, Weakness Eyes: reports: No Symptoms HENT: reports: No Symptoms Neck: reports: No Symptoms Cardiovascular: reports: Shortness of Breath Respiratory: reports: SOB on Exertion Musculoskeletal: reports: Back Pain, Joint Pain, Muscle Weakness Neurological: reports: Unsteady Gait, Weakness Psychiatric: reports: Anxiety, Depression - Risk Factors Known Risk Factors: Yes: Age, Diabetes Mellitus, Hypercholesterolemia, Hypertension, Physical Inactivity, Smoking, Other (sedentary; diastolic CHF with right-sided heart failure; COPD) Vital Signs: Vital Signs Temperature 97.9 F 02/02/17 12:11 Pulse Rate 85 02/02/17 12:11 Respiratory Rate 16 02/02/17 12:11 Blood Pressure 117/93 02/02/17 12:11 O2 Sat by Pulse Oximetry (%) 96 02/02/17 12:11 Constitutional: Yes: Obese Eyes: Yes: Other (bilateral periorbital edema and bruising) Neck: Yes: Decreased ROM Respiratory: Yes: SOB on Exertion Gastrointestinal: Yes: Abdomen, Obese Renal/: No: Anuria Cardiovascular: Yes: Pulse Irregular JVD: No Carotid Bruit: No PMI: Displaced Heart Sounds: Yes: S1 (varies in intensity) Murmur: Yes: Systolic Murmur, Grade 2 Musculoskeletal: Yes: Joint Swelling, Muscle Weakness Extremities: Yes: Cool Edema: Yes Edema: LLE: Trace, RLE: Trace Peripheral Pulses WNL: No Peripheral Pulses: 1+ Left Doralis Pedis, 1+ Right Dorsalis Pedis Integumentary: Yes: Other Neurological: Yes: Lethargy, Weakness Psychiatric: Yes: Other - Other Data Labs, Other Data: INR, PTT INR 1.79 (0.82-1.09) H D 02/02/17 03:44 Troponin, BNP 02/02/17 02/02/17 11:00 11:00 Troponin I 0.16 H B-Natriuretic Peptide 03463.65 H Troponin, BNP 02/02/17 02/02/17 11:00 11:00 Troponin I 0.16 H B-Natriuretic Peptide 97153.65 H Echo: Pending Ejection Fraction %: LVEF > or = 40 % Imaging - Results Chest X-ray: Image Reviewed (no acute pathology) Cat Scan: Image Reviewed (pulmonary nodules (noted in the past)) EKG: Image Reviewed (AF; rapid VR) Other: Image Reviewed (telemetry: AF; controlled VR) Problem List - Problems (1) A-fib Assessment/Plan: On metoprolol ER and digoxin for HR control (dose changed to q 48 hrs; keep dig. level 0.5-1.0, and consider stopping it because of potential adverse effects). On Pradaxa. As discussed with pt and her daughter (Araceli), the benefits of the anticoagulant (preventing embolic event) must be weighed against the risk of bleed, especially if pt is having frequent falls. Coronary angiogram 2017 at [facility]: patent coronary arteries; elevated PCW and pulmonary HTN. Code(s): I48.91 - UNSPECIFIED ATRIAL FIBRILLATION Qualifiers: Atrial fibrillation type: chronic Qualified Code(s): I48.2 - Chronic atrial fibrillation (2) Change in mental status Code(s): R41.82 - ALTERED MENTAL STATUS, UNSPECIFIED Qualifiers: Altered mental status type: stupor Qualified Code(s): R40.1 - Stupor (3) Back pain Code(s): M54.9 - DORSALGIA, UNSPECIFIED Qualifiers: Back pain location: low back pain Back pain laterality: bilateral Sciatica presence: without sciatica (4) COPD (chronic obstructive pulmonary disease) with emphysema Code(s): J43.9 - EMPHYSEMA, UNSPECIFIED Qualifiers: Emphysema type: unspecified Qualified Code(s): J43.9 - Emphysema, unspecified (5) Depression Code(s): F32.9 - MAJOR DEPRESSIVE DISORDER, SINGLE EPISODE, UNSPECIFIED (6) Edema Code(s): R60.9 - EDEMA, UNSPECIFIED Qualifiers: Edema type: localized Qualified Code(s): R60.0 - Localized edema (7) GERD (gastroesophageal reflux disease) Code(s): K21.9 - GASTRO-ESOPHAGEAL REFLUX DISEASE WITHOUT ESOPHAGITIS Qualifiers: Esophagitis presence: without esophagitis Qualified Code(s): K21.9 - Gastro-esophageal reflux disease without esophagitis (8) Obesity due to excess calories Code(s): E66.09 - OTHER OBESITY DUE TO EXCESS CALORIES Qualifiers: Obesity severity: morbid Qualified Code(s): E66.01 - Morbid (severe ) obesity due to excess calories (9) Syncope Assessment/Plan: EKG: AF with RVR. Telemetry: now in AF with controlled VR F/u ECHO for LVEF and RVEF. Hydration; f/u BUn/Cr, electrolytes, Is and Os, orthostatic vital signs. Carotid artery US. Code(s): R55 - SYNCOPE AND COLLAPSE (10) Sarcoid Assessment/Plan: CT chest results noted. Code(s): D86.9 - SARCOIDOSIS, UNSPECIFIED (11) Sleep apnea Assessment/Plan: apparently noncompliant to CPAD at home. Still smokes. Code(s): G47.30 - SLEEP APNEA, UNSPECIFIED Qualifiers: Sleep apnea type: unspecified type Qualified Code(s): G47.30 - Sleep apnea, unspecified (12) Vitamin D deficiency Assessment/Plan: f/u level (very low in 2012). Code(s): E55.9 - VITAMIN D DEFICIENCY, UNSPECIFIED (13) Smokes cigarettes Code(s): F17.210 - NICOTINE DEPENDENCE, CIGARETTES, UNCOMPLICATED (14) Acute on chronic systolic and diastolic heart failure, NYHA class 1 Assessment/Plan: mildly reduced systolic LV dysfunction; moderate RV dysfunction. on metoprolol; problematic using ACEI due to low BP and renal dysfunction. Gentle hydration. Code(s): I50.43 - ACUTE ON CHRONIC COMBINED SYSTOLIC AND DIASTOLIC HRT FAIL
[2017-02-02] MEDS ORDERED: DIGOXIN 0.125 MG TABLET (FP) PO SCH (14:15)
[2017-02-02] MEDS: predniSONE 10 MG TABLET (UD) PO SCH (14:23)
--- NOTE | 2017-02-02 16:09 | HP ---
Admitting History and Physical - Primary Care Physician PCP: Kt Estrada - Admission Chief Complaint: BIBA after falling at home History of Present Illness: Chronically ill 61 year old female with significant past medical history of afib , ASHD w/ renal insuff, CHF, anxiety dz, hyperlipidemia, diabetes, COPD (ex- smoker)who is steroid & O2 dependent with ROHIT, who also has Hx sarcoidosis, GERD , chronic low back pain, and osteoarthritis (of hip) who presents to the ED for AMS and after being found down on the floor few hours prior to arrival. Patient is unable to give account of what happened. As per daughter, after arriving home around 12:30 she found the patient on the floor. Daughter noted her eyelids to be crusted shut with surrounding redness and swelling. Daughter reports her sister left the patient at home around 7:30pm and at that time patient was in her usual state of health. Unknown LOC or head trauma. Patient states she remembers sitting down on the toilet and the last thing she remembers is being woken up by her daughter. The patient was hospitalized a month ago at [facility] where she was brought by EMS after she was found to be very hypotensive at the office of Dr Emily Hurt (who she sees for her CKDz). Post discharge, she was then sent to [facility] for rehab and then sent back home about 2 weeks ago. She described having had what seems to be a coronary angiogram but she was unable to fully explain what was found and what was done. Since leaving the SNF she c/o leg edema, for which she was taking diuretics. She did not report any episodes of falling or dizziness following this recent d/ c. History Source: Medical Record Limitations to Obtaining History: Clinical Condition - Past Medical History Cardiovascular: Yes: AFIB (? paroxysmal), CHF, HTN, Hyperlipdemia, Pulmonary Hypertension Pulmonary: Yes: COPD (ex-smoker), O2 Dependent, Other (Hx of sarcoid?) Gastrointestinal: Yes: Diverticulosis, GERD Renal/: Yes: Renal Inusuff ...: No Heme/Onc: Yes: Other (Hx of erythrocytosis) Psych: Yes: Depression Musculoskeletal: Yes: Chronic low back pain, Osteoarthritis (Rt hip) Rheumatology: Yes: Sarcoidosis Endocrine: Yes: Osteopenia, Other (obesity//Possible DM) - Past Surgical History Additional Past Surgical History: possible Cardiac cath - Advance Directives Advance Directives: Yes: Health Care Proxy - Smoking History Smoking history: Smoker current status UNK Have you smoked in the past 12 months: No Aproximately how many cigarettes per day: 0 If you are a former smoker, when did you quit?: 2007 - Alcohol/Substance Use Hx Alcohol Use: No History of Substance Use: reports: None - Social History Usual Living Arrangement: Yes: With Child ADL: Family Assistance 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 Travel: No Home Medications - Allergies Allergies/Adverse Reactions: Allergies Allergy/AdvReac Type Severity Reaction Status Date / Time No Known Allergies Allergy Verified 02/02/17 03:00 - Home Medications Home Medications: Ambulatory Orders Albuterol Sulfate Inhaler - [Ventolin HFA Inhaler -] 1 - 2 inh PO QID 09/27/16 Atorvastatin Ca [Lipitor] 10 mg PO HS 09/27/16 Bupropion HCl [Bupropion HCl ER] 150 mg PO DAILY 09/27/16 Dabigatran Etexilate Mesylate [Pradaxa -] 150 mg PO BID 09/27/16 Digoxin [Digitek] 125 mcg PO DAILY 09/27/16 Duloxetine HCl 30 mg PO DAILY 09/27/16 Furosemide [Lasix] 80 mg PO DAILY 09/27/16 Isosorbide Mononitrate [Isosorbide Mononitrate ER] 30 mg PO DAILY 09/27/16 Magnesium Oxide [Magnesium] 500 mg PO DAILY 09/27/16 Metformin HCl [Metformin HCl ER] 500 mg PO DAILY 09/27/16 Metoprolol Succinate [Toprol Xl] 50 mg PO DAILY 09/27/16 Montelukast Na [Singulair -] 10 mg PO HS 09/27/16 Oxycodone HCl/Acetaminophen [Oxycodone-Acetaminophen 10-325] 1 each PO DAILY 07/04 Pramipexole Dihydrochloride [Mirapex -] 0.5 mg PO TID 09/27/16 Prednisone 10 mg PO DAILY 09/27/16 Ranitidine [Zantac -] 150 mg PO DAILY 09/27/16 Spironolactone 25 mg PO DAILY 09/27/16 Torsemide [Demadex] 100 mg PO DAILY 02/02/17 Family Disease History - Family Disease History Family History: Unremarkable Review of Systems Findings/Remarks: unable to obtain due to altered MS Physical Examination Vital Signs: Vital Signs Temperature 98 F 02/02/17 14:40 Pulse Rate 96 H 02/02/17 14:40 Respiratory Rate 20 02/02/17 14:40 Blood Pressure 98/60 02/02/17 14:40 O2 Sat by Pulse Oximetry (%) 96 02/02/17 14:40 Findings/Remarks: skin--rolando-orb redness; Rt shoulder erythema; redness on groin folds head--NC eyes--bilat rolando-orb swelling; eyes deeply injected; EOMI, vision seems to be intact; lids crusted oral--mucosa dry neck--no thao tenderness chest--no rib cage tenderness breasts--pendulous; difficult to assess, but no distinct masses abd--obese, NT, ND back--no spinal column tenderness ext--non pitting edema of the LE's 1+ to trace; R>L; no ischemic changes neuro--hypersomnolent; but rousable; able to folow some instructions/commands; no gross focal deficits; but very torpid/sluggish Labs: CBCD WBC 10.2 K/mm3 (4.0-10.0) H D 02/02/17 03:44 RBC 3.97 M/mm3 (3.60-5.2) 02/02/17 03:44 Hgb 11.7 GM/dL (10.7-15.3) D 02/02/17 03:44 Hct 37.4 % (32.4-45.2) 02/02/17 03:44 MCV 94.2 fl (80-96) 02/02/17 03:44 MCHC 31.3 g/dl (32.0-36.0) L 02/02/17 03:44 RDW 21.2 % (11.6-15.6) H D 02/02/17 03:44 Plt Count 104 K/MM3 (134-434) L 02/02/17 03:44 MPV 8.5 fl (7.5-11.1) 02/02/17 03:44 CMP Sodium 136 mmol/L (136-145) 02/02/17 03:48 Potassium 4.2 mmol/L (3.5-5.1) 02/02/17 03:48 Chloride 94 mmol/L (98-107) L 02/02/17 03:48 Carbon Dioxide 28 mmol/L (21-32) 02/02/17 03:48 Anion Gap 14 (8-16) 02/02/17 03:48 BUN 28 mg/dL (7-18) H 02/02/17 03:48 Creatinine 1.7 mg/dL (0.55-1.02) H 02/02/17 03:48 Creat Clearance w eGFR 30.56 (>60) 02/02/17 03:48 Random Glucose 115 mg/dL (74-106) H 02/02/17 03:48 Calcium 8.8 mg/dL (8.5-10.1) 02/02/17 03:48 Total Bilirubin 2.3 mg/dL (0.2-1.0) H D 02/02/17 03:48 AST 37 U/L (15-37) D 02/02/17 03:48 ALT 18 U/L (12-78) 02/02/17 03:48 Alkaline Phosphatase 148 U/L (45-117) H D 02/02/17 03:48 Total Protein 6.3 g/dl (6.4-8.2) L 02/02/17 03:48 Albumin 2.7 g/dl (3.4-5.0) L 02/02/17 03:48 CARDIAC ENZYMES Creatine Kinase 245 IU/L (26-192) H D 02/02/17 11:00 Troponin I 0.16 ng/ml (0.00-0.05) H 02/02/17 11:00 Imaging - Results Chest X-ray: Report Reviewed Cat Scan: Report Reviewed Ultrasound: Report Reviewed Problem List - Problems (1) Change in mental status Assessment/Plan: sudden change following her collapse; but cause uncertain; if it was 2nd hemodynamic cause; toxic/metab; drug exacerbation (Oxycodone); arrhytthmia. CT scan of head was benign PLAN: cardio eval; Pulm eval; may need neuro as well; cont cardiac monitoring. Code(s): R41.82 - ALTERED MENTAL STATUS, UNSPECIFIED Qualifiers: Altered mental status type: stupor Qualified Code(s): R40.1 - Stupor (2) Acute on chronic systolic and diastolic heart failure, NYHA class 3 Assessment/Plan: not a new issue; BNP evelated on chronic diuresis; BB; Nitrates howver; she has long Hx non compliance with meds & fluids/diet. See Cardio note Code(s): I50.43 - ACUTE ON CHRONIC COMBINED SYSTOLIC AND DIASTOLIC HRT FAIL (3) COPD (chronic obstructive pulmonary disease) with emphysema Assessment/Plan: Longstanding matter; with underlying hx of sarcoid; does not use Neb Tx too often, dos not use Oxygen; is on low dose Prednisone; PLAN; will get Pulm eval Code(s): J43.9 - EMPHYSEMA, UNSPECIFIED Qualifiers: Emphysema type: unspecified Qualified Code(s): J43.9 - Emphysema, unspecified (4) Sleep apnea Assessment/Plan: not new; has declined to use BiPap device; PLAN Pulm eval Code(s): G47.30 - SLEEP APNEA, UNSPECIFIED Qualifiers: Sleep apnea type: unspecified type Qualified Code(s): G47.30 - Sleep apnea, unspecified (5) Mastoiditis Assessment/Plan: identified incidentally on head CT PLAN ENT, eval and will resume IV Abs Code(s): H70.90 - UNSPECIFIED MASTOIDITIS, UNSPECIFIED EAR Qualifiers: Laterality: right Qualified Code(s): H70.91 - Unspecified mastoiditis, right ear (6) Obesity due to excess calories Assessment/Plan: chronic; with ROHIT; significant co-morbidity; has been poorly compliant overall. Code(s): E66.09 - OTHER OBESITY DUE TO EXCESS CALORIES Qualifiers: Obesity severity: morbid Qualified Code(s): E66.01 - Morbid (severe ) obesity due to excess calories (7) A-fib Assessment/Plan: longstanding; for which she is on BB, Dig, and a/c Code(s): I48.91 - UNSPECIFIED ATRIAL FIBRILLATION Qualifiers: Atrial fibrillation type: chronic Qualified Code(s): I48.2 - Chronic atrial fibrillation (8) Edema Assessment/Plan: legs; likley 2nd Cardiac dz; Duplex negative for DVT;will hope to resume diuresis, but BP too low at present Code(s): R60.9 - EDEMA, UNSPECIFIED Qualifiers: Edema type: localized Qualified Code(s): R60.0 - Localized edema (9) Elevated troponin Assessment/Plan: will check serials Code(s): R74.8 - ABNORMAL LEVELS OF OTHER SERUM ENZYMES (10) Hypertensive heart and renal disease with heart failure Assessment/Plan: chronic Code(s): I13.0 - HYP HRT & CHR KDNY DIS W HRT FAIL AND STG 1-4/UNSP CHR KDNY I50.9 - HEART FAILURE, UNSPECIFIED N18.9 - CHRONIC KIDNEY DISEASE, UNSPECIFIED (11) Hyperlipidemia Assessment/Plan: on statin Code(s): E78.5 - HYPERLIPIDEMIA, UNSPECIFIED Qualifiers: Hyperlipidemia type: unspecified Qualified Code(s): E78.5 - Hyperlipidemia, unspecified (12) Somnolence Assessment/Plan: cause unclear as of yet; will hold opiates Code(s): R40.0 - SOMNOLENCE (13) Osteoarthritis Assessment/Plan: disabling; resulting in chronic pain; poor mobility; and instability Code(s): M19.90 - UNSPECIFIED OSTEOARTHRITIS, UNSPECIFIED SITE Qualifiers: Osteoarthritis location: multiple joints (14) Intractable pain Assessment/Plan: longstanding emanating from back & hips; remedied by opiates; as she is not a candidate for NSAIds; APAP ineffective; she underwent PT with limited value; and has been under care of Dr Barry Jalloh Code(s): R52 - PAIN, UNSPECIFIED (15) Major depressive disorder, recurrent Assessment/Plan: for which she is on Buprprion & SSRI Code(s): F33.9 - MAJOR DEPRESSIVE DISORDER, RECURRENT, UNSPECIFIED Qualifiers : Major depression episode severity: unspecified Qualified Code(s): F33.9 - Major depressive disorder, recurrent, unspecified (16) Sarcoid Assessment/Plan: of lung; controlled w/ prednisone Code(s): D86.9 - SARCOIDOSIS, UNSPECIFIED (17) Long-term (current) use of anticoagulants Assessment/Plan: pradaxa for ATF Code(s): Z79.01 - DRILLER AND BROACHER (CURRENT) USE OF ANTICOAGULANTS (18) Conjunctivitis Assessment/Plan: unclear cause; is purulent; will cont Abs; get c& s; oph eval Code(s): H10.9 - UNSPECIFIED CONJUNCTIVITIS Qualifiers: Conjunctivitis type: other mucopurulent Laterality: bilateral Qualified Code(s): H10.023 - Other mucopurulent conjunctivitis, bilateral (19) Rash Assessment/Plan: groin folds; fungal Code(s): R21 - RASH AND OTHER NONSPECIFIC SKIN ERUPTION (20) Elevated alkaline phosphatase level Assessment/Plan: abd US did not reveal any Gall stones; abd exam was benign; could be 2nd trauma from fall. Code(s): R74.8 - ABNORMAL LEVELS OF OTHER SERUM ENZYMES Assessment/Plan acutely ill 61 y/o F with multiple co-morbidities now all at play in the wake of this syncopal episode; who will need multiple types of interventions. ~~~~~~~~~~~~~~~~~~ Dr Estrada 1 hr
--- NOTE | 2017-02-02 16:37 | CON.PULM ---
Consult Consult Specialty:: PULM/CCM Referred by:: CLINT Reason for Consultation:: AMS / SOB - History of Present Illness Chief Complaint: Fall History of Present Illness: 61 F, with listed medical/surgical history. OSAS (non-compliant to CPAP), AFib , CHF, hypertension, hyperlipidemia, diabetes, COPD (+smoker), O2 dependent, sarcoidosis, GERD, erythrocytosis, chronic low back pain, and osteoarthritis. Admitted via the ER due to AMS and frequent falls. No travel history or sick contacts. The patient is very drowsy but she knows that she is at [facility] and she recognizes me. Reports some congested cough. Denies CP. She reports irritation and discharge of her eyes for the past few days. CXR: Cardiomegaly / basilar atelectasis. - History Source History Provided By: Patient, Medical Record Limitations to Obtaining History: Poor Historian - Past Medical History Cardio/Vascular: Yes: AFIB (? paroxysmal), CHF, HTN, Hyperlipdemia, Pulmonary Hypertension Pulmonary: Yes: COPD (ex-smoker), O2 Dependent, Other (Hx of sarcoid?) Gastrointestinal: Yes: Diverticulosis, GERD Renal/: Yes: Renal Inusuff ...: No Psych: Yes: Depression Musculoskeletal: Yes: Chronic low back pain, Osteoarthritis (Rt hip) Rheumatology: Yes: Sarcoidosis Endocrine: Yes: Osteopenia, Other (obesity//Possible DM) - Alcohol/Substance Use Hx Alcohol Use: No History of Substance Use: reports: None - Smoking History Smoking history: Smoker current status UNK Have you smoked in the past 12 months: No Aproximately how many cigarettes per day: 0 If you are a former smoker, when did you quit?: 2007 - Social History Usual Living Arrangement: With Child ADL: Family Assistance 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 Travel: No Home Medications - Allergies Allergies/Adverse Reactions: Allergies Allergy/AdvReac Type Severity Reaction Status Date / Time No Known Allergies Allergy Verified 02/02/17 03:00 - Home Medications Home Medications: Ambulatory Orders Albuterol Sulfate Inhaler - [Ventolin HFA Inhaler -] 1 - 2 inh PO QID 09/27/16 Atorvastatin Ca [Lipitor] 10 mg PO HS 09/27/16 Bupropion HCl [Bupropion HCl ER] 150 mg PO DAILY 09/27/16 Dabigatran Etexilate Mesylate [Pradaxa -] 150 mg PO BID 09/27/16 Digoxin [Digitek] 125 mcg PO DAILY 09/27/16 Duloxetine HCl 30 mg PO DAILY 09/27/16 Furosemide [Lasix] 80 mg PO DAILY 09/27/16 Isosorbide Mononitrate [Isosorbide Mononitrate ER] 30 mg PO DAILY 09/27/16 Magnesium Oxide [Magnesium] 500 mg PO DAILY 09/27/16 Metformin HCl [Metformin HCl ER] 500 mg PO DAILY 09/27/16 Metoprolol Succinate [Toprol Xl] 50 mg PO DAILY 09/27/16 Montelukast Na [Singulair -] 10 mg PO HS 09/27/16 Oxycodone HCl/Acetaminophen [Oxycodone-Acetaminophen 10-325] 1 each PO DAILY 07/04 Pramipexole Dihydrochloride [Mirapex -] 0.5 mg PO TID 09/27/16 Prednisone 10 mg PO DAILY 09/27/16 Ranitidine [Zantac -] 150 mg PO DAILY 09/27/16 Spironolactone 25 mg PO DAILY 09/27/16 Torsemide [Demadex] 100 mg PO DAILY 02/02/17 Review of Systems - Review of Systems Constitutional: reports: Lethargy, Malaise, Weakness. denies: Chills, Fever, Loss of Appetite, Night Sweats Eyes: reports: Other (discharge/ swelling) HENT: reports: Nasal Congestion. denies: Ear Discharge, Ear Pain, Epistaxis, Throat Pain, Ringing in Ears Neck: reports: No Symptoms Cardiovascular: denies: Chest Pain, Edema, Palpitations, Shortness of Breath Respiratory: reports: Cough, Snoring, SOB on Exertion. denies: Hemoptysis, SOB , Wheezing Gastrointestinal: reports: No Symptoms Genitourinary: reports: No Symptoms Breasts: reports: No Symptoms Reported Musculoskeletal: reports: Back Pain Integumentary: reports: No Symptoms Neurological: reports: Confusion Endocrine: reports: No Symptoms Hematology/Lymphatic: reports: No Symptoms Psychiatric: reports: No Symptoms Physical Exam Vital Sings: Vital Signs Temperature 98 F 02/02/17 14:40 Pulse Rate 96 H 02/02/17 14:40 Respiratory Rate 20 02/02/17 14:40 Blood Pressure 98/60 02/02/17 14:40 O2 Sat by Pulse Oximetry (%) 96 02/02/17 14:40 Constitutional: Yes: No Distress, Obese, Other (drowsy ) Eyes: Yes: Tearing, Other (yellow discharge and bilateral excoriated eye lids ) HENT: Yes: Normocephalic Neck: Yes: Supple, Trachea Midline Cardiovascular: Yes: Pulse Irregular Respiratory: Yes: Cough, Diminished, Dullness, On Nasal O2, Rhonchi. No: Accessory Muscle Use, Stridor, Wheezes ...Inspection: Yes: WNL ...Clubbing: No Gastrointestinal: Yes: Normal Bowel Sounds, Soft, Abdomen, Obese Musculoskeletal: Yes: WNL Extremities: Yes: WNL Edema: Yes Peripheral Pulses WNL: Yes Integumentary: Yes: WNL Neurological: Yes: Confusion, Other (drowsy ) Imaging - Results Chest X-ray: Report Reviewed, Image Reviewed Assessment/Plan IMP: R/O Hypercapnia OSAS non-compliant with PAP Falls AMS / lethargy Bilateral Conjunctivitis Do not suspect PNA Pulmonary Sarcoid on chronic prednisone Above listed history PLAN: Check ABG Will order empiric NIPPV If needed BD TX Ophthalmic drops O2 as needed Aspiration precautions Patient is maintained on Prednisone 10mg OD for Pulm Sarcoid Will follow Thank you. Dr Posadas
[2017-02-02 17:00] LABS: ARTERIAL BLD GAS O2 SATURATION 93.7 % (90-98.9); ARTERIAL BLOOD GAS BASE EXCESS 7.7 meq/l (-2-2); ARTERIAL BLOOD GAS HCO3 32.4 meq/L (22-26); ARTERIAL BLOOD GAS PO2 70.9 mmHg (80-100); ARTERIAL BLOOD GAS pH 7.45 (7.35-7.45)
[2017-02-02 17:05] LABS: ALLENS TEST POSITIVE; ART PUNCT SITE RIGHT RADIAL; LPM/O2% 2L; PT. ON O2? YES; TYPE OF O2 NASAL
[2017-02-02] MEDS: CIPROFLOXACIN HCL 0.3% OPHTH 2.5ML BOTTLE OU SCH (17:47)
[2017-02-02] MEDS: DABIGATRAN ETEXILATE MESYLATE 150 MG CAPSULE PO SCH (23:33)
[2017-02-02] MEDS: ATORVASTATIN CA 10 MG TABLET (FP) PO SCH (23:33)
[2017-02-02] MEDS: NYSTATIN POWDER 100,000 UNITS/GM - 15 GM TOPICAL POWDER TP SCH (23:33)
[2017-02-03] MEDS: CIPROFLOXACIN HCL 0.3% OPHTH 2.5ML BOTTLE OU SCH ×5 (00:56→23:26)
[2017-02-03] MEDS: ACETAMINOPHEN 500 MG TABLET (FP) PO PRN ×2 (00:57→22:03)
[2017-02-03] MEDS: SODIUM CHLORIDE 1,000 ML IV SCH (04:00)
[2017-02-03 07:00] LABS: MCH 30.1 pg (25.7-33.7); MCHC 32.2 g/dl (32.0-36.0); MEAN CELL VOLUME 93.3 fl (80-96); MEAN PLT VOLUME 8.2 fl (7.5-11.1); RDW 20.5 % (11.6-15.6)
[2017-02-03 07:39] LABS: CALCIUM 8.4 mg/dL (8.5-10.1)
[2017-02-03 07:52] LABS: COCKROFT - GAULT 96.1435; CREATININE 1.1 mg/dL (0.55-1.02); THYROID STIMULATING HORMONE 0.77 uIU/ml (0.358-3.74)
[2017-02-03 09:34] LABS: PLATELET COUNT 77 K/MM3 (134-434)
[2017-02-03 09:35] LABS: PLATELET ESTIMATE DECREASED (NORMAL)
[2017-02-03 09:46] LABS: ERYTHROCYTE SEDIMENTATION RATE 37 mm/hr (0-30)
[2017-02-03] MEDS ORDERED: cefTRIAXone 1 GM/50 ML BAG (PRE-DOCKED) IVPB SCH (10:00)
[2017-02-03] MEDS ORDERED: DIGOXIN 0.125 MG TABLET (FP) PO SCH (10:00)
[2017-02-03] MEDS ORDERED: CEFTRIAXONE 1 GM in DEXTROSE 5%-WATER - 50 ML IVPB SCH (10:00)
[2017-02-03] MEDS: predniSONE 10 MG TABLET (UD) PO SCH (10:17)
[2017-02-03] MEDS: METOPROLOL SUCCINATE 25 MG TAB.SR.24H (FP) PO SCH (10:17)
[2017-02-03] MEDS: DABIGATRAN ETEXILATE MESYLATE 150 MG CAPSULE PO SCH ×2 (10:17→22:03)
[2017-02-03] MEDS: ISOSORBIDE MONONITRATE 30 MG TAB.SR.24H (FP) PO SCH (10:17)
[2017-02-03] MEDS: DULoxetine HCL 30 MG CAPSULE.DR (FP) PO SCH (10:17)
[2017-02-03] MEDS: NYSTATIN POWDER 100,000 UNITS/GM - 15 GM TOPICAL POWDER TP SCH ×2 (10:17→22:07)
--- NOTE | 2017-02-03 10:49 | PN ---
Progress Note, Physician History of Present Illness: pulmonary alert,-resp distress,-tachypnea. - Current Medication List Current Medications: Active Medications Acetaminophen (Tylenol -) 500 mg PO Q6H PRN PRN Reason: PAIN LEVEL 1-5 Last Admin: 02/03/17 00:57 Dose: 500 mg Atorvastatin Calcium (Lipitor -) 10 mg PO HS [facility] Last Admin: 02/02/17 23:33 Dose: 10 mg Bupropion HCl (Wellbutrin Xl -) 150 mg PO DAILY [facility] Last Admin: 02/03/17 10:18 Dose: 150 mg Ceftriaxone Sodium (Rocephin 1gm Ivpb (Pre-Docked)) 1 gm IVPB DAILY [facility] Last Admin: 02/03/17 10:18 Dose: 1 gm Ciprofloxacin (Ciloxan 0.3% Eye Drops -) 2 drop OU Q6HPO [facility] Last Admin: 02/03/17 06:11 Dose: 2 drop Dabigatran (Pradaxa -) 150 mg PO BID [facility] Last Admin: 02/03/17 10:17 Dose: 150 mg Digoxin (Lanoxin -) 0.125 mg PO Q2D [facility] Last Admin: 02/02/17 14:19 Dose: 0.125 mg Duloxetine HCl (Cymbalta -) 30 mg PO DAILY [facility] Last Admin: 02/03/17 10:17 Dose: 30 mg Sodium Chloride (Normal Saline -) 1,000 mls @ 75 mls/hr IV ASDIR [facility] Last Admin: 02/03/17 04:00 Dose: 75 mls/hr Isosorbide Mononitrate (Imdur -) 30 mg PO DAILY [facility] Last Admin: 02/03/17 10:17 Dose: 30 mg Metoprolol Succinate (Toprol Xl -) 25 mg PO DAILY [facility] Last Admin: 02/03/17 10:17 Dose: 25 mg Nystatin (Nystop Powder -) 1 applic TP BID [facility] Last Admin: 02/03/17 10:17 Dose: 1 applic Prednisone (Deltasone -) 10 mg PO DAILY [facility] Last Admin: 02/03/17 10:17 Dose: 10 mg - Objective Vital Signs: Vital Signs Temperature 97.6 F 02/03/17 03:05 Pulse Rate 77 02/03/17 06:00 Respiratory Rate 20 02/03/17 06:00 Blood Pressure 104/65 02/03/17 06:00 O2 Sat by Pulse Oximetry (%) 96 02/02/17 21:00 Constitutional: Yes: Well Nourished, Calm Eyes: Yes: WNL HENT: Yes: WNL Neck: Yes: WNL Cardiovascular: Yes: Pulse Irregular, S1, S2 Respiratory: Yes: Diminished Gastrointestinal: Yes: Normal Bowel Sounds, Soft Extremities: Yes: WNL, Erythema (R>L) Edema: Yes Labs: CBC, BMP 02/03/17 05:35 02/03/17 05:35 INR, PTT INR 1.79 (0.82-1.09) H D 02/02/17 03:44 Laboratory Tests 02/02/17 16:41 ABG pH 7.45 ABG pCO2 at Pt Temp 47.6 H D ABG pO2 at Pt Temp 70.9 L ABG HCO3 32.4 H ABG O2 Sat (Measured) 93.7 Oxygen Flow Rate 2l Problem List - Problems (1) A-fib Code(s): I48.91 - UNSPECIFIED ATRIAL FIBRILLATION Qualifiers: Atrial fibrillation type: chronic Qualified Code(s): I48.2 - Chronic atrial fibrillation (2) Change in mental status Code(s): R41.82 - ALTERED MENTAL STATUS, UNSPECIFIED Qualifiers: Altered mental status type: stupor Qualified Code(s): R40.1 - Stupor (3) Conjunctivitis Code(s): H10.9 - UNSPECIFIED CONJUNCTIVITIS Qualifiers: Conjunctivitis type: other mucopurulent Laterality: bilateral Qualified Code(s): H10.023 - Other mucopurulent conjunctivitis, bilateral (4) Diastolic CHF Code(s): I50.30 - UNSPECIFIED DIASTOLIC (CONGESTIVE) HEART FAILURE (5) Long-term (current) use of anticoagulants Code(s): Z79.01 - HAND CELL TUBER (CURRENT) USE OF ANTICOAGULANTS (6) Obesity due to excess calories Code(s): E66.09 - OTHER OBESITY DUE TO EXCESS CALORIES Qualifiers: Obesity severity: morbid Qualified Code(s): E66.01 - Morbid (severe ) obesity due to excess calories (7) Sleep apnea Code(s): G47.30 - SLEEP APNEA, UNSPECIFIED Qualifiers: Sleep apnea type: unspecified type Qualified Code(s): G47.30 - Sleep apnea, unspecified (8) COPD (chronic obstructive pulmonary disease) with emphysema Code(s): J43.9 - EMPHYSEMA, UNSPECIFIED Qualifiers: Emphysema type: unspecified Qualified Code(s): J43.9 - Emphysema, unspecified (9) Cellulitis Code(s): L03.90 - CELLULITIS, UNSPECIFIED Qualifiers: Site of cellulitis: extremity Site of cellulitis of extremity: lower extremity Laterality: right Qualified Code(s): L03.115 - Cellulitis of right lower limb (10) Edema Code(s): R60.9 - EDEMA, UNSPECIFIED Qualifiers: Edema type: localized Qualified Code(s): R60.0 - Localized edema (11) ROHIT (obstructive sleep apnea) Code(s): G47.33 - OBSTRUCTIVE SLEEP APNEA (ADULT) (PEDIATRIC) (12) Obesity Code(s): E66.9 - OBESITY, UNSPECIFIED (13) Sarcoid Code(s): D86.9 - SARCOIDOSIS, UNSPECIFIED Assessment/Plan Assessment/Plan IMP: Pulmonary Htn OSAS non-compliant with PAP Falls AMS / lethargy improved A-FIB Bilateral Conjunctivitis Pulmonary Sarcoid on chronic prednisone Cellulitis PLAN: empiric NIPPV If needed BD TX Ophthalmic drops Antibiotics O2 as needed Aspiration precautions Anticoagulation Patient is maintained on Prednisone 10mg OD for Pulm Sarcoid DR MCKENNA
--- NOTE | 2017-02-03 11:15 | PN ---
Progress Note, Physician History of Present Illness: The patient is a 61 year old female with significant past medical history of afib, CHF, hypertension, hyperlipidemia, diabetes, COPD (ex-smoker), O2 dependent, sarcoidosis, GERD, erythrocytosis, chronic low back pain, and osteoarthritis who presents to the ED for AMS and after being found down on the floor few hours prior to arrival. Patient is a poor historian. As per daughter, at bedside, after arriving home around 12:30 she found the patient on the floor. Daughter noted her eyelids to be crusted shut with surrounding redness and swelling. Daughter reports her sister left the patient at home around 7: 30pm and at that time patient was in her usual state of health. Patient does not recall falling. Unknown LOC or head trauma. Patient states she remembers sitting down on the toilet and the last thing she remembers is being woken up by her daughter. Daughter states patient has not been feeling well within the past week and patients twin sister has also been ill recently. Patient has complaints of right-sided abdominal pain that she describes as a achy sensation and 5/10. Daughter reports patient has chronic leg swelling, but noted her increased swelling to her legs bilaterally. Allergies: NKDA Social History: Former smoker. No alcohol or drug use reported. Past Surgical History: herniated disc removed PCP: Dr. Kt Estrada Cardio: Dr. David Nathan - Current Medication List Current Medications: Active Medications Acetaminophen (Tylenol -) 500 mg PO Q6H PRN PRN Reason: PAIN LEVEL 1-5 Last Admin: 02/03/17 00:57 Dose: 500 mg Atorvastatin Calcium (Lipitor -) 10 mg PO HS [facility] Last Admin: 02/02/17 23:33 Dose: 10 mg Bupropion HCl (Wellbutrin Xl -) 150 mg PO DAILY [facility] Last Admin: 02/03/17 10:18 Dose: 150 mg Ceftriaxone Sodium (Rocephin 1gm Ivpb (Pre-Docked)) 1 gm IVPB DAILY [facility] Last Admin: 02/03/17 10:18 Dose: 1 gm Ciprofloxacin (Ciloxan 0.3% Eye Drops -) 2 drop OU Q6HPO [facility] Last Admin: 02/03/17 06:11 Dose: 2 drop Dabigatran (Pradaxa -) 150 mg PO BID [facility] Last Admin: 02/03/17 10:17 Dose: 150 mg Digoxin (Lanoxin -) 0.125 mg PO Q2D [facility] Last Admin: 02/02/17 14:19 Dose: 0.125 mg Duloxetine HCl (Cymbalta -) 30 mg PO DAILY [facility] Last Admin: 02/03/17 10:17 Dose: 30 mg Sodium Chloride (Normal Saline -) 1,000 mls @ 75 mls/hr IV ASDIR [facility] Last Admin: 02/03/17 04:00 Dose: 75 mls/hr Isosorbide Mononitrate (Imdur -) 30 mg PO DAILY [facility] Last Admin: 02/03/17 10:17 Dose: 30 mg Metoprolol Succinate (Toprol Xl -) 25 mg PO DAILY [facility] Last Admin: 02/03/17 10:17 Dose: 25 mg Nystatin (Nystop Powder -) 1 applic TP BID [facility] Last Admin: 02/03/17 10:17 Dose: 1 applic Prednisone (Deltasone -) 10 mg PO DAILY [facility] Last Admin: 02/03/17 10:17 Dose: 10 mg - Objective Vital Signs: Vital Signs Temperature 97.6 F 02/03/17 03:05 Pulse Rate 77 02/03/17 06:00 Respiratory Rate 20 02/03/17 06:00 Blood Pressure 104/65 02/03/17 06:00 O2 Sat by Pulse Oximetry (%) 96 02/02/17 21:00 Eyes: Yes: WNL, Conjunctiva Clear, EOM Intact HENT: Yes: WNL, Atraumatic, Normocephalic Neck: Yes: WNL, Supple, Trachea Midline Cardiovascular: Yes: WNL, Regular Rate and Rhythm Respiratory: Yes: WNL, Regular, CTA Bilaterally Gastrointestinal: Yes: WNL, Normal Bowel Sounds Genitourinary: Yes: WNL Musculoskeletal: Yes: WNL Extremities: Yes: WNL Edema: Yes Integumentary: Yes: WNL Neurological: Yes: WNL, Alert, Oriented ...Motor Strength: WNL Psychiatric: Yes: WNL Labs: CBC, BMP 02/03/17 05:35 02/03/17 05:35 INR, PTT INR 1.79 (0.82-1.09) H D 02/02/17 03:44 Assessment/Plan - Problems (1) A-fib Assessment/Plan: On metoprolol ER and digoxin for HR control (dose changed to q 48 hrs; keep dig. level 0.5-1.0, and consider stopping it because of potential adverse effects). On Pradaxa. As discussed with pt and her daughter (Araceli), the benefits of the anticoagulant (preventing embolic event) must be weighed against the risk of bleed, especially if pt is having frequent falls. Coronary angiogram 2017 at [facility]: patent coronary arteries; elevated PCW and pulmonary HTN. Code(s): I48.91 - UNSPECIFIED ATRIAL FIBRILLATION Qualifiers: Atrial fibrillation type: chronic Qualified Code(s): I48.2 - Chronic atrial fibrillation (2) Change in mental status Code(s): R41.82 - ALTERED MENTAL STATUS, UNSPECIFIED Qualifiers: Altered mental status type: stupor Qualified Code(s): R40.1 - Stupor (3) Back pain Code(s): M54.9 - DORSALGIA, UNSPECIFIED Qualifiers: Back pain location: low back pain Back pain laterality: bilateral Sciatica presence: without sciatica (4) COPD (chronic obstructive pulmonary disease) with emphysema Code(s): J43.9 - EMPHYSEMA, UNSPECIFIED Qualifiers: Emphysema type: unspecified Qualified Code(s): J43.9 - Emphysema, unspecified (5) Depression Code(s): F32.9 - MAJOR DEPRESSIVE DISORDER, SINGLE EPISODE, UNSPECIFIED (6) Edema Code(s): R60.9 - EDEMA, UNSPECIFIED Qualifiers: Edema type: localized Qualified Code(s): R60.0 - Localized edema (7) GERD (gastroesophageal reflux disease) Code(s): K21.9 - GASTRO-ESOPHAGEAL REFLUX DISEASE WITHOUT ESOPHAGITIS Qualifiers: Esophagitis presence: without esophagitis Qualified Code(s): K21.9 - Gastro-esophageal reflux disease without esophagitis (8) Obesity due to excess calories Code(s): E66.09 - OTHER OBESITY DUE TO EXCESS CALORIES Qualifiers: Obesity severity: morbid Qualified Code(s): E66.01 - Morbid (severe ) obesity due to excess calories (9) Syncope Assessment/Plan: EKG: AF with RVR. Telemetry: now in AF with controlled VR F/u ECHO for LVEF and RVEF. Hydration; f/u BUn/Cr, electrolytes, Is and Os, orthostatic vital signs. Carotid artery US. Code(s): R55 - SYNCOPE AND COLLAPSE (10) Sarcoid Assessment/Plan: CT chest results noted. Code(s): D86.9 - SARCOIDOSIS, UNSPECIFIED (11) Sleep apnea Assessment/Plan: apparently noncompliant to CPAD at home. Still smokes. Code(s): G47.30 - SLEEP APNEA, UNSPECIFIED Qualifiers: Sleep apnea type: unspecified type Qualified Code(s): G47.30 - Sleep apnea, unspecified (12) Vitamin D deficiency Assessment/Plan: f/u level (very low in 2012). Code(s): E55.9 - VITAMIN D DEFICIENCY, UNSPECIFIED (13) Smokes cigarettes Code(s): F17.210 - NICOTINE DEPENDENCE, CIGARETTES, UNCOMPLICATED (14) Acute on chronic systolic and diastolic heart failure, NYHA class 1 Assessment/Plan: mildly reduced systolic LV dysfunction; moderate RV dysfunction. on metoprolol; problematic using ACEI due to low BP and renal dysfunction. Gentle hydration. Code(s): I50.43 - ACUTE ON CHRONIC COMBINED SYSTOLIC AND DIASTOLIC HRT FAIL
--- NOTE | 2017-02-03 16:33 | PN ---
Progress Note (short form) - Note Progress Note: Current Medications Acetaminophen (Tylenol -) 500 mg PO Q6H PRN PRN Reason: PAIN LEVEL 1-5 Last Admin: 02/03/17 00:57 Dose: 500 mg Atorvastatin Calcium (Lipitor -) 10 mg PO HS [facility] Last Admin: 02/02/17 23:33 Dose: 10 mg Bupropion HCl (Wellbutrin Xl -) 150 mg PO DAILY [facility] Last Admin: 02/03/17 10:18 Dose: 150 mg Ceftriaxone Sodium (Rocephin 1gm Ivpb (Pre-Docked)) 1 gm IVPB DAILY [facility] Last Admin: 02/03/17 10:18 Dose: 1 gm Ciprofloxacin (Ciloxan 0.3% Eye Drops -) 2 drop OU Q6HPO [facility] Last Admin: 02/03/17 06:11 Dose: 2 drop Dabigatran (Pradaxa -) 150 mg PO BID [facility] Last Admin: 02/03/17 10:17 Dose: 150 mg Duloxetine HCl (Cymbalta -) 30 mg PO DAILY [facility] Last Admin: 02/03/17 10:17 Dose: 30 mg Sodium Chloride (Normal Saline -) 1,000 mls @ 75 mls/hr IV ASDIR [facility] Last Admin: 02/03/17 04:00 Dose: 75 mls/hr Isosorbide Mononitrate (Imdur -) 30 mg PO DAILY [facility] Last Admin: 02/03/17 10:17 Dose: 30 mg Metoprolol Succinate (Toprol Xl -) 25 mg PO DAILY [facility] Last Admin: 02/03/17 10:17 Dose: 25 mg Nystatin (Nystop Powder -) 1 applic TP BID [facility] Last Admin: 02/03/17 10:17 Dose: 1 applic Prednisone (Deltasone -) 10 mg PO DAILY [facility] Last Admin: 02/03/17 10:17 Dose: 10 mg Laboratory Results - last 24 hr 02/02/17 02/03/17 02/03/17 16:41 05:35 05:35 WBC 8.0 RBC 3.88 Hgb 11.7 Hct 36.2 MCV 93.3 MCHC 32.2 RDW 20.5 H Plt Count 77 L D MPV 8.2 Platelet Estimate Decreased ESR 37 H Puncture Site Right radial ABG pH 7.45 ABG pCO2 at Pt Temp 47.6 H D ABG pO2 at Pt Temp 70.9 L ABG HCO3 32.4 H ABG O2 Sat (Measured) 93.7 ABG O2 Content 14.0 L ABG Base Excess 7.7 H Milo Test Positive O2 Delivery Device Nasal Oxygen Flow Rate 2l PEEP 0.0 Sodium 139 Potassium 3.8 Chloride 98 Carbon Dioxide 34 H D Anion Gap 7 L BUN 23 H Creatinine 1.1 H D Random Glucose 76 D Hemoglobin A1c % Calcium 8.4 L TSH 0.77 D 02/03/17 05:35 WBC RBC Hgb Hct MCV MCHC RDW Plt Count MPV Platelet Estimate ESR Puncture Site ABG pH ABG pCO2 at Pt Temp ABG pO2 at Pt Temp ABG HCO3 ABG O2 Sat (Measured) ABG O2 Content ABG Base Excess Milo Test O2 Delivery Device Oxygen Flow Rate PEEP Sodium Potassium Chloride Carbon Dioxide Anion Gap BUN Creatinine Random Glucose Hemoglobin A1c % 6.3 H D Calcium TSH Vital Signs Temperature 97.6 F 02/03/17 03:05 Pulse Rate 77 02/03/17 06:00 Respiratory Rate 20 02/03/17 06:00 Blood Pressure 104/65 02/03/17 06:00 O2 Sat by Pulse Oximetry (%) 96 02/02/17 21:00 CC; feels achy ``````````````````````` skin--areas of ecchymosis/bruising (rolando-orb; Lt Lower pelvis; Rt shoulder) head--NC eyes--rolando-orb swelling with well demarcated, non blanching erythema; conj bilat injected; eomi; vision seems to be intact oral--mucosa less dry neck--supple, no masses lungs--no wheezing or rales appreciated heart--distant irreg abd--soft, NT ext--no pitting edema; Limited ROM neuro--drowsy but rousable; non delirius; thoughts well organized; remembers all details leading up to syncopal episode; but unable to recall events at the time of LOC `````````````````````````````````````````````````````````` Summ >syncope--inciting cause not clear; no evidence of acute stroke. Could be due to arrhythmia; low BP; low BS, vaso-vagal effect; toxic effect of opiod analgesic. PLAN: repeat 2nd head CT; then possible neuro eval. > Low PLt--not new but lower than usual; could be 2nd traumatic vent; H/h stable ; doubt sepsis or DIC PLAN: will need to track daily > ASHD--s/p cardiac cath @[facility] (result relayed to me br DR Nathan)--> denoting NL coronaries but increased PCW and rt vent pressures; which co- incides with the Echo report. > Hypersomnolence--Not highly hypercapneic, is sleepy but rouses on contact; able to move purposefully and communicate. TFTs okay; Cause uncertain; perhaps post-concussion (from fall?), and/or prolonged effects of opiate analgesic > COPD--with 2nd Pulm Htn (see Pulm note) > Conjunctivitis--bilat; cultures pending; on cipro gtts; await eye consult who is aware of call. > mastoiditis--based on head Ct findings; on Rocephin; will get ID eval > Glucose intol--a1c at 6.3 > ATF--rate seems controlled on current agents; cont a-c > High Troponin--on down swing; will follow ~~~~~~~~~~~~~~~~~~~~~~~~~~~~~~~~~~~ Dr Estrada Problem List - Problems (1) Change in mental status Code(s): R41.82 - ALTERED MENTAL STATUS, UNSPECIFIED Qualifiers: Altered mental status type: stupor Qualified Code(s): R40.1 - Stupor (2) Acute on chronic systolic and diastolic heart failure, NYHA class 3 Code(s): I50.43 - ACUTE ON CHRONIC COMBINED SYSTOLIC AND DIASTOLIC HRT FAIL (3) COPD (chronic obstructive pulmonary disease) with emphysema Code(s): J43.9 - EMPHYSEMA, UNSPECIFIED Qualifiers: Emphysema type: unspecified Qualified Code(s): J43.9 - Emphysema, unspecified (4) Sleep apnea Code(s): G47.30 - SLEEP APNEA, UNSPECIFIED Qualifiers: Sleep apnea type: unspecified type Qualified Code(s): G47.30 - Sleep apnea, unspecified (5) Mastoiditis Code(s): H70.90 - UNSPECIFIED MASTOIDITIS, UNSPECIFIED EAR Qualifiers: Laterality: right Qualified Code(s): H70.91 - Unspecified mastoiditis, right ear (6) Obesity due to excess calories Code(s): E66.09 - OTHER OBESITY DUE TO EXCESS CALORIES Qualifiers: Obesity severity: morbid Qualified Code(s): E66.01 - Morbid (severe ) obesity due to excess calories (7) A-fib Code(s): I48.91 - UNSPECIFIED ATRIAL FIBRILLATION Qualifiers: Atrial fibrillation type: chronic Qualified Code(s): I48.2 - Chronic atrial fibrillation (8) Edema Code(s): R60.9 - EDEMA, UNSPECIFIED Qualifiers: Edema type: localized Qualified Code(s): R60.0 - Localized edema (9) Elevated troponin Code(s): R74.8 - ABNORMAL LEVELS OF OTHER SERUM ENZYMES (10) Hypertensive heart and renal disease with heart failure Code(s): I13.0 - HYP HRT & CHR KDNY DIS W HRT FAIL AND STG 1-4/UNSP CHR KDNY I50.9 - HEART FAILURE, UNSPECIFIED N18.9 - CHRONIC KIDNEY DISEASE, UNSPECIFIED (11) Hyperlipidemia Code(s): E78.5 - HYPERLIPIDEMIA, UNSPECIFIED Qualifiers: Hyperlipidemia type: unspecified Qualified Code(s): E78.5 - Hyperlipidemia, unspecified (12) Somnolence Code(s): R40.0 - SOMNOLENCE (13) Osteoarthritis Code(s): M19.90 - UNSPECIFIED OSTEOARTHRITIS, UNSPECIFIED SITE Qualifiers: Osteoarthritis location: multiple joints (14) Intractable pain Code(s): R52 - PAIN, UNSPECIFIED (15) Major depressive disorder, recurrent Code(s): F33.9 - MAJOR DEPRESSIVE DISORDER, RECURRENT, UNSPECIFIED Qualifiers : Major depression episode severity: unspecified Qualified Code(s): F33.9 - Major depressive disorder, recurrent, unspecified (16) Sarcoid Code(s): D86.9 - SARCOIDOSIS, UNSPECIFIED (17) Long-term (current) use of anticoagulants Code(s): Z79.01 - CARE HOME (CURRENT) USE OF ANTICOAGULANTS (18) Conjunctivitis Code(s): H10.9 - UNSPECIFIED CONJUNCTIVITIS Qualifiers: Conjunctivitis type: other mucopurulent Laterality: bilateral Qualified Code(s): H10.023 - Other mucopurulent conjunctivitis, bilateral (19) Rash Code(s): R21 - RASH AND OTHER NONSPECIFIC SKIN ERUPTION (20) Elevated alkaline phosphatase level Code(s): R74.8 - ABNORMAL LEVELS OF OTHER SERUM ENZYMES
[2017-02-03] MEDS ORDERED: SODIUM CHLORIDE 1,000 ML IV SCH (16:50)
--- NOTE | 2017-02-03 19:08 | CONSULT ---
Consult Consult Specialty:: Ophthalmology Referred by:: dina Reason for Consultation:: Pt s/p trauma without direct injury to eyes, but redness periorbital ou, conjunctival redness bilateral and discharge. Pt states sees as always. Here as well for CHF - History of Present Illness Chief Complaint: redness in and around both eyes s/p traumatic fall. History of Present Illness: )Pt with recent fall , but denies direct trauma to head/eyes. However, eyes / conjunctiva and lids very red and dark. Pt denies pain, but also has some mild discharge OU. States vision unchanged. Lying on a stretcher when taking HPI and has no glasses with her in the hospital. Of note, pt here for managment of CHF as well. 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 paroxysmal), CHF, HTN, Hyperlipdemia, Pulmonary Hypertension Pulmonary: Yes: COPD (ex-smoker), O2 Dependent, Other (Hx of sarcoid?) Gastrointestinal: Yes: Diverticulosis, GERD Renal/: Yes: Renal Inusuff ...: No Psych: Yes: Depression Musculoskeletal: Yes: Chronic low back pain, Osteoarthritis (Rt hip) Rheumatology: Yes: Sarcoidosis Endocrine: Yes: Osteopenia, Other (obesity//Possible DM) - Alcohol/Substance Use Hx Alcohol Use: No History of Substance Use: reports: None - Smoking History Smoking history: Never smoked Have you smoked in the past 12 months: No Aproximately how many cigarettes per day: 0 If you are a former smoker, when did you quit?: 2007 - Social History Usual Living Arrangement: With Child ADL: Family Assistance 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 Travel: No Home Medications - Allergies Allergies/Adverse Reactions: Allergies Allergy/AdvReac Type Severity Reaction Status Date / Time No Known Allergies Allergy Verified 02/02/17 03:00 - Home Medications Home Medications: Ambulatory Orders Albuterol Sulfate Inhaler - [Ventolin HFA Inhaler -] 1 - 2 inh PO QID 09/27/16 Atorvastatin Ca [Lipitor] 10 mg PO HS 09/27/16 Bupropion HCl [Bupropion HCl ER] 150 mg PO DAILY 09/27/16 Dabigatran Etexilate Mesylate [Pradaxa -] 150 mg PO BID 09/27/16 Digoxin [Digitek] 125 mcg PO DAILY 09/27/16 Duloxetine HCl 30 mg PO DAILY 09/27/16 Furosemide [Lasix] 80 mg PO DAILY 09/27/16 Isosorbide Mononitrate [Isosorbide Mononitrate ER] 30 mg PO DAILY 09/27/16 Magnesium Oxide [Magnesium] 500 mg PO DAILY 09/27/16 Metformin HCl [Metformin HCl ER] 500 mg PO DAILY 09/27/16 Metoprolol Succinate [Toprol Xl] 50 mg PO DAILY 09/27/16 Montelukast Na [Singulair -] 10 mg PO HS 09/27/16 Oxycodone HCl/Acetaminophen [Oxycodone-Acetaminophen 10-325] 1 each PO DAILY 07/04 Pramipexole Dihydrochloride [Mirapex -] 0.5 mg PO TID 09/27/16 Prednisone 10 mg PO DAILY 09/27/16 Ranitidine [Zantac -] 150 mg PO DAILY 09/27/16 Spironolactone 25 mg PO DAILY 09/27/16 Torsemide [Demadex] 100 mg PO DAILY 02/02/17 Physical Exam Vital Signs: Vital Signs Temperature 98.3 F 02/03/17 18:00 Pulse Rate 95 H 02/03/17 18:00 Respiratory Rate 19 02/03/17 18:00 Blood Pressure 102/50 02/03/17 18:00 O2 Sat by Pulse Oximetry (%) 97 02/03/17 10:00 Labs: CBC, BMP 02/03/17 05:35 02/03/17 05:35
--- NOTE | 2017-02-03 20:02 | CON.ENT ---
Consult Consult Specialty:: ENT Referred by:: Dr. Estrada Reason for Consultation:: mastoiditis? - History of Present Illness Chief Complaint: ear ringing History of Present Illness: 61 yo F admitted recent minor trauma multiple medical problems hx ear ringing and ear infections has had care by Dr. Willis as outpatient. 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 paroxysmal), CHF, HTN, Hyperlipdemia, Pulmonary Hypertension Pulmonary: Yes: COPD (ex-smoker), O2 Dependent, Other (Hx of sarcoid?) Gastrointestinal: Yes: Diverticulosis, GERD Renal/: Yes: Renal Inusuff ...: No Psych: Yes: Depression Musculoskeletal: Yes: Chronic low back pain, Osteoarthritis (Rt hip) Rheumatology: Yes: Sarcoidosis Endocrine: Yes: Osteopenia, Other (obesity//Possible DM) - Alcohol/Substance Use Hx Alcohol Use: No History of Substance Use: reports: None - Smoking History Smoking history: Never smoked Have you smoked in the past 12 months: No Aproximately how many cigarettes per day: 0 If you are a former smoker, when did you quit?: 2007 - Social History Usual Living Arrangement: With Child ADL: Family Assistance 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 Travel: No Home Medications - Allergies Allergies/Adverse Reactions: Allergies Allergy/AdvReac Type Severity Reaction Status Date / Time No Known Allergies Allergy Verified 02/02/17 03:00 - Home Medications Home Medications: Ambulatory Orders Albuterol Sulfate Inhaler - [Ventolin HFA Inhaler -] 1 - 2 inh PO QID 09/27/16 Atorvastatin Ca [Lipitor] 10 mg PO HS 09/27/16 Bupropion HCl [Bupropion HCl ER] 150 mg PO DAILY 09/27/16 Dabigatran Etexilate Mesylate [Pradaxa -] 150 mg PO BID 09/27/16 Digoxin [Digitek] 125 mcg PO DAILY 09/27/16 Duloxetine HCl 30 mg PO DAILY 09/27/16 Furosemide [Lasix] 80 mg PO DAILY 09/27/16 Isosorbide Mononitrate [Isosorbide Mononitrate ER] 30 mg PO DAILY 09/27/16 Magnesium Oxide [Magnesium] 500 mg PO DAILY 09/27/16 Metformin HCl [Metformin HCl ER] 500 mg PO DAILY 09/27/16 Metoprolol Succinate [Toprol Xl] 50 mg PO DAILY 09/27/16 Montelukast Na [Singulair -] 10 mg PO HS 09/27/16 Oxycodone HCl/Acetaminophen [Oxycodone-Acetaminophen 10-325] 1 each PO DAILY 07/04 Pramipexole Dihydrochloride [Mirapex -] 0.5 mg PO TID 09/27/16 Prednisone 10 mg PO DAILY 09/27/16 Ranitidine [Zantac -] 150 mg PO DAILY 09/27/16 Spironolactone 25 mg PO DAILY 09/27/16 Torsemide [Demadex] 100 mg PO DAILY 02/02/17 Physical Exam-ENT Vital Signs: Vital Signs Temperature 98.3 F 02/03/17 18:00 Pulse Rate 95 H 02/03/17 18:00 Respiratory Rate 19 02/03/17 18:00 Blood Pressure 102/50 02/03/17 18:00 O2 Sat by Pulse Oximetry (%) 97 02/03/17 10:00 Constitutional: Yes: No Distress, Calm, Obese Face: Yes: Other (periorbital ?ecchymosis) Nose: Yes: Other (nasal septum sl deviated marked crusting right,sl old blood) Nasal Passage: Yes: Other (Nasal endoscopy performed: turbinate edema, small polyp left middle meatus) Oral/Pharynx: Yes: Other (missing teeth, oropharynx clear) Outer Ear: Yes: WNL Ear Canal: Yes: Cerumen Neck: Yes: WNL Imaging - Results Cat Scan: Report Reviewed, Image Reviewed (head; partial opacification mastoids , bones intact +DNS, chronic sinusitis especially left ethmoid and left maxillary) Problem List - Problems (1) Mastoiditis Assessment/Plan: CT changes of chronic mastoiditis no clinical evidence for acute infection recommend: observation outpatient follow-up Code(s): H70.90 - UNSPECIFIED MASTOIDITIS, UNSPECIFIED EAR Qualifiers: Laterality: right Qualified Code(s): H70.91 - Unspecified mastoiditis, right ear (2) Rhinosinusitis Assessment/Plan: left ethmoid and maxillary sinusitis on CT polyp in left MM marked crusting right septum Recommend: antibiotics nasal saline spray outpatient follow-up humidify oxygen Thank you for consultation, Ketan Kevin MD FACS Code(s): J32.9 - CHRONIC SINUSITIS, UNSPECIFIED
[2017-02-03] MEDS ORDERED: PT OWN MED DRAWER 7, Y5N ONE (21:57)
[2017-02-03] MEDS: ATORVASTATIN CA 10 MG TABLET (FP) PO SCH (22:03)
[2017-02-03] MEDS: SODIUM CHLORIDE NASAL SPRAY 44 ML BOTTLE NS SCH (22:03)
[2017-02-03] MEDS: NAPHAZOLINE/PHENIRAMINE OPHTHALMIC 15 ML BOTTLE OU SCH (23:24)
[2017-02-04] MEDS: ACETAMINOPHEN 500 MG TABLET (FP) PO PRN ×3 (03:38→21:39)
[2017-02-04] MEDS: CIPROFLOXACIN HCL 0.3% OPHTH 2.5ML BOTTLE OU SCH ×3 (05:41→17:41)
[2017-02-04 07:40] LABS: MCHC 32.1 g/dl (32.0-36.0); MEAN CELL VOLUME 93.5 fl (80-96); PLATELET COUNT 72 K/MM3 (134-434); RDW 20.4 % (11.6-15.6); WHITE BLOOD COUNT 7.7 K/mm3 (4.0-10.0)
[2017-02-04 08:31] LABS: ALK PHOS 100 U/L (45-117); ANION GAP 10 (8-16); BILIRUBIN,TOTAL 0.9 mg/dL (0.2-1.0); CO2 28 mmol/L (21-32); CREATININE 0.7 mg/dL (0.55-1.02); GLUCOSE,RANDOM 54 mg/dL (74-106); SGOT/AST 26 U/L (15-37); SGPT/ALT 17 U/L (12-78); TOT PROT 4.7 g/dl (6.4-8.2); TROPONIN I 0.04 ng/ml (0.00-0.05)
--- NOTE | 2017-02-04 08:59 | PN ---
Progress Note, Physician History of Present Illness: PULMONARY ALERT,FEELING BETTER,DYSPNEA IMPROVING. PT C/O LEFT SIDED CP S/P NEAR FALL ATTEMPTING TO GET OUT OF BED . - Current Medication List Current Medications: Active Medications Acetaminophen (Tylenol -) 500 mg PO Q6H PRN PRN Reason: PAIN LEVEL 1-5 Last Admin: 02/04/17 03:38 Dose: 500 mg Atorvastatin Calcium (Lipitor -) 10 mg PO HS [facility] Last Admin: 02/03/17 22:03 Dose: 10 mg Bupropion HCl (Wellbutrin Xl -) 150 mg PO DAILY [facility] Last Admin: 02/03/17 10:18 Dose: 150 mg Ceftriaxone Sodium (Rocephin 1gm Ivpb (Pre-Docked)) 1 gm IVPB DAILY [facility] Last Admin: 02/03/17 10:18 Dose: 1 gm Ciprofloxacin (Ciloxan 0.3% Eye Drops -) 2 drop OU Q6HPO [facility] Last Admin: 02/04/17 05:41 Dose: 2 drop Dabigatran (Pradaxa -) 150 mg PO BID [facility] Last Admin: 02/03/17 22:03 Dose: 150 mg Duloxetine HCl (Cymbalta -) 30 mg PO DAILY [facility] Last Admin: 02/03/17 10:17 Dose: 30 mg Sodium Chloride (Normal Saline -) 1,000 mls @ 42 mls/hr IV ASDIR [facility] Last Admin: 02/03/17 16:52 Dose: 42 mls/hr Isosorbide Mononitrate (Imdur -) 30 mg PO DAILY [facility] Last Admin: 02/03/17 10:17 Dose: 30 mg Metoprolol Succinate (Toprol Xl -) 25 mg PO DAILY [facility] Last Admin: 02/03/17 10:17 Dose: 25 mg Naphazoline HCl/Pheniramine Maleate (Visine-A -) 1 drop OU BID [facility] Last Admin: 02/03/17 23:24 Dose: 1 drop Nystatin (Nystop Powder -) 1 applic TP BID [facility] Last Admin: 02/03/17 22:07 Dose: 1 applic Prednisone (Deltasone -) 10 mg PO DAILY [facility] Last Admin: 02/03/17 10:17 Dose: 10 mg Sodium Chloride ([place] -) 2 spray NS BID [facility] Last Admin: 02/03/17 22:03 Dose: 2 spray - Objective Vital Signs: Vital Signs Temperature 98 F 0520/17 06:00 Pulse Rate 66 02/04/17 06:00 Respiratory Rate 20 02/04/17 06:00 Blood Pressure 91/53 02/04/17 06:00 O2 Sat by Pulse Oximetry (%) 97 02/03/17 21:00 Constitutional: Yes: Calm, Obese Eyes: Yes: WNL HENT: Yes: WNL Neck: Yes: Supple Cardiovascular: Yes: Pulse Irregular, S1, S2 Respiratory: Yes: Diminished Extremities: Yes: WNL, Erythema Edema: Yes Labs: CBC, BMP 02/04/17 05:35 02/04/17 05:35 INR, PTT INR 1.79 (0.82-1.09) H D 02/02/17 03:44 Problem List - Problems (1) A-fib Code(s): I48.91 - UNSPECIFIED ATRIAL FIBRILLATION Qualifiers: Atrial fibrillation type: chronic Qualified Code(s): I48.2 - Chronic atrial fibrillation (2) Change in mental status Code(s): R41.82 - ALTERED MENTAL STATUS, UNSPECIFIED Qualifiers: Altered mental status type: stupor Qualified Code(s): R40.1 - Stupor (3) Conjunctivitis Code(s): H10.9 - UNSPECIFIED CONJUNCTIVITIS Qualifiers: Conjunctivitis type: other mucopurulent Laterality: bilateral Qualified Code(s): H10.023 - Other mucopurulent conjunctivitis, bilateral (4) Diastolic CHF Code(s): I50.30 - UNSPECIFIED DIASTOLIC (CONGESTIVE) HEART FAILURE (5) Long-term (current) use of anticoagulants Code(s): Z79.01 - LAMP WIRER (CURRENT) USE OF ANTICOAGULANTS (6) Obesity due to excess calories Code(s): E66.09 - OTHER OBESITY DUE TO EXCESS CALORIES Qualifiers: Obesity severity: morbid Qualified Code(s): E66.01 - Morbid (severe ) obesity due to excess calories (7) Sleep apnea Code(s): G47.30 - SLEEP APNEA, UNSPECIFIED Qualifiers: Sleep apnea type: unspecified type Qualified Code(s): G47.30 - Sleep apnea, unspecified (8) COPD (chronic obstructive pulmonary disease) with emphysema Code(s): J43.9 - EMPHYSEMA, UNSPECIFIED Qualifiers: Emphysema type: unspecified Qualified Code(s): J43.9 - Emphysema, unspecified (9) Cellulitis Code(s): L03.90 - CELLULITIS, UNSPECIFIED Qualifiers: Site of cellulitis: extremity Site of cellulitis of extremity: lower extremity Laterality: right Qualified Code(s): L03.115 - Cellulitis of right lower limb (10) Edema Code(s): R60.9 - EDEMA, UNSPECIFIED Qualifiers: Edema type: localized Qualified Code(s): R60.0 - Localized edema (11) ROHIT (obstructive sleep apnea) Code(s): G47.33 - OBSTRUCTIVE SLEEP APNEA (ADULT) (PEDIATRIC) (12) Obesity Code(s): E66.9 - OBESITY, UNSPECIFIED (13) Sarcoid Code(s): D86.9 - SARCOIDOSIS, UNSPECIFIED Assessment/Plan Assessment/Plan IMP: Pulmonary Htn OSAS non-compliant with PAP [place] AMS / lethargy improved A-FIB Bilateral Conjunctivitis Pulmonary Sarcoid on chronic prednisone Cellulitis PLAN: empiric NIPPV If needed BD TX Ophthalmic drops Antibiotics O2 as needed Aspiration precautions Anticoagulation Patient is maintained on Prednisone 10mg OD for Pulm Sarcoid left sided rib series DR MCKENNA
--- NOTE | 2017-02-04 09:59 | PN ---
Progress Note (short form) - Note Progress Note: ID consult imp/reccd syncope- unclear etiology chronic mastoiditis/sinusitis asked to see for ct scan findings of mastoiditis/sinusitis defer to ENT reading of ct scan- chronic mastoiditis, chronic ethmoid/maxillary sinusitis currently on ceftriaxone would switch to unasyn with plans for oral augmentin when ready for discharge and outpt f/u with ENT this is primarily an ENT issue and if her findings persist she will need re- imaging and possible biopsy to obtain cultures per ENT thrombocytopenia thanks Problem List - Problems (1) Syncope Code(s): R55 - SYNCOPE AND COLLAPSE (2) Mastoiditis Code(s): H70.90 - UNSPECIFIED MASTOIDITIS, UNSPECIFIED EAR Qualifiers: Laterality: right Qualified Code(s): H70.91 - Unspecified mastoiditis, right ear (3) Rhinosinusitis Code(s): J32.9 - CHRONIC SINUSITIS, UNSPECIFIED (4) Thrombocytopenia Code(s): D69.6 - THROMBOCYTOPENIA, UNSPECIFIED
[2017-02-04] MEDS ORDERED: AMPICILLIN NA/SULBACTAM NA 1.5 GM in SODIUM CHLORIDE 100 ML IVPB SCH (10:15)
[2017-02-04] MEDS: SODIUM CHLORIDE NASAL SPRAY 44 ML BOTTLE NS SCH ×2 (10:32→21:25)
[2017-02-04] MEDS: ISOSORBIDE MONONITRATE 30 MG TAB.SR.24H (FP) PO SCH (10:33)
[2017-02-04] MEDS: NYSTATIN POWDER 100,000 UNITS/GM - 15 GM TOPICAL POWDER TP SCH ×2 (10:33→21:22)
[2017-02-04] MEDS: DULoxetine HCL 30 MG CAPSULE.DR (FP) PO SCH (10:35)
[2017-02-04] MEDS: DABIGATRAN ETEXILATE MESYLATE 150 MG CAPSULE PO SCH ×2 (10:35→21:22)
[2017-02-04] MEDS: predniSONE 10 MG TABLET (UD) PO SCH (10:35)
[2017-02-04] MEDS: NAPHAZOLINE/PHENIRAMINE OPHTHALMIC 15 ML BOTTLE OU SCH ×2 (10:35→21:26)
[2017-02-04] MEDS: METOPROLOL SUCCINATE 25 MG TAB.SR.24H (FP) PO SCH (10:35)
[2017-02-04] MEDS ORDERED: KCL 10 MEQ IVPB 100 ML IVPB SCH (11:15)
--- NOTE | 2017-02-04 11:15 | PN ---
Progress Note, Physician History of Present Illness: seen and examined today in nad. no overnight events. no new complaints. - Current Medication List Current Medications: Active Medications Acetaminophen (Tylenol -) 500 mg PO Q6H PRN PRN Reason: PAIN LEVEL 1-5 Last Admin: 02/04/17 10:33 Dose: 500 mg Atorvastatin Calcium (Lipitor -) 10 mg PO HS [facility] Last Admin: 02/03/17 22:03 Dose: 10 mg Bupropion HCl (Wellbutrin Xl -) 150 mg PO DAILY [facility] Last Admin: 02/04/17 10:35 Dose: 150 mg Ciprofloxacin (Ciloxan 0.3% Eye Drops -) 2 drop OU Q6HPO [facility] Last Admin: 02/04/17 05:41 Dose: 2 drop Dabigatran (Pradaxa -) 150 mg PO BID [facility] Last Admin: 02/04/17 10:35 Dose: 150 mg Duloxetine HCl (Cymbalta -) 30 mg PO DAILY [facility] Last Admin: 02/04/17 10:35 Dose: 30 mg Sodium Chloride (Normal Saline -) 1,000 mls @ 42 mls/hr IV ASDIR [facility] Last Admin: 02/03/17 16:52 Dose: 42 mls/hr Ampicillin Sodium/Sulbactam Sodium (Unasyn 1.5 Gm (Pre-Docked)) 100 mls @ 200 mls/hr IVPB Q6H-IV [facility] Isosorbide Mononitrate (Imdur -) 30 mg PO DAILY [facility] Last Admin: 02/04/17 10:33 Dose: 30 mg Metoprolol Succinate (Toprol Xl -) 25 mg PO DAILY [facility] Last Admin: 02/04/17 10:35 Dose: 25 mg Naphazoline HCl/Pheniramine Maleate (Visine-A -) 1 drop OU BID [facility] Last Admin: 02/04/17 10:35 Dose: 1 drop Nystatin (Nystop Powder -) 1 applic TP BID [facility] Last Admin: 02/04/17 10:33 Dose: 1 applic Prednisone (Deltasone -) 10 mg PO DAILY [facility] Last Admin: 02/04/17 10:35 Dose: 10 mg Sodium Chloride ([place] Nasal [place] -) 2 spray NS BID [facility] Last Admin: 02/04/17 10:32 Dose: 2 spray - Objective Vital Signs: Vital Signs Temperature 98.4 F 02/04/17 10:00 Pulse Rate 78 05/20/17 10:00 Respiratory Rate 20 02/04/17 10:00 Blood Pressure 124/80 02/04/17 10:00 O2 Sat by Pulse Oximetry (%) 97 02/03/17 21:00 Constitutional: Yes: No Distress, Calm, Obese Eyes: Yes: Conjunctiva Clear, EOM Intact, PERRL, Other HENT: Yes: Atraumatic Neck: Yes: Supple, Trachea Midline Cardiovascular: Yes: Pulse Irregular, S1, S2. No: Regular Rate and Rhythm, Bradycardia, Tachycardia, Bruit, JVD, Gallop, Murmur, Rub, S3, S4, Varicosities Respiratory: Yes: Regular, Diminished, On Nasal O2. No: Rales, Rhonchi, SOB, Wheezes Gastrointestinal: Yes: Normal Bowel Sounds, Soft. No: Distention, Tenderness Musculoskeletal: Yes: Muscle Weakness Extremities: Yes: WNL Edema: Yes Edema: LLE: Trace, RLE: Trace Peripheral Pulses WNL: Yes Peripheral Pulses: Left Doralis Pedis: 2+, Right Dorsalis Pedis: 2+ Integumentary: Yes: WNL Neurological: Yes: Alert, Oriented Psychiatric: Yes: Alert, Oriented Labs: CBC, BMP 02/04/17 05:35 02/04/17 05:35 INR, PTT INR 1.79 (0.82-1.09) H D 02/02/17 03:44 - ....Imaging Chest X-ray: Report Reviewed, Image Reviewed EKG: Report Reviewed, Image Reviewed Other: Report Reviewed, Image Reviewed (tele-AFib, HR adequately controlled, PVCs) Assessment/Plan 61 year old woman with a history of sarcoidosis, HTN, HLD, DMII, Afib, chronic combined systolic/diastolic CHF, COPD home O2, admitted with AMS/Syncope Syncope-unclear etiology, possible orthostatic hypotension vs vasovagal episode -Afib on tele, HR adequately controlled -echo showed mildly reduced LV function, mod RV dilatation and reduced function , mod PAH -Coronary angiogram 2017 at [facility]: patent coronary arteries; elevated PCW and pulmonary HTN. -plan was to f/up carotid doppler, does not seem to have been done -receiving hydration -check orthostatic BP if possible Afib-HR adequately controlled -cont current medical regimen Chronic combined systolic/diastolic CHF -evidence of intravascular depletion on labs -hold diuresis, receiving fluids -cont metoprolol -holding CARLOS-I/ARB in setting of low normal BP and DAWOOD
[2017-02-04] MEDS: POTASSIUM CHLORIDE TABS 20 MEQ TABLET.ER (FP) PO SCH ×2 (11:56→16:22)
--- NOTE | 2017-02-04 12:03 | CONSULT ---
Consult - text type - Consultation Consultation Note: The patient is a 61 year old female with significant past medical history of afib, CHF, hypertension, hyperlipidemia, diabetes, COPD (ex-smoker), O2 dependent, sarcoidosis, GERD, erythrocytosis, chronic low back pain, and osteoarthritis who presents to the ED for AMS and after being found down on the floor few hours prior to arrival. Patient is a poor historian. Allergies: NKDA Social History: Former smoker. No alcohol or drug use reported. Past Surgical History: herniated disc - Past Medical History COPD: (SARCOIDOSIS) CHF: Yes Diabetes: Yes GI Disorders: Yes (Acid reflex) Disorders: Yes (renal insufficiency from NSAIDs) HTN: Yes Psychiatric Problems: Yes (DEPRESSION.) - Surgical History Orthopedic Surgery: Yes (Herniated discs removed) - Psycho/Social/Smoking Cessation Hx Smoking Status: Yes Smoking History: Never smoked Allergies/Adverse Reactions: Allergies Allergy/AdvReac Type Severity Reaction Status Date / Time No Known Allergies Allergy Verified 02/02/17 03:00 Home Medications: Ambulatory Orders Albuterol Sulfate Inhaler - [Ventolin HFA Inhaler -] 1 - 2 inh PO QID 09/27/16 Atorvastatin Ca [Lipitor] 10 mg PO HS 09/27/16 Bupropion HCl [Bupropion HCl ER] 150 mg PO DAILY 09/27/16 Dabigatran Etexilate Mesylate [Pradaxa -] 150 mg PO BID 09/27/16 Digoxin [Digitek] 125 mcg PO DAILY 09/27/16 Duloxetine HCl 30 mg PO DAILY 09/27/16 Furosemide [Lasix] 80 mg PO DAILY 09/27/16 Isosorbide Mononitrate [Isosorbide Mononitrate ER] 30 mg PO DAILY 09/27/16 Magnesium Oxide [Magnesium] 500 mg PO DAILY 09/27/16 Metformin HCl [Metformin HCl ER] 500 mg PO DAILY 09/27/16 Metoprolol Succinate [Toprol Xl] 50 mg PO DAILY 09/27/16 Montelukast Na [Singulair -] 10 mg PO HS 09/27/16 Oxycodone HCl/Acetaminophen [Oxycodone-Acetaminophen 10-325] 1 each PO DAILY 07/04 Pramipexole Dihydrochloride [Mirapex -] 0.5 mg PO TID 09/27/16 Prednisone 10 mg PO DAILY 09/27/16 Ranitidine [Zantac -] 150 mg PO DAILY 09/27/16 Spironolactone 25 mg PO DAILY 09/27/16 Torsemide [Demadex] 100 mg PO DAILY 02/02/17 Active Medications Home Medication List Medication Instructions Recorded Confirmed Type Albuterol Sulfate Inhaler - 1 - 2 inh PO QID 09/27/16 02/02/17 History [Ventolin HFA Inhaler -] Atorvastatin Ca [Lipitor] 10 mg PO HS 09/27/16 02/02/17 History Bupropion HCl [Bupropion HCl ER] 150 mg PO DAILY 09/27/16 02/02/17 History Dabigatran Etexilate Mesylate 150 mg PO BID 09/27/16 02/02/17 History [Pradaxa -] Digoxin [Digitek] 125 mcg PO DAILY 09/27/16 02/02/17 History Duloxetine HCl 30 mg PO DAILY 09/27/16 02/02/17 History Furosemide [Lasix] 80 mg PO DAILY 09/27/16 02/02/17 History Isosorbide Mononitrate [Isosorbide 30 mg PO DAILY 09/27/16 02/02/17 History Mononitrate ER] Magnesium Oxide [Magnesium] 500 mg PO DAILY 09/27/16 02/02/17 History Metformin HCl [Metformin HCl ER] 500 mg PO DAILY 09/27/16 02/02/17 History Metoprolol Succinate [Toprol Xl] 50 mg PO DAILY 09/27/16 02/02/17 History Montelukast Na [Singulair -] 10 mg PO HS 09/27/16 02/02/17 History Oxycodone HCl/Acetaminophen 1 each PO DAILY 09/27/16 02/02/17 History [Oxycodone-Acetaminophen 10-325] Pramipexole Dihydrochloride 0.5 mg PO TID 09/27/16 02/02/17 History [Mirapex -] Prednisone 10 mg PO DAILY 09/27/16 02/02/17 History Ranitidine [Zantac -] 150 mg PO DAILY 09/27/16 02/02/17 History Spironolactone 25 mg PO DAILY 09/27/16 02/02/17 History Torsemide [Demadex] 100 mg PO DAILY 02/02/17 02/02/17 History Active Medications Generic Name Dose Route Start Last Admin Trade Name Freq PRN Reason Stop Dose Admin Acetaminophen 500 mg 02/02/17 16:44 02/04/17 10:33 Tylenol - PO 500 mg Q6H PRN Administration PAIN LEVEL 1-5 Atorvastatin Calcium 10 mg 02/02/17 22:00 02/03/17 22:03 Lipitor - PO 10 mg HS [facility] Administration Bupropion HCl 150 mg 02/03/17 10:00 02/04/17 10:35 Wellbutrin Xl - PO 150 mg DAILY [facility] Administration Ciprofloxacin 2 drop 02/02/17 18:00 02/04/17 11:57 Ciloxan 0.3% Eye Drops - OU 2 drop Q6HPO [facility] Administration Dabigatran 150 mg 02/02/17 22:00 02/04/17 10:35 Pradaxa - PO 150 mg BID [facility] Administration Duloxetine HCl 30 mg 02/03/17 10:00 02/04/17 10:35 Cymbalta - PO 30 mg DAILY [facility] Administration Ampicillin Sodium/Sulbactam Sodium 100 mls @ 200 mls/hr 02/04/17 10:45 Unasyn 1.5 Gm (Pre-Docked) IVPB Q6H-IV [facility] Isosorbide Mononitrate 30 mg 02/03/17 10:00 02/04/17 10:33 Imdur - PO 30 mg DAILY [facility] Administration Metoprolol Succinate 25 mg 02/03/17 10:00 02/04/17 10:35 Toprol Xl - PO 25 mg DAILY [facility] Administration Naphazoline HCl/Pheniramine Maleate 1 drop 02/03/17 22:00 02/04/17 10:35 Visine-A - OU 1 drop BID [facility] Administration Nystatin 1 applic 02/02/17 22:00 02/04/17 10:33 Nystop Powder - TP 1 applic BID [facility] Administration Potassium Chloride 40 meq 02/04/17 11:15 02/04/17 11:56 K-Dur - PO 02/04/17 15:16 40 meq Q4H [facility] Administration Prednisone 10 mg 02/02/17 10:15 02/04/17 10:35 Deltasone - PO 10 mg DAILY [facility] Administration Sodium Chloride 2 spray 02/03/17 22:00 02/04/17 10:32 [place] Nasal [place] - NS 2 spray BID [facility] Administration Last Vital Signs Temp Pulse Resp BP Pulse Ox 98.4 F 78 20 124/80 97 02/04/17 10:00 02/04/17 10:00 02/04/17 10:00 02/04/17 10:00 02/03/17 21:00 Morbid obesity HEENT--periorbital bruising Cor: RSR, No murmurs, No gallops Lungs: scatterd wheezes Abd: Soft, Normal bowel sounds, No organomegaly Ext:1+ edema b/l A/P 61 y/o patient with afib, CHF, hypertension, hyperlipidemia, diabetes, COPD (ex -smoker), O2 dependent, sarcoidosis, GERD, erythrocytosis, chronic low back pain , and osteoarthritis who presents to the ED for AMS and after being found down on the floor few hours prior to arrival. Patient is a poor historian. We have been consulted for thrombocytopenia slight worsening from baseline chronic thrombocytopenia which has been anging from 90s to 120s Check B12/ folate/ TSH/fT4/cultures On unasyn On pradaxa Suspect baseline morbid obesity and possible fatty liver as cause o carri chronnic thrombocytopenia worsening due to consumption from passive congestion/CHF vs occult infection will check above w/u check U/S liver/spleen will need to monitor closely as patient is on pradaxa Anemia of chrnic disease--hgb 10 check iron studies to r/o blood loss
--- NOTE | 2017-02-04 12:03 | PN ---
Progress Note (short form) - Note Progress Note: Current Medications Acetaminophen (Tylenol -) 500 mg PO Q6H PRN PRN Reason: PAIN LEVEL 1-5 Last Admin: 02/04/17 10:33 Dose: 500 mg Atorvastatin Calcium (Lipitor -) 10 mg PO HS [facility] BEDS AT [facility] Last Admin: 02/03/17 22:03 Dose: 10 mg Bupropion HCl (Wellbutrin Xl -) 150 mg PO DAILY [facility] 234 BEDS AT [facility] Last Admin: 02/04/17 10:35 Dose: 150 mg Ciprofloxacin (Ciloxan 0.3% Eye Drops -) 2 drop OU Q6HPO [facility]S [facility]CLUDE 234 BEDS AT THE [facility] Last Admin: 02/04/17 05:41 Dose: 2 drop Dabigatran (Pradaxa -) 150 mg PO BID [facility] 234 BEDS AT [facility] Last Admin: 02/04/17 10:35 Dose: 150 mg Duloxetine HCl (Cymbalta -) 30 mg PO DAILY [facility] 234 BEDS AT [facility] Last Admin: 02/04/17 10:35 Dose: 30 mg Ampicillin Sodium/Sulbactam Sodium (Unasyn 1.5 Gm (Pre-Docked)) 100 mls @ 200 mls/hr IVPB Q6H-IV [facility] Isosorbide Mononitrate (Imdur -) 30 mg PO DAILY [facility] 234 BEDS AT [facility] Last Admin: 02/04/17 10:33 Dose: 30 mg Metoprolol Succinate (Toprol Xl -) 25 mg PO DAILY [facility] 234 BEDS AT [facility] Last Admin: 02/04/17 10:35 Dose: 25 mg Naphazoline HCl/Pheniramine Maleate (Visine-A -) 1 drop OU BID [facility] 234 BEDS AT [facility] Last Admin: 02/04/17 10:35 Dose: 1 drop Nystatin (Nystop Powder -) 1 applic TP BID [facility] 234 BEDS AT [facility] Last Admin: 02/04/17 10:33 Dose: 1 applic Potassium Chloride (K-Dur -) 40 meq PO Q4H [facility]S [facility]CLUDE 234 BEDS AT [facility] Stop: 02/04/17 15:16 Prednisone (Deltasone -) 10 mg PO DAILY [facility] 234 BEDS AT [facility] Last Admin: 02/04/17 10:35 Dose: 10 mg Sodium Chloride ([place] Nasal [place] -) 2 spray NS BID [facility] 234 BEDS [facility] Last Admin: 02/04/17 10:32 Dose: 2 spray Laboratory Results - last 24 hr 02/04/17 02/04/17 02/04/17 05:35 05:35 05:35 WBC 7.7 RBC 3.44 L Hgb 10.3 L D Hct 32.2 L MCV 93.5 MCHC 32.1 RDW 20.4 H Plt Count 72 L MPV 8.0 Sodium 144 Potassium 3.2 L Chloride 106 Carbon Dioxide 28 Anion Gap 10 BUN 17 D Creatinine 0.7 D Creat Clearance w eGFR > 60 Random Glucose 54 L D Calcium 7.0 L Total Bilirubin 0.9 D AST 26 D ALT 17 Alkaline Phosphatase 100 D Creatine Kinase 76 Cancelled Troponin I 0.04 Cancelled Total Protein 4.7 L D Albumin 2.0 L D Vital Signs Temperature 98.4 F 02/04/17 10:00 Pulse Rate 78 02/04/17 10:00 Respiratory Rate 20 02/04/17 10:00 Blood Pressure 124/80 02/04/17 10:00 O2 Sat by Pulse Oximetry (%) 97 02/03/17 21:00 CC; feels achy ``````````````````````` skin--areas of ecchymosis/bruising (rolando-orb; Lt Lower pelvis; Rt shoulder) head--NC eyes--rolando-orb swelling with well demarcated, non blanching erythema; conj bilat injected; eomi; vision seems to be intact oral--mucosa less dry neck--supple, no masses lungs--no wheezing or rales appreciated heart--distant irreg abd--soft, NT ext--no pitting edema; Limited ROM neuro--drowsy but rousable; fairly lucid; mood is dysphoric; remembers all details leading up to syncopal episode; but unable to recall events at the time of LOC `````````````````````````````````````````````````````````` Summ >syncope--inciting cause not clear; no evidence of acute stroke (2nd CT of head without any changes). Could be due to arrhythmia; low BP; low BS, vaso-vagal effect; toxic effect of opiod analgesic. PLAN: will get PT eval > Low PLt--not new but lower than usual; could be 2nd traumatic vent; H/h now a bit lower; doubt sepsis or DIC PLAN: heme consult > ASHD--s/p cardiac cath @[facility] NL coronaries but increased PCW and rt vent pressures; which co-incides with the Echo report and suggest Pulm HTN. > Hypersomnolence--Not highly hypercapneic, seems to be more alert and awakes easily on contact; able to move purposefully and communicate. TFTs okay; Cause uncertain; perhaps post-concussion (from fall?), and/or prolonged effects of opiate analgesic > COPD--with 2nd Pulm Htn (see Pulm note) > Conjunctivitis--bilat; cultures pending; seen by Ophthalm. > mastoiditis--based on head Ct findings; seen by ID & ENT; changed to Unasyn > Glucose intol--a1c at 6.3 > ATF--rate seems controlled on current agents; cont a-c > High Troponin--now NL; may have had "NM" when taken to [facility] 1 month ago > Low K+--will replenish as needed ~~~~~~~~~~~~~~~~~~~~~~~~~~~~~~~~~~~ Dr Estrada Problem List - Problems (1) Change in mental status Code(s): R41.82 - ALTERED MENTAL STATUS, UNSPECIFIED Qualifiers: Altered mental status type: stupor Qualified Code(s): R40.1 - Stupor (2) Acute on chronic systolic and diastolic heart failure, NYHA class 3 Code(s): I50.43 - ACUTE ON CHRONIC COMBINED SYSTOLIC AND DIASTOLIC HRT FAIL (3) COPD (chronic obstructive pulmonary disease) with emphysema Code(s): J43.9 - EMPHYSEMA, UNSPECIFIED Qualifiers: Emphysema type: unspecified Qualified Code(s): J43.9 - Emphysema, unspecified (4) Sleep apnea Code(s): G47.30 - SLEEP APNEA, UNSPECIFIED Qualifiers: Sleep apnea type: unspecified type Qualified Code(s): G47.30 - Sleep apnea, unspecified (5) Mastoiditis Code(s): H70.90 - UNSPECIFIED MASTOIDITIS, UNSPECIFIED EAR Qualifiers: Laterality: right Qualified Code(s): H70.91 - Unspecified mastoiditis, right ear (6) Obesity due to excess calories Code(s): E66.09 - OTHER OBESITY DUE TO EXCESS CALORIES Qualifiers: Obesity severity: morbid Qualified Code(s): E66.01 - Morbid (severe ) obesity due to excess calories (7) A-fib Code(s): I48.91 - UNSPECIFIED ATRIAL FIBRILLATION Qualifiers: Atrial fibrillation type: chronic Qualified Code(s): I48.2 - Chronic atrial fibrillation (8) Edema Code(s): R60.9 - EDEMA, UNSPECIFIED Qualifiers: Edema type: localized Qualified Code(s): R60.0 - Localized edema (9) Elevated troponin Code(s): R74.8 - ABNORMAL LEVELS OF OTHER SERUM ENZYMES (10) Hypertensive heart and renal disease with heart failure Code(s): I13.0 - HYP HRT & CHR KDNY DIS W HRT FAIL AND STG 1-4/UNSP CHR KDNY I50.9 - HEART FAILURE, UNSPECIFIED N18.9 - CHRONIC KIDNEY DISEASE, UNSPECIFIED (11) Hyperlipidemia Code(s): E78.5 - HYPERLIPIDEMIA, UNSPECIFIED Qualifiers: Hyperlipidemia type: unspecified Qualified Code(s): E78.5 - Hyperlipidemia, unspecified (12) Somnolence Code(s): R40.0 - SOMNOLENCE (13) Osteoarthritis Code(s): M19.90 - UNSPECIFIED OSTEOARTHRITIS, UNSPECIFIED SITE Qualifiers: Osteoarthritis location: multiple joints (14) Intractable pain Code(s): R52 - PAIN, UNSPECIFIED (15) Major depressive disorder, recurrent Code(s): F33.9 - MAJOR DEPRESSIVE DISORDER, RECURRENT, UNSPECIFIED Qualifiers : Major depression episode severity: unspecified Qualified Code(s): F33.9 - Major depressive disorder, recurrent, unspecified (16) Sarcoid Code(s): D86.9 - SARCOIDOSIS, UNSPECIFIED (17) Long-term (current) use of anticoagulants Code(s): Z79.01 - DESTINATION COORDINATOR (CURRENT) USE OF ANTICOAGULANTS (18) Conjunctivitis Code(s): H10.9 - UNSPECIFIED CONJUNCTIVITIS Qualifiers: Conjunctivitis type: other mucopurulent Laterality: bilateral Qualified Code(s): H10.023 - Other mucopurulent conjunctivitis, bilateral (19) Rash Code(s): R21 - RASH AND OTHER NONSPECIFIC SKIN ERUPTION (20) Elevated alkaline phosphatase level Code(s): R74.8 - ABNORMAL LEVELS OF OTHER SERUM ENZYMES
--- NOTE | 2017-02-04 14:10 | CONS ---
INFECTIOUS DISEASE CONSULTATION DATE OF CONSULTATION: DATE OF DICTATION: 02/04/2017 REQUESTING PHYSICIAN: Kt Estrada MD HISTORY OF PRESENT ILLNESS: This is a 61-year-old woman with a history of atrial fibrillation, atherosclerotic heart disease, sarcoid, and COPD. She was recently hospitalized at [facility] in December 2016 and she underwent a cardiac catheterization and was found to have pulmonary hypertension. She was sent to rehabilitation after that and has been home about 2 weeks. She presented to the emergency room on February 02, 2017, after she was found on the floor in her house by her daughter. She had been well apparently the previous evening and the next morning she was found on the floor. Her eyes were encrusted and injected. The patient is currently awake and alert. She has no idea what happened. She has been seen by Ophthalmology for conjunctivitis. She has been seen by ENT as she had a head CT done for possible syncope done in the emergency room and the ENT reading of this is that she has chronic right mastoiditis with left ethmoid and maxillary sinusitis. I am asked to see her for the same. She has been started on ceftriaxone. She is also being seen by Cardiology and Pulmonary. She currently has no complaints and is wondering when she can go home. Her vision is intact. PAST MEDICAL HISTORY: Notable for atrial fibrillation, CHF, hypertension, hyperlipidemia, pulmonary hypertension, and COPD and she is oxygen dependent. She has a history of sarcoid, diverticulosis, gastroesophageal reflux disease, chronic renal insufficiency, depression, chronic low back pain, osteoarthritis, and recent cardiac catheterization. ALLERGIES: She has no known drug allergies. MEDICATIONS: Her medications as an outpatient includes albuterol, Lipitor, bupropion/hydrochlorothiazide, Pradaxa, digoxin, duloxetine, furosemide, isosorbide, magnesium oxide, metformin, metoprolol, Singulair, Percocet, Mirapex, prednisone 10 mg daily, Zantac, spironolactone, and Demadex. FAMILY HISTORY: Unremarkable. PHYSICAL EXAMINATION: General Appearance: The patient is awake and alert. Vital Signs: Temperature of 98, pulse of 66, blood pressure of 91/53, and respiratory rate of 20. HEENT: She has bilateral conjunctivitis of her eyes with surrounding ecchymoses. There is no evidence of cellulitis. She has no thrush or pharyngitis. Neck: Supple. Lungs: Clear to auscultation. Heart: Regular rate and rhythm. Abdomen: Soft, nontender. She complains of left rib pain since the fall. Extremities: Extremities have trace edema. Neurological: Quite awake and alert. LABORATORY DATA: Labs are notable for a white count of 7.7, hemoglobin of 10.3, and platelets of 72,000. INR of 1.7. BUN of 36 and creatinine of 1.3 on admission and today BUN of 17 and creatinine of 0.7. Liver function tests are normal. Urinalysis has 9 white cells. Blood cultures were sent from the emergency room that is negative. Head CT is as per the ENT reading. There is a right mastoid effusion and chronic maxillary and left ethmoid sinusitis. IMPRESSION: 1. In summary, this is a 61-year-old woman with sarcoid pulmonary hypertension and chronic obstructive pulmonary disease, admitted status post a syncopal event of unclear etiology, which I am asked to see for CT findings of mastoiditis and sinusitis. I will defer to the ear, nose, and throat reading on the CAT scan. She is currently on ceftriaxone and I would switch her to Unasyn with plans for oral Augmentin when ready for discharge and outpatient followup with ear, nose, and throat. This is primarily an ear, nose, and throat issue and if her findings persist she will need re-imaging with ear, nose, and throat and possible biopsy to obtain cultures. 2. Syncope of unclear etiology. 3. Thrombocytopenia. RC MARIN M.D. [id number]
--- NOTE | 2017-02-04 14:19 | CONSULT ---
Consult Consult Specialty:: Drs. Arriaga/ French Referred by:: Dr. Estrada Reason for Consultation:: Hypertension, Proteinuria, Hypokalemia - History of Present Illness Chief Complaint: The patient is well known to our service. Admitted with syncope and fall at home, with multiple contusions History of Present Illness: The patient is a 61 y/o female with very complex medical history, including Hypertension, Sarcoidosis, Coronary artery disease, Congestive Heart failure, Severe COPD, O2 dependent at home, Chronic Kideny disease, Ex-smoker, obesity admitted with syncope and fll at home. The patient also has DM2, Chronic low back pain. Has been on multiple medications. 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 paroxysmal), CHF, HTN, Hyperlipdemia, Pulmonary Hypertension Pulmonary: Yes: COPD (ex-smoker), O2 Dependent, Other (Hx of sarcoid?) Gastrointestinal: Yes: Diverticulosis, GERD Renal/: Yes: Renal Inusuff ...: No Psych: Yes: Depression Musculoskeletal: Yes: Chronic low back pain, Osteoarthritis (Rt hip) Rheumatology: Yes: Sarcoidosis Endocrine: Yes: Osteopenia, Other (obesity//Possible DM) - Alcohol/Substance Use Hx Alcohol Use: No History of Substance Use: reports: None - Smoking History Smoking history: Never smoked Have you smoked in the past 12 months: No Aproximately how many cigarettes per day: 0 If you are a former smoker, when did you quit?: 2007 - Social History Usual Living Arrangement: With Child ADL: Family Assistance 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 Travel: No Home Medications - Allergies Allergies/Adverse Reactions: Allergies Allergy/AdvReac Type Severity Reaction Status Date / Time No Known Allergies Allergy Verified 02/02/17 03:00 - Home Medications Home Medications: Ambulatory Orders Albuterol Sulfate Inhaler - [Ventolin HFA Inhaler -] 1 - 2 inh PO QID 09/27/16 Atorvastatin Ca [Lipitor] 10 mg PO HS 09/27/16 Bupropion HCl [Bupropion HCl ER] 150 mg PO DAILY 09/27/16 Dabigatran Etexilate Mesylate [Pradaxa -] 150 mg PO BID 09/27/16 Digoxin [Digitek] 125 mcg PO DAILY 09/27/16 Duloxetine HCl 30 mg PO DAILY 09/27/16 Furosemide [Lasix] 80 mg PO DAILY 09/27/16 Isosorbide Mononitrate [Isosorbide Mononitrate ER] 30 mg PO DAILY 09/27/16 Magnesium Oxide [Magnesium] 500 mg PO DAILY 09/27/16 Metformin HCl [Metformin HCl ER] 500 mg PO DAILY 09/27/16 Metoprolol Succinate [Toprol Xl] 50 mg PO DAILY 09/27/16 Montelukast Na [Singulair -] 10 mg PO HS 09/27/16 Oxycodone HCl/Acetaminophen [Oxycodone-Acetaminophen 10-325] 1 each PO DAILY 07/04 Pramipexole Dihydrochloride [Mirapex -] 0.5 mg PO TID 09/27/16 Prednisone 10 mg PO DAILY 09/27/16 Ranitidine [Zantac -] 150 mg PO DAILY 09/27/16 Spironolactone 25 mg PO DAILY 09/27/16 Torsemide [Demadex] 100 mg PO DAILY 02/02/17 Review of Systems - Review of Systems Constitutional: reports: Weakness HENT: reports: Other (multiple bruises on the face) Neck: reports: Decreased ROM, Pain on Movement Respiratory: reports: Cough Gastrointestinal: denies: Abdominal Pain Genitourinary: denies: Burning Musculoskeletal: reports: Back Pain Neurological: reports: Weakness Physical Exam Vital Signs: Vital Signs Temperature 98.4 F 02/04/17 10:00 Pulse Rate 78 02/04/17 10:00 Respiratory Rate 20 02/04/17 10:00 Blood Pressure 124/80 02/04/17 10:00 O2 Sat by Pulse Oximetry (%) 95 02/04/17 09:00 Constitutional: Yes: Calm, Anxious Eyes: Yes: Conjunctiva Clear Cardiovascular: Yes: Regular Rate and Rhythm, S1, S2 Respiratory: Yes: Diminished, On Nasal O2, Poor Air Entry Gastrointestinal: Yes: Abdomen, Obese, Hypoactive Bowel Sounds Renal/: No: Hematuria, Incontinence Musculoskeletal: Yes: Back Pain Edema: Yes Edema: LLE: Trace, RLE: Trace Neurological: Yes: Alert, Oriented, Weakness. No: Seizure Psychiatric: Yes: Alert, Oriented Labs: CBC, BMP 02/04/17 05:35 02/04/17 05:35 Problem List - Problems (1) A-fib Code(s): I48.91 - UNSPECIFIED ATRIAL FIBRILLATION Qualifiers: Atrial fibrillation type: chronic Qualified Code(s): I48.2 - Chronic atrial fibrillation (2) Acute on chronic systolic and diastolic heart failure, NYHA class 1 Code(s): I50.43 - ACUTE ON CHRONIC COMBINED SYSTOLIC AND DIASTOLIC HRT FAIL (3) Sleep apnea Code(s): G47.30 - SLEEP APNEA, UNSPECIFIED Qualifiers: Sleep apnea type: unspecified type Qualified Code(s): G47.30 - Sleep apnea, unspecified (4) Syncope Code(s): R55 - SYNCOPE AND COLLAPSE (5) CHF (congestive heart failure) Code(s): I50.9 - HEART FAILURE, UNSPECIFIED Qualifiers: Congestive heart failure type: unspecified congestive heart failure type Congestive heart failure chronicity: acute on chronic Qualified Code(s ): I50.9 - Heart failure, unspecified (6) COPD (chronic obstructive pulmonary disease) with emphysema Code(s): J43.9 - EMPHYSEMA, UNSPECIFIED Qualifiers: Emphysema type: unspecified Qualified Code(s): J43.9 - Emphysema, unspecified (7) Edema leg Code(s): R60.0 - LOCALIZED EDEMA (8) Hyperlipidemia Code(s): E78.5 - HYPERLIPIDEMIA, UNSPECIFIED Qualifiers: Hyperlipidemia type: unspecified Qualified Code(s): E78.5 - Hyperlipidemia, unspecified (9) Hypertensive cardiovascular disease Code(s): I11.9 - HYPERTENSIVE HEART DISEASE WITHOUT HEART FAILURE (10) Obesity Code(s): E66.9 - OBESITY, UNSPECIFIED (11) Sarcoid Code(s): D86.9 - SARCOIDOSIS, UNSPECIFIED (12) Hypokalemia Code(s): E87.6 - HYPOKALEMIA (13) Acute kidney injury Code(s): N17.9 - ACUTE KIDNEY FAILURE, UNSPECIFIED Assessment/Plan 61 y/o female well known to our service, admitted with Acute syncope and fall, with multiple contusions. No fractures, No head injury. The patient has COPD, and seems to have some degree of exacerbation. Hypokalemia noted, which may be related to the diuretics and steroids. Orders for KCl supplements noted. Concur with the current management. Will monitor the renal functions with you. Thank you. ALEIDA ARRIAGA MD
[2017-02-04] MEDS: AMPICILLIN NA/SULBACTAM NA 100 ML IVPB SCH ×3 (14:30→21:21)
[2017-02-04] MEDS: ATORVASTATIN CA 10 MG TABLET (FP) PO SCH (21:22)
[2017-02-05] MEDS: CIPROFLOXACIN HCL 0.3% OPHTH 2.5ML BOTTLE OU SCH ×5 (00:43→23:57)
[2017-02-05] MEDS ORDERED: PT OWN MED DRAWER 7, Y5N ONE ×2 (03:25→14:32)
[2017-02-05] MEDS: AMPICILLIN NA/SULBACTAM NA 100 ML IVPB SCH ×4 (03:30→21:50)
[2017-02-05] MEDS: ACETAMINOPHEN 500 MG TABLET (FP) PO PRN ×3 (03:54→23:57)
[2017-02-05 07:05] LABS: BASOPHIL 0.3 % (0-2.0); EOSINOPHIL 0.7 % (0-4.5); MCH 30.1 pg (25.7-33.7); MCHC 32.4 g/dl (32.0-36.0); MEAN CELL VOLUME 92.9 fl (80-96); MEAN PLT VOLUME 8.4 fl (7.5-11.1); NEUTROPHILS 72.4 % (42.8-82.8); PLATELET COUNT 87 K/MM3 (134-434); RDW 20.1 % (11.6-15.6); WHITE BLOOD COUNT 7.8 K/mm3 (4.0-10.0)
[2017-02-05 07:18] LABS: CALCIUM 9.1 mg/dL (8.5-10.1)
[2017-02-05 07:28] LABS: FREE T4 1.35 ng/dl (0.76-1.46)
[2017-02-05 07:31] LABS: COCKROFT - GAULT 105.757; THYROID STIMULATING HORMONE 1.17 uIU/ml (0.358-3.74)
[2017-02-05 08:43] LABS: C-REACTIVE PROTEIN 13.2 MG/DL (0.00-0.3)
[2017-02-05 08:44] LABS: FERRITIN 70.365 ng/ml (6.9-282.5)
[2017-02-05] MEDS: DULoxetine HCL 30 MG CAPSULE.DR (FP) PO SCH (09:00)
[2017-02-05] MEDS: NYSTATIN POWDER 100,000 UNITS/GM - 15 GM TOPICAL POWDER TP SCH ×2 (09:01→21:50)
[2017-02-05] MEDS: METOPROLOL SUCCINATE 25 MG TAB.SR.24H (FP) PO SCH (09:01)
[2017-02-05] MEDS: predniSONE 10 MG TABLET (UD) PO SCH (09:01)
[2017-02-05] MEDS: ISOSORBIDE MONONITRATE 30 MG TAB.SR.24H (FP) PO SCH (09:01)
[2017-02-05] MEDS: SODIUM CHLORIDE NASAL SPRAY 44 ML BOTTLE NS SCH ×2 (09:01→21:50)
[2017-02-05] MEDS: DABIGATRAN ETEXILATE MESYLATE 150 MG CAPSULE PO SCH ×2 (09:01→21:50)
[2017-02-05] MEDS: NAPHAZOLINE/PHENIRAMINE OPHTHALMIC 15 ML BOTTLE OU SCH ×2 (09:02→21:51)
--- NOTE | 2017-02-05 09:29 | PN ---
Progress Note, Physician History of Present Illness: pulmonary alert,feeling better,-sob,-cp - Current Medication List Current Medications: Active Medications Acetaminophen (Tylenol -) 500 mg PO Q6H PRN PRN Reason: PAIN LEVEL 1-5 Last Admin: 02/05/17 09:02 Dose: 500 mg Atorvastatin Calcium (Lipitor -) 10 mg PO HS [facility] Last Admin: 02/04/17 21:22 Dose: 10 mg Bupropion HCl (Wellbutrin Xl -) 150 mg PO DAILY [facility] Last Admin: 02/05/17 09:02 Dose: 150 mg Ciprofloxacin (Ciloxan 0.3% Eye Drops -) 2 drop OU Q6HPO [facility] Last Admin: 02/05/17 05:31 Dose: 2 drop Dabigatran (Pradaxa -) 150 mg PO BID [facility] Last Admin: 02/05/17 09:01 Dose: 150 mg Duloxetine HCl (Cymbalta -) 30 mg PO DAILY [facility] Last Admin: 02/05/17 09:00 Dose: 30 mg Ampicillin Sodium/Sulbactam Sodium (Unasyn 1.5 Gm (Pre-Docked)) 100 mls @ 200 mls/hr IVPB Q6H-IV [facility] Last Admin: 02/05/17 09:00 Dose: 200 mls/hr Isosorbide Mononitrate (Imdur -) 30 mg PO DAILY [facility] Last Admin: 02/05/17 09:01 Dose: 30 mg Metoprolol Succinate (Toprol Xl -) 25 mg PO DAILY [facility] Last Admin: 02/05/17 09:01 Dose: 25 mg Naphazoline HCl/Pheniramine Maleate (Visine-A -) 1 drop OU BID [facility] Last Admin: 02/05/17 09:02 Dose: 1 drop Nystatin (Nystop Powder -) 1 applic TP BID [facility] Last Admin: 02/05/17 09:01 Dose: 1 applic Prednisone (Deltasone -) 10 mg PO DAILY [facility] Last Admin: 02/05/17 09:01 Dose: 10 mg Sodium Chloride ([place] Nasal [place] -) 2 spray NS BID [facility] Last Admin: 02/05/17 09:01 Dose: 2 spray - Objective Vital Signs: Vital Signs Temperature 97.8 F 02/05/17 02:00 Pulse Rate 72 02/05/17 02:00 Respiratory Rate 20 02/05/17 02:00 Blood Pressure 141/78 02/05/17 02:00 O2 Sat by Pulse Oximetry (%) 92 L 02/04/17 20:30 Constitutional: Yes: Calm, Obese Eyes: Yes: WNL HENT: Yes: WNL Neck: Yes: WNL Cardiovascular: Yes: Pulse Irregular, S1, S2 Respiratory: Yes: Diminished Gastrointestinal: Yes: Normal Bowel Sounds, Soft Extremities: Yes: Erythema Edema: Yes Labs: CBC, BMP 02/05/17 05:35 02/05/17 05:35 INR, PTT INR 1.79 (0.82-1.09) H D 02/02/17 03:44 - ....Imaging X-ray: Report Reviewed, Image Reviewed (rib series -fx) Problem List - Problems (1) A-fib Code(s): I48.91 - UNSPECIFIED ATRIAL FIBRILLATION Qualifiers: Atrial fibrillation type: chronic Qualified Code(s): I48.2 - Chronic atrial fibrillation (2) Change in mental status Code(s): R41.82 - ALTERED MENTAL STATUS, UNSPECIFIED Qualifiers: Altered mental status type: stupor Qualified Code(s): R40.1 - Stupor (3) Conjunctivitis Code(s): H10.9 - UNSPECIFIED CONJUNCTIVITIS Qualifiers: Conjunctivitis type: other mucopurulent Laterality: bilateral Qualified Code(s): H10.023 - Other mucopurulent conjunctivitis, bilateral (4) Diastolic CHF Code(s): I50.30 - UNSPECIFIED DIASTOLIC (CONGESTIVE) HEART FAILURE (5) Long-term (current) use of anticoagulants Code(s): Z79.01 - BARN AND PROPERTY MANAGER (CURRENT) USE OF ANTICOAGULANTS (6) Obesity due to excess calories Code(s): E66.09 - OTHER OBESITY DUE TO EXCESS CALORIES Qualifiers: Obesity severity: morbid Qualified Code(s): E66.01 - Morbid (severe ) obesity due to excess calories (7) Sleep apnea Code(s): G47.30 - SLEEP APNEA, UNSPECIFIED Qualifiers: Sleep apnea type: unspecified type Qualified Code(s): G47.30 - Sleep apnea, unspecified (8) COPD (chronic obstructive pulmonary disease) with emphysema Code(s): J43.9 - EMPHYSEMA, UNSPECIFIED Qualifiers: Emphysema type: unspecified Qualified Code(s): J43.9 - Emphysema, unspecified (9) Cellulitis Code(s): L03.90 - CELLULITIS, UNSPECIFIED Qualifiers: Site of cellulitis: extremity Site of cellulitis of extremity: lower extremity Laterality: right Qualified Code(s): L03.115 - Cellulitis of right lower limb (10) Edema Code(s): R60.9 - EDEMA, UNSPECIFIED Qualifiers: Edema type: localized Qualified Code(s): R60.0 - Localized edema (11) ROHIT (obstructive sleep apnea) Code(s): G47.33 - OBSTRUCTIVE SLEEP APNEA (ADULT) (PEDIATRIC) (12) Obesity Code(s): E66.9 - OBESITY, UNSPECIFIED (13) Sarcoid Code(s): D86.9 - SARCOIDOSIS, UNSPECIFIED Assessment/Plan Assessment/Plan IMP: Pulmonary Htn OSAS non-compliant with PAP Falls AMS / lethargy improved A-FIB Bilateral Conjunctivitis Pulmonary Sarcoid on chronic prednisone Cellulitis Thrombocytopenia PLAN: empiric NIPPV If needed BD TX Ophthalmic drops Antibiotics O2 as needed Aspiration precautions Anticoagulation Patient is maintained on Prednisone 10mg OD for Pulm Sarcoid Monitor plt ct DR MCKENNA
--- NOTE | 2017-02-05 09:47 | PN ---
Progress Note, Physician History of Present Illness: seen and examined today in nad. no overnight events. no new complaints. - Current Medication List Current Medications: Active Medications Acetaminophen (Tylenol -) 500 mg PO Q6H PRN PRN Reason: PAIN LEVEL 1-5 Last Admin: 02/05/17 09:02 Dose: 500 mg Atorvastatin Calcium (Lipitor -) 10 mg PO HS [facility] Last Admin: 02/04/17 21:22 Dose: 10 mg Bupropion HCl (Wellbutrin Xl -) 150 mg PO DAILY [facility] Last Admin: 02/05/17 09:02 Dose: 150 mg Ciprofloxacin (Ciloxan 0.3% Eye Drops -) 2 drop OU Q6HPO [facility] Last Admin: 02/05/17 05:31 Dose: 2 drop Dabigatran (Pradaxa -) 150 mg PO BID [facility] Last Admin: 02/05/17 09:01 Dose: 150 mg Duloxetine HCl (Cymbalta -) 30 mg PO DAILY [facility] Last Admin: 02/05/17 09:00 Dose: 30 mg Ampicillin Sodium/Sulbactam Sodium (Unasyn 1.5 Gm (Pre-Docked)) 100 mls @ 200 mls/hr IVPB Q6H-IV [facility] Last Admin: 02/05/17 09:00 Dose: 200 mls/hr Isosorbide Mononitrate (Imdur -) 30 mg PO DAILY [facility] Last Admin: 02/05/17 09:01 Dose: 30 mg Metoprolol Succinate (Toprol Xl -) 25 mg PO DAILY [facility] Last Admin: 02/05/17 09:01 Dose: 25 mg Naphazoline HCl/Pheniramine Maleate (Visine-A -) 1 drop OU BID [facility] Last Admin: 02/05/17 09:02 Dose: 1 drop Nystatin (Nystop Powder -) 1 applic TP BID [facility] Last Admin: 02/05/17 09:01 Dose: 1 applic Prednisone (Deltasone -) 10 mg PO DAILY [facility] Last Admin: 02/05/17 09:01 Dose: 10 mg Sodium Chloride ([place] Nasal [place] -) 2 spray NS BID [facility] Last Admin: 02/05/17 09:01 Dose: 2 spray - Objective Vital Signs: Vital Signs Temperature 97.8 F 02/05/17 02:00 Pulse Rate 72 02/05/17 02:00 Respiratory Rate 20 02/05/17 02:00 Blood Pressure 141/78 02/05/17 02:00 O2 Sat by Pulse Oximetry (%) 92 L 02/04/17 20:30 Constitutional: Yes: No Distress, Calm, Obese Eyes: Yes: Conjunctiva Clear, EOM Intact, PERRL HENT: Yes: Atraumatic, Normocephalic Neck: Yes: Supple, Trachea Midline Cardiovascular: Yes: Pulse Irregular, S1, S2. No: Bradycardia, Tachycardia, Bruit, JVD, Gallop, Murmur, Rub, S3, S4, Varicosities Respiratory: Yes: Regular, Diminished. No: Rales, Rhonchi, Wheezes Gastrointestinal: Yes: Normal Bowel Sounds, Soft. No: Distention, Tenderness Edema: Yes Edema: LLE: Trace, RLE: Trace Peripheral Pulses WNL: Yes Peripheral Pulses: Left Doralis Pedis: 2+, Right Dorsalis Pedis: 2+ Integumentary: Yes: WNL Neurological: Yes: Alert, Oriented Psychiatric: Yes: Alert, Oriented Labs: CBC, BMP 02/05/17 05:35 02/05/17 05:35 INR, PTT INR 1.79 (0.82-1.09) H D 02/02/17 03:44 - ....Imaging Chest X-ray: Report Reviewed, Image Reviewed EKG: Report Reviewed, Image Reviewed Other: Report Reviewed, Image Reviewed (tele-AFib, HR controlled, PVCs, 4 beats NSVT) Assessment/Plan 61 year old woman with a history of sarcoidosis, HTN, HLD, DMII, Afib, chronic combined systolic/diastolic CHF, COPD home O2, admitted with AMS/Syncope Syncope-unclear etiology, possible orthostatic hypotension vs vasovagal episode -no sig events on tele, no pauses or bradycardia, Afib, 4 beats nsvt, no arrhythmia to explain event -echo showed mildly reduced LV function, mod RV dilatation and reduced function , mod PAH -Coronary angiogram 2017 at [facility]: patent coronary arteries; elevated PCW and pulmonary HTN. -carotid doppler re-ordered yesterday not yet completed -received hydration -check orthostatic BP when possible Afib-HR adequately controlled -cont current medical regimen Chronic combined systolic/diastolic CHF -evidence of intravascular depletion on labs -holding diuresis for now, received fluids -cont metoprolol -holding CARLOS-I/ARB in setting of low normal BP and DAWOOD
--- NOTE | 2017-02-05 12:23 | PN ---
Progress Note (short form) - Note Progress Note: Current Medications Acetaminophen (Tylenol -) 500 mg PO Q6H PRN PRN Reason: PAIN LEVEL 1-5 Last Admin: 02/05/17 09:02 Dose: 500 mg Atorvastatin Calcium (Lipitor -) 10 mg PO HS [facility] Last Admin: 02/04/17 21:22 Dose: 10 mg Bupropion HCl (Wellbutrin Xl -) 150 mg PO DAILY [facility] Last Admin: 02/05/17 09:02 Dose: 150 mg Ciprofloxacin (Ciloxan 0.3% Eye Drops -) 2 drop OU Q6HPO [facility] Last Admin: 02/05/17 12:00 Dose: 2 drop Dabigatran (Pradaxa -) 150 mg PO BID [facility] Last Admin: 02/05/17 09:01 Dose: 150 mg Duloxetine HCl (Cymbalta -) 30 mg PO DAILY [facility] Last Admin: 02/05/17 09:00 Dose: 30 mg Ampicillin Sodium/Sulbactam Sodium (Unasyn 1.5 Gm (Pre-Docked)) 100 mls @ 200 mls/hr IVPB Q6H-IV [facility] Last Admin: 02/05/17 09:00 Dose: 200 mls/hr Isosorbide Mononitrate (Imdur -) 30 mg PO DAILY [facility] Last Admin: 02/05/17 09:01 Dose: 30 mg Metoprolol Succinate (Toprol Xl -) 25 mg PO DAILY [facility] Last Admin: 02/05/17 09:01 Dose: 25 mg Naphazoline HCl/Pheniramine Maleate (Visine-A -) 1 drop OU BID [facility] Last Admin: 02/05/17 09:02 Dose: 1 drop Nystatin (Nystop Powder -) 1 applic TP BID [facility] Last Admin: 02/05/17 09:01 Dose: 1 applic Prednisone (Deltasone -) 10 mg PO DAILY [facility] Last Admin: 02/05/17 09:01 Dose: 10 mg Sodium Chloride ([place] Nasal [place] -) 2 spray NS BID [facility] Last Admin: 02/05/17 09:01 Dose: 2 spray Laboratory Last Values WBC 7.8 K/mm3 (4.0-10.0) 02/05/17 05:35 RBC 3.80 M/mm3 (3.60-5.2) 02/05/17 05:35 Hgb 11.4 GM/dL (10.7-15.3) D 02/05/17 05:35 Hct 35.3 % (32.4-45.2) 02/05/17 05:35 MCV 92.9 fl (80-96) 02/05/17 05:35 MCHC 32.4 g/dl (32.0-36.0) 02/05/17 05:35 RDW 20.1 % (11.6-15.6) H 02/05/17 05:35 Plt Count 87 K/MM3 (134-434) L D 02/05/17 05:35 MPV 8.4 fl (7.5-11.1) 02/05/17 05:35 Neutrophils % 72.4 % (42.8-82.8) 02/05/17 05:35 Lymphocytes % 12.5 % (8-40) D 02/05/17 05:35 Monocytes % 14.1 % (3.8-10.2) H 02/05/17 05:35 Eosinophils % 0.7 % (0-4.5) D 02/05/17 05:35 Basophils % 0.3 % (0-2.0) 02/05/17 05:35 Platelet Estimate Decreased (NORMAL) 02/03/17 05:35 Anisocytosis 2+ 02/02/17 03:44 Microcytosis 1+ 02/02/17 03:44 ESR 58 mm/hr (0-30) H 02/05/17 05:35 INR 1.79 (0.82-1.09) H D 02/02/17 03:44 Puncture Site Right radial 02/02/17 16:41 ABG pH 7.45 (7.35-7.45) 02/02/17 16:41 ABG pCO2 at Pt Temp 47.6 mmHg (35-45) H D 02/02/17 16:41 ABG pO2 at Pt Temp 70.9 mmHg (80-100) L 02/02/17 16:41 ABG HCO3 32.4 meq/L (22-26) H 02/02/17 16:41 ABG O2 Sat (Measured) 93.7 % (90-98.9) 02/02/17 16:41 ABG O2 Content 14.0 % vol (15-22) L 02/02/17 16:41 ABG Base Excess 7.7 meq/l (-2-2) H 02/02/17 16:41 Milo Test Positive 02/02/17 16:41 O2 Delivery Device Nasal 02/02/17 16:41 Oxygen Flow Rate 2l 02/02/17 16:41 PEEP 0.0 cmH2O 02/02/17 16:41 Sodium 140 mmol/L (136-145) 02/05/17 05:35 Potassium 4.2 mmol/L (3.5-5.1) D 02/05/17 05:35 Chloride 103 mmol/L (98-107) 02/05/17 05:35 Carbon Dioxide 30 mmol/L (21-32) 02/05/17 05:35 Anion Gap 7 (8-16) L 02/05/17 05:35 BUN 25 mg/dL (7-18) H D 02/05/17 05:35 Creatinine 1.0 mg/dL (0.55-1.02) D 02/05/17 05:35 Creat Clearance w eGFR > 60 (>60) 02/04/17 05:35 POC Glucometer 77 UNITS (()) 02/05/17 05:50 Random Glucose 120 mg/dL (74-106) H D 02/05/17 05:35 Hemoglobin A1c % 6.3 % (4.8-6.0) H D 02/03/17 05:35 Calcium 9.1 mg/dL (8.5-10.1) D 02/05/17 05:35 Magnesium 2.2 mg/dL (1.8-2.4) 02/02/17 03:44 Ferritin 70.365 ng/ml (6.9-282.5) 02/05/17 05:35 Total Bilirubin 0.9 mg/dL (0.2-1.0) D 02/04/17 05:35 AST 26 U/L (15-37) D 02/04/17 05:35 ALT 17 U/L (12-78) 02/04/17 05:35 Alkaline Phosphatase 100 U/L (45-117) D 02/04/17 05:35 Creatine Kinase 76 IU/L (26-192) 02/04/17 05:35 CK-MB (CK-2) 2.455 ng/ml (0.5-3.6) 02/02/17 03:44 Troponin I 0.04 ng/ml (0.00-0.05) 02/04/17 05:35 C-Reactive Protein 13.2 MG/DL (0.00-0.3) H D 02/05/17 05:35 B-Natriuretic Peptide 55652.65 pg/ml (5-125) H 02/02/17 11:00 Total Protein 4.7 g/dl (6.4-8.2) L D 02/04/17 05:35 Albumin 2.0 g/dl (3.4-5.0) L D 02/04/17 05:35 Lipase 32 U/L (73-393) L 02/02/17 03:44 Vitamin B12 1491 pg/ml (180-914) H 02/05/17 05:35 TSH 1.17 uIU/ml (0.358-3.74) D 02/05/17 05:35 Free T4 1.35 ng/dl (0.76-1.46) 02/05/17 05:35 Digoxin 1.2729 ng/ml (0.8-2.0) 02/02/17 11:00 Rheumatoid Factor < 10.0 IU/mL (0-15) 02/05/17 05:35 Blood Type O POSITIVE 02/02/17 03:44 Antibody Screen Negative 02/02/17 03:44 Vital Signs Temperature 97.5 F L 02/05/17 10:00 Pulse Rate 82 02/05/17 10:00 Respiratory Rate 22 02/05/17 10:00 Blood Pressure 114/66 02/05/17 10:00 O2 Sat by Pulse Oximetry (%) 92 L 02/04/17 20:30 CC; feels achy ``````````````````````` skin--areas of ecchymosis/bruising (rolando-orb; Lt Lower pelvis; Rt shoulder) head--NC eyes--rolando-orb swelling with well demarcated, non blanching erythema; conj bilat injected; eomi; vision seems to be intact oral--mucosa less dry neck--supple, no masses lungs--no wheezing or rales appreciated heart--distant irreg abd--soft, NT ext--trace edema; Limited ROM neuro--drowsy but rousable; lucid; mood is dysphoric; remembers all details leading up to syncopal episode; but unable to recall events at the time of LOC `````````````````````````````````````````````````````````` Summ >syncope--inciting cause not clear; no evidence of acute stroke (2nd CT of head without any changes). Could be due to arrhythmia; low BP; low BS, vaso-vagal effect; toxic effect of opiod analgesic. PLAN: will get PT eval > Low PLt--not new but lower than usual; improved today; could be 2nd traumatic vent; high CRP & ESR which points to infection PLAN: see heme consult > ASHD--s/p cardiac cath @[facility] NL coronaries but increased PCW and rt vent pressures; which co-incides with the Echo report and suggest Pulm HTN. > Hypersomnolence--Not highly hypercapneic, seems to be more alert and awakes easily on contact; able to move purposefully and communicate. TFTs okay; Cause uncertain; perhaps post-concussion (from fall?), and/or prolonged effects of opiate analgesic > COPD--with 2nd Pulm Htn (see Pulm note) > Conjunctivitis--bilat; cultures pending; seen by Ophthalm. > mastoiditis--based on head Ct findings; seen by ID & ENT; changed to Unasyn > Glucose intol--a1c at 6.3 > ATF--rate seems controlled on current agents; cont a-c > High Troponin--now NL; may have had "HI" when taken to [facility] 1 month ago > Low K+--will replenish as needed ~~~~~~~~~~~~~~~~~~~~~~~~~~~~~~~~~~~ Dr Estrada Problem List - Problems (1) Change in mental status Code(s): R41.82 - ALTERED MENTAL STATUS, UNSPECIFIED Qualifiers: Altered mental status type: stupor Qualified Code(s): R40.1 - Stupor (2) Acute on chronic systolic and diastolic heart failure, NYHA class 3 Code(s): I50.43 - ACUTE ON CHRONIC COMBINED SYSTOLIC AND DIASTOLIC HRT FAIL (3) COPD (chronic obstructive pulmonary disease) with emphysema Code(s): J43.9 - EMPHYSEMA, UNSPECIFIED Qualifiers: Emphysema type: unspecified Qualified Code(s): J43.9 - Emphysema, unspecified (4) Sleep apnea Code(s): G47.30 - SLEEP APNEA, UNSPECIFIED Qualifiers: Sleep apnea type: unspecified type Qualified Code(s): G47.30 - Sleep apnea, unspecified (5) Mastoiditis Code(s): H70.90 - UNSPECIFIED MASTOIDITIS, UNSPECIFIED EAR Qualifiers: Laterality: right Qualified Code(s): H70.91 - Unspecified mastoiditis, right ear (6) Obesity due to excess calories Code(s): E66.09 - OTHER OBESITY DUE TO EXCESS CALORIES Qualifiers: Obesity severity: morbid Qualified Code(s): E66.01 - Morbid (severe ) obesity due to excess calories (7) A-fib Code(s): I48.91 - UNSPECIFIED ATRIAL FIBRILLATION Qualifiers: Atrial fibrillation type: chronic Qualified Code(s): I48.2 - Chronic atrial fibrillation (8) Edema Code(s): R60.9 - EDEMA, UNSPECIFIED Qualifiers: Edema type: localized Qualified Code(s): R60.0 - Localized edema (9) Elevated troponin Code(s): R74.8 - ABNORMAL LEVELS OF OTHER SERUM ENZYMES (10) Hypertensive heart and renal disease with heart failure Code(s): I13.0 - HYP HRT & CHR KDNY DIS W HRT FAIL AND STG 1-4/UNSP CHR KDNY I50.9 - HEART FAILURE, UNSPECIFIED N18.9 - CHRONIC KIDNEY DISEASE, UNSPECIFIED (11) Hyperlipidemia Code(s): E78.5 - HYPERLIPIDEMIA, UNSPECIFIED Qualifiers: Hyperlipidemia type: unspecified Qualified Code(s): E78.5 - Hyperlipidemia, unspecified (12) Somnolence Code(s): R40.0 - SOMNOLENCE (13) Osteoarthritis Code(s): M19.90 - UNSPECIFIED OSTEOARTHRITIS, UNSPECIFIED SITE Qualifiers: Osteoarthritis location: multiple joints (14) Intractable pain Code(s): R52 - PAIN, UNSPECIFIED (15) Major depressive disorder, recurrent Code(s): F33.9 - MAJOR DEPRESSIVE DISORDER, RECURRENT, UNSPECIFIED Qualifiers : Major depression episode severity: unspecified Qualified Code(s): F33.9 - Major depressive disorder, recurrent, unspecified (16) Sarcoid Code(s): D86.9 - SARCOIDOSIS, UNSPECIFIED (17) Long-term (current) use of anticoagulants Code(s): Z79.01 - AUTOMATED LOGISTICS SPECIALIST (CURRENT) USE OF ANTICOAGULANTS (18) Conjunctivitis Code(s): H10.9 - UNSPECIFIED CONJUNCTIVITIS Qualifiers: Conjunctivitis type: other mucopurulent Laterality: bilateral Qualified Code(s): H10.023 - Other mucopurulent conjunctivitis, bilateral (19) Rash Code(s): R21 - RASH AND OTHER NONSPECIFIC SKIN ERUPTION (20) Elevated alkaline phosphatase level Code(s): R74.8 - ABNORMAL LEVELS OF OTHER SERUM ENZYMES
[2017-02-05] MEDS: ATORVASTATIN CA 10 MG TABLET (FP) PO SCH (21:50)
[2017-02-06] MEDS: AMPICILLIN NA/SULBACTAM NA 100 ML IVPB SCH ×4 (02:34→22:57)
[2017-02-06 05:48] LABS: URINE APPEARANCE CLEAR; URINE BILIRUBIN NEGATIVE (NEGATIVE); URINE BLOOD NEGATIVE (NEGATIVE); URINE COLOR YELLOW; URINE GLUCOSE (UA) NEGATIVE (NEGATIVE); URINE KETONE NEGATIVE (NEGATIVE); URINE LEUK ESTERASE NEGATIVE (NEGATIVE); URINE NITRITE NEGATIVE (NEGATIVE); URINE PROTEIN NEGATIVE (NEGATIVE); URINE UROBILINOGEN 2.0 E.U/dl E.U./dl (0.2-1.0)
[2017-02-06] MEDS: CIPROFLOXACIN HCL 0.3% OPHTH 2.5ML BOTTLE OU SCH ×3 (05:53→17:39)
[2017-02-06 06:06] LABS: SERUM IRON 21 ug/dL (27-139); TOTAL IRON BINDING CAPACITY 355 ug/dL (250-450); UIBC 334 ug/dL (118-369)
[2017-02-06 07:33] LABS: MCH 29.9 pg (25.7-33.7); MCHC 31.9 g/dl (32.0-36.0); MEAN CELL VOLUME 93.5 fl (80-96); MEAN PLT VOLUME 8.2 fl (7.5-11.1); PLATELET COUNT 90 K/MM3 (134-434); RDW 20.1 % (11.6-15.6); WHITE BLOOD COUNT 7.8 K/mm3 (4.0-10.0)
[2017-02-06 08:44] LABS: CALCIUM 9.2 mg/dL (8.5-10.1); COCKROFT - GAULT 117.504; CREATININE 0.9 mg/dL (0.55-1.02)
[2017-02-06] MEDS ORDERED: PT OWN MED DRAWER 7, Y5N ONE ×2 (09:37→09:50)
[2017-02-06] MEDS: ISOSORBIDE MONONITRATE 30 MG TAB.SR.24H (FP) PO SCH (10:25)
[2017-02-06] MEDS: DULoxetine HCL 30 MG CAPSULE.DR (FP) PO SCH (10:25)
[2017-02-06] MEDS: DABIGATRAN ETEXILATE MESYLATE 150 MG CAPSULE PO SCH ×2 (10:25→22:45)
[2017-02-06] MEDS: predniSONE 10 MG TABLET (UD) PO SCH (10:25)
[2017-02-06] MEDS: METOPROLOL SUCCINATE 25 MG TAB.SR.24H (FP) PO SCH (10:25)
[2017-02-06] MEDS: SODIUM CHLORIDE NASAL SPRAY 44 ML BOTTLE NS SCH ×2 (10:26→22:46)
[2017-02-06] MEDS: NYSTATIN POWDER 100,000 UNITS/GM - 15 GM TOPICAL POWDER TP SCH ×2 (10:26→22:47)
[2017-02-06] MEDS: NAPHAZOLINE/PHENIRAMINE OPHTHALMIC 15 ML BOTTLE OU SCH ×2 (10:28→22:47)
--- NOTE | 2017-02-06 11:59 | PN ---
Progress Note, Physician History of Present Illness: PULMONARY ALERT,FEELING BETTER,-RESP DISTRESS,-TACHYPNEA - Current Medication List Current Medications: Active Medications Acetaminophen (Tylenol -) 500 mg PO Q6H PRN PRN Reason: PAIN LEVEL 1-5 Last Admin: 02/05/17 23:57 Dose: 500 mg Atorvastatin Calcium (Lipitor -) 10 mg PO HS [facility] Last Admin: 02/05/17 21:50 Dose: 10 mg Bupropion HCl (Wellbutrin Xl -) 150 mg PO DAILY [facility] Last Admin: 02/06/17 10:27 Dose: 150 mg Ciprofloxacin (Ciloxan 0.3% Eye Drops -) 2 drop OU Q6HPO [facility] Last Admin: 02/06/17 05:53 Dose: 2 drop Dabigatran (Pradaxa -) 150 mg PO BID [facility] Last Admin: 02/06/17 10:25 Dose: 150 mg Duloxetine HCl (Cymbalta -) 30 mg PO DAILY [facility] Last Admin: 02/06/17 10:25 Dose: 30 mg Ampicillin Sodium/Sulbactam Sodium (Unasyn 1.5 Gm (Pre-Docked)) 100 mls @ 200 mls/hr IVPB Q6H-IV [facility] Last Admin: 02/06/17 02:34 Dose: 200 mls/hr Isosorbide Mononitrate (Imdur -) 30 mg PO DAILY [facility] Last Admin: 02/06/17 10:25 Dose: 30 mg Metoprolol Succinate (Toprol Xl -) 25 mg PO DAILY [facility] Last Admin: 02/06/17 10:25 Dose: 25 mg Naphazoline HCl/Pheniramine Maleate (Visine-A -) 1 drop OU BID [facility] Last Admin: 02/06/17 10:28 Dose: 1 drop Nystatin (Nystop Powder -) 1 applic TP BID [facility] Last Admin: 02/06/17 10:26 Dose: 1 applic Prednisone (Deltasone -) 10 mg PO DAILY [facility] Last Admin: 02/06/17 10:25 Dose: 10 mg Sodium Chloride ([place] Nasal [place] -) 2 spray NS BID [facility] Last Admin: 02/06/17 10:26 Dose: 2 spray - Objective Vital Signs: Vital Signs Temperature 98.0 F 02/06/17 10:00 Pulse Rate 93 H 02/06/17 10:00 Respiratory Rate 22 02/06/17 10:00 Blood Pressure 134/70 02/06/17 10:00 O2 Sat by Pulse Oximetry (%) 94 L 02/05/17 21:00 Constitutional: Yes: Well Nourished, Calm, Obese Eyes: Yes: WNL, Occular Prosthesis Neck: Yes: WNL Cardiovascular: Yes: Regular Rate and Rhythm, S1, S2 Respiratory: Yes: Diminished Gastrointestinal: Yes: Normal Bowel Sounds, Soft Extremities: Yes: Erythema Edema: Yes Labs: CBC, BMP 02/06/17 05:35 02/06/17 05:35 INR, PTT INR 1.79 (0.82-1.09) H D 02/02/17 03:44 Problem List - Problems (1) A-fib Code(s): I48.91 - UNSPECIFIED ATRIAL FIBRILLATION Qualifiers: Atrial fibrillation type: chronic Qualified Code(s): I48.2 - Chronic atrial fibrillation (2) Change in mental status Code(s): R41.82 - ALTERED MENTAL STATUS, UNSPECIFIED Qualifiers: Altered mental status type: stupor Qualified Code(s): R40.1 - Stupor (3) Conjunctivitis Code(s): H10.9 - UNSPECIFIED CONJUNCTIVITIS Qualifiers: Conjunctivitis type: other mucopurulent Laterality: bilateral Qualified Code(s): H10.023 - Other mucopurulent conjunctivitis, bilateral (4) Diastolic CHF Code(s): I50.30 - UNSPECIFIED DIASTOLIC (CONGESTIVE) HEART FAILURE (5) Long-term (current) use of anticoagulants Code(s): Z79.01 - PENITENTIARY (CURRENT) USE OF ANTICOAGULANTS (6) Obesity due to excess calories Code(s): E66.09 - OTHER OBESITY DUE TO EXCESS CALORIES Qualifiers: Obesity severity: morbid Qualified Code(s): E66.01 - Morbid (severe ) obesity due to excess calories (7) Sleep apnea Code(s): G47.30 - SLEEP APNEA, UNSPECIFIED Qualifiers: Sleep apnea type: unspecified type Qualified Code(s): G47.30 - Sleep apnea, unspecified (8) COPD (chronic obstructive pulmonary disease) with emphysema Code(s): J43.9 - EMPHYSEMA, UNSPECIFIED Qualifiers: Emphysema type: unspecified Qualified Code(s): J43.9 - Emphysema, unspecified (9) Cellulitis Code(s): L03.90 - CELLULITIS, UNSPECIFIED Qualifiers: Site of cellulitis: extremity Site of cellulitis of extremity: lower extremity Laterality: right Qualified Code(s): L03.115 - Cellulitis of right lower limb (10) Edema Code(s): R60.9 - EDEMA, UNSPECIFIED Qualifiers: Edema type: localized Qualified Code(s): R60.0 - Localized edema (11) ROHIT (obstructive sleep apnea) Code(s): G47.33 - OBSTRUCTIVE SLEEP APNEA (ADULT) (PEDIATRIC) (12) Obesity Code(s): E66.9 - OBESITY, UNSPECIFIED (13) Sarcoid Code(s): D86.9 - SARCOIDOSIS, UNSPECIFIED Assessment/Plan Assessment/Plan IMP: Pulmonary Htn OSAS non-compliant with PAP [place] AMS / lethargy improved A-FIB Bilateral Conjunctivitis Pulmonary Sarcoid on chronic prednisone Cellulitis Thrombocytopenia PLAN: empiric NIPPV BD TX Ophthalmic drops Antibiotics O2 as needed Aspiration precautions Anticoagulation Monitor plt ct DR MCKENNA
--- NOTE | 2017-02-06 12:49 | PN ---
Progress Note, Physician History of Present Illness: The patient is a 61 year old female with significant past medical history of afib, CHF, hypertension, hyperlipidemia, diabetes, COPD (ex-smoker), O2 dependent, sarcoidosis, GERD, erythrocytosis, chronic low back pain, and osteoarthritis who presents to the ED for AMS and after being found down on the floor few hours prior to arrival. Patient is a poor historian. As per daughter, at bedside, after arriving home around 12:30 she found the patient on the floor. Daughter noted her eyelids to be crusted shut with surrounding redness and swelling. Daughter reports her sister left the patient at home around 7: 30pm and at that time patient was in her usual state of health. Patient does not recall falling. Unknown LOC or head trauma. Patient states she remembers sitting down on the toilet and the last thing she remembers is being woken up by her daughter. Daughter states patient has not been feeling well within the past week and patients twin sister has also been ill recently. Patient has complaints of right-sided abdominal pain that she describes as a achy sensation and 5/10. Daughter reports patient has chronic leg swelling, but noted her increased swelling to her legs bilaterally. Allergies: NKDA Social History: Former smoker. No alcohol or drug use reported. Past Surgical History: herniated disc removed PCP: Dr. Kt Estrada Cardio: Dr. David Nathan - Current Medication List Current Medications: Active Medications Acetaminophen (Tylenol -) 500 mg PO Q6H PRN PRN Reason: PAIN LEVEL 1-5 Last Admin: 02/05/17 23:57 Dose: 500 mg Atorvastatin Calcium (Lipitor -) 10 mg PO HS [facility] Last Admin: 02/05/17 21:50 Dose: 10 mg Bupropion HCl (Wellbutrin Xl -) 150 mg PO DAILY [facility] Last Admin: 02/06/17 10:27 Dose: 150 mg Ciprofloxacin (Ciloxan 0.3% Eye Drops -) 2 drop OU Q6HPO [facility] Last Admin: 02/06/17 05:53 Dose: 2 drop Dabigatran (Pradaxa -) 150 mg PO BID [facility] Last Admin: 02/06/17 10:25 Dose: 150 mg Duloxetine HCl (Cymbalta -) 30 mg PO DAILY [facility] Last Admin: 02/06/17 10:25 Dose: 30 mg Ampicillin Sodium/Sulbactam Sodium (Unasyn 1.5 Gm (Pre-Docked)) 100 mls @ 200 mls/hr IVPB Q6H-IV [facility] Last Admin: 02/06/17 12:28 Dose: 200 mls/hr Isosorbide Mononitrate (Imdur -) 30 mg PO DAILY [facility] Last Admin: 02/06/17 10:25 Dose: 30 mg Metoprolol Succinate (Toprol Xl -) 25 mg PO DAILY [facility] Last Admin: 02/06/17 10:25 Dose: 25 mg Naphazoline HCl/Pheniramine Maleate (Visine-A -) 1 drop OU BID [facility] Last Admin: 02/06/17 10:28 Dose: 1 drop Nystatin (Nystop Powder -) 1 applic TP BID [facility] Last Admin: 02/06/17 10:26 Dose: 1 applic Prednisone (Deltasone -) 10 mg PO DAILY [facility] Last Admin: 02/06/17 10:25 Dose: 10 mg Sodium Chloride ([place] Nasal [place] -) 2 spray NS BID [facility] Last Admin: 02/06/17 10:26 Dose: 2 spray - Objective Vital Signs: Vital Signs Temperature 98.0 F 02/06/17 10:00 Pulse Rate 93 H 02/06/17 10:00 Respiratory Rate 22 02/06/17 10:00 Blood Pressure 134/70 02/06/17 10:00 O2 Sat by Pulse Oximetry (%) 94 L 02/05/17 21:00 Eyes: Yes: WNL, Conjunctiva Clear, EOM Intact HENT: Yes: WNL, Atraumatic, Normocephalic Neck: Yes: WNL, Supple, Trachea Midline Cardiovascular: Yes: WNL, Regular Rate and Rhythm Respiratory: Yes: WNL, Regular, CTA Bilaterally Gastrointestinal: Yes: WNL, Normal Bowel Sounds Genitourinary: Yes: WNL Musculoskeletal: Yes: WNL Extremities: Yes: WNL Edema: Yes Integumentary: Yes: WNL Neurological: Yes: WNL, Alert, Oriented ...Motor Strength: WNL Psychiatric: Yes: WNL Labs: CBC, BMP 02/06/17 05:35 02/06/17 05:35 INR, PTT INR 1.79 (0.82-1.09) H D 02/02/17 03:44 Assessment/Plan 61 year old woman with a history of sarcoidosis, HTN, HLD, DMII, Afib, chronic combined systolic/diastolic CHF, COPD home O2, admitted with AMS/Syncope Syncope-unclear etiology, possible orthostatic hypotension vs vasovagal episode -no sig events on tele, no pauses or bradycardia, Afib, 4 beats nsvt, no arrhythmia to explain event -echo showed mildly reduced LV function, mod RV dilatation and reduced function , mod PAH -Coronary angiogram 2017 at [facility]: patent coronary arteries; elevated PCW and pulmonary HTN. -carotid doppler re-ordered yesterday not yet completed -received hydration -check orthostatic BP when possible Afib-HR adequately controlled -cont current medical regimen Chronic combined systolic/diastolic CHF -evidence of intravascular depletion on labs -holding diuresis for now, received fluids -cont metoprolol -holding CARLOS-I/ARB in setting of low normal BP and DAWOOD
--- NOTE | 2017-02-06 13:34 | PN ---
Progress Note, Physician Chief Complaint: The patient seen in her room. Feeling much better. No chest pain. No dizzy spells. - Current Medication List Current Medications: Active Medications Acetaminophen (Tylenol -) 500 mg PO Q6H PRN PRN Reason: PAIN LEVEL 1-5 Last Admin: 02/05/17 23:57 Dose: 500 mg Atorvastatin Calcium (Lipitor -) 10 mg PO HS [facility] Last Admin: 02/05/17 21:50 Dose: 10 mg Bupropion HCl (Wellbutrin Xl -) 150 mg PO DAILY [facility] Last Admin: 02/06/17 10:27 Dose: 150 mg Ciprofloxacin (Ciloxan 0.3% Eye Drops -) 2 drop OU Q6HPO [facility] Last Admin: 02/06/17 05:53 Dose: 2 drop Dabigatran (Pradaxa -) 150 mg PO BID [facility] Last Admin: 02/06/17 10:25 Dose: 150 mg Duloxetine HCl (Cymbalta -) 30 mg PO DAILY [facility] Last Admin: 02/06/17 10:25 Dose: 30 mg Ampicillin Sodium/Sulbactam Sodium (Unasyn 1.5 Gm (Pre-Docked)) 100 mls @ 200 mls/hr IVPB Q6H-IV [facility] Last Admin: 02/06/17 12:28 Dose: 200 mls/hr Isosorbide Mononitrate (Imdur -) 30 mg PO DAILY [facility] Last Admin: 02/06/17 10:25 Dose: 30 mg Metoprolol Succinate (Toprol Xl -) 25 mg PO DAILY [facility] Last Admin: 02/06/17 10:25 Dose: 25 mg Naphazoline HCl/Pheniramine Maleate (Visine-A -) 1 drop OU BID [facility] Last Admin: 02/06/17 10:28 Dose: 1 drop Nystatin (Nystop Powder -) 1 applic TP BID [facility] Last Admin: 02/06/17 10:26 Dose: 1 applic Prednisone (Deltasone -) 10 mg PO DAILY [facility] Last Admin: 02/06/17 10:25 Dose: 10 mg Sodium Chloride ([place]al [place] -) 2 spray NS BID [facility] Last Admin: 02/06/17 10:26 Dose: 2 spray - Objective Vital Signs: Vital Signs Temperature 98.0 F 02/06/17 10:00 Pulse Rate 93 H 02/06/17 10:00 Respiratory Rate 22 02/06/17 10:00 Blood Pressure 134/70 02/06/17 10:00 O2 Sat by Pulse Oximetry (%) 95 02/06/17 09:00 Constitutional: Yes: Mild Distress, Other HENT: Yes: Other (multiple facial ecchymosis) Cardiovascular: Yes: S1, S2 Respiratory: Yes: Diminished, Poor Air Entry, Rales Gastrointestinal: Yes: Normal Bowel Sounds, Abdomen, Obese Genitourinary: No: Bladder Distention, Hematuria, Incontinence Musculoskeletal: Yes: Back Pain Labs: CBC, BMP 02/06/17 05:35 02/06/17 05:35 INR, PTT INR 1.79 (0.82-1.09) H D 02/02/17 03:44 Problem List - Problems (1) A-fib Code(s): I48.91 - UNSPECIFIED ATRIAL FIBRILLATION Qualifiers: Atrial fibrillation type: chronic Qualified Code(s): I48.2 - Chronic atrial fibrillation (2) Acute on chronic systolic and diastolic heart failure, NYHA class 1 Code(s): I50.43 - ACUTE ON CHRONIC COMBINED SYSTOLIC AND DIASTOLIC HRT FAIL (3) Sleep apnea Code(s): G47.30 - SLEEP APNEA, UNSPECIFIED Qualifiers: Sleep apnea type: unspecified type Qualified Code(s): G47.30 - Sleep apnea, unspecified (4) Syncope Code(s): R55 - SYNCOPE AND COLLAPSE (5) CHF (congestive heart failure) Code(s): I50.9 - HEART FAILURE, UNSPECIFIED Qualifiers: Congestive heart failure type: unspecified congestive heart failure type Congestive heart failure chronicity: acute on chronic Qualified Code(s ): I50.9 - Heart failure, unspecified (6) COPD (chronic obstructive pulmonary disease) with emphysema Code(s): J43.9 - EMPHYSEMA, UNSPECIFIED Qualifiers: Emphysema type: unspecified Qualified Code(s): J43.9 - Emphysema, unspecified (7) Edema leg Code(s): R60.0 - LOCALIZED EDEMA (8) Hyperlipidemia Code(s): E78.5 - HYPERLIPIDEMIA, UNSPECIFIED Qualifiers: Hyperlipidemia type: unspecified Qualified Code(s): E78.5 - Hyperlipidemia, unspecified (9) Hypertensive cardiovascular disease Code(s): I11.9 - HYPERTENSIVE HEART DISEASE WITHOUT HEART FAILURE (10) Obesity Code(s): E66.9 - OBESITY, UNSPECIFIED (11) Sarcoid Code(s): D86.9 - SARCOIDOSIS, UNSPECIFIED (12) Hypokalemia Code(s): E87.6 - HYPOKALEMIA (13) Acute kidney injury Code(s): N17.9 - ACUTE KIDNEY FAILURE, UNSPECIFIED Assessment/Plan 61 y/o female w, admitted with Acute syncope and fall, with multiple contusions. No fractures, No head injury. The patient has COPD,, and is O2 dependent. The Serum Potassium has improved . Concur with the current management. ALEIDA ARRIAGA MD
--- NOTE | 2017-02-06 16:12 | PN ---
Progress Note (short form) - Note Progress Note: Current Medications Acetaminophen (Tylenol -) 500 mg PO Q6H PRN PRN Reason: PAIN LEVEL 1-5 Last Admin: 02/05/17 23:57 Dose: 500 mg Atorvastatin Calcium (Lipitor -) 10 mg PO HS [facility] Last Admin: 02/05/17 21:50 Dose: 10 mg Bupropion HCl (Wellbutrin Xl -) 150 mg PO DAILY [facility] Last Admin: 02/06/17 10:27 Dose: 150 mg Ciprofloxacin (Ciloxan 0.3% Eye Drops -) 2 drop OU Q6HPO [facility] Last Admin: 02/06/17 05:53 Dose: 2 drop Dabigatran (Pradaxa -) 150 mg PO BID [facility] Last Admin: 02/06/17 10:25 Dose: 150 mg Duloxetine HCl (Cymbalta -) 30 mg PO DAILY [facility] Last Admin: 02/06/17 10:25 Dose: 30 mg Ampicillin Sodium/Sulbactam Sodium (Unasyn 1.5 Gm (Pre-Docked)) 100 mls @ 200 mls/hr IVPB Q6H-IV [facility] Last Admin: 02/06/17 12:28 Dose: 200 mls/hr Isosorbide Mononitrate (Imdur -) 30 mg PO DAILY [facility] Last Admin: 02/06/17 10:25 Dose: 30 mg Metoprolol Succinate (Toprol Xl -) 25 mg PO DAILY [facility] Last Admin: 02/06/17 10:25 Dose: 25 mg Naphazoline HCl/Pheniramine Maleate (Visine-A -) 1 drop OU BID [facility] Last Admin: 02/06/17 10:28 Dose: 1 drop Nystatin (Nystop Powder -) 1 applic TP BID [facility] Last Admin: 02/06/17 10:26 Dose: 1 applic Prednisone (Deltasone -) 10 mg PO DAILY [facility] Last Admin: 02/06/17 10:25 Dose: 10 mg Sodium Chloride ([place] Nasal [place] -) 2 spray NS BID [facility] Last Admin: 02/06/17 10:26 Dose: 2 spray Laboratory Results - last 24 hr 02/05/17 02/06/17 02/06/17 05:35 04:00 05:35 WBC 7.8 RBC 3.86 Hgb 11.5 Hct 36.1 MCV 93.5 MCHC 31.9 L RDW 20.1 H Plt Count 90 L MPV 8.2 Sodium Potassium Chloride Carbon Dioxide Anion Gap BUN Creatinine Random Glucose Calcium Iron 21 L TIBC 355 Iron Saturation 6 L Urine Color Yellow Urine Appearance Clear Urine pH 6.0 D Ur Specific [place] 1.010 Urine Protein Negative Urine Glucose (UA) Negative Urine Ketones Negative Urine Blood Negative Urine Nitrite Negative Urine Bilirubin Negative Urine Urobilinogen 2.0 e.u/dl H Ur Leukocyte Esterase Negative 02/06/17 05:35 WBC RBC Hgb Hct MCV MCHC RDW Plt Count MPV Sodium 143 Potassium 4.2 Chloride 103 Carbon Dioxide 28 Anion Gap 12 BUN 15 D Creatinine 0.9 Random Glucose 71 L D Calcium 9.2 Iron TIBC Iron Saturation Urine Color Urine Appearance Urine pH Ur Specific [place] Urine Protein Urine Glucose (UA) Urine Ketones Urine Blood Urine Nitrite Urine Bilirubin Urine Urobilinogen Ur Leukocyte Esterase Vital Signs Temperature 97.9 F 02/06/17 14:47 Pulse Rate 126 H 02/06/17 14:47 Respiratory Rate 24 02/06/17 14:47 Blood Pressure 104/66 02/06/17 14:47 O2 Sat by Pulse Oximetry (%) 95 02/06/17 09:00 CC; no new complaints ``````````````````````` skin--areas of ecchymosis/bruising (rolando-orb; Lt Lower pelvis; Rt shoulder) head--NC eyes--rolando-orb swelling with well demarcated, non blanching erythema; conj bilat injected; eomi; vision seems to be intact neck--supple, no masses lungs--no wheezing or rales appreciated heart--distant irreg abd--soft, NT ext--trace edema; Limited ROM neuro--drowsy but rousable; lucid; mood is dysphoric; remembers all details leading up to syncopal episode; but unable to recall events at the time of LOC `````````````````````````````````````````````````````````` Summ >syncope--inciting cause not clear; no evidence of acute stroke (2nd CT of head without any changes). Could be due to arrhythmia; low BP; low BS, vaso-vagal effect; toxic effect of opiod analgesic. PLAN: will get PT eval > Low PLt--on the rise > ASHD--s/p cardiac cath @[facility] NL coronaries but increased PCW and rt vent pressures; which co-incides with the Echo report and suggest Pulm HTN. > Hypersomnolence--has been less drowsy > COPD--with 2nd Pulm Htn (see Pulm note) > Conjunctivitis--bilat and slowly clearing up; cultures pending; seen by Ophthalm. > mastoiditis--based on head Ct findings; seen by ID & ENT; changed to Unasyn > Glucose intol--a1c at 6.3 > ATF--monitored rate seems controlled on current agents; cont a-c > High Troponin--now NL > Low K+--will replenish as needed ~~~~~~~~~~~~~~~~~~~~~~~~~~~~~~~~~~~ Dr Estrada Problem List - Problems (1) Change in mental status Code(s): R41.82 - ALTERED MENTAL STATUS, UNSPECIFIED Qualifiers: Altered mental status type: stupor Qualified Code(s): R40.1 - Stupor (2) Acute on chronic systolic and diastolic heart failure, NYHA class 3 Code(s): I50.43 - ACUTE ON CHRONIC COMBINED SYSTOLIC AND DIASTOLIC HRT FAIL (3) COPD (chronic obstructive pulmonary disease) with emphysema Code(s): J43.9 - EMPHYSEMA, UNSPECIFIED Qualifiers: Emphysema type: unspecified Qualified Code(s): J43.9 - Emphysema, unspecified (4) Sleep apnea Code(s): G47.30 - SLEEP APNEA, UNSPECIFIED Qualifiers: Sleep apnea type: unspecified type Qualified Code(s): G47.30 - Sleep apnea, unspecified (5) Mastoiditis Code(s): H70.90 - UNSPECIFIED MASTOIDITIS, UNSPECIFIED EAR Qualifiers: Laterality: right Qualified Code(s): H70.91 - Unspecified mastoiditis, right ear (6) Obesity due to excess calories Code(s): E66.09 - OTHER OBESITY DUE TO EXCESS CALORIES Qualifiers: Obesity severity: morbid Qualified Code(s): E66.01 - Morbid (severe ) obesity due to excess calories (7) A-fib Code(s): I48.91 - UNSPECIFIED ATRIAL FIBRILLATION Qualifiers: Atrial fibrillation type: chronic Qualified Code(s): I48.2 - Chronic atrial fibrillation (8) Edema Code(s): R60.9 - EDEMA, UNSPECIFIED Qualifiers: Edema type: localized Qualified Code(s): R60.0 - Localized edema (9) Elevated troponin Code(s): R74.8 - ABNORMAL LEVELS OF OTHER SERUM ENZYMES (10) Hypertensive heart and renal disease with heart failure Code(s): I13.0 - HYP HRT & CHR KDNY DIS W HRT FAIL AND STG 1-4/UNSP CHR KDNY I50.9 - HEART FAILURE, UNSPECIFIED N18.9 - CHRONIC KIDNEY DISEASE, UNSPECIFIED (11) Hyperlipidemia Code(s): E78.5 - HYPERLIPIDEMIA, UNSPECIFIED Qualifiers: Hyperlipidemia type: unspecified Qualified Code(s): E78.5 - Hyperlipidemia, unspecified (12) Somnolence Code(s): R40.0 - SOMNOLENCE (13) Osteoarthritis Code(s): M19.90 - UNSPECIFIED OSTEOARTHRITIS, UNSPECIFIED SITE Qualifiers: Osteoarthritis location: multiple joints (14) Intractable pain Code(s): R52 - PAIN, UNSPECIFIED (15) Major depressive disorder, recurrent Code(s): F33.9 - MAJOR DEPRESSIVE DISORDER, RECURRENT, UNSPECIFIED Qualifiers : Major depression episode severity: unspecified Qualified Code(s): F33.9 - Major depressive disorder, recurrent, unspecified (16) Sarcoid Code(s): D86.9 - SARCOIDOSIS, UNSPECIFIED (17) Long-term (current) use of anticoagulants Code(s): Z79.01 - MCFP (CURRENT) USE OF ANTICOAGULANTS (18) Conjunctivitis Code(s): H10.9 - UNSPECIFIED CONJUNCTIVITIS Qualifiers: Conjunctivitis type: other mucopurulent Laterality: bilateral Qualified Code(s): H10.023 - Other mucopurulent conjunctivitis, bilateral (19) Rash Code(s): R21 - RASH AND OTHER NONSPECIFIC SKIN ERUPTION (20) Elevated alkaline phosphatase level Code(s): R74.8 - ABNORMAL LEVELS OF OTHER SERUM ENZYMES
[2017-02-06] MEDS: ACETAMINOPHEN 500 MG TABLET (FP) PO PRN (18:44)
[2017-02-06] MEDS: ATORVASTATIN CA 10 MG TABLET (FP) PO SCH (22:45)
[2017-02-07] MEDS: AMPICILLIN NA/SULBACTAM NA 1.5 GM in SODIUM CHLORIDE 100 ML IVPB SCH ×4 (04:13→22:01)
[2017-02-07 06:06] LABS: HEMATOCRIT 36.2 % (34.0-46.6)
[2017-02-07] MEDS: CIPROFLOXACIN HCL 0.3% OPHTH 2.5ML BOTTLE OU SCH ×4 (06:35→17:38)
[2017-02-07 07:49] LABS: MCH 29.7 pg (25.7-33.7); MCHC 32.2 g/dl (32.0-36.0); MEAN CELL VOLUME 92.4 fl (80-96); MEAN PLT VOLUME 8.5 fl (7.5-11.1); PLATELET COUNT 104 K/MM3 (134-434); RDW 20.1 % (11.6-15.6); WHITE BLOOD COUNT 6.3 K/mm3 (4.0-10.0)
[2017-02-07] MEDS ORDERED: PT OWN MED DRAWER 7, Y5N ONE ×3 (08:37→17:29)
[2017-02-07] MEDS: predniSONE 10 MG TABLET (UD) PO SCH (09:57)
[2017-02-07] MEDS: DABIGATRAN ETEXILATE MESYLATE 150 MG CAPSULE PO SCH ×2 (09:57→21:55)
[2017-02-07] MEDS: METOPROLOL SUCCINATE 25 MG TAB.SR.24H (FP) PO SCH (09:57)
[2017-02-07] MEDS: DULoxetine HCL 30 MG CAPSULE.DR (FP) PO SCH (09:57)
[2017-02-07] MEDS: ISOSORBIDE MONONITRATE 30 MG TAB.SR.24H (FP) PO SCH (09:57)
[2017-02-07] MEDS: SODIUM CHLORIDE NASAL SPRAY 44 ML BOTTLE NS SCH ×2 (09:59→21:47)
[2017-02-07] MEDS: NYSTATIN POWDER 100,000 UNITS/GM - 15 GM TOPICAL POWDER TP SCH ×2 (09:59→21:47)
[2017-02-07] MEDS: NAPHAZOLINE/PHENIRAMINE OPHTHALMIC 15 ML BOTTLE OU SCH ×2 (10:00→21:48)
--- NOTE | 2017-02-07 11:18 | PN ---
Progress Note, Physician History of Present Illness: pulmonary alert,no complaints,-cp,-sob - Current Medication List Current Medications: Active Medications Acetaminophen (Tylenol -) 500 mg PO Q6H PRN PRN Reason: PAIN LEVEL 1-5 Last Admin: 02/06/17 18:44 Dose: 500 mg Atorvastatin Calcium (Lipitor -) 10 mg PO HS [facility] Last Admin: 02/06/17 22:45 Dose: 10 mg Bupropion HCl (Wellbutrin Xl -) 150 mg PO DAILY [facility] Last Admin: 02/07/17 09:58 Dose: 150 mg Ciprofloxacin (Ciloxan 0.3% Eye Drops -) 2 drop OU Q6HPO [facility] Last Admin: 02/07/17 06:35 Dose: 2 drop Dabigatran (Pradaxa -) 150 mg PO BID [facility] Last Admin: 02/07/17 09:57 Dose: 150 mg Duloxetine HCl (Cymbalta -) 30 mg PO DAILY [facility] Last Admin: 02/07/17 09:57 Dose: 30 mg Ampicillin Sodium/Sulbactam (Sodium 1.5 gm/ Sodium Chloride) 100 mls @ 200 mls/ hr IVPB Q6H-IV [facility] Stop: 02/11/17 03:29 Last Admin: 02/07/17 09:54 Dose: 200 mls/hr Isosorbide Mononitrate (Imdur -) 30 mg PO DAILY [facility] Last Admin: 02/07/17 09:57 Dose: 30 mg Metoprolol Succinate (Toprol Xl -) 25 mg PO DAILY [facility] Last Admin: 02/07/17 09:57 Dose: 25 mg Naphazoline HCl/Pheniramine Maleate (Visine-A -) 1 drop OU BID [facility] Last Admin: 02/07/17 10:00 Dose: 1 drop Nystatin (Nystop Powder -) 1 applic TP BID [facility] Last Admin: 02/07/17 09:59 Dose: 1 applic Pramipexole Dihydrochloride (Mirapex -) 0.5 mg PO TID [facility] Prednisone (Deltasone -) 10 mg PO DAILY [facility] Last Admin: 02/07/17 09:57 Dose: 10 mg Sodium Chloride ([place] Nasal [place] -) 2 spray NS BID [facility] Last Admin: 02/07/17 09:59 Dose: 2 spray - Objective Vital Signs: Vital Signs Temperature 98 F 02/07/17 09:00 Pulse Rate 74 05/23/17 09:00 Respiratory Rate 20 02/07/17 09:00 Blood Pressure 108/52 02/07/17 09:00 O2 Sat by Pulse Oximetry (%) 94 L 02/06/17 20:47 Constitutional: Yes: Calm, Obese Eyes: Yes: WNL HENT: Yes: WNL Neck: Yes: WNL Cardiovascular: Yes: Pulse Irregular, S1, S2 Respiratory: Yes: Diminished Gastrointestinal: Yes: Normal Bowel Sounds, Soft Extremities: Yes: Erythema (decreased erythema) Edema: Yes Labs: CBC, BMP 02/07/17 05:40 INR, PTT INR 4 Problem List - Problems (1) A-fib Code(s): I48.91 - UNSPECIFIED ATRIAL FIBRILLATION Qualifiers: Atrial fibrillation type: chronic Qualified Code(s): I48.2 - Chronic atrial fibrillation (2) Change in mental status Code(s): R41.82 - ALTERED MENTAL STATUS, UNSPECIFIED Qualifiers: Altered mental status type: stupor Qualified Code(s): R40.1 - Stupor (3) Conjunctivitis Code(s): H10.9 - UNSPECIFIED CONJUNCTIVITIS Qualifiers: Conjunctivitis type: other mucopurulent Laterality: bilateral Qualified Code(s): H10.023 - Other mucopurulent conjunctivitis, bilateral (4) Diastolic CHF Code(s): I50.30 - UNSPECIFIED DIASTOLIC (CONGESTIVE) HEART FAILURE (5) Long-term (current) use of anticoagulants Code(s): Z79.01 - RETIREMENT (CURRENT) USE OF ANTICOAGULANTS (6) Obesity due to excess calories Code(s): E66.09 - OTHER OBESITY DUE TO EXCESS CALORIES Qualifiers: Obesity severity: morbid Qualified Code(s): E66.01 - Morbid (severe ) obesity due to excess calories (7) Sleep apnea Code(s): G47.30 - SLEEP APNEA, UNSPECIFIED Qualifiers: Sleep apnea type: unspecified type Qualified Code(s): G47.30 - Sleep apnea, unspecified (8) COPD (chronic obstructive pulmonary disease) with emphysema Code(s): J43.9 - EMPHYSEMA, UNSPECIFIED Qualifiers: Emphysema type: unspecified Qualified Code(s): J43.9 - Emphysema, unspecified (9) Cellulitis Code(s): L03.90 - CELLULITIS, UNSPECIFIED Qualifiers: Site of cellulitis: extremity Site of cellulitis of extremity: lower extremity Laterality: right Qualified Code(s): L03.115 - Cellulitis of right lower limb (10) Edema Code(s): R60.9 - EDEMA, UNSPECIFIED Qualifiers: Edema type: localized Qualified Code(s): R60.0 - Localized edema (11) ROHIT (obstructive sleep apnea) Code(s): G47.33 - OBSTRUCTIVE SLEEP APNEA (ADULT) (PEDIATRIC) (12) Obesity Code(s): E66.9 - OBESITY, UNSPECIFIED (13) Sarcoid Code(s): D86.9 - SARCOIDOSIS, UNSPECIFIED Assessment/Plan Assessment/Plan IMP: Pulmonary Htn OSAS non-compliant with PAP [place] AMS / lethargy improved AFIB Bilateral Conjunctivitis Pulmonary Sarcoid on chronic prednisone Cellulitis improving Thrombocytopenia improving PLAN: empiric NIPPV BD TX Ophthalmic drops Antibiotics O2 as needed Aspiration precautions Anticoagulation Monitor plt ct DR MCKENNA
[2017-02-07] MEDS: PRAMIPEXOLE DIHYDROCHLORIDE 0.5 MG TABLET PO SCH ×3 (11:40→21:56)
--- NOTE | 2017-02-07 13:42 | PN ---
Progress Note, Physician Chief Complaint: Pt alert; denies chest pain or dyspnea. History of Present Illness: The patient is a 61 year old female with significant past medical history of afib, CHF, hypertension, hyperlipidemia, diabetes, COPD (ex-smoker), O2 dependent, sarcoidosis, GERD, erythrocytosis, chronic low back pain, and osteoarthritis who presents to the ED for AMS and after being found down on the floor few hours prior to arrival. Patient is a poor historian. As per daughter, at bedside, after arriving home around 12:30 she found the patient on the floor. Daughter noted her eyelids to be crusted shut with surrounding redness and swelling. Daughter reports her sister left the patient at home around 7: 30pm and at that time patient was in her usual state of health. Patient does not recall falling. Unknown LOC or head trauma. Patient states she remembers sitting down on the toilet and the last thing she remembers is being woken up by her daughter. Daughter states patient has not been feeling well within the past week and patients twin sister has also been ill recently. Patient has complaints of right-sided abdominal pain that she describes as a achy sensation and 5/10. Daughter reports patient has chronic leg swelling, but noted her increased swelling to her legs bilaterally. Allergies: NKDA Social History: Former smoker. No alcohol or drug use reported. Past Surgical History: herniated disc removed PCP: Dr. Kt Estrada Cardio: Dr. David Nathan - Current Medication List Current Medications: Active Medications Acetaminophen (Tylenol -) 500 mg PO Q6H PRN PRN Reason: PAIN LEVEL 1-5 Last Admin: 02/06/17 18:44 Dose: 500 mg Atorvastatin Calcium (Lipitor -) 10 mg PO HS [facility] Last Admin: 02/06/17 22:45 Dose: 10 mg Bupropion HCl (Wellbutrin Xl -) 150 mg PO DAILY [facility] Last Admin: 02/07/17 09:58 Dose: 150 mg Ciprofloxacin (Ciloxan 0.3% Eye Drops -) 2 drop OU Q6HPO [facility] Last Admin: 02/07/17 11:41 Dose: 2 drop Dabigatran (Pradaxa -) 150 mg PO BID [facility] Last Admin: 02/07/17 09:57 Dose: 150 mg Duloxetine HCl (Cymbalta -) 30 mg PO DAILY [facility] Last Admin: 02/07/17 09:57 Dose: 30 mg Ampicillin Sodium/Sulbactam (Sodium 1.5 gm/ Sodium Chloride) 100 mls @ 200 mls/ hr IVPB Q6H-IV [facility] Stop: 02/11/17 03:29 Last Admin: 02/07/17 09:54 Dose: 200 mls/hr Isosorbide Mononitrate (Imdur -) 30 mg PO DAILY [facility] Last Admin: 02/07/17 09:57 Dose: 30 mg Metoprolol Succinate (Toprol Xl -) 25 mg PO DAILY [facility] Last Admin: 02/07/17 09:57 Dose: 25 mg Naphazoline HCl/Pheniramine Maleate (Visine-A -) 1 drop OU BID [facility] Last Admin: 02/07/17 10:00 Dose: 1 drop Nystatin (Nystop Powder -) 1 applic TP BID [facility] Last Admin: 02/07/17 09:59 Dose: 1 applic Pramipexole Dihydrochloride (Mirapex -) 0.5 mg PO TID [facility] Last Admin: 02/07/17 11:40 Dose: 0.5 mg Prednisone (Deltasone -) 10 mg PO DAILY [facility] Last Admin: 02/07/17 09:57 Dose: 10 mg Sodium Chloride ([place] Nasal [place] -) 2 spray NS BID [facility] Last Admin: 02/07/17 09:59 Dose: 2 spray - Objective Vital Signs: Vital Signs Temperature 98 F 02/07/17 09:00 Pulse Rate 74 02/07/17 09:00 Respiratory Rate 20 02/07/17 09:00 Blood Pressure 108/52 02/07/17 09:00 O2 Sat by Pulse Oximetry (%) 94 L 02/07/17 09:00 Constitutional: Yes: Obese Eyes: Yes: WNL HENT: Yes: WNL Neck: Yes: WNL Cardiovascular: Yes: Pulse Irregular Respiratory: Yes: Diminished Gastrointestinal: Yes: Soft, Abdomen, Obese ...Rectal Exam: Yes: Deferred Genitourinary: No: Anuria Breast(s): Yes: WNL Edema: No Peripheral Pulses WNL: No Peripheral Pulses: Left Doralis Pedis: 1+, Right Dorsalis Pedis: 1+ Neurological: Yes: Alert, Oriented, Weakness Psychiatric: Yes: Other Labs: CBC, BMP 02/07/17 05:40 02/06/17 05:35 INR, PTT INR 1.79 (0.82-1.09) H D 02/02/17 03:44 Problem List - Problems (1) A-fib Assessment/Plan: On metoprolol ER and digoxin for HR control (dose changed to q 48 hrs; keep dig. level 0.5-1.0, and consider stopping it because of potential adverse effects). On Pradaxa. As discussed with pt and her daughter (Araceli), the benefits of the anticoagulant (preventing embolic event) must be weighed against the risk of bleed, especially if pt is having frequent falls. Coronary angiogram 2017 at [facility]: patent coronary arteries; elevated PCW and pulmonary HTN. Code(s): I48.91 - UNSPECIFIED ATRIAL FIBRILLATION Qualifiers: Atrial fibrillation type: chronic Qualified Code(s): I48.2 - Chronic atrial fibrillation (2) Change in mental status Code(s): R41.82 - ALTERED MENTAL STATUS, UNSPECIFIED Qualifiers: Altered mental status type: stupor Qualified Code(s): R40.1 - Stupor (3) Back pain Code(s): M54.9 - DORSALGIA, UNSPECIFIED Qualifiers: Back pain location: low back pain Back pain laterality: bilateral Sciatica presence: without sciatica (4) COPD (chronic obstructive pulmonary disease) with emphysema Code(s): J43.9 - EMPHYSEMA, UNSPECIFIED Qualifiers: Emphysema type: unspecified Qualified Code(s): J43.9 - Emphysema, unspecified (5) Depression Code(s): F32.9 - MAJOR DEPRESSIVE DISORDER, SINGLE EPISODE, UNSPECIFIED (6) Edema Code(s): R60.9 - EDEMA, UNSPECIFIED Qualifiers: Edema type: localized Qualified Code(s): R60.0 - Localized edema (7) GERD (gastroesophageal reflux disease) Code(s): K21.9 - GASTRO-ESOPHAGEAL REFLUX DISEASE WITHOUT ESOPHAGITIS Qualifiers: Esophagitis presence: without esophagitis Qualified Code(s): K21.9 - Gastro-esophageal reflux disease without esophagitis (8) Obesity due to excess calories Code(s): E66.09 - OTHER OBESITY DUE TO EXCESS CALORIES Qualifiers: Obesity severity: morbid Qualified Code(s): E66.01 - Morbid (severe ) obesity due to excess calories (9) Syncope Code(s): R55 - SYNCOPE AND COLLAPSE (10) Sarcoid Code(s): D86.9 - SARCOIDOSIS, UNSPECIFIED (11) Sleep apnea Code(s): G47.30 - SLEEP APNEA, UNSPECIFIED Qualifiers: Sleep apnea type: unspecified type Qualified Code(s): G47.30 - Sleep apnea, unspecified (12) Vitamin D deficiency Code(s): E55.9 - VITAMIN D DEFICIENCY, UNSPECIFIED (13) Smokes cigarettes Code(s): F17.210 - NICOTINE DEPENDENCE, CIGARETTES, UNCOMPLICATED (14) Acute on chronic systolic and diastolic heart failure, NYHA class 1 Assessment/Plan: mildly reduced systolic LV dysfunction; moderate RV dysfunction. on metoprolol; problematic using ACEI due to low BP and renal dysfunction. Gentle hydration. Physical rehabilitation; increease exercise. Dietary modification; portion control for aid in weight loss. Code(s): I50.43 - ACUTE ON CHRONIC COMBINED SYSTOLIC AND DIASTOLIC HRT FAIL
--- NOTE | 2017-02-07 14:18 | PN ---
Progress Note (short form) - Note Progress Note: Renal Follow up for DWAINE Pt seen and examined at the bedside no acute complaints denies any sob, chest pain, abd pain, N/V/D Vital Signs Temperature 98 F 02/07/17 09:00 Pulse Rate 74 02/07/17 09:00 Respiratory Rate 20 02/07/17 09:00 Blood Pressure 108/52 02/07/17 09:00 O2 Sat by Pulse Oximetry (%) 94 L 02/07/17 09:00 Intake & Output 02/04/17 02/05/17 02/06/17 02/07/17 23:59 23:59 23:59 23:59 Intake Total 368 590 815 Balance 368 590 815 Gen: NAD CVS: RRR, No M/R Lungs: Dec BS throughout the lung adams Abd: soft NT/ND Ext: 1+ edema in LE CBC, BMP 02/07/17 05:40 02/06/17 05:35 Current Medications Acetaminophen (Tylenol -) 500 mg PO Q6H PRN PRN Reason: PAIN LEVEL 1-5 Last Admin: 02/06/17 18:44 Dose: 500 mg Atorvastatin Calcium (Lipitor -) 10 mg PO HS [facility] Last Admin: 02/06/17 22:45 Dose: 10 mg Bupropion HCl (Wellbutrin Xl -) 150 mg PO DAILY [facility] Last Admin: 02/07/17 09:58 Dose: 150 mg Ciprofloxacin (Ciloxan 0.3% Eye Drops -) 2 drop OU Q6HPO [facility] Last Admin: 02/07/17 11:41 Dose: 2 drop Dabigatran (Pradaxa -) 150 mg PO BID [facility] Last Admin: 02/07/17 09:57 Dose: 150 mg Duloxetine HCl (Cymbalta -) 30 mg PO DAILY [facility] Last Admin: 02/07/17 09:57 Dose: 30 mg Ampicillin Sodium/Sulbactam (Sodium 1.5 gm/ Sodium Chloride) 100 mls @ 200 mls/ hr IVPB Q6H-IV [facility] Stop: 02/11/17 03:29 Last Admin: 02/07/17 09:54 Dose: 200 mls/hr Isosorbide Mononitrate (Imdur -) 30 mg PO DAILY [facility] Last Admin: 02/07/17 09:57 Dose: 30 mg Metoprolol Succinate (Toprol Xl -) 25 mg PO DAILY [facility] Last Admin: 02/07/17 09:57 Dose: 25 mg Naphazoline HCl/Pheniramine Maleate (Visine-A -) 1 drop OU BID [facility] Last Admin: 02/07/17 10:00 Dose: 1 drop Nystatin (Nystop Powder -) 1 applic TP BID [facility] Last Admin: 02/07/17 09:59 Dose: 1 applic Pramipexole Dihydrochloride (Mirapex -) 0.5 mg PO TID [facility] Last Admin: 02/07/17 11:40 Dose: 0.5 mg Prednisone (Deltasone -) 10 mg PO DAILY [facility] Last Admin: 02/07/17 09:57 Dose: 10 mg Sodium Chloride ([place] Nasal [place] -) 2 spray NS BID [facility] Last Admin: 02/07/17 09:59 Dose: 2 spray A/P 61 year old woman with PMhx of CKD, COPD, CHF, HTN, DM presented with fall and AMS and fond to have Cr of 1.7 and low potassium. #Acute Kidney Injury secondary to intravascular volume depletion Renal function now improved off high dose diuretics pt with LE edema, can restart diuretics at lower dose as needed Trend BUN/Cr Avoid NSAIDs 61 y/o female with very complex medical history, including Hypertension, Sarcoidosis, Coronary artery disease, Congestive Heart failure, Severe COPD, O2 dependent at home, Chronic Kideny disease, Ex-smoker, obesity admitted with syncope and fll at home. #Hypokalemia K is now improved to normal limits [place] K and Mg Thank you Amando Braswell DO
--- NOTE | 2017-02-07 17:39 | PN ---
Progress Note (short form) - Note Progress Note: Current Medications Acetaminophen (Tylenol -) 500 mg PO Q6H PRN PRN Reason: PAIN LEVEL 1-5 Last Admin: 02/06/17 18:44 Dose: 500 mg Atorvastatin Calcium (Lipitor -) 10 mg PO HS [facility] Last Admin: 02/06/17 22:45 Dose: 10 mg Bupropion HCl (Wellbutrin Xl -) 150 mg PO DAILY [facility] Last Admin: 02/07/17 09:58 Dose: 150 mg Ciprofloxacin (Ciloxan 0.3% Eye Drops -) 2 drop OU Q6HPO [facility] Last Admin: 02/07/17 11:41 Dose: 2 drop Dabigatran (Pradaxa -) 150 mg PO BID [facility] Last Admin: 02/07/17 09:57 Dose: 150 mg Duloxetine HCl (Cymbalta -) 30 mg PO DAILY [facility] Last Admin: 02/07/17 09:57 Dose: 30 mg Ampicillin Sodium/Sulbactam (Sodium 1.5 gm/ Sodium Chloride) 100 mls @ 200 mls/ hr IVPB Q6H-IV [facility] Stop: 02/11/17 03:29 Last Admin: 02/07/17 15:02 Dose: 200 mls/hr Isosorbide Mononitrate (Imdur -) 30 mg PO DAILY [facility] Last Admin: 02/07/17 09:57 Dose: 30 mg Metoprolol Succinate (Toprol Xl -) 25 mg PO DAILY [facility] Last Admin: 02/07/17 09:57 Dose: 25 mg Naphazoline HCl/Pheniramine Maleate (Visine-A -) 1 drop OU BID [facility] Last Admin: 02/07/17 10:00 Dose: 1 drop Nystatin (Nystop Powder -) 1 applic TP BID [facility] Last Admin: 02/07/17 09:59 Dose: 1 applic Pramipexole Dihydrochloride (Mirapex -) 0.5 mg PO TID [facility] Last Admin: 02/07/17 15:03 Dose: 0.5 mg Prednisone (Deltasone -) 10 mg PO DAILY [facility] Last Admin: 02/07/17 09:57 Dose: 10 mg Sodium Chloride ([place] Nasal Kerby -) 2 spray NS BID [facility] Last Admin: 02/07/17 09:59 Dose: 2 spray Laboratory Results - last 24 hr 02/05/17 02/05/17 02/07/17 05:35 05:35 05:40 WBC 6.3 RBC 3.89 Hgb 11.6 Hct 36.2 35.9 MCV 92.4 MCHC 32.2 RDW 20.1 H Plt Count 104 L MPV 8.5 Ferritin Folate 1497 Folate Hemolysate 541.8 TARSHA Screen Negative 02/07/17 05:40 WBC RBC Hgb Hct MCV MCHC RDW Plt Count MPV Ferritin 57.438 Folate Folate Hemolysate TARSHA Screen Vital Signs Temperature 98.2 F 02/07/17 16:10 Pulse Rate 72 02/07/17 16:10 Respiratory Rate 18 02/07/17 16:10 Blood Pressure 104/62 02/07/17 16:10 O2 Sat by Pulse Oximetry (%) 94 L 02/07/17 09:00 CC; no new complaints ``````````````````````` skin--areas of ecchymosis/bruising (rolando-orb; Lt Lower pelvis; Rt shoulder) fading head--NC eyes--eomi; vision seems to be intact neck--supple, no masses lungs--no wheezing or rales appreciated heart--distant irreg abd--soft, NT ext--trace edema; Limited ROM neuro--alert & coherent; lucid; mood is dysphoric; remembers all details leading up to syncopal episode; but unable to recall events at the time of LOC `````````````````````````````````````````````````````````` Summ >syncope--precipitating cause not clear; likely due to multiple coalescing factors; no evidence of acute stroke (2nd CT of head without any changes). Could be due to arrhythmia; low BP; low BS, vaso-vagal effect; toxic effect of opiod analgesic. PLAN: P/T; have encouraged short term SNF, but very reluctant > Low PLt--on the rise > ASHD--s/p cardiac cath @[facility] NL coronaries but increased PCW and rt vent pressures; which co-incides with the Echo report and suggest (2nd)Pulm HTN. > Hypersomnolence--is now at near baseline; ? effects of opiates > COPD--with 2nd Pulm Htn (see Pulm note) > Conjunctivitis--bilat and slowly clearing up. Cont eye gtts for now > mastoiditis--based on head Ct findings; seen by ID & ENT; changed to Unasyn > Glucose intol--a1c at 6.3 > ATF--monitored rate seems controlled on current agents; cont a-c > High Troponin--now NL > Low K+--will replenish as needed > restless legs--will resume Mirapex; will get neuro eval prior to d/c ~~~~~~~~~~~~~~~~~~~~~~~~~~~~~~~~~~~ Dr Estrada Problem List - Problems (1) Change in mental status Code(s): R41.82 - ALTERED MENTAL STATUS, UNSPECIFIED Qualifiers: Altered mental status type: stupor Qualified Code(s): R40.1 - Stupor (2) Acute on chronic systolic and diastolic heart failure, NYHA class 3 Code(s): I50.43 - ACUTE ON CHRONIC COMBINED SYSTOLIC AND DIASTOLIC HRT FAIL (3) COPD (chronic obstructive pulmonary disease) with emphysema Code(s): J43.9 - EMPHYSEMA, UNSPECIFIED Qualifiers: Emphysema type: unspecified Qualified Code(s): J43.9 - Emphysema, unspecified (4) Sleep apnea Code(s): G47.30 - SLEEP APNEA, UNSPECIFIED Qualifiers: Sleep apnea type: unspecified type Qualified Code(s): G47.30 - Sleep apnea, unspecified (5) Mastoiditis Code(s): H70.90 - UNSPECIFIED MASTOIDITIS, UNSPECIFIED EAR Qualifiers: Laterality: right Qualified Code(s): H70.91 - Unspecified mastoiditis, right ear (6) Obesity due to excess calories Code(s): E66.09 - OTHER OBESITY DUE TO EXCESS CALORIES Qualifiers: Obesity severity: morbid Qualified Code(s): E66.01 - Morbid (severe ) obesity due to excess calories (7) A-fib Code(s): I48.91 - UNSPECIFIED ATRIAL FIBRILLATION Qualifiers: Atrial fibrillation type: chronic Qualified Code(s): I48.2 - Chronic atrial fibrillation (8) Edema Code(s): R60.9 - EDEMA, UNSPECIFIED Qualifiers: Edema type: localized Qualified Code(s): R60.0 - Localized edema (9) Elevated troponin Code(s): R74.8 - ABNORMAL LEVELS OF OTHER SERUM ENZYMES (10) Hypertensive heart and renal disease with heart failure Code(s): I13.0 - HYP HRT & CHR KDNY DIS W HRT FAIL AND STG 1-4/UNSP CHR KDNY I50.9 - HEART FAILURE, UNSPECIFIED N18.9 - CHRONIC KIDNEY DISEASE, UNSPECIFIED (11) Hyperlipidemia Code(s): E78.5 - HYPERLIPIDEMIA, UNSPECIFIED Qualifiers: Hyperlipidemia type: unspecified Qualified Code(s): E78.5 - Hyperlipidemia, unspecified (12) Somnolence Code(s): R40.0 - SOMNOLENCE (13) Osteoarthritis Code(s): M19.90 - UNSPECIFIED OSTEOARTHRITIS, UNSPECIFIED SITE Qualifiers: Osteoarthritis location: multiple joints (14) Intractable pain Code(s): R52 - PAIN, UNSPECIFIED (15) Major depressive disorder, recurrent Code(s): F33.9 - MAJOR DEPRESSIVE DISORDER, RECURRENT, UNSPECIFIED Qualifiers : Major depression episode severity: unspecified Qualified Code(s): F33.9 - Major depressive disorder, recurrent, unspecified (16) Sarcoid Code(s): D86.9 - SARCOIDOSIS, UNSPECIFIED (17) Long-term (current) use of anticoagulants Code(s): Z79.01 - HALF-WAY (CURRENT) USE OF ANTICOAGULANTS (18) Conjunctivitis Code(s): H10.9 - UNSPECIFIED CONJUNCTIVITIS Qualifiers: Conjunctivitis type: other mucopurulent Laterality: bilateral Qualified Code(s): H10.023 - Other mucopurulent conjunctivitis, bilateral (19) Rash Code(s): R21 - RASH AND OTHER NONSPECIFIC SKIN ERUPTION (20) Elevated alkaline phosphatase level Code(s): R74.8 - ABNORMAL LEVELS OF OTHER SERUM ENZYMES
[2017-02-07] MEDS: ATORVASTATIN CA 10 MG TABLET (FP) PO SCH (21:55)
[2017-02-07] MEDS: ACETAMINOPHEN 500 MG TABLET (FP) PO PRN (22:08)
[2017-02-08] MEDS: CIPROFLOXACIN HCL 0.3% OPHTH 2.5ML BOTTLE OU SCH ×4 (00:32→17:09)
[2017-02-08] MEDS: AMPICILLIN NA/SULBACTAM NA 1.5 GM in SODIUM CHLORIDE 100 ML IVPB SCH ×4 (02:20→22:08)
[2017-02-08] MEDS: ACETAMINOPHEN 500 MG TABLET (FP) PO PRN ×2 (04:37→23:34)
[2017-02-08] MEDS: PRAMIPEXOLE DIHYDROCHLORIDE 0.5 MG TABLET PO SCH ×3 (06:19→22:09)
[2017-02-08 07:46] LABS: COCKROFT - GAULT 105.757; PHOSPHOROUS 2.5 mg/dL (2.5-4.9)
[2017-02-08] MEDS ORDERED: PT OWN MED DRAWER 7, Y5N ONE ×4 (10:39→17:06)
[2017-02-08] MEDS: DABIGATRAN ETEXILATE MESYLATE 150 MG CAPSULE PO SCH ×2 (10:42→22:09)
[2017-02-08] MEDS: METOPROLOL SUCCINATE 25 MG TAB.SR.24H (FP) PO SCH (10:42)
[2017-02-08] MEDS: DULoxetine HCL 30 MG CAPSULE.DR (FP) PO SCH (10:42)
[2017-02-08] MEDS: TORSEMIDE 20 MG TABLET (FP) PO SCH (10:42)
[2017-02-08] MEDS: ISOSORBIDE MONONITRATE 30 MG TAB.SR.24H (FP) PO SCH (10:42)
[2017-02-08] MEDS: predniSONE 10 MG TABLET (UD) PO SCH (10:42)
[2017-02-08] MEDS: NYSTATIN POWDER 100,000 UNITS/GM - 15 GM TOPICAL POWDER TP SCH ×2 (10:46→22:14)
[2017-02-08] MEDS: SODIUM CHLORIDE NASAL SPRAY 44 ML BOTTLE NS SCH ×2 (10:46→22:13)
[2017-02-08] MEDS: NAPHAZOLINE/PHENIRAMINE OPHTHALMIC 15 ML BOTTLE OU SCH ×2 (10:48→22:09)
--- NOTE | 2017-02-08 12:17 | PN ---
Progress Note, Physician History of Present Illness: The patient is a 61 year old female with significant past medical history of afib, CHF, hypertension, hyperlipidemia, diabetes, COPD (ex-smoker), O2 dependent, sarcoidosis, GERD, erythrocytosis, chronic low back pain, and osteoarthritis who presents to the ED for AMS and after being found down on the floor few hours prior to arrival. Patient is a poor historian. As per daughter, at bedside, after arriving home around 12:30 she found the patient on the floor. Daughter noted her eyelids to be crusted shut with surrounding redness and swelling. Daughter reports her sister left the patient at home around 7: 30pm and at that time patient was in her usual state of health. Patient does not recall falling. Unknown LOC or head trauma. Patient states she remembers sitting down on the toilet and the last thing she remembers is being woken up by her daughter. Daughter states patient has not been feeling well within the past week and patients twin sister has also been ill recently. Patient has complaints of right-sided abdominal pain that she describes as a achy sensation and 5/10. Daughter reports patient has chronic leg swelling, but noted her increased swelling to her legs bilaterally. Allergies: NKDA Social History: Former smoker. No alcohol or drug use reported. Past Surgical History: herniated disc removed PCP: Dr. Kt Estrada Cardio: Dr. David Nathan - Current Medication List Current Medications: Active Medications Acetaminophen (Tylenol -) 500 mg PO Q6H PRN PRN Reason: PAIN LEVEL 1-5 Last Admin: 02/08/17 04:37 Dose: 500 mg Atorvastatin Calcium (Lipitor -) 10 mg PO HS [facility] Last Admin: 02/07/17 21:55 Dose: 10 mg Bupropion HCl (Wellbutrin Xl -) 150 mg PO DAILY [facility] Last Admin: 02/08/17 10:42 Dose: 150 mg Ciprofloxacin (Ciloxan 0.3% Eye Drops -) 2 drop OU Q6HPO [facility] Last Admin: 02/08/17 11:19 Dose: 2 drop Dabigatran (Pradaxa -) 150 mg PO BID [facility] Last Admin: 02/08/17 10:42 Dose: 150 mg Duloxetine HCl (Cymbalta -) 30 mg PO DAILY [facility] Last Admin: 02/08/17 10:42 Dose: 30 mg Ampicillin Sodium/Sulbactam (Sodium 1.5 gm/ Sodium Chloride) 100 mls @ 200 mls/ hr IVPB Q6H-IV [facility] Stop: 02/11/17 03:29 Last Admin: 02/08/17 10:43 Dose: 200 mls/hr Isosorbide Mononitrate (Imdur -) 30 mg PO DAILY [facility] Last Admin: 02/08/17 10:42 Dose: 30 mg Metoprolol Succinate (Toprol Xl -) 25 mg PO DAILY [facility] Last Admin: 02/08/17 10:42 Dose: 25 mg Naphazoline HCl/Pheniramine Maleate (Visine-A -) 1 drop OU BID [facility] Last Admin: 02/08/17 10:48 Dose: 1 drop Nystatin (Nystop Powder -) 1 applic TP BID [facility] Last Admin: 02/08/17 10:46 Dose: 1 applic Pramipexole Dihydrochloride (Mirapex -) 0.5 mg PO TID [facility] Last Admin: 02/08/17 06:19 Dose: 0.5 mg Prednisone (Deltasone -) 10 mg PO DAILY [facility] Last Admin: 02/08/17 10:42 Dose: 10 mg Sodium Chloride ([place] Nasal [place] -) 2 spray NS BID [facility] Last Admin: 02/08/17 10:46 Dose: 2 spray Torsemide (Demadex -) 10 mg PO DAILY [facility] Last Admin: 02/08/17 10:42 Dose: 10 mg - Objective Vital Signs: Vital Signs Temperature 98.2 F 02/08/17 06:00 Pulse Rate 68 02/08/17 06:00 Respiratory Rate 20 02/08/17 06:00 Blood Pressure 130/78 02/08/17 06:00 O2 Sat by Pulse Oximetry (%) 94 L 02/07/17 09:00 Eyes: Yes: WNL, Conjunctiva Clear, EOM Intact HENT: Yes: WNL, Atraumatic, Normocephalic Neck: Yes: WNL, Supple, Trachea Midline Cardiovascular: Yes: WNL, Regular Rate and Rhythm Respiratory: Yes: WNL, Regular, CTA Bilaterally Gastrointestinal: Yes: WNL, Normal Bowel Sounds Genitourinary: Yes: WNL Musculoskeletal: Yes: WNL Extremities: Yes: WNL Edema: No Integumentary: Yes: WNL Neurological: Yes: WNL, Alert, Oriented ...Motor Strength: WNL Psychiatric: Yes: WNL Labs: CBC, BMP 02/07/17 05:40 02/08/17 06:40 INR, PTT INR 1.79 (0.82-1.09) H D 02/02/17 03:44 Assessment/Plan - Problems (1) A-fib Assessment/Plan: On metoprolol ER and digoxin for HR control (dose changed to q 48 hrs; keep dig. level 0.5-1.0, and consider stopping it because of potential adverse effects). On Pradaxa. As discussed with pt and her daughter (Araceli), the benefits of the anticoagulant (preventing embolic event) must be weighed against the risk of bleed, especially if pt is having frequent falls. Coronary angiogram [address] [facility]: patent coronary arteries; elevated PCW and pulmonary HTN. Code(s): I48.91 - UNSPECIFIED ATRIAL FIBRILLATION Qualifiers: Atrial fibrillation type: chronic Qualified Code(s): I48.2 - Chronic atrial fibrillation (2) Change in mental status Code(s): R41.82 - ALTERED MENTAL STATUS, UNSPECIFIED Qualifiers: Altered mental status type: stupor Qualified Code(s): R40.1 - Stupor (3) Back pain Code(s): M54.9 - DORSALGIA, UNSPECIFIED Qualifiers: Back pain location: low back pain Back pain laterality: bilateral Sciatica presence: without sciatica (4) COPD (chronic obstructive pulmonary disease) with emphysema Code(s): J43.9 - EMPHYSEMA, UNSPECIFIED Qualifiers: Emphysema type: unspecified Qualified Code(s): J43.9 - Emphysema, unspecified (5) Depression Code(s): F32.9 - MAJOR DEPRESSIVE DISORDER, SINGLE EPISODE, UNSPECIFIED (6) Edema Code(s): R60.9 - EDEMA, UNSPECIFIED Qualifiers: Edema type: localized Qualified Code(s): R60.0 - Localized edema (7) GERD (gastroesophageal reflux disease) Code(s): K21.9 - GASTRO-ESOPHAGEAL REFLUX DISEASE WITHOUT ESOPHAGITIS Qualifiers: Esophagitis presence: without esophagitis Qualified Code(s): K21.9 - Gastro-esophageal reflux disease without esophagitis (8) Obesity due to excess calories Code(s): E66.09 - OTHER OBESITY DUE TO EXCESS CALORIES Qualifiers: Obesity severity: morbid Qualified Code(s): E66.01 - Morbid (severe ) obesity due to excess calories (9) Syncope Code(s): R55 - SYNCOPE AND COLLAPSE (10) Sarcoid Code(s): D86.9 - SARCOIDOSIS, UNSPECIFIED (11) Sleep apnea Code(s): G47.30 - SLEEP APNEA, UNSPECIFIED Qualifiers: Sleep apnea type: unspecified type Qualified Code(s): G47.30 - Sleep apnea, unspecified (12) Vitamin D deficiency Code(s): E55.9 - VITAMIN D DEFICIENCY, UNSPECIFIED (13) Smokes cigarettes Code(s): F17.210 - NICOTINE DEPENDENCE, CIGARETTES, UNCOMPLICATED (14) Acute on chronic systolic and diastolic heart failure, NYHA class 1 Assessment/Plan: mildly reduced systolic LV dysfunction; moderate RV dysfunction. on metoprolol; Physical rehabilitation; increease exercise. Dietary modification; portion control for aid in weight loss. Code(s): I50.43 - ACUTE ON CHRONIC COMBINED SYSTOLIC AND DIASTOLIC HRT FAIL
--- NOTE | 2017-02-08 12:44 | PN ---
Progress Note (short form) - Note Progress Note: PULMONARY VSS/OOB TO CHAIR SUBJECTIVE IMPROVEMENT\ ANICTERIC DIMINISHED B/L BREATH SOUNDS S1S2 OBESE SOFT LESS EDEMA B/L LOWER EXT LABS/MEDS/NOTES/IMAGING/MICRO REVIEWED - Problems (1) A-fib Code(s): I48.91 - UNSPECIFIED ATRIAL FIBRILLATION Qualifiers: Atrial fibrillation type: chronic Qualified Code(s): I48.2 - Chronic atrial fibrillation (2) Change in mental status Code(s): R41.82 - ALTERED MENTAL STATUS, UNSPECIFIED Qualifiers: Altered mental status type: stupor Qualified Code(s): R40.1 - Stupor (3) Conjunctivitis Code(s): H10.9 - UNSPECIFIED CONJUNCTIVITIS Qualifiers: Conjunctivitis type: other mucopurulent Laterality: bilateral Qualified Code(s): H10.023 - Other mucopurulent conjunctivitis, bilateral (4) Diastolic CHF Code(s): I50.30 - UNSPECIFIED DIASTOLIC (CONGESTIVE) HEART FAILURE (5) Long-term (current) use of anticoagulants Code(s): Z79.01 - SNF (CURRENT) USE OF ANTICOAGULANTS (6) Obesity due to excess calories Code(s): E66.09 - OTHER OBESITY DUE TO EXCESS CALORIES Qualifiers: Obesity severity: morbid Qualified Code(s): E66.01 - Morbid (severe ) obesity due to excess calories (7) Sleep apnea Code(s): G47.30 - SLEEP APNEA, UNSPECIFIED Qualifiers: Sleep apnea type: unspecified type Qualified Code(s): G47.30 - Sleep apnea, unspecified (8) COPD (chronic obstructive pulmonary disease) with emphysema Code(s): J43.9 - EMPHYSEMA, UNSPECIFIED Qualifiers: Emphysema type: unspecified Qualified Code(s): J43.9 - Emphysema, unspecified (9) Cellulitis Code(s): L03.90 - CELLULITIS, UNSPECIFIED Qualifiers: Site of cellulitis: extremity Site of cellulitis of extremity: lower extremity Laterality: right Qualified Code(s): L03.115 - Cellulitis of right lower limb (10) Edema Code(s): R60.9 - EDEMA, UNSPECIFIED Qualifiers: Edema type: localized Qualified Code(s): R60.0 - Localized edema (11) ROHIT (obstructive sleep apnea) Code(s): G47.33 - OBSTRUCTIVE SLEEP APNEA (ADULT) (PEDIATRIC) (12) Obesity Code(s): E66.9 - OBESITY, UNSPECIFIED (13) Sarcoid Code(s): D86.9 - SARCOIDOSIS, UNSPECIFIED empiric NIPPV BD TX Ophthalmic drops Antibiotics O2 as needed Aspiration precautions Anticoagulation Monitor plt ct Nona RIGGS MD
--- NOTE | 2017-02-08 12:45 | DS ---
Physical Examination Vital Signs: Vital Signs Temperature 98.2 F 02/08/17 06:00 Pulse Rate 68 02/08/17 06:00 Respiratory Rate 20 02/08/17 06:00 Blood Pressure 130/78 02/08/17 06:00 O2 Sat by Pulse Oximetry (%) 94 L 02/07/17 09:00 Findings/Remarks: skin--faint ecchymosis of rolando-orb area oral--NL mucosa lungs--grossly clear heart--Irreg abd--soft, obese, NT ext--2+ edema of LE's; no ischemic changes neuro--alert; coherent; thoughts well organized; speech fluent; no gross focal deficits Labs: CBC, BMP 02/07/17 05:40 02/08/17 06:40 Discharge Summary Reason For Visit: DIASTOLIC CHF CHANGE IN MENTAL STATUS Current Active Problems A-fib Chronic kidney dz (stage 1-5) Acute on chronic systolic and diastolic heart failure, NYHA class 1 (Acute) Change in mental status (Acute) Conjunctivitis (Acute) Elevated troponin (Acute) Hypokalemia (Acute) Long-term (current) use of anticoagulants (Acute) Mastoiditis (Acute) Obesity due to excess calories (Acute) Rash (Acute)--fungal Rhinosinusitis (Acute) Sleep apnea-does not want to use CPAP Smokes cigarettes (Acute) Syncope (Acute) Thrombocytopenia (Acute) Vitamin D deficiency (Acute) restless legs syndrome Pulm sarcoidosis DM T2--diet controlled lipidemia Pulm Hypertension 2nd COPD Depression Hospital Course: admitted for fall/syncope at home; with resulting change in mental status lingering for 3 days following the admission. She was found to have multiple areas of ecchymosis on arm, chest, rolando-orbitally. CT of the head did not show any ICH, but found to have mastoiditis/sinusitis. She was started on IVF, Abs. Her initial troponin was (+); EKG showed elevated ST in the IW, but this was not new. She gradually regained her normal mental status without neuro deficits. She mainly c/o genaral aches & pains which are chronic. She was not given any oxycodone which is what she takes at home for severe pains. Also it was noted that her PLT count was low, but later rebounded; she normal runs low NL. Her conjunctivitis has cleared; her vitals have stabilized. She did not have PNA or UTI. Her glucoses have been in range for the most part. Prior to this admission she had been sent to [facility] ( 2 weeks ago) from [facility] where she was brought to, in December for acute Hypotension, and (+) Troponins where she had a Cardiac cath showing NL coronaries but increased PCW, and Rt sided heart pressures 2nd Pulm Htn. Condition: Stable - Instructions Diet, Activity, Other Instructions: low sodium, calorie; weight reducing diet nasal oxygen at 3/L min BGM twice a day before meals Physical therapy Dietary consult Social service eval Check chemistries & Digoxin level weekly Give Tylenol #3; before physical therapy (Always give Plain Tylenol for non severe pain) Disposition: CUSTODIAL FACILITY - Home Medications Comprehensive Discharge Medication List: Ambulatory Orders Albuterol Sulfate Inhaler - [Ventolin HFA Inhaler -] 1 - 2 inh PO QID 09/27/16 Atorvastatin Ca [Lipitor] 10 mg PO HS 09/27/16 Bupropion HCl [Bupropion HCl ER] 150 mg PO DAILY 09/27/16 Dabigatran Etexilate Mesylate [Pradaxa -] 150 mg PO BID 09/27/16 Digoxin [Digitek] 125 mcg PO DAILY 09/27/16 Duloxetine HCl 30 mg PO DAILY 09/27/16 Torosemide 20mg PO daily Isosorbide Mononitrate [Isosorbide Mononitrate ER] 30 mg PO DAILY 09/27/16 Augmentin 500mg TID x 10days Slow-Mag 1 tab daily Metoprolol Succinate [Toprol Xl] 25 mg PO DAILY 09/27/16 Montelukast Na [Singulair -] 10 mg PO HS 09/27/16 Pramipexole Dihydrochloride [Mirapex -] 0.5 mg PO TID 09/27/16 Prednisone 10 mg PO DAILY 09/27/16 Ranitidine [Zantac -] 150 mg PO DAILY 09/27/16 Nystatin powser to groin rash BID Zantac 150mg BID Denise saline nose spray BID Tylenol #3 PO BID Prn Pain (if Tylenol not effective) TYLENOL 500mg Q6Hrs Prn Nasal Oxygen 3L/min
--- NOTE | 2017-02-08 14:00 | PN ---
Progress Note (short form) - Note Progress Note: Renal Follow up for DWAINE Pt seen and examined at the bedside no complaints denies any sob, chest pain, N/V/D Vital Signs Temperature 98.2 F 02/08/17 06:00 Pulse Rate 68 02/08/17 06:00 Respiratory Rate 20 02/08/17 06:00 Blood Pressure 130/78 02/08/17 06:00 O2 Sat by Pulse Oximetry (%) 94 L 02/07/17 09:00 Intake & Output 02/05/17 02/06/17 02/07/17 02/08/17 23:59 23:59 23:59 23:59 Intake Total 435 317 0148 300 Balance 956 871 0129 300 Gen: NAD CVS: RRR, No M/R Lungs: Dec BS throughout the lung adams Abd: soft NT/ND Ext: 1+ edema in LE CBC, BMP 02/07/17 05:40 02/08/17 06:40 Current Medications Acetaminophen (Tylenol -) 500 mg PO Q6H PRN PRN Reason: PAIN LEVEL 1-5 Last Admin: 02/08/17 04:37 Dose: 500 mg Atorvastatin Calcium (Lipitor -) 10 mg PO HS [facility] Last Admin: 02/07/17 21:55 Dose: 10 mg Bupropion HCl (Wellbutrin Xl -) 150 mg PO DAILY [facility] Last Admin: 02/08/17 10:42 Dose: 150 mg Ciprofloxacin (Ciloxan 0.3% Eye Drops -) 2 drop OU Q6HPO [facility] Last Admin: 02/08/17 11:19 Dose: 2 drop Dabigatran (Pradaxa -) 150 mg PO BID [facility] Last Admin: 02/08/17 10:42 Dose: 150 mg Duloxetine HCl (Cymbalta -) 30 mg PO DAILY [facility] Last Admin: 02/08/17 10:42 Dose: 30 mg Ampicillin Sodium/Sulbactam (Sodium 1.5 gm/ Sodium Chloride) 100 mls @ 200 mls/ hr IVPB Q6H-IV [facility] Stop: 02/11/17 03:29 Last Admin: 02/08/17 10:43 Dose: 200 mls/hr Isosorbide Mononitrate (Imdur -) 30 mg PO DAILY [facility] Last Admin: 02/08/17 10:42 Dose: 30 mg Metoprolol Succinate (Toprol Xl -) 25 mg PO DAILY [facility] Last Admin: 02/08/17 10:42 Dose: 25 mg Naphazoline HCl/Pheniramine Maleate (Visine-A -) 1 drop OU BID [facility] Last Admin: 02/08/17 10:48 Dose: 1 drop Nystatin (Nystop Powder -) 1 applic TP BID [facility] Last Admin: 02/08/17 10:46 Dose: 1 applic Pramipexole Dihydrochloride (Mirapex -) 0.5 mg PO TID [facility] Last Admin: 02/08/17 06:19 Dose: 0.5 mg Prednisone (Deltasone -) 10 mg PO DAILY [facility] Last Admin: 02/08/17 10:42 Dose: 10 mg Sodium Chloride ([place] Nasal [place] -) 2 spray NS BID [facility] Last Admin: 02/08/17 10:46 Dose: 2 spray Torsemide (Demadex -) 10 mg PO DAILY [facility] Last Admin: 02/08/17 10:42 Dose: 10 mg A/P 61 year old woman with PMhx of CKD, COPD, CHF, HTN, DM presented with fall and AMS and fond to have Cr of 1.7 and low potassium. #Acute Kidney Injury secondary to intravascular volume depletion Renal function now improved to baseline Restarted on Toresemide can be on Torsemide 20nmg Daily at home to have repeat labs and follow up with Dr. Ron #Hypokalemia K is now improved to normal limits Trend K and Mg - will monitor as outpatient Thank you Amando Braswell DO
--- NOTE | 2017-02-08 18:28 | CONSULT ---
Consult - text type - Consultation Consultation Note: NEUROLOGY CONSULTATION is greatly appreciated: This 61 yo RH s woman is an identical twin with 2 daughters. PMH sig for HTN, DM, COPD (O2 dependent),Chol, ASHD, CHF, AFib, Depression. On: Pradoxa, metoprolol, Imdur, Demadex, Lipitor, Wellbutrin (150), Cymbalta (30 ), and Mirapex (0.5 TID), Oxycodone PRN. Well-known to me over many years since Anterior cervical discectomy (ACD) for cervical myelopathy. Recurrent cord compression and LS Spinal stenosis cause unsteady gait, walks with cane. Has walker, wheelchair at home and [employer] 2 hrs/day. B/L Carpal tunnel syndromes and Ulnar compressions at the elbow. Chronic nocturnal pains and insomnia (which her sister also has) have responded to Pramipexole (0.5 mg TID) for Restless Legs Syndrome. Now admitted after unwitnessed fall in her bathroom. Pt has no recollection over any prodromal symptoms and can't even recall why she was in the bathroom. She thinks she may have been cleaning. Couldn't get off the floor "untill her daughter found her." STEPHON: Obese. Well-healed ACD. +cellulitic changes (on ampicillin). No edema. NEURO: MS/speech: Normal CN II-XII: Normal Motor: Normal strength. Brisk reflexes except AJ's. Coord: No FTN dystaxia Sensory: Decreased vibration in feet and pinprick in hands. Romberg + /- Gait: Wide-based and waddling IMP: Syncope vs. Fall. Residual cervical myelopathy LS spinal stenosis. B/L CTS and ulnar neuropathy Restless Limbs Syndrome SUGGEST: Agree completely with management. Continue pramipexole 0.5 mg PO TID. Follow orthostatic BP's Complete Rx for infection (Cellulitis). Agree with PT for gait safety with walker and expanded Home health care. Neuro F/U as out patient. Thank you very much, Abdi Brooks MD
[2017-02-08] MEDS: ATORVASTATIN CA 10 MG TABLET (FP) PO SCH (22:09)
[2017-02-09] MEDS: CIPROFLOXACIN HCL 0.3% OPHTH 2.5ML BOTTLE OU SCH ×3 (00:24→12:52)
[2017-02-09] MEDS: AMPICILLIN NA/SULBACTAM NA 1.5 GM in SODIUM CHLORIDE 100 ML IVPB SCH ×2 (02:30→09:26)
[2017-02-09] MEDS: PRAMIPEXOLE DIHYDROCHLORIDE 0.5 MG TABLET PO SCH ×2 (06:16→14:58)
[2017-02-09] MEDS: ACETAMINOPHEN 500 MG TABLET (FP) PO PRN (08:31)
[2017-02-09] MEDS ORDERED: PT OWN MED DRAWER 7, Y5N ONE ×3 (09:16→14:50)
[2017-02-09] MEDS: DULoxetine HCL 30 MG CAPSULE.DR (FP) PO SCH (09:22)
[2017-02-09] MEDS: predniSONE 10 MG TABLET (UD) PO SCH (09:22)
[2017-02-09] MEDS: TORSEMIDE 20 MG TABLET (FP) PO SCH (09:23)
[2017-02-09] MEDS: SODIUM CHLORIDE NASAL SPRAY 44 ML BOTTLE NS SCH (09:24)
[2017-02-09] MEDS: DABIGATRAN ETEXILATE MESYLATE 150 MG CAPSULE PO SCH (09:24)
[2017-02-09] MEDS: NYSTATIN POWDER 100,000 UNITS/GM - 15 GM TOPICAL POWDER TP SCH (09:24)
[2017-02-09] MEDS: ISOSORBIDE MONONITRATE 30 MG TAB.SR.24H (FP) PO SCH (09:24)
[2017-02-09] MEDS: METOPROLOL SUCCINATE 25 MG TAB.SR.24H (FP) PO SCH (09:27)
[2017-02-09] MEDS: NAPHAZOLINE/PHENIRAMINE OPHTHALMIC 15 ML BOTTLE OU SCH (09:37)
--- NOTE | 2017-02-09 12:08 | PN ---
Progress Note (short form) - Note Progress Note: PULMONARY Denies shortness of breath but with pain with coughing. No fevers or chills. Last Vital Signs Temp Pulse Resp BP Pulse Ox 98.4 F 75 20 114/71 96 02/09/17 05:52 02/09/17 05:52 02/09/17 05:52 02/09/17 05:52 02/08/17 21:00 Gen: NAD at rest Heart: RRR Lung: left base rales Abd: soft, nontender, obese Ext: + trace edema CBC, BMP 02/07/17 05:40 02/08/17 06:40 Active Medications Acetaminophen (Tylenol -) 500 mg PO Q6H PRN PRN Reason: PAIN LEVEL 1-5 Last Admin: 02/09/17 08:31 Dose: 500 mg Atorvastatin Calcium (Lipitor -) 10 mg PO HS [facility] Last Admin: 02/08/17 22:09 Dose: 10 mg Bupropion HCl (Wellbutrin Xl -) 150 mg PO DAILY [facility] Last Admin: 02/09/17 09:26 Dose: 150 mg Ciprofloxacin (Ciloxan 0.3% Eye Drops -) 2 drop OU Q6HPO [facility] Last Admin: 02/09/17 06:16 Dose: 2 drop Dabigatran (Pradaxa -) 150 mg PO BID [facility] Last Admin: 02/09/17 09:24 Dose: 150 mg Duloxetine HCl (Cymbalta -) 30 mg PO DAILY [facility] Last Admin: 02/09/17 09:22 Dose: 30 mg Ampicillin Sodium/Sulbactam (Sodium 1.5 gm/ Sodium Chloride) 100 mls @ 200 mls/ hr IVPB Q6H-IV [facility] Stop: 02/11/17 03:29 Last Admin: 02/09/17 09:26 Dose: 200 mls/hr Isosorbide Mononitrate (Imdur -) 30 mg PO DAILY [facility] Last Admin: 02/09/17 09:24 Dose: 30 mg Metoprolol Succinate (Toprol Xl -) 25 mg PO DAILY [facility] Last Admin: 02/09/17 09:27 Dose: 25 mg Naphazoline HCl/Pheniramine Maleate (Visine-A -) 1 drop OU BID [facility] Last Admin: 02/09/17 09:37 Dose: 1 drop Nystatin (Nystop Powder -) 1 applic TP BID [facility] Last Admin: 02/09/17 09:24 Dose: 1 applic Pramipexole Dihydrochloride (Mirapex -) 0.5 mg PO TID [facility] Last Admin: 02/09/17 06:16 Dose: 0.5 mg Prednisone (Deltasone -) 10 mg PO DAILY [facility] Last Admin: 02/09/17 09:22 Dose: 10 mg Sodium Chloride ([place] Nasal [place] -) 2 spray NS BID [facility] Last Admin: 02/09/17 09:24 Dose: 2 spray Torsemide (Demadex -) 10 mg PO DAILY [facility] Last Admin: 02/09/17 09:23 Dose: 10 mg A/P Pulmonary HTN ROHIT non-compliant with PAP [place] Atrial Fibrillation Pulmonary Sarcoidosis Cellulitis improving Thrombocytopenia improving - CPAP at night if pt allows - continue chronic prednisone - O2 to keep SpO2>90% - monitor platelets - continue anticoagulation - d/c planning
--- NOTE | 2017-02-09 13:07 | PN ---
Progress Note (short form) - Note Progress Note: Renal Follow up for DWAINE Pt seen and examined at the bedside no acute complaints Vital Signs Temperature 98.4 F 02/09/17 05:52 Pulse Rate 75 02/09/17 05:52 Respiratory Rate 20 02/09/17 05:52 Blood Pressure 114/71 02/09/17 05:52 O2 Sat by Pulse Oximetry (%) 96 02/08/17 21:00 Intake & Output 02/06/17 02/07/17 02/08/17 02/09/17 23:59 23:59 23:59 23:59 Intake Total 815 1050 600 650 Balance 815 1050 600 650 Gen: NAD CVS: RRR, No M/R Lungs: Dec BS throughout the lung adams Abd: soft NT/ND Ext: 1+ edema in LE CBC, BMP 02/07/17 05:40 02/08/17 06:40 Current Medications Acetaminophen (Tylenol -) 500 mg PO Q6H PRN PRN Reason: PAIN LEVEL 1-5 Last Admin: 02/09/17 08:31 Dose: 500 mg Atorvastatin Calcium (Lipitor -) 10 mg PO HS [facility] Last Admin: 02/08/17 22:09 Dose: 10 mg Bupropion HCl (Wellbutrin Xl -) 150 mg PO DAILY [facility] Last Admin: 02/09/17 09:26 Dose: 150 mg Ciprofloxacin (Ciloxan 0.3% Eye Drops -) 2 drop OU Q6HPO [facility] Last Admin: 02/09/17 12:52 Dose: 2 drop Dabigatran (Pradaxa -) 150 mg PO BID [facility] Last Admin: 02/09/17 09:24 Dose: 150 mg Duloxetine HCl (Cymbalta -) 30 mg PO DAILY [facility] Last Admin: 02/09/17 09:22 Dose: 30 mg Ampicillin Sodium/Sulbactam (Sodium 1.5 gm/ Sodium Chloride) 100 mls @ 200 mls/ hr IVPB Q6H-IV [facility] Stop: 02/11/17 03:29 Last Admin: 02/09/17 09:26 Dose: 200 mls/hr Isosorbide Mononitrate (Imdur -) 30 mg PO DAILY [facility] Last Admin: 02/09/17 09:24 Dose: 30 mg Metoprolol Succinate (Toprol Xl -) 25 mg PO DAILY [facility] Last Admin: 02/09/17 09:27 Dose: 25 mg Naphazoline HCl/Pheniramine Maleate (Visine-A -) 1 drop OU BID [facility] Last Admin: 02/09/17 09:37 Dose: 1 drop Nystatin (Nystop Powder -) 1 applic TP BID [facility] Last Admin: 02/09/17 09:24 Dose: 1 applic Pramipexole Dihydrochloride (Mirapex -) 0.5 mg PO TID [facility] Last Admin: 02/09/17 06:16 Dose: 0.5 mg Prednisone (Deltasone -) 10 mg PO DAILY [facility] Last Admin: 02/09/17 09:22 Dose: 10 mg Sodium Chloride ([place] Nasal [place] -) 2 spray NS BID [facility] Last Admin: 02/09/17 09:24 Dose: 2 spray Torsemide (Demadex -) 10 mg PO DAILY [facility] Last Admin: 02/09/17 09:23 Dose: 10 mg A/P 61 year old woman with PMhx of CKD, COPD, CHF, HTN, DM presented with fall and AMS and fond to have Cr of 1.7 and low potassium. #Acute Kidney Injury secondary to intravascular volume depletion Renal function now improved to baseline continue diuretics as per primary to follow up in the office on discharge #Hypokalemia K is now improved to normal limits Trend K and Mg - will monitor as outpatient Thank you Amando Braswell DO
--- NOTE | 2017-02-09 13:27 | PN ---
Progress Note, Physician Chief Complaint: Pt alert & O x 3; sitting up at bedside. C/o chronic right hip pain that sometimes travels to the knee; believes it worsened after a spinal injection almost a year ago. - Current Medication List Current Medications: Active Medications Acetaminophen (Tylenol -) 500 mg PO Q6H PRN PRN Reason: PAIN LEVEL 1-5 Last Admin: 02/09/17 08:31 Dose: 500 mg Atorvastatin Calcium (Lipitor -) 10 mg PO HS [facility] Last Admin: 02/08/17 22:09 Dose: 10 mg Bupropion HCl (Wellbutrin Xl -) 150 mg PO DAILY [facility] Last Admin: 02/09/17 09:26 Dose: 150 mg Ciprofloxacin (Ciloxan 0.3% Eye Drops -) 2 drop OU Q6HPO [facility] Last Admin: 02/09/17 12:52 Dose: 2 drop Dabigatran (Pradaxa -) 150 mg PO BID [facility] Last Admin: 02/09/17 09:24 Dose: 150 mg Duloxetine HCl (Cymbalta -) 30 mg PO DAILY [facility] Last Admin: 02/09/17 09:22 Dose: 30 mg Ampicillin Sodium/Sulbactam (Sodium 1.5 gm/ Sodium Chloride) 100 mls @ 200 mls/ hr IVPB Q6H-IV [facility] Stop: 02/11/17 03:29 Last Admin: 02/09/17 09:26 Dose: 200 mls/hr Isosorbide Mononitrate (Imdur -) 30 mg PO DAILY [facility] Last Admin: 02/09/17 09:24 Dose: 30 mg Metoprolol Succinate (Toprol Xl -) 25 mg PO DAILY [facility] Last Admin: 02/09/17 09:27 Dose: 25 mg Naphazoline HCl/Pheniramine Maleate (Visine-A -) 1 drop OU BID [facility] Last Admin: 02/09/17 09:37 Dose: 1 drop Nystatin (Nystop Powder -) 1 applic TP BID [facility] Last Admin: 02/09/17 09:24 Dose: 1 applic Pramipexole Dihydrochloride (Mirapex -) 0.5 mg PO TID [facility] Last Admin: 02/09/17 06:16 Dose: 0.5 mg Prednisone (Deltasone -) 10 mg PO DAILY [facility] Last Admin: 02/09/17 09:22 Dose: 10 mg Sodium Chloride ([place] Nasal [place] -) 2 spray NS BID [facility] Last Admin: 02/09/17 09:24 Dose: 2 spray Torsemide (Demadex -) 10 mg PO DAILY [facility] Last Admin: 02/09/17 09:23 Dose: 10 mg - Objective Vital Signs: Vital Signs Temperature 98.4 F 02/09/17 05:52 Pulse Rate 75 02/09/17 05:52 Respiratory Rate 20 02/09/17 05:52 Blood Pressure 114/71 02/09/17 05:52 O2 Sat by Pulse Oximetry (%) 96 02/08/17 21:00 Labs: CBC, BMP 02/07/17 05:40 02/08/17 06:40 INR, PTT INR 1.79 (0.82-1.09) H D 02/02/17 03:44 Problem List - Problems (1) A-fib Code(s): I48.91 - UNSPECIFIED ATRIAL FIBRILLATION Qualifiers: Atrial fibrillation type: chronic Qualified Code(s): I48.2 - Chronic atrial fibrillation (2) Change in mental status Code(s): R41.82 - ALTERED MENTAL STATUS, UNSPECIFIED Qualifiers: Altered mental status type: stupor Qualified Code(s): R40.1 - Stupor (3) Back pain Code(s): M54.9 - DORSALGIA, UNSPECIFIED Qualifiers: Back pain location: low back pain Back pain laterality: bilateral Sciatica presence: without sciatica (4) COPD (chronic obstructive pulmonary disease) with emphysema Code(s): J43.9 - EMPHYSEMA, UNSPECIFIED Qualifiers: Emphysema type: unspecified Qualified Code(s): J43.9 - Emphysema, unspecified (5) Depression Code(s): F32.9 - MAJOR DEPRESSIVE DISORDER, SINGLE EPISODE, UNSPECIFIED (6) Edema Code(s): R60.9 - EDEMA, UNSPECIFIED Qualifiers: Edema type: localized Qualified Code(s): R60.0 - Localized edema (7) GERD (gastroesophageal reflux disease) Code(s): K21.9 - GASTRO-ESOPHAGEAL REFLUX DISEASE WITHOUT ESOPHAGITIS Qualifiers: Esophagitis presence: without esophagitis Qualified Code(s): K21.9 - Gastro-esophageal reflux disease without esophagitis (8) Obesity due to excess calories Code(s): E66.09 - OTHER OBESITY DUE TO EXCESS CALORIES Qualifiers: Obesity severity: morbid Qualified Code(s): E66.01 - Morbid (severe ) obesity due to excess calories (9) Syncope Code(s): R55 - SYNCOPE AND COLLAPSE (10) Sarcoid Code(s): D86.9 - SARCOIDOSIS, UNSPECIFIED (11) Sleep apnea Code(s): G47.30 - SLEEP APNEA, UNSPECIFIED Qualifiers: Sleep apnea type: unspecified type Qualified Code(s): G47.30 - Sleep apnea, unspecified (12) Vitamin D deficiency Code(s): E55.9 - VITAMIN D DEFICIENCY, UNSPECIFIED (13) Smokes cigarettes Code(s): F17.210 - NICOTINE DEPENDENCE, CIGARETTES, UNCOMPLICATED (14) Acute on chronic systolic and diastolic heart failure, NYHA class 1 Code(s): I50.43 - ACUTE ON CHRONIC COMBINED SYSTOLIC AND DIASTOLIC HRT FAIL
--- NOTE | 2017-02-09 13:50 | PN ---
Progress Note (short form) - Note Progress Note: Current Medications Acetaminophen (Tylenol -) 500 mg PO Q6H PRN PRN Reason: PAIN LEVEL 1-5 Last Admin: 02/09/17 08:31 Dose: 500 mg Atorvastatin Calcium (Lipitor -) 10 mg PO HS [facility] Last Admin: 02/08/17 22:09 Dose: 10 mg Bupropion HCl (Wellbutrin Xl -) 150 mg PO DAILY [facility] Last Admin: 02/09/17 09:26 Dose: 150 mg Ciprofloxacin (Ciloxan 0.3% Eye Drops -) 2 drop OU Q6HPO [facility] Last Admin: 02/09/17 12:52 Dose: 2 drop Dabigatran (Pradaxa -) 150 mg PO BID [facility] Last Admin: 02/09/17 09:24 Dose: 150 mg Duloxetine HCl (Cymbalta -) 30 mg PO DAILY [facility] Last Admin: 02/09/17 09:22 Dose: 30 mg Ampicillin Sodium/Sulbactam (Sodium 1.5 gm/ Sodium Chloride) 100 mls @ 200 mls/ hr IVPB Q6H-IV [facility] Stop: 02/11/17 03:29 Last Admin: 02/09/17 09:26 Dose: 200 mls/hr Isosorbide Mononitrate (Imdur -) 30 mg PO DAILY [facility] Last Admin: 02/09/17 09:24 Dose: 30 mg Metoprolol Succinate (Toprol Xl -) 25 mg PO DAILY [facility] Last Admin: 02/09/17 09:27 Dose: 25 mg Naphazoline HCl/Pheniramine Maleate (Visine-A -) 1 drop OU BID [facility] Last Admin: 02/09/17 09:37 Dose: 1 drop Nystatin (Nystop Powder -) 1 applic TP BID [facility] Last Admin: 02/09/17 09:24 Dose: 1 applic Pramipexole Dihydrochloride (Mirapex -) 0.5 mg PO TID [facility] Last Admin: 02/09/17 06:16 Dose: 0.5 mg Prednisone (Deltasone -) 10 mg PO DAILY [facility] Last Admin: 02/09/17 09:22 Dose: 10 mg Sodium Chloride ([place] Nasal [place] -) 2 spray NS BID [facility] Last Admin: 02/09/17 09:24 Dose: 2 spray Torsemide (Demadex -) 10 mg PO DAILY [facility] Last Admin: 02/09/17 09:23 Dose: 10 mg Vital Signs Temperature 98.4 F 02/09/17 05:52 Pulse Rate 75 02/09/17 05:52 Respiratory Rate 20 02/09/17 05:52 Blood Pressure 114/71 02/09/17 05:52 O2 Sat by Pulse Oximetry (%) 96 02/08/17 21:00 CC; no new complaints ``````````````````````` skin--areas of ecchymosis/bruising (rolando-orb; Lt Lower pelvis; Rt shoulder) fading head--NC eyes--eomi; vision seems to be intact neck--supple, no masses lungs--no wheezing or rales appreciated heart--distant irreg abd--soft, NT ext--trace edema; Limited ROM neuro--alert & coherent; lucid; mood is dysphoric; remembers all details leading up to syncopal episode; but unable to recall events at the time of LOC `````````````````````````````````````````````````````````` Summ >syncope--precipitating cause not clear; no further events; VSS > Low PLt--on the rise > ASHD--s/p cardiac cath @[facility] NL coronaries but increased PCW and rt vent pressures; which co-incides with the Echo report and suggest (2nd)Pulm HTN. > Hypersomnolence--is now at near baseline; ? effects of opiates pre-admission, now fully awake > COPD--with 2nd Pulm Htn (see Pulm note); does not want nasal oxygen > ROHIT--does not wish to use CPAP > Conjunctivitis--bilat and slowly clearing up. Cont eye gtts for now > mastoiditis--based on head Ct findings; seen by ID & ENT; will be receive Augm x 10 days at [facility] > Glucose intol--a1c at 6.3; BGMs okay; diet control alone > ATF--monitored rate seems controlled on current agents; cont a-c > High Troponin--now NL > restless legs--will resume Mirapex. ~~~~~~~~~~~~~~~~~~~~~~~~~~~~~~~~~~~ Dr Estrada Problem List - Problems (1) Change in mental status Code(s): R41.82 - ALTERED MENTAL STATUS, UNSPECIFIED Qualifiers: Altered mental status type: stupor Qualified Code(s): R40.1 - Stupor (2) Acute on chronic systolic and diastolic heart failure, NYHA class 3 Code(s): I50.43 - ACUTE ON CHRONIC COMBINED SYSTOLIC AND DIASTOLIC HRT FAIL (3) COPD (chronic obstructive pulmonary disease) with emphysema Code(s): J43.9 - EMPHYSEMA, UNSPECIFIED Qualifiers: Emphysema type: unspecified Qualified Code(s): J43.9 - Emphysema, unspecified (4) Sleep apnea Code(s): G47.30 - SLEEP APNEA, UNSPECIFIED Qualifiers: Sleep apnea type: unspecified type Qualified Code(s): G47.30 - Sleep apnea, unspecified (5) Mastoiditis Code(s): H70.90 - UNSPECIFIED MASTOIDITIS, UNSPECIFIED EAR Qualifiers: Laterality: right Qualified Code(s): H70.91 - Unspecified mastoiditis, right ear (6) Obesity due to excess calories Code(s): E66.09 - OTHER OBESITY DUE TO EXCESS CALORIES Qualifiers: Obesity severity: morbid Qualified Code(s): E66.01 - Morbid (severe ) obesity due to excess calories (7) A-fib Code(s): I48.91 - UNSPECIFIED ATRIAL FIBRILLATION Qualifiers: Atrial fibrillation type: chronic Qualified Code(s): I48.2 - Chronic atrial fibrillation (8) Edema Code(s): R60.9 - EDEMA, UNSPECIFIED Qualifiers: Edema type: localized Qualified Code(s): R60.0 - Localized edema (9) Elevated troponin Code(s): R74.8 - ABNORMAL LEVELS OF OTHER SERUM ENZYMES (10) Hypertensive heart and renal disease with heart failure Code(s): I13.0 - HYP HRT & CHR KDNY DIS W HRT FAIL AND STG 1-4/UNSP CHR KDNY I50.9 - HEART FAILURE, UNSPECIFIED N18.9 - CHRONIC KIDNEY DISEASE, UNSPECIFIED (11) Hyperlipidemia Code(s): E78.5 - HYPERLIPIDEMIA, UNSPECIFIED Qualifiers: Hyperlipidemia type: unspecified Qualified Code(s): E78.5 - Hyperlipidemia, unspecified (12) Somnolence Code(s): R40.0 - SOMNOLENCE (13) Osteoarthritis Code(s): M19.90 - UNSPECIFIED OSTEOARTHRITIS, UNSPECIFIED SITE Qualifiers: Osteoarthritis location: multiple joints (14) Intractable pain Code(s): R52 - PAIN, UNSPECIFIED (15) Major depressive disorder, recurrent Code(s): F33.9 - MAJOR DEPRESSIVE DISORDER, RECURRENT, UNSPECIFIED Qualifiers : Major depression episode severity: unspecified Qualified Code(s): F33.9 - Major depressive disorder, recurrent, unspecified (16) Sarcoid Code(s): D86.9 - SARCOIDOSIS, UNSPECIFIED (17) Long-term (current) use of anticoagulants Code(s): Z79.01 - HALFWAY (CURRENT) USE OF ANTICOAGULANTS (18) Conjunctivitis Code(s): H10.9 - UNSPECIFIED CONJUNCTIVITIS Qualifiers: Conjunctivitis type: other mucopurulent Laterality: bilateral Qualified Code(s): H10.023 - Other mucopurulent conjunctivitis, bilateral (19) Rash Code(s): R21 - RASH AND OTHER NONSPECIFIC SKIN ERUPTION (20) Elevated alkaline phosphatase level Code(s): R74.8 - ABNORMAL LEVELS OF OTHER SERUM ENZYMES
[2017-02-09 14:24] VITALS: BP 134/61; PULSE 64; TEMP 98.3
== END 2017-02-09 15:30 | DRG 312 ==
LOC: JER 02:23 → JERBED 05:27 → UNDOADMIN 06:05 → J4W 13:27 → J6S 02-07 18:55
PROVIDERS: ADMIT Internal Medicine; ATTEND Internal Medicine
DX: R55 Syncope and collapse (principal); I50.43 Acute on chronic combined systolic (congestive) and diastolic (congestive) heart failure; Z68.41 Body mass index [BMI] 40.0-44.9, adult; L03.115 Cellulitis of right lower limb; N17.9 Acute kidney failure, unspecified; I11.0 Hypertensive heart disease with heart failure; F17.210 Nicotine dependence, cigarettes, uncomplicated; D69.6 Thrombocytopenia, unspecified; E78.5 Hyperlipidemia, unspecified; J44.9 Chronic obstructive pulmonary disease, unspecified; Z99.81 Dependence on supplemental oxygen; K21.9 Gastro-esophageal reflux disease without esophagitis; M19.90 Unspecified osteoarthritis, unspecified site; M47.9 Spondylosis, unspecified; R60.0 Localized edema; F32.9 Major depressive disorder, single episode, unspecified; D86.9 Sarcoidosis, unspecified; H70.91 Unspecified mastoiditis, right ear; M85.80 Other specified disorders of bone density and structure, unspecified site; E66.01 Morbid (severe) obesity due to excess calories; Z71.3 Dietary counseling and surveillance; I48.2 Chronic atrial fibrillation; G47.30 Sleep apnea, unspecified; H10.023 Other mucopurulent conjunctivitis, bilateral; I25.10 Atherosclerotic heart disease of native coronary artery without angina pectoris; Z98.61 Coronary angioplasty status; J32.9 Chronic sinusitis, unspecified; G25.81 Restless legs syndrome; Z91.81 History of falling; S00.10XA Contusion of unspecified eyelid and periocular area, initial encounter; S40.011A Contusion of right shoulder, initial encounter; S30.0XXA Contusion of lower back and pelvis, initial encounter; W18.30XA Fall on same level, unspecified, initial encounter; Y92.009 Unspecified place in unspecified non-institutional (private) residence as the place of occurrence of the external cause; R40.0 Somnolence
CPT/HCPCS: 36415; 36600; 70450-TC; 71010-TC; 71101-TC; 76700-TC; 80048; 80053; 80162; 81003; 82550; 82553; 82607; 82728; 82747; 82803; 83036; 83540; 83550; 83690; 83735; 83880; 84100; 84439; 84443; 84484; 85014; 85025; 85027; 85610; 85651; 86038; 86140; 86431; 86850; 86900; 86901; 87040; 87070; 87086; 87186; 87205; 93005; 93010; 93306-TC; 93880-TC; 93971-TC; 97116-GP; 97161-GP; 99284-25

== ENCOUNTER 2017-03-27 10:05 | Inpatient (IN) | payer OTHER ==
--- NOTE | 2017-03-27 11:04 | PDOC ---
History of Present Illness - General Chief Complaint: Abscess Boil Stated Complaint: abscess/diabetic Time Seen by Provider: 03/27/17 10:39 - History of Present Illness Initial Comments: 03/27/17 12:03 Patient is a 61-year-old female with a past medical history of A. fib, CHF, hyperlipidemia, qxs-pskipyx-ekwmgtmwy diabetes, COPD (ex-smoker) who is steroid and O2 dependent with ROHIT, sarcoidosis, GERD, low back pain, and osteoarthritis who presents to the emergency department today complaining of left buttock pain. Patient states that her pain began 3 days ago after she felt a ripping sensation. She states at that time she saw drainage of pus and blood. She states that she has not seen drainage since 3 days ago. She rates her pain a 7 out of 10 and it has gotten worse over the last 3 days. She takes Oxycodone at home for chronic pain. She did not take her pain medication today because she was coming to the emergency department. Denies fevers, chills, nausea, vomiting , diarrhea, shortness of breath, palpitations, chest pain, malaise, and fatigue Past History - Past Medical History Allergies/Adverse Reactions: Allergies Allergy/AdvReac Type Severity Reaction Status Date / Time No Known Allergies Allergy Verified 03/27/17 10:07 Home Medications: Ambulatory Orders Albuterol Sulfate Inhaler - [Ventolin HFA Inhaler -] 1 - 2 inh PO QID 09/27/16 Atorvastatin Ca [Lipitor] 10 mg PO HS 09/27/16 Bupropion HCl [Bupropion HCl ER] 150 mg PO DAILY 09/27/16 Dabigatran Etexilate Mesylate [Pradaxa -] 150 mg PO BID 09/27/16 Digoxin [Digitek] 125 mcg PO DAILY 09/27/16 Duloxetine HCl 30 mg PO DAILY 09/27/16 Isosorbide Mononitrate [Isosorbide Mononitrate ER] 30 mg PO DAILY 09/27/16 Montelukast Na [Singulair -] 10 mg PO HS 09/27/16 Prednisone 10 mg PO DAILY 09/27/16 Ranitidine [Zantac -] 150 mg PO DAILY 09/27/16 Furosemide [Lasix] 1 tab PO DAILY 03/20/17 Magnesium Chloride [Slow-Mag -] 500 mg PO DAILY 03/20/17 Metformin HCl 1 tab PO TID 03/20/17 Metoprolol Succinate [Toprol XL -] 50 mg PO DAILY 03/20/17 Oxycodone HCl/Acetaminophen [Percocet 10-325 mg Tablet] 1 tab PO BID 03/20/17 Pramipexole Di-HCl [Mirapex] 0.5 mg PO TID 03/20/17 Spironolactone [Aldactone] 1 tab PO DAILY 03/20/17 Amox-Tr/K Cl [Augmentin - 875Mg Tablet] 1 tab PO BID #20 tablet 03/27/17 Anemia: No Asthma: No Cancer: No Cardiac Disorders: No CVA: No COPD: (SARCOIDOSIS/home O2 prn) CHF: Yes Dementia: No Diabetes: Yes GI Disorders: Yes (Acid reflex) Disorders: Yes (renal insufficiency from NSAIDs) HTN: Yes Hypercholesterolemia: No Liver Disease: No Psychiatric Problems: Yes (DEPRESSION.) Seizures: No Thyroid Disease: No Other medical history: parkinson, kidney insuff - Surgical History Abdominal Surgery: No Appendectomy: No Cardiac Surgery: Yes (stent) Cholecystectomy: No Lung Surgery: No Neurologic Surgery: No Orthopedic Surgery: Yes (C4 surgery) - Psycho/Social/Smoking Cessation Hx Anxiety: No Suicidal Ideation: No Smoking Status: Yes Smoking History: Current some day smoker Have you smoked in the past 12 months: Yes Number of Cigarettes Smoked Daily: 0 If you are a former smoker, when did you quit?: 2007 Information on smoking cessation initiated: Yes 'Breaking Loose' booklet given: 03/27/17 Hx Alcohol Use: No Drug/Substance Use Hx: No Substance Use Type: None Hx Substance Use Treatment: No *Physical Exam - Vital Signs Last Vital Signs Temp Pulse Resp BP Pulse Ox 98.5 F 78 18 107/55 90 L 03/27/17 10:07 03/27/17 10:07 03/27/17 10:07 03/27/17 10:07 03/27/17 10:07 ED Treatment Course - LABORATORY CBC & Chemistry Diagram: 03/27/17 14:20 03/28/17 06:20 Medical Decision Making - Medical Decision Making 03/27/17 12:03 Patient is a 61-year-old female with a past medical history of A. fib, CHF, hyperlipidemia, ouv-pdxuplm-jjxidqtkq diabetes, COPD (ex-smoker) who is steroid and O2 dependent with ROHIT, sarcoidosis, GERD, low back pain, and osteoarthritis who presents to the emergency department today complaining of left buttock pain. Patient has a stage II pressure ulcer measuring 2 x 2 centimeters on her left buttock with stage I pressure ulcer approximately 5 x 3 cm surrounding it. It looks mildly infected at this time. Discussed antibiotic therapy. Agreed with patient that she should have some antibiotic treatment patient is very clear that she does not want to be admitted today. Will call Dr. Villanueva to discuss the case and antibiotic therapy. 03/27/17 12:[address] Villanueva 03/27/17 12:39 Received call back from Dr. Villanueva. Recommends admission at this time given the pt. comorbidities and new ulcer/infection. Discussed that the pt is against admission. Recommends having the pt sign out AMA if she refuses admission. 03/27/17 12:41 Discussed with pt that she should be admitted to the hospital for IV antibiotics and close monitoring of her condition. Pt. refuses admission stating that she was just released from the hospital and cannot bear to be away from home any longer. Discussed the risks of leaving including worsening infection, systemic infection, and even . Pt. still would like to go home. She states that she will take oral antibiotics and follow up with Dr. Villanueva on Monday. Will sign AMA paper work. Will start augmentin PO. She is given education as to keeping the area clean and dry and open. She may use gauze to cover the area but she is not to seal it with tape. She is also told that she needs to move and not sit on one side as to prevent further pressure ulcers. Patient is instructed to follow-up with her primary care doctor within 2 days. She is given strict return precautions including new fevers, chills, worsening of pain or any changes in her symptoms. 03/27/17 13:[address] Estrada and he convinced her to stay in the hospital for admission. Pt. no longer wants to sign AMA paperwork. Will put in admission order at this time. Dr. Estrada accepts the pt. *DC/Admit/Observation/Transfer Diagnosis at time of Disposition: Decubitus skin ulcer Qualifiers: Pressure ulcer location: buttock Pressure ulcer stage: stage 2 Laterality: left Qualified Code(s): L89.322 - Pressure ulcer of left buttock, stage 2 - Discharge Dispostion Condition at time of disposition: Stable Admit: Yes - Prescriptions - Patient Instructions
[2017-03-27] MEDS ORDERED: OXYCODONE/APAP 5/325MG COMBO TABLET PO ONE (11:06)
[2017-03-27] MEDS ORDERED: OXYCODONE/APAP 5/325MG COMBO TABLET ONE (11:25)
--- NOTE | 2017-03-27 11:55 | PDOC ---
*Physical Exam - Vital Signs Last Vital Signs Temp Pulse Resp BP Pulse Ox 98.5 F 78 18 107/55 90 L 03/27/17 10:07 03/27/17 10:07 03/27/17 10:07 03/27/17 10:07 03/27/17 10:07 ED Treatment Course - Medications Given in the ED: ED Medications Discontinued Medications Generic Name Dose Route Start Last Admin Trade Name Freq PRN Reason Stop Dose Admin Oxycodone/Acetaminophen 1 combo 03/27/17 11:06 03/27/17 11:25 Percocet 5/325 - PO 03/27/17 11:07 1 combo ONCE ONE Administration Medical Decision Making - Medical Decision Making 03/27/17 11:48 Pt seen by the Advanced Practice Provider under my direct supervision Pt interviewed and examined Ancillary studies reviewed I agree with plan as outlined by the Advanced Practice Provider AIDEE Guillory 61-year-old female history of atrial fibrillation, congestive heart failure, hypertension, hyperlipidemia, COPD, O2 dependent, sarcoidosis, GERD, chronic low back pain and also arthritis presents with 3 days of developing left medial buttocks erythema and pressure ulcer. Patient reports that she left a wet cloth in the region which irritated the skin. Patient denies fevers or chills. GENERAL: Awake, alert, and fully oriented, in no acute distress. Obese. HEAD: No signs of trauma EYES: PERRLA, EOMI, sclera anicteric, conjunctiva clear ENT: Auricles normal inspection, hearing grossly normal, nares patent, oropharynx clear without exudates. NECK: Normal ROM, supple, no lymphadenopathy, JVD, or masses LUNGS: Breath sounds equal, clear to auscultation bilaterally. No wheezes, and no crackles HEART: Regular rate and rhythm, normal S1 and S2, no murmurs, rubs or gallops ABDOMEN: Soft, nontender, normoactive bowel sounds. No guarding, no rebound. No masses EXTREMITIES: Normal range of motion, no edema. No clubbing or cyanosis. No cords, erythema, or tenderness NEUROLOGICAL: Cranial nerves II through XII grossly intact. Normal speech, normal gait SKIN: Warm, Dry. Small pressure ulcer with some erythema, approx 3x3 cm on left medial buttocks. No fluctuance appreciated. No evidence of abscess or drainage. The patient overall is nontoxic appearing. Starting to develop a mild pressure ulcer with overlying cellulitis. Patient will need wound care and antibiotics, PA will contact her PMD Dr. Estrada for disposition. 03/27/17 12:[address] Estrada. Requests that we admit the patient to the hospital. *DC/Admit/Observation/Transfer Diagnosis at time of Disposition: Decubitus skin ulcer Qualifiers: Pressure ulcer location: buttock Pressure ulcer stage: stage 2 Laterality: left Qualified Code(s): L89.322 - Pressure ulcer of left buttock, stage 2 - Referrals - Patient Instructions Printed Discharge Instructions: How to Prevent Pressure Ulcers, DI for Pressure Sores Additional Instructions: You have a pressure sore on your left buttock. It is important to keep off of the sore area as pressure will make the sore worse. Your prescribed antibiotics. Take the antibiotics as prescribed and take the full dose even if you're feeling better. Keep the area covered with a piece of gauze. Do not seal off the area with tape, ointment as to prevent infection. Follow up with your primary care doctor within the week. Take your pain pills as prescribed by your doctor. Return to the emergency department if you have new fevers, chills, worsening pain, shortness of breath, nausea, vomiting or diarrhea, or any changes in your symptoms. - Post Discharge Activity
[2017-03-27] MEDS ORDERED: PIPERACILLIN/TAZOB 3.375 GM 3.375 GM in DEXTROSE 5%-WATER - 50 ML IVPB ONE (13:08)
[2017-03-27] MEDS ORDERED: PIPERACILLIN/TAZOB 3.375 GM 50 ML IVPB ONE (13:41)
[2017-03-27 14:37] LABS: BASOPHIL 0.5 % (0-2.0); EOSINOPHIL 0.5 % (0-4.5); MCHC 31.8 g/dl (32.0-36.0); MEAN CELL VOLUME 84.8 fl (80-96); MEAN PLT VOLUME 8.5 fl (7.5-11.1); NEUTROPHILS 71.2 % (42.8-82.8); PLATELET COUNT 94 K/MM3 (134-434); RDW 20.8 % (11.6-15.6); WHITE BLOOD COUNT 7.3 K/mm3 (4.0-10.0)
[2017-03-27 14:57] LABS: ALBUMIN 2.7 g/dl (3.4-5.0); ANION GAP 6 (8-16); CALCIUM 8.7 mg/dL (8.5-10.1); CO2 38 mmol/L (21-32); CREATININE 1.2 mg/dL (0.55-1.02); GLUCOSE,RANDOM 84 mg/dL (74-106); PHOSPHOROUS 2.7 mg/dL (2.5-4.9); SGOT/AST 18 U/L (15-37); SGPT/ALT 14 U/L (12-78)
[2017-03-27 14:58] LABS: ALK PHOS 164 U/L (45-117); BILIRUBIN,TOTAL 1.6 mg/dL (0.2-1.0); TOT PROT 6.4 g/dl (6.4-8.2)
[2017-03-27 16:15] VITALS: BMI 44.6
[2017-03-27 16:48] LABS: INR 1.53 (0.82-1.09)
[2017-03-27] MEDS ORDERED: ALBUTEROL SO4 6.7 GM HFA INHALER IH PRN ×2 (17:00→17:01)
--- NOTE | 2017-03-27 17:21 | PN ---
Progress Note (short form) - Note Progress Note: ID consult dictated imp/reccd ulcer below left buttock- stage 3- bilateral cellulitis venous stasis ulcer does not look infected mild cellulitis of both legs with venous stasis iv ancef overnight with switch to po keflex in am local wound care to ulcer Problem List - Problems (1) Decubitus skin ulcer Code(s): L89.90 - PRESSURE ULCER OF UNSPECIFIED SITE, UNSPECIFIED STAGE Qualifiers: Pressure ulcer location: buttock Pressure ulcer stage: stage 2 Laterality: left Qualified Code(s): L89.322 - Pressure ulcer of left buttock , stage 2 (2) Cellulitis Code(s): L03.90 - CELLULITIS, UNSPECIFIED Qualifiers: Site of cellulitis: extremity Site of cellulitis of extremity: lower extremity Laterality: right Qualified Code(s): L03.115 - Cellulitis of right lower limb
--- NOTE | 2017-03-27 19:04 | HP ---
Admitting History and Physical - Primary Care Physician PCP: Kt Estrada - Admission Chief Complaint: Lt buttock discomfort and leg discomfort History of Present Illness: Chronically ill 61 year old female with significant past medical history of afib , ASHD w/ renal insuff, CHF, anxiety dz, hyperlipidemia, diabetes, COPD (ex- smoker)who is steroid & O2 dependent with ROHIT, who also has Hx sarcoidosis, GERD , chronic low back pain, and osteoarthritis (of hip) who presents to the ED c/o discomfort on the Lt lower buttock which she first noted yesterday. She was released from [facility]) on ; where she was sent for rehab following her last hospitalization; and was not c/o buttock discomfort but according to her; she was being treated for a "leg infection" using IV meds. She is not sure if she was given antibiuotics upon discharge. She denies any sweats, dizziness, n-v , CP, SOB, but c/o ongoing groin rashes; her legs continue to be swollen even though she takes lasix. 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 paroxysmal), CHF, HTN, Hyperlipdemia, Pulmonary Hypertension Pulmonary: Yes: COPD (ex-smoker), O2 Dependent, Other (Hx of sarcoid?) Gastrointestinal: Yes: Diverticulosis, GERD Renal/: Yes: Renal Inusuff Heme/Onc: Yes: Other (Hx of erythrocytosis) Psych: Yes: Depression Musculoskeletal: Yes: Chronic low back pain, Osteoarthritis (Rt hip) Rheumatology: Yes: Sarcoidosis Endocrine: Yes: Osteopenia, Other (obesity//Possible DM) - Smoking History Smoking history: Current some day smoker Have you smoked in the past 12 months: Yes Aproximately how many cigarettes per day: 0 If you are a former smoker, when did you quit?: 2007 - Alcohol/Substance Use Hx Alcohol Use: No History of Substance Use: reports: None - Social History Usual Living Arrangement: Yes: With Child (daughters) ADL: Family Assistance 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 Travel: No Home Medications - Allergies Allergies/Adverse Reactions: Allergies Allergy/AdvReac Type Severity Reaction Status Date / Time No Known Allergies Allergy Verified 03/27/17 10:07 - Home Medications Home Medications: Ambulatory Orders Albuterol Sulfate Inhaler - [Ventolin HFA Inhaler -] 1 - 2 inh PO QID 09/27/16 Atorvastatin Ca [Lipitor] 10 mg PO HS 09/27/16 Bupropion HCl [Bupropion HCl ER] 150 mg PO DAILY 09/27/16 Dabigatran Etexilate Mesylate [Pradaxa -] 150 mg PO BID 09/27/16 Digoxin [Digitek] 125 mcg PO DAILY 09/27/16 Duloxetine HCl 30 mg PO DAILY 09/27/16 Isosorbide Mononitrate [Isosorbide Mononitrate ER] 30 mg PO DAILY 09/27/16 Montelukast Na [Singulair -] 10 mg PO HS 09/27/16 Prednisone 10 mg PO DAILY 09/27/16 Ranitidine [Zantac -] 150 mg PO DAILY 09/27/16 Furosemide [Lasix] 1 tab PO DAILY 03/20/17 Magnesium Chloride [Slow-Mag -] 500 mg PO DAILY 03/20/17 Metformin HCl 1 tab PO TID 03/20/17 Metoprolol Succinate [Toprol XL -] 50 mg PO DAILY 03/20/17 Oxycodone HCl/Acetaminophen [Percocet 10-325 mg Tablet] 1 tab PO BID 03/20/17 Pramipexole Di-HCl [Mirapex] 0.5 mg PO TID 03/20/17 Spironolactone [Aldactone] 1 tab PO DAILY 03/20/17 Amox-Tr/K Cl [Augmentin - 875Mg Tablet] 1 tab PO BID #20 tablet 03/27/17 Family Disease History - Family Disease History Family History: Unremarkable Review of Systems - Review of Systems Constitutional: reports: No Symptoms Eyes: reports: No Symptoms HENT: reports: No Symptoms Neck: reports: No Symptoms Cardiovascular: reports: No Symptoms Respiratory: reports: No Symptoms Gastrointestinal: reports: No Symptoms Genitourinary: reports: No Symptoms Breasts: reports: No Symptoms Reported Musculoskeletal: reports: Extremity Pain (LE's) Integumentary: reports: Rash (groin), Wound (Lt buttuck) Neurological: reports: No Symptoms Endocrine: reports: No Symptoms Hematology/Lymphatic: reports: No Symptoms Physical Examination Vital Signs: Vital Signs Temperature 98.3 F 03/27/17 14:08 Pulse Rate 78 03/27/17 14:08 Respiratory Rate 24 03/27/17 14:08 Blood Pressure 114/59 03/27/17 14:08 O2 Sat by Pulse Oximetry (%) 91 L 03/27/17 17:00 Findings/Remarks: skin--3 ulcerated lesions clustered on Lt lower buttock; non tender; no discharge; bilat groin redness head-NC eyes--EOMI, anicteric oral--poor dentition, no gross mucosal lesions neck--no masses, goiter appreciated lungs--clear, distant heart--irreg, distant breasts--pendulous, no distinctive masses appreciated abd--soft, NT, ND ext--LLE dusky reddish, indurated dermis; no ischemic changes; pitting edema noted RLE; less red and indurated neuro--alert, verbal, coherent; thoughts well organized, good eye contact; cognition at baseline; follows commands; no focal motor deficits Imaging - Results EKG: Report Reviewed Problem List - Problems (1) Cellulitis Assessment/Plan: will need Abs; unsure of onset, if it developed while in SNF; ID consult obtained Code(s): L03.90 - CELLULITIS, UNSPECIFIED Qualifiers: Site of cellulitis: extremity Site of cellulitis of extremity: lower extremity Laterality: left Qualified Code(s): L03.116 - Cellulitis of left lower limb (2) Decubitus ulcer of buttock Assessment/Plan: will obtain surg eval, and topical Tx; does not appear to be grossly infected Qualifiers: Pressure ulcer stage: unspecified pressure ulcer stage Laterality: left Qualified Code(s): L89.329 - Pressure ulcer of left buttock, unspecified stage (3) A-fib Assessment/Plan: cont A-c: dig & BB Code(s): I48.91 - UNSPECIFIED ATRIAL FIBRILLATION Qualifiers: Atrial fibrillation type: chronic Qualified Code(s): I48.2 - Chronic atrial fibrillation (4) CHF (congestive heart failure) Assessment/Plan: will cont diuretics Code(s): I50.9 - HEART FAILURE, UNSPECIFIED Qualifiers: Congestive heart failure type: combined Congestive heart failure chronicity: chronic Qualified Code(s): I50.42 - Chronic combined systolic (congestive) and diastolic (congestive) heart failure (5) Elevated alkaline phosphatase level Assessment/Plan: cause unclear; mildly high, not new Code(s): R74.8 - ABNORMAL LEVELS OF OTHER SERUM ENZYMES (6) Hip osteoarthritis Assessment/Plan: chronic; source of chronic pain Code(s): M16.9 - OSTEOARTHRITIS OF HIP, UNSPECIFIED Qualifiers: Osteoarthritis type: primary Laterality: right Qualified Code(s): M16.11 - Unilateral primary osteoarthritis, right hip (7) Maritza rash of groin Assessment/Plan: Rx Nystatin Code(s): B37.89 - OTHER SITES OF CANDIDIASIS (8) Long-term (current) use of anticoagulants Assessment/Plan: 2nd ATF Code(s): 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 (9) Intractable pain Assessment/Plan: longstanding; is opiate controlled Code(s): R52 - PAIN, UNSPECIFIED (10) Sarcoid Assessment/Plan: stable; controlled with steroid Code(s): D86.9 - SARCOIDOSIS, UNSPECIFIED (11) Restless leg syndrome Assessment/Plan: on mirapex, by Neuro Code(s): G25.81 - RESTLESS LEGS SYNDROME (12) Chronic kidney disease Assessment/Plan: not new Code(s): N18.9 - CHRONIC KIDNEY DISEASE, UNSPECIFIED Qualifiers: Chronic kidney disease stage: stage 2 (mild) Qualified Code(s): N18.2 - Chronic kidney disease, stage 2 (mild) (13) ROHIT (obstructive sleep apnea) Assessment/Plan: chronic; refuses BIPAP Code(s): G47.33 - OBSTRUCTIVE SLEEP APNEA (ADULT) (PEDIATRIC) (14) Obesity Assessment/Plan: chronic Code(s): E66.9 - OBESITY, UNSPECIFIED Qualifiers: Obesity type: with alveolar hypoventilation Obesity severity: morbid Qualified Code(s): E66.2 - Morbid (severe) obesity with alveolar hypoventilation (15) Pre-diabetes Assessment/Plan: multifactorial; in part steroid aggravated; has been on Mteformin; will hold and check BGM and a1c Code(s): R73.03 - PREDIABETES (16) Hyperlipidemia Assessment/Plan: on statin Code(s): E78.5 - HYPERLIPIDEMIA, UNSPECIFIED Qualifiers: Hyperlipidemia type: unspecified Qualified Code(s): E78.5 - Hyperlipidemia, unspecified Assessment/Plan chronically ill 62 y/o morbidly obese F; recently released from SNF now presents with possible infected Lt buttock sore and (ongoing) LLE cellulitis ~~~~~~~~~~~~~~~~~ Dr Estrada....................1 hr
[2017-03-27] MEDS: ceFAZolin 2 GRAM PREMIX BAG IVPB SCH (21:15)
--- NOTE | 2017-03-27 22:17 | CONS ---
DATE OF CONSULTATION: 03/27/2017 REQUESTED BY: Kt Estrada MD This is a 61-year-old woman with a past medical history of atrial fibrillation, coronary artery disease, sarcoid, and COPD. She has a history of pulmonary hypertension as well. Daughter noted that she had a decubitus ulcer on her left buttock yesterday. She came to the emergency room with these complaints and was admitted. The patient is awake and alert. She reports that she sits in a wheelchair but is able to ambulate. She denies any fevers or chills. She has nausea or vomiting. She has a very poor appetite. She has daily bowel movements and no dysuria. She has no cough or shortness of breath. She reports she has had progressive erythema of both her legs. Her past medical history is notable for atrial fibrillation, CHF, hypertension, hyperlipidemia, pulmonary hypertension, COPD. She is on oxygen at home. History of sarcoid, diverticulosis, GERD, chronic renal insufficiency, depression, chronic low back pain, osteoarthritis. Surgical history is notable for coronary stents, and she has had cervical C4 neck surgery a long time ago. Family history is unremarkable. SOCIAL HISTORY: She lives at home with her daughter. She smokes an occasional cigarette. REVIEW OF SYSTEMS: As per HPI. She has no known drug allergies. Her medications at home include Ventolin inhaler, Lipitor, bupropion, Pradaxa, digoxin, duloxetine, isosorbide, Singulair, prednisone, Zantac, Lasix, Slow-Mag, metformin, Mirapex, Percocet, Toprol XL, metformin, and Aldactone. PHYSICAL EXAMINATION: General: She is awake and alert. She is resting comfortably. Vital Signs: Temperature is 98.3. Pulse of 78. Blood pressure is 114/59. Respiratory rate is 18. Stated weight is 252. HEENT: Normocephalic. Her eyes are anicteric. Neck: Supple. Lungs: Diminished breath sounds at the bases. Heart: Regular rate and rhythm. Abdomen, Skin: Soft. She has a stage 3 clean ulcer below her left buttock on a crease. There is no drainage. There is no surrounding erythema. There is no fluctuance. Extremities: She has erythema of both her legs extending up to below her knees, which she reports has worsened. She has erythema of both her legs and she has venous stasis as well. Her labs are notable for a white count of 7.3, hemoglobin 11.6, platelets of 94, INR is 1.5. BUN 21, creatinine 1.2, total bilirubin is 1.6. She was given a dose of Zosyn in the emergency room. In summary, this is a 61-year-old woman with an ulcer below her left buttock, stage 3, that does not appear infected. She has bilateral cellulitis, mild, with venous stasis. I would treat her overnight with Ancef. Would switch to oral Keflex in the morning. Local wound care to the ulcer at this time. As she has already received antibiotics and she has no fever and normal white count, I do not think there would be a benefit in obtaining any blood cultures. Patient is resting quite comfortably and denies any pain at this time. RC MARIN M.D. [id number]
[2017-03-27] MEDS ORDERED: PT OWN MED DRAWER 7, Y5N ONE (22:47)
[2017-03-27] MEDS: oxyCODONE HCL 5 MG TABLET PO SCH (23:01)
[2017-03-27] MEDS: ACETAMINOPHEN 325 MG TABLET (FP) PO SCH (23:02)
[2017-03-27] MEDS: MONTELUKAST NA 10 MG TABLET PO SCH (23:02)
[2017-03-27] MEDS: ATORVASTATIN CA 10 MG TABLET (FP) PO SCH (23:02)
[2017-03-27] MEDS: DABIGATRAN ETEXILATE MESYLATE 150 MG CAPSULE PO SCH (23:04)
[2017-03-27] MEDS: NYSTATIN POWDER 100,000 UNITS/GM - 15 GM TOPICAL POWDER TP SCH (23:04)
[2017-03-27] MEDS: PRAMIPEXOLE DIHYDROCHLORIDE 0.5 MG TABLET PO SCH (23:27)
[2017-03-27] MEDS ORDERED: VANCOMYCIN 1 GRAM (PRE-DOCKED) 250 ML IVPB ONE (23:30)
[2017-03-27] MEDS ORDERED: SODIUM CHLORIDE 0.45% 1,000 ML IV SCH (23:45)
[2017-03-28] MEDS: ceFAZolin 2 GRAM PREMIX BAG IVPB SCH ×3 (04:23→18:52)
[2017-03-28] MEDS ORDERED: FUROSEMIDE 40 MG/4 ML INJECTABLE VIAL IVPUSH ONE (05:52)
[2017-03-28] MEDS ORDERED: ALBUTEROL SO4 2.5/IPRATROPIUM 0.5 INH SOL 3 ML VIAL.NEB. NEB ONE (05:52)
--- NOTE | 2017-03-28 05:56 | HOSP ---
Subjective - Review of Symptoms Events since last encounter: Interval Event: Was paged for CP. Physical Exam: Vital Signs: BP 103/55, HR 80, SpO2 88% on NC 2L CV: irregularly irregular Pulm: b/l rhoncherous breathe sounds MSK: No tenderness to palpation over sternum A/P: 61yo morbidly obese woman with PMH of COPD, afib, CHF, renal insufficiency , DM who was admitted by Dr. Estrada for L lower buttock abscess. At bedside , patient stated that she was not actively having any chest pain, chest pressure or SOB. #hypoxia -Stat EKG (03/28/17) showed Afib with junctional rhythm, QRS 124ms, left axis deviation; pt has history of Afib -Cardiac enzymes for ACS r/o ordered -Stat CXR ordered -Lasix 20mg IVPUSH once -Duo-nebs 1amp IH ONCE -ABG ordered Will monitor. Nurse to notify PCP. Visit type - Emergency Visit Emergency Visit: No - New Patient This patient is new to me today: Yes Date on this admission: 03/28/17 - Critical Care Critical Care patient: No
[2017-03-28 06:59] LABS: TROPONIN I 0.04 ng/ml (0.00-0.05)
[2017-03-28] MEDS: PRAMIPEXOLE DIHYDROCHLORIDE 0.5 MG TABLET PO SCH ×3 (07:15→22:18)
[2017-03-28 07:16] LABS: ARTERIAL BLD GAS O2 SATURATION 91.7 % (90-98.9); ARTERIAL BLOOD GAS BASE EXCESS 12.2 meq/l (-2-2); ARTERIAL BLOOD GAS HCO3 37.8 meq/L (22-26); ARTERIAL BLOOD GAS PO2 62.5 mmHg (80-100); ARTERIAL BLOOD GAS pH 7.46 (7.35-7.45)
[2017-03-28 07:17] LABS: ALLENS TEST POSITIVE
[2017-03-28 07:18] LABS: ART PUNCT SITE RIGHT RADIAL; LPM/O2% 3 LPM; PT. ON O2? yes; TYPE OF O2 nasal cannula
[2017-03-28 07:50] LABS: ANION GAP 9 (8-16); CALCIUM 8.7 mg/dL (8.5-10.1); CO2 34 mmol/L (21-32); CREATININE 1.2 mg/dL (0.55-1.02); GLUCOSE,RANDOM 88 mg/dL (74-106)
[2017-03-28] MEDS ORDERED: PT OWN MED DRAWER 7, Y5N ONE ×3 (08:07→17:40)
[2017-03-28] MEDS: RANITIDINE HCL 150 MG TABLET (FP) PO SCH (09:33)
[2017-03-28] MEDS: DULoxetine HCL 30 MG CAPSULE.DR (FP) PO SCH (09:33)
[2017-03-28] MEDS: predniSONE 10 MG TABLET (UD) PO SCH (09:33)
[2017-03-28] MEDS: oxyCODONE HCL 5 MG TABLET PO SCH ×2 (09:34→22:10)
[2017-03-28] MEDS: ACETAMINOPHEN 325 MG TABLET (FP) PO SCH ×2 (09:35→22:11)
[2017-03-28] MEDS: DABIGATRAN ETEXILATE MESYLATE 150 MG CAPSULE PO SCH ×2 (09:43→22:18)
[2017-03-28] MEDS: NYSTATIN POWDER 100,000 UNITS/GM - 15 GM TOPICAL POWDER TP SCH ×2 (09:45→23:54)
[2017-03-28] MEDS: DIGOXIN 0.125 MG TABLET (FP) PO SCH (09:46)
[2017-03-28] MEDS: ISOSORBIDE MONONITRATE 30 MG TAB.SR.24H (FP) PO SCH (09:46)
[2017-03-28] MEDS: METOPROLOL SUCCINATE 25 MG TAB.SR.24H (FP) PO SCH (09:46)
[2017-03-28] MEDS: SPIRONOLACTONE 25 MG TABLET (FP) PO SCH (09:46)
[2017-03-28] MEDS: ALBUTEROL SO4 0.083% IH SOL 2.5 MG/3 ML VIAL.NEB. NEB PRN (09:59)
[2017-03-28] MEDS ORDERED: FUROSEMIDE 40 MG TABLET (FP) PO SCH (10:00)
[2017-03-28] MEDS ORDERED: METOPROLOL SUCCINATE 50 MG TAB.SR.24H (FP) PO SCH (10:00)
[2017-03-28] MEDS: FUROSEMIDE 40 MG/4 ML INJECTABLE VIAL IVPUSH SCH ×2 (15:17→22:12)
--- NOTE | 2017-03-28 15:27 | PN ---
Progress Note (short form) - Note Progress Note: no complaints Vital Signs Period Temp Pulse Resp BP Sys/Robins Pulse Ox Last 24 Hr 97.6 F-98.6 F 66-98 18-22 96-103/55-64 91-91 cor-rrr lungs clear abd soft,nt ext minimal erythema imp/reccd ulcer below left buttock- stage 3- bilateral cellulitis venous stasis ulcer does not look infected mild cellulitis of both legs with venous stasis-improved could switch to po keflex for another 5 days please call back if needed Problem List - Problems (1) Decubitus skin ulcer Code(s): L89.90 - PRESSURE ULCER OF UNSPECIFIED SITE, UNSPECIFIED STAGE Qualifiers: Pressure ulcer location: buttock Pressure ulcer stage: stage 2 Laterality: left Qualified Code(s): L89.322 - Pressure ulcer of left buttock , stage 2 (2) Cellulitis Code(s): L03.90 - CELLULITIS, UNSPECIFIED Qualifiers: Site of cellulitis: extremity Site of cellulitis of extremity: lower extremity Laterality: left Qualified Code(s): L03.116 - Cellulitis of left lower limb
--- NOTE | 2017-03-28 16:47 | PN ---
Progress Note (short form) - Note Progress Note: Current Medications Acetaminophen (Tylenol -) 325 mg PO BID [facility] Last Admin: 03/28/17 09:35 Dose: 325 mg Albuterol Sulfate (Ventolin Hfa Inhaler -) 1 puff IH QID PRN PRN Reason: SHORTNESS OF BREATH Albuterol Sulfate (Ventolin Hfa Inhaler -) 2 puff IH QID PRN PRN Reason: SHORTNESS OF BREATH Albuterol Sulfate (Ventolin 0.083% Nebulizer Soln -) 1 amp NEB Q6H PRN PRN Reason: SHORT OF BREATH/WHEEZING Last Admin: 03/28/17 09:59 Dose: 1 amp Atorvastatin Calcium (Lipitor -) 10 mg PO [facility] Last Admin: 03/27/17 23:02 Dose: 10 mg Bupropion HCl (Wellbutrin Xl -) 150 mg PO DAILY [facility] Last Admin: 03/28/17 09:33 Dose: 150 mg Cefazolin Sodium/Dextrose (Ancef 2 Gm Premixed Ivpb -) 2 gm IVPB Q8H [facility] Last Admin: 03/28/17 09:33 Dose: 2 gm Dabigatran (Pradaxa -) 150 mg PO BID [facility] Last Admin: 03/28/17 09:43 Dose: 150 mg Digoxin (Lanoxin -) 0.125 mg PO DAILY [facility] Last Admin: 03/28/17 09:46 Dose: Not Given Duloxetine HCl (Cymbalta -) 30 mg PO DAILY [facility] Last Admin: 03/28/17 09:33 Dose: 30 mg Furosemide (Lasix Injection -) 20 mg IVPUSH BID@1400,2000 [facility] Last Admin: 03/28/17 15:17 Dose: Not Given Isosorbide Mononitrate (Imdur -) 30 mg PO DAILY [facility] Last Admin: 03/28/17 09:46 Dose: Not Given Metoprolol Succinate (Toprol Xl -) 25 mg PO DAILY [facility] Last Admin: 03/28/17 09:46 Dose: Not Given Montelukast Sodium (Singulair -) 10 mg PO HS [facility] Last Admin: 03/27/17 23:02 Dose: 10 mg Nystatin (Nystop Powder -) 1 applic TP BID [facility] Last Admin: 03/28/17 09:45 Dose: 1 applic Oxycodone HCl (Roxicodone -) 10 mg PO BID [facility] Last Admin: 03/28/17 09:34 Dose: 10 mg Pramipexole Dihydrochloride (Mirapex -) 0.5 mg PO TID [facility] Last Admin: 03/28/17 14:45 Dose: 0.5 mg Prednisone (Deltasone -) 10 mg PO DAILY [facility] Last Admin: 03/28/17 09:33 Dose: 10 mg Ranitidine HCl (Zantac -) 150 mg PO DAILY [facility] Last Admin: 03/28/17 09:33 Dose: 150 mg Spironolactone (Aldactone -) 25 mg PO DAILY [facility] Last Admin: 03/28/17 09:46 Dose: Not Given Abnormal Lab Results 03/27/17 03/28/17 03/28/17 14:20 06:00 06:20 INR 1.53 H ABG pH ABG pCO2 at Pt Temp ABG pO2 at Pt Temp ABG HCO3 ABG O2 Content ABG Base Excess Chloride 95 L Carbon Dioxide 34 H BUN 19 H Creatinine 1.2 H Hemoglobin A1c % Creatine Kinase 23 L 03/28/17 03/28/17 06:20 07:11 INR ABG pH 7.46 H ABG pCO2 at Pt Temp 53.6 H ABG pO2 at Pt Temp 62.5 L ABG HCO3 37.8 H ABG O2 Content 14.5 L ABG Base Excess 12.2 H Chloride Carbon Dioxide BUN Creatinine Hemoglobin A1c % 6.9 H D Creatine Kinase Vital Signs Temperature 98.0 F 03/28/17 14:44 Pulse Rate 72 03/28/17 14:44 Respiratory Rate 24 03/28/17 14:44 Blood Pressure 95/50 03/28/17 14:44 O2 Sat by Pulse Oximetry (%) 91 L 03/28/17 09:51 CC: feels "out of it" `````````````````````` skin--less warm on LLE; skin still indurated, and posterior calf tenderness eyes--midline; eomi lungs--distant heart--irreg distant abd--soft, obese ext--trace edema of the RLE; 1+ edema on :LLE; neuro--awake, verbal coherent; thoughts organized; no focal deficits ``````````````````````````````` Summ > cellulitis--of LLE's; on IV Ancef; had developed rigors overnight and BP was noted to low, No fever developed; BC ordered, Vanco x 1 given. > Hypotension--tends to run low; 2nd multiple factors; would avoid excess IVF given the ease in which she can develop CHF; cont current meds. 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; no PNA detected by CXR; cont Prn Neb Tx > DM--a1c @ 6.9; in part 2nd use of steroids which cannot be omitted; on BGMs > edema/swelling of LLE--- 2nd cellulitis but will also check for DVT; cont Pradaxa > ATF--on Dig & BB & a/c ~~~~~~~~~~~~~~~~~~~~~~ Dr Estrada Problem List - Problems (1) Cellulitis Code(s): L03.90 - CELLULITIS, UNSPECIFIED Qualifiers: Site of cellulitis: extremity Site of cellulitis of extremity: lower extremity Laterality: left Qualified Code(s): L03.116 - Cellulitis of left lower limb (2) Decubitus ulcer of buttock Qualifiers: Pressure ulcer stage: unspecified pressure ulcer stage Laterality: left Qualified Code(s): L89.329 - Pressure ulcer of left buttock, unspecified stage (3) A-fib Code(s): I48.91 - UNSPECIFIED ATRIAL FIBRILLATION Qualifiers: Atrial fibrillation type: chronic Qualified Code(s): I48.2 - Chronic atrial fibrillation (4) CHF (congestive heart failure) Code(s): I50.9 - HEART FAILURE, UNSPECIFIED Qualifiers: Congestive heart failure type: combined Congestive heart failure chronicity: chronic Qualified Code(s): I50.42 - Chronic combined systolic (congestive) and diastolic (congestive) heart failure (5) Elevated alkaline phosphatase level Code(s): R74.8 - ABNORMAL LEVELS OF OTHER SERUM ENZYMES (6) Hip osteoarthritis Code(s): M16.9 - OSTEOARTHRITIS OF HIP, UNSPECIFIED Qualifiers: Osteoarthritis type: primary Laterality: right Qualified Code(s): M16.11 - Unilateral primary osteoarthritis, right hip (7) Maritza rash of groin Code(s): B37.89 - OTHER SITES OF CANDIDIASIS (8) Long-term (current) use of anticoagulants Code(s): Z79.01 - USP (CURRENT) USE OF ANTICOAGULANTS (9) Intractable pain Code(s): R52 - PAIN, UNSPECIFIED (10) Sarcoid Code(s): D86.9 - SARCOIDOSIS, UNSPECIFIED (11) Restless leg syndrome Code(s): G25.81 - RESTLESS LEGS SYNDROME (12) Chronic kidney disease Code(s): N18.9 - CHRONIC KIDNEY DISEASE, UNSPECIFIED Qualifiers: Chronic kidney disease stage: stage 2 (mild) Qualified Code(s): N18.2 - Chronic kidney disease, stage 2 (mild) (13) ROHIT (obstructive sleep apnea) Code(s): G47.33 - OBSTRUCTIVE SLEEP APNEA (ADULT) (PEDIATRIC) (14) Obesity Code(s): E66.9 - OBESITY, UNSPECIFIED Qualifiers: Obesity type: with alveolar hypoventilation Qualified Code(s): E66.2 - Morbid (severe) obesity with alveolar hypoventilation; Z68.30 - Body mass index (BMI) 30.0-30.9, adult (15) Pre-diabetes Code(s): R73.03 - PREDIABETES (16) Hyperlipidemia Code(s): E78.5 - HYPERLIPIDEMIA, UNSPECIFIED Qualifiers: Hyperlipidemia type: unspecified Qualified Code(s): E78.5 - Hyperlipidemia, unspecified
--- NOTE | 2017-03-28 17:04 | EKG ---
Test Reason : Blood Pressure : / mmHG Vent. Rate : 079 BPM Atrial Rate : 079 BPM P-R Int : 080 ms QRS Dur : 124 ms QT Int : 378 ms P-R-T Axes : 000 -56 183 degrees QTc Int : 433 ms POOR DATA QUALITY, INTERPRETATION MAY BE ADVERSELY AFFECTED ATRIAL RHYTHM IS UNCERTAIN, POSSIBLE ATRIAL FIBRILLATION WITH CONTROLLED VENTRICULAR RESPONSE LEFT AXIS DEVIATION ABNORMAL ECG WHEN COMPARED WITH ECG OF 02-FEB-2017 03:29, Confirmed by BREN AGGARWAL MD ([id number]) on 03/28/2017 5:03:27 PM Referred By: Confirmed By:BREN AGGARWAL MD
--- NOTE | 2017-03-28 18:02 | CONSULT ---
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 paroxysmal), CHF, HTN, Hyperlipdemia, Pulmonary Hypertension Pulmonary: Yes: COPD (ex-smoker), O2 Dependent, Other (Hx of sarcoid?) Gastrointestinal: Yes: Diverticulosis, GERD Renal/: Yes: Renal Inusuff Psych: Yes: Depression Musculoskeletal: Yes: Chronic low back pain, Osteoarthritis (Rt hip) Rheumatology: Yes: Sarcoidosis Endocrine: Yes: Osteopenia, Other (obesity//Possible DM) - Alcohol/Substance Use Hx Alcohol Use: No History of Substance Use: reports: None - Smoking History Smoking history: Current some day smoker Have you smoked in the past 12 months: Yes Aproximately how many cigarettes per day: 0 If you are a former smoker, when did you quit?: 2007 - Social History Usual Living Arrangement: With Child ADL: Family Assistance 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 Travel: No Home Medications - Allergies Allergies/Adverse Reactions: Allergies Allergy/AdvReac Type Severity Reaction Status Date / Time No Known Allergies Allergy Verified 03/27/17 10:07 - Home Medications Home Medications: Ambulatory Orders Albuterol Sulfate Inhaler - [Ventolin HFA Inhaler -] 1 - 2 inh PO QID 09/27/16 Atorvastatin Ca [Lipitor] 10 mg PO HS 09/27/16 Bupropion HCl [Bupropion HCl ER] 150 mg PO DAILY 09/27/16 Dabigatran Etexilate Mesylate [Pradaxa -] 150 mg PO BID 09/27/16 Digoxin [Digitek] 125 mcg PO DAILY 09/27/16 Duloxetine HCl 30 mg PO DAILY 09/27/16 Isosorbide Mononitrate [Isosorbide Mononitrate ER] 30 mg PO DAILY 09/27/16 Montelukast Na [Singulair -] 10 mg PO HS 09/27/16 Prednisone 10 mg PO DAILY 09/27/16 Ranitidine [Zantac -] 150 mg PO DAILY 09/27/16 Furosemide [Lasix] 1 tab PO DAILY 03/20/17 Magnesium Chloride [Slow-Mag -] 500 mg PO DAILY 03/20/17 Metformin HCl 1 tab PO TID 03/20/17 Metoprolol Succinate [Toprol XL -] 50 mg PO DAILY 03/20/17 Oxycodone HCl/Acetaminophen [Percocet 10-325 mg Tablet] 1 tab PO BID 03/20/17 Pramipexole Di-HCl [Mirapex] 0.5 mg PO TID 03/20/17 Spironolactone [Aldactone] 1 tab PO DAILY 03/20/17 Amox-Tr/K Cl [Augmentin - 875Mg Tablet] 1 tab PO BID #20 tablet 03/27/17 Physical Exam Vital Signs: Vital Signs Temperature 98.0 F 03/28/17 14:44 Pulse Rate 72 03/28/17 14:44 Respiratory Rate 24 03/28/17 14:44 Blood Pressure 95/50 03/28/17 14:44 O2 Sat by Pulse Oximetry (%) 91 L 03/28/17 09:51 Labs: CBC, BMP 03/28/17 06:20 Assessment/Plan VAscular Surgery Patient is a 61-year-old female with a past medical history of A. fib, CHF, hyperlipidemia, [id number] diabetes, COPD (ex-smoker) who is steroid and O2 dependent with ROHIT, sarcoidosis, GERD, low back pain, and osteoarthritis who presents to the emergency department today complaining of left buttock pain. Patient states that her pain began 3 days ago after she felt a ripping sensation. She states at that time she saw drainage of pus and blood. She states that she has not seen drainage since 3 days ago. She rates her pain a 7 out of 10 and it has gotten worse over the last 3 days. She takes Oxycodone at home for chronic pain. She did not take her pain medication today because she was coming to the emergency department. Denies fevers, chills, nausea, vomiting , diarrhea, shortness of breath, palpitations, chest pain, malaise, and fatigue PE Head - NC/AT Lung - CTA Heart - RRR abd - soft,nt,nd ext - warm, pink. left posterior thigh -- ulcer 3x3 . with slough A/p STage 2 -- left posterior thigh pressure ulcer 1. Santyl to area daily 2. offload area. Tariq Flynn DO
[2017-03-28] MEDS: MONTELUKAST NA 10 MG TABLET PO SCH (22:10)
[2017-03-28] MEDS: ATORVASTATIN CA 10 MG TABLET (FP) PO SCH (22:10)
[2017-03-29] MEDS ORDERED: PT OWN MED DRAWER 7, Y5N ONE ×5 (02:40→22:15)
[2017-03-29] MEDS: COLLAGENASE CLOSTRIDIUM HIST. 30 GRAMS TUBE TP SCH ×2 (03:44→11:41)
[2017-03-29] MEDS: ceFAZolin 2 GRAM PREMIX BAG IVPB SCH ×3 (03:44→16:35)
[2017-03-29] MEDS: PRAMIPEXOLE DIHYDROCHLORIDE 0.5 MG TABLET PO SCH ×3 (06:42→22:20)
[2017-03-29] MEDS: ALBUTEROL SO4 0.083% IH SOL 2.5 MG/3 ML VIAL.NEB. NEB PRN (07:05)
[2017-03-29 07:39] LABS: BASOPHIL 0.2 % (0-2.0); EOSINOPHIL 0.7 % (0-4.5); MCH 26.9 pg (25.7-33.7); MEAN CELL VOLUME 86.5 fl (80-96); MEAN PLT VOLUME 8.2 fl (7.5-11.1); NEUTROPHILS 69.8 % (42.8-82.8); PLATELET COUNT 88 K/MM3 (134-434); RDW 20.9 % (11.6-15.6); WHITE BLOOD COUNT 6.5 K/mm3 (4.0-10.0)
[2017-03-29 08:34] LABS: ANION GAP 6 (8-16); CALCIUM 8.6 mg/dL (8.5-10.1); CO2 39 mmol/L (21-32); CREATININE 1.2 mg/dL (0.55-1.02); GLUCOSE,RANDOM 69 mg/dL (74-106)
[2017-03-29] MEDS: DULoxetine HCL 30 MG CAPSULE.DR (FP) PO SCH (09:46)
[2017-03-29] MEDS: DIGOXIN 0.125 MG TABLET (FP) PO SCH (09:46)
[2017-03-29] MEDS: ISOSORBIDE MONONITRATE 30 MG TAB.SR.24H (FP) PO SCH (09:46)
[2017-03-29] MEDS: oxyCODONE HCL 5 MG TABLET PO SCH ×2 (09:46→22:22)
[2017-03-29] MEDS: SPIRONOLACTONE 25 MG TABLET (FP) PO SCH (09:47)
[2017-03-29] MEDS: METOPROLOL SUCCINATE 25 MG TAB.SR.24H (FP) PO SCH (09:47)
[2017-03-29] MEDS: RANITIDINE HCL 150 MG TABLET (FP) PO SCH (09:47)
[2017-03-29] MEDS: predniSONE 10 MG TABLET (UD) PO SCH (09:47)
[2017-03-29] MEDS: ACETAMINOPHEN 325 MG TABLET (FP) PO SCH ×2 (09:47→22:22)
[2017-03-29] MEDS: NYSTATIN POWDER 100,000 UNITS/GM - 15 GM TOPICAL POWDER TP SCH ×2 (11:41→22:20)
[2017-03-29] MEDS: DABIGATRAN ETEXILATE MESYLATE 150 MG CAPSULE PO SCH ×2 (11:41→22:21)
[2017-03-29] MEDS: FUROSEMIDE 40 MG/4 ML INJECTABLE VIAL IVPUSH SCH ×2 (16:34→22:19)
--- NOTE | 2017-03-29 18:06 | PN ---
Progress Note (short form) - Note Progress Note: Current Medications Acetaminophen (Tylenol -) 325 mg PO BID [facility] Last Admin: 03/29/17 09:47 Dose: 325 mg Albuterol Sulfate (Ventolin Hfa Inhaler -) 1 puff IH QID PRN PRN Reason: SHORTNESS OF BREATH Albuterol Sulfate (Ventolin Hfa Inhaler -) 2 puff IH QID PRN PRN Reason: SHORTNESS OF BREATH Albuterol Sulfate (Ventolin 0.083% Nebulizer Soln -) 1 amp NEB Q6H PRN PRN Reason: SHORT OF BREATH/WHEEZING Last Admin: 03/29/17 07:05 Dose: 1 amp Atorvastatin Calcium (Lipitor -) 10 mg PO HS [facility] Last Admin: 03/28/17 22:10 Dose: 10 mg Bupropion HCl (Wellbutrin Xl -) 150 mg PO DAILY [facility] Last Admin: 03/29/17 09:46 Dose: 150 mg Cefazolin Sodium/Dextrose (Ancef 2 Gm Premixed Ivpb -) 2 gm IVPB Q8H [facility] Last Admin: 03/29/17 16:35 Dose: 2 gm Collagenase (Santyl -) 1 applic TP DAILY [facility] Last Admin: 03/29/17 11:41 Dose: 1 applic Dabigatran (Pradaxa -) 150 mg PO BID [facility] Last Admin: 03/29/17 11:41 Dose: 150 mg Digoxin (Lanoxin -) 0.125 mg PO DAILY [facility] Last Admin: 03/29/17 09:46 Dose: 0.125 mg Duloxetine HCl (Cymbalta -) 30 mg PO DAILY [facility] Last Admin: 03/29/17 09:46 Dose: 30 mg Furosemide (Lasix Injection -) 20 mg IVPUSH BID@1400,2000 [facility] Last Admin: 03/29/17 16:34 Dose: 20 mg Isosorbide Mononitrate (Imdur -) 30 mg PO DAILY [facility] Last Admin: 03/29/17 09:46 Dose: 30 mg Metoprolol Succinate (Toprol Xl -) 25 mg PO DAILY [facility] Last Admin: 03/29/17 09:47 Dose: 25 mg Montelukast Sodium (Singulair -) 10 mg PO HS [facility] Last Admin: 03/28/17 22:10 Dose: 10 mg Nystatin (Nystop Powder -) 1 applic TP BID [facility] Last Admin: 03/29/17 11:41 Dose: 1 applic Oxycodone HCl (Roxicodone -) 10 mg PO BID [facility] Last Admin: 03/29/17 09:46 Dose: 10 mg Pramipexole Dihydrochloride (Mirapex -) 0.5 mg PO TID [facility] Last Admin: 03/29/17 15:00 Dose: 0.5 mg Prednisone (Deltasone -) 10 mg PO DAILY [facility] Last Admin: 03/29/17 09:47 Dose: 10 mg Ranitidine HCl (Zantac -) 150 mg PO DAILY [facility] Last Admin: 03/29/17 09:47 Dose: 150 mg Spironolactone (Aldactone -) 25 mg PO DAILY [facility] Last Admin: 03/29/17 09:47 Dose: 25 mg Laboratory Results - last 24 hr 03/29/17 03/29/17 03/29/17 06:15 06:15 06:50 WBC 6.5 RBC 4.48 Hgb 12.0 Hct 38.8 MCV 86.5 MCH 26.9 MCHC 31.0 L RDW 20.9 H Plt Count 88 L MPV 8.2 Neutrophils % 69.8 Lymphocytes % 18.0 D Monocytes % 11.3 H Eosinophils % 0.7 Basophils % 0.2 Sodium 138 Potassium 4.2 Chloride 93 L Carbon Dioxide 39 H Anion Gap 6 L BUN 19 H Creatinine 1.2 H POC Glucometer 73 Random Glucose 69 L D Calcium 8.6 03/29/17 17:39 WBC RBC Hgb Hct MCV MCH MCHC RDW Plt Count MPV Neutrophils % Lymphocytes % Monocytes % Eosinophils % Basophils % Sodium Potassium Chloride Carbon Dioxide Anion Gap BUN Creatinine POC Glucometer 158 Random Glucose Calcium Vital Signs Temperature 98.0 F 03/29/17 14:45 Pulse Rate 76 03/29/17 16:30 Respiratory Rate 18 03/29/17 14:45 Blood Pressure 108/60 03/29/17 16:30 O2 Sat by Pulse Oximetry (%) 90 L 03/29/17 09:10 CC: feels irritable `````````````````````` skin--skin still indurated on LE's eyes--midline; eomi lungs--distant heart--irreg distant abd--soft, obese ext--bilat edema w/ stasis changes neuro--awake, verbal coherent; thoughts organized; no focal deficits ``````````````````````````````` Summ > cellulitis--of LLE's; on IV Ancef; seems to be improving in terms of redness and warmth; BCX negative to date > Hypotension--tends to run low; 2nd multiple factors; would avoid excess IVF given the ease in which she can develop CHF; cont current meds. 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; no PNA detected by CXR; cont Prn Neb Tx > DM--a1c @ 6.9; in part 2nd use of steroids which cannot be omitted; on BGMs; no coverage is needed so far > edema/swelling LE's--- multifactorial; 2nd cardio-Pulm issues, as well as venous stasis; Lt Duplex neg for DVT > decub ulcer--seen by surgeon; topicals ordered > Dysphoric--w/ Hx depression; on dual agents but unsure how effective they are ; will try use of mood stabilizer > ATF--on Dig & BB & a/c ~~~~~~~~~~~~~~~~~~~~~~ Dr Estrada Problem List - Problems (1) Cellulitis Code(s): L03.90 - CELLULITIS, UNSPECIFIED Qualifiers: Site of cellulitis: extremity Site of cellulitis of extremity: lower extremity Laterality: left Qualified Code(s): L03.116 - Cellulitis of left lower limb (2) Decubitus ulcer of buttock Qualifiers: Pressure ulcer stage: unspecified pressure ulcer stage Laterality: left Qualified Code(s): L89.329 - Pressure ulcer of left buttock, unspecified stage (3) A-fib Code(s): I48.91 - UNSPECIFIED ATRIAL FIBRILLATION Qualifiers: Atrial fibrillation type: chronic Qualified Code(s): I48.2 - Chronic atrial fibrillation (4) CHF (congestive heart failure) Code(s): I50.9 - HEART FAILURE, UNSPECIFIED Qualifiers: Congestive heart failure type: combined Congestive heart failure chronicity: chronic Qualified Code(s): I50.42 - Chronic combined systolic (congestive) and diastolic (congestive) heart failure (5) Elevated alkaline phosphatase level Code(s): R74.8 - ABNORMAL LEVELS OF OTHER SERUM ENZYMES (6) Hip osteoarthritis Code(s): M16.9 - OSTEOARTHRITIS OF HIP, UNSPECIFIED Qualifiers: Osteoarthritis type: primary Laterality: right Qualified Code(s): M16.11 - Unilateral primary osteoarthritis, right hip (7) Maritza rash of groin Code(s): B37.89 - OTHER SITES OF CANDIDIASIS (8) Long-term (current) use of anticoagulants Code(s): Z79.01 - PRISON (CURRENT) USE OF ANTICOAGULANTS (9) Intractable pain Code(s): R52 - PAIN, UNSPECIFIED (10) Sarcoid Code(s): D86.9 - SARCOIDOSIS, UNSPECIFIED (11) Restless leg syndrome Code(s): G25.81 - RESTLESS LEGS SYNDROME (12) Chronic kidney disease Code(s): N18.9 - CHRONIC KIDNEY DISEASE, UNSPECIFIED Qualifiers: Chronic kidney disease stage: stage 2 (mild) Qualified Code(s): N18.2 - Chronic kidney disease, stage 2 (mild) (13) ROHIT (obstructive sleep apnea) Code(s): G47.33 - OBSTRUCTIVE SLEEP APNEA (ADULT) (PEDIATRIC) (14) Obesity Code(s): E66.9 - OBESITY, UNSPECIFIED Qualifiers: Obesity type: with alveolar hypoventilation (15) Pre-diabetes Code(s): R73.03 - PREDIABETES (16) Hyperlipidemia Code(s): E78.5 - HYPERLIPIDEMIA, UNSPECIFIED Qualifiers: Hyperlipidemia type: unspecified Qualified Code(s): E78.5 - Hyperlipidemia, unspecified
[2017-03-29] MEDS: ATORVASTATIN CA 10 MG TABLET (FP) PO SCH (22:20)
[2017-03-29] MEDS: MONTELUKAST NA 10 MG TABLET PO SCH (22:22)
[2017-03-30] MEDS ORDERED: PT OWN MED DRAWER 7, Y5N ONE ×6 (00:47→20:55)
[2017-03-30] MEDS: ceFAZolin 2 GRAM PREMIX BAG IVPB SCH ×2 (02:22→11:52)
[2017-03-30] MEDS: PRAMIPEXOLE DIHYDROCHLORIDE 0.5 MG TABLET PO SCH ×3 (06:12→21:01)
[2017-03-30] MEDS ORDERED: INSULIN DETEMIR 100 UNITS/ML MDV SQ ONE (06:43)
[2017-03-30] MEDS ORDERED: INSULIN (NOVOLOG) ASPART 100 UNITS/ML 10ML VIAL ONE (06:44)
[2017-03-30 07:13] LABS: ALBUMIN 2.9 g/dl (3.4-5.0); ANION GAP 9 (8-16); CO2 36 mmol/L (21-32); CREATININE 1.3 mg/dL (0.55-1.02); GLUCOSE,RANDOM 74 mg/dL (74-106); SGPT/ALT 9 U/L (12-78)
[2017-03-30 07:15] LABS: ALK PHOS 160 U/L (45-117); BILIRUBIN,TOTAL 1.6 mg/dL (0.2-1.0); TOT PROT 7.4 g/dl (6.4-8.2)
[2017-03-30 07:16] LABS: SGOT/AST 27 U/L (15-37)
[2017-03-30 07:31] LABS: URINE APPEARANCE CLEAR; URINE BILIRUBIN NEGATIVE (NEGATIVE); URINE COLOR LTYELLOW; URINE GLUCOSE (UA) NEGATIVE (NEGATIVE); URINE KETONE NEGATIVE (NEGATIVE); URINE NITRITE NEGATIVE (NEGATIVE); URINE PROTEIN NEGATIVE (NEGATIVE); URINE UROBILINOGEN NEGATIVE mg/dL (0.2-1.0)
[2017-03-30 07:35] LABS: URINE BLOOD 3+ (NEGATIVE); URINE LEUK ESTERASE TRACE (NEGATIVE)
[2017-03-30 07:37] LABS: URINE BACTERIA MANY /hpf (NONE SEEN); URINE RBC 29 /hpf (0-3); URINE WBC 3 /hpf (3-5)
[2017-03-30] MEDS: DIGOXIN 0.125 MG TABLET (FP) PO SCH (10:07)
[2017-03-30] MEDS: oxyCODONE HCL 5 MG TABLET PO SCH ×2 (10:07→21:03)
[2017-03-30] MEDS: ACETAMINOPHEN 325 MG TABLET (FP) PO SCH ×2 (10:08→21:06)
[2017-03-30] MEDS: DULoxetine HCL 30 MG CAPSULE.DR (FP) PO SCH (10:08)
[2017-03-30] MEDS: METOPROLOL SUCCINATE 25 MG TAB.SR.24H (FP) PO SCH (10:08)
[2017-03-30] MEDS: SPIRONOLACTONE 25 MG TABLET (FP) PO SCH (10:08)
[2017-03-30] MEDS: ISOSORBIDE MONONITRATE 30 MG TAB.SR.24H (FP) PO SCH (10:08)
[2017-03-30] MEDS: predniSONE 10 MG TABLET (UD) PO SCH (10:08)
[2017-03-30] MEDS: RANITIDINE HCL 150 MG TABLET (FP) PO SCH (10:08)
[2017-03-30] MEDS: COLLAGENASE CLOSTRIDIUM HIST. 30 GRAMS TUBE TP SCH (10:09)
[2017-03-30] MEDS: DABIGATRAN ETEXILATE MESYLATE 150 MG CAPSULE PO SCH ×2 (10:09→21:01)
[2017-03-30] MEDS: NYSTATIN POWDER 100,000 UNITS/GM - 15 GM TOPICAL POWDER TP SCH ×2 (10:10→21:01)
[2017-03-30] MEDS: FUROSEMIDE 40 MG/4 ML INJECTABLE VIAL IVPUSH SCH ×2 (15:23→21:00)
--- NOTE | 2017-03-30 15:39 | DS ---
Physical Examination Vital Signs: Vital Signs Temperature 98 F 03/30/17 14:36 Pulse Rate 66 03/30/17 14:36 Respiratory Rate 18 03/30/17 14:36 Blood Pressure 135/72 03/30/17 14:36 O2 Sat by Pulse Oximetry (%) 96 03/29/17 21:00 Constitutional: Yes: Well Nourished, No Distress, Calm Eyes: Yes: Conjunctiva Clear Neck: Yes: Supple Cardiovascular: Yes: Pulse Irregular Respiratory: Yes: Diminished Gastrointestinal: Yes: Soft Edema: Yes Edema: LLE: 1+, RLE: 1+ Integumentary: Yes: Other (stasis derm of distal LE) Neurological: Yes: Alert, Oriented ...Motor Strength: WNL Psychiatric: Yes: Alert Labs: CBC, BMP 03/29/17 06:15 03/30/17 05:45 Urine Test Results Urine Color Ltyellow 03/30/17 06:30 Urine Appearance Clear 03/30/17 06:30 Urine pH 7.0 (5.0-8.0) 03/30/17 06:30 Urine Protein Negative (NEGATIVE) 03/30/17 06:30 Urine Glucose (UA) Negative (NEGATIVE) 03/30/17 06:30 Urine Ketones Negative (NEGATIVE) 03/30/17 06:30 Urine Blood 3+ (NEGATIVE) H 03/30/17 06:30 Urine Nitrite Negative (NEGATIVE) 03/30/17 06:30 Urine Bilirubin Negative (NEGATIVE) 03/30/17 06:30 Ur Leukocyte Esterase Trace (NEGATIVE) H 03/30/17 06:30 Urine RBC 29 /hpf (0-3) 03/30/17 06:30 Urine WBC 3 /hpf (3-5) 03/30/17 06:30 Ur Epithelial Cells Rare /hpf (FEW) 03/30/17 06:30 Urine Bacteria Many /hpf (NONE SEEN) 03/30/17 06:30 Discharge Summary Reason For Visit: DECUBITUS ULCER,STAGE 2 WITH INFECTION Current Active Problems Maritza rash of groin (Acute) Chronic kidney disease (Acute) Decubitus ulcer of buttock (Acute) Pre-diabetes (Acute) cellulitis of LE's COPD ATF sarcoid chronic pain syndrome ASHD depression OA spine OA hips restless leg syndrome on snf anticoagulation hematuria thrombocytopenia (chronic) Hospital Course: admitted 2 days after she was released from [facility]; where she had been sent from her last hospitalization when she was found unconscious at home. She c/o Lt buttock discomfort which was caused by a pressure sore that no one knew was there. She was seen by surgeon who did not feel intervention was needed. She was seen by ID who did not feel it was infected; Topical agents were ordered; she did have redness and tendernss/warmth of the LE';s (L>R); and was placed on IV Abs with improvement. She was apparently being Tx for this while in SNF and was Rx'd Augmentin post d/c but she never took it. Her discomfort has resolved and the buttuck sore has improved, as the leg erythema. The plan is to md/c her back home with VNS and wound care. Condition: Stable - Instructions Diet, Activity, Other Instructions: You have a pressure sore on your left buttock. It is important to keep off of the sore area as pressure will make the sore worse. Your prescribed antibiotics. Take the antibiotics as prescribed and take the full dose even if you're feeling better. Keep the area covered with a piece of gauze. Do not seal off the area with tape, ointment as to prevent infection. Follow up with your primary care doctor within the week. Take your pain pills as prescribed by your doctor. Return to the emergency department if you have new fevers, chills, worsening pain, shortness of breath, nausea, vomiting or diarrhea, or any changes in your symptoms. Referrals: Tariq Flynn MD [Staff Physician] - Disposition: VNS/HOME HEALTH CARE - Home Medications Comprehensive Discharge Medication List: Ambulatory Orders Albuterol Sulfate Inhaler - [Ventolin HFA Inhaler -] 1 - 2 inh PO QID 09/27/16 Atorvastatin Ca [Lipitor] 10 mg PO HS 09/27/16 Bupropion HCl [Bupropion HCl ER] 150 mg PO DAILY 09/27/16 Dabigatran Etexilate Mesylate [Pradaxa -] 150 mg PO BID 09/27/16 Digoxin [Digitek] 125 mcg PO DAILY 09/27/16 Duloxetine HCl 30 mg PO DAILY 09/27/16 Isosorbide Mononitrate [Isosorbide Mononitrate ER] 30 mg PO DAILY 09/27/16 Montelukast Na [Singulair -] 10 mg PO HS 09/27/16 Prednisone 10 mg PO DAILY 09/27/16 Ranitidine [Zantac -] 150 mg PO DAILY 09/27/16 Furosemide [Lasix] 1 tab PO DAILY 03/20/17 Magnesium Chloride [Slow-Mag -] 500 mg PO DAILY 03/20/17 Oxycodone HCl/Acetaminophen [Percocet 10-325 mg Tablet] 1 tab PO BID 03/20/17 Pramipexole Di-HCl [Mirapex] 0.5 mg PO TID 03/20/17 Spironolactone [Aldactone] 1 tab PO DAILY 03/20/17 Amox-Tr/K Cl [Augmentin 875-125mg Tablet -] 1 tab PO BID #20 tablet 03/27/17 Collagenase Clostridium Hist. [Santyl -] 1 applic TP DAILY #1 tube 03/30/17 Metformin HCl [Metformin HCl ER] 500 mg PO AM #30 tab.er.24 03/30/17 Nystatin Powder [Nystop Powder -] 1 applic TP BID #1 applic 03/30/17 Silver Sulfadiaz/Foam Bandage [Allevyn Ag Adhesive 3"X3"] 1 each TP Q72H 14 Days 03/30/17
[2017-03-30] MEDS: ATORVASTATIN CA 10 MG TABLET (FP) PO SCH (21:00)
[2017-03-30] MEDS: MONTELUKAST NA 10 MG TABLET PO SCH (21:03)
[2017-03-31] MEDS: PRAMIPEXOLE DIHYDROCHLORIDE 0.5 MG TABLET PO SCH (06:40)
[2017-03-31 06:56] VITALS: TEMP 98.8
[2017-03-31] MEDS: ACETAMINOPHEN 325 MG TABLET (FP) PO SCH (10:07)
[2017-03-31] MEDS: oxyCODONE HCL 5 MG TABLET PO SCH (10:07)
[2017-03-31] MEDS: METOPROLOL SUCCINATE 25 MG TAB.SR.24H (FP) PO SCH (10:08)
[2017-03-31] MEDS: ISOSORBIDE MONONITRATE 30 MG TAB.SR.24H (FP) PO SCH (10:08)
[2017-03-31] MEDS: SPIRONOLACTONE 25 MG TABLET (FP) PO SCH (10:08)
[2017-03-31] MEDS: RANITIDINE HCL 150 MG TABLET (FP) PO SCH (10:08)
[2017-03-31] MEDS: predniSONE 10 MG TABLET (UD) PO SCH (10:08)
[2017-03-31] MEDS: DIGOXIN 0.125 MG TABLET (FP) PO SCH (10:08)
[2017-03-31] MEDS: DULoxetine HCL 30 MG CAPSULE.DR (FP) PO SCH (10:08)
[2017-03-31] MEDS: NYSTATIN POWDER 100,000 UNITS/GM - 15 GM TOPICAL POWDER TP SCH (10:09)
[2017-03-31] MEDS: DABIGATRAN ETEXILATE MESYLATE 150 MG CAPSULE PO SCH (10:09)
[2017-03-31 10:12] VITALS: PULSE 69
--- NOTE | 2017-03-31 10:19 | PN ---
Progress Note (short form) - Note Progress Note: Addendum Pelvic & Renal US report read; will address matter as OP. Will proceed with d/c if VSS Problem List - Problems (1) Cellulitis Code(s): L03.90 - CELLULITIS, UNSPECIFIED Qualifiers: Site of cellulitis: extremity Site of cellulitis of extremity: lower extremity Laterality: left Qualified Code(s): L03.116 - Cellulitis of left lower limb (2) Decubitus ulcer of buttock Qualifiers: Pressure ulcer stage: unspecified pressure ulcer stage Laterality: left Qualified Code(s): L89.329 - Pressure ulcer of left buttock, unspecified stage (3) A-fib Code(s): I48.91 - UNSPECIFIED ATRIAL FIBRILLATION Qualifiers: Atrial fibrillation type: chronic Qualified Code(s): I48.2 - Chronic atrial fibrillation (4) CHF (congestive heart failure) Code(s): I50.9 - HEART FAILURE, UNSPECIFIED Qualifiers: Congestive heart failure type: combined Congestive heart failure chronicity: chronic Qualified Code(s): I50.42 - Chronic combined systolic (congestive) and diastolic (congestive) heart failure (5) Elevated alkaline phosphatase level Code(s): R74.8 - ABNORMAL LEVELS OF OTHER SERUM ENZYMES (6) Hip osteoarthritis Code(s): M16.9 - OSTEOARTHRITIS OF HIP, UNSPECIFIED Qualifiers: Osteoarthritis type: primary Laterality: right Qualified Code(s): M16.11 - Unilateral primary osteoarthritis, right hip (7) Maritza rash of groin Code(s): B37.89 - OTHER SITES OF CANDIDIASIS (8) Long-term (current) use of anticoagulants Code(s): Z79.01 - SHELTER (CURRENT) USE OF ANTICOAGULANTS (9) Intractable pain Code(s): R52 - PAIN, UNSPECIFIED (10) Sarcoid Code(s): D86.9 - SARCOIDOSIS, UNSPECIFIED (11) Restless leg syndrome Code(s): G25.81 - RESTLESS LEGS SYNDROME (12) Chronic kidney disease Code(s): N18.9 - CHRONIC KIDNEY DISEASE, UNSPECIFIED Qualifiers: Chronic kidney disease stage: stage 2 (mild) Qualified Code(s): N18.2 - Chronic kidney disease, stage 2 (mild) (13) ROHIT (obstructive sleep apnea) Code(s): G47.33 - OBSTRUCTIVE SLEEP APNEA (ADULT) (PEDIATRIC) (14) Obesity Code(s): E66.9 - OBESITY, UNSPECIFIED Qualifiers: Obesity type: with alveolar hypoventilation (15) Pre-diabetes Code(s): R73.03 - PREDIABETES (16) Hyperlipidemia Code(s): E78.5 - HYPERLIPIDEMIA, UNSPECIFIED Qualifiers: Hyperlipidemia type: unspecified Qualified Code(s): E78.5 - Hyperlipidemia, unspecified
[2017-03-31 11:19] VITALS: BP 140/86
== END 2017-03-31 11:29 | disposition home health service (06) | DRG 602 ==
LOC: JER 10:05 → INTOOBSV 13:10 → UNDOADMOB 13:10 → JERBED 13:10 → J5S 15:47 → OBSVTOIN 16:00
PROVIDERS: ADMIT Internal Medicine; ATTEND Internal Medicine
DX: L03.116 Cellulitis of left lower limb (principal); L89.153 Pressure ulcer of sacral region, stage 3; I13.0 Hypertensive heart and chronic kidney disease with heart failure and stage 1 through stage 4 chronic kidney disease, or unspecified chronic kidney disease; I50.42 Chronic combined systolic (congestive) and diastolic (congestive) heart failure; Z68.41 Body mass index [BMI] 40.0-44.9, adult; L03.115 Cellulitis of right lower limb; E78.5 Hyperlipidemia, unspecified; D86.9 Sarcoidosis, unspecified; K21.9 Gastro-esophageal reflux disease without esophagitis; M54.5 Low back pain; J44.9 Chronic obstructive pulmonary disease, unspecified; Z99.81 Dependence on supplemental oxygen; G47.33 Obstructive sleep apnea (adult) (pediatric); Z79.84 Long term (current) use of oral hypoglycemic drugs; F17.210 Nicotine dependence, cigarettes, uncomplicated; I25.10 Atherosclerotic heart disease of native coronary artery without angina pectoris; I27.2 Other secondary pulmonary hypertension; M16.11 Unilateral primary osteoarthritis, right hip; G25.81 Restless legs syndrome; N18.9 Chronic kidney disease, unspecified; E66.01 Morbid (severe) obesity due to excess calories; Z79.01 Long term (current) use of anticoagulants; R09.02 Hypoxemia; I95.9 Hypotension, unspecified; F32.9 Major depressive disorder, single episode, unspecified; D69.6 Thrombocytopenia, unspecified; G89.4 Chronic pain syndrome; I48.2 Chronic atrial fibrillation; E11.22 Type 2 diabetes mellitus with diabetic chronic kidney disease
CPT/HCPCS: 36415; 36600; 71010-TC; 76775-TC; 76856-TC; 80048; 80053; 80162; 81003; 81015; 82550; 82803; 83036; 83735; 84100; 84484; 85025; 85610; 85651; 87040; 93005; 93010; 93971-TC; 94640; 99282-25; G0378

== ENCOUNTER 2017-04-28 11:27 | Inpatient (IN) | payer OTHER ==
[2017-04-28 11:39] VITALS: BMI 42.3
[2017-04-28] MEDS ORDERED: ASPIRIN 325 MG ENTERIC COATED TABLET (FP) PO ONE (11:51)
[2017-04-28] MEDS ORDERED: SODIUM CHLORIDE 500 ML IV STA ×3 (12:17→19:15)
[2017-04-28] MEDS ORDERED: ACETAMINOPHEN 325 MG TABLET (FP) PO ONE (12:18)
[2017-04-28] MEDS ORDERED: VANCOMYCIN 1,000 MG in DEXTROSE 5%-WATER - 250 ML IVPB ONE (12:34)
--- NOTE | 2017-04-28 12:34 | PDOC ---
History of Present Illness - General History Source: Patient, Family - History of Present Illness Associated Symptoms: reports: rash, weakness. denies: cough, diaphoresis, fever /chills, headaches, nausea/vomiting, shortness of breath <Nicole King - Last Filed: 04/29/17 07:08> <Aleshia Simmons - Last Filed: 04/29/17 17:25> - General Chief Complaint: Sweating Stated Complaint: HYPOTENSION Time Seen by Provider: 04/28/17 11:34 Past History - Past Medical History Anemia: No Asthma: No Cancer: No Cardiac Disorders: No CVA: No COPD: (SARCOIDOSIS/home O2 prn) CHF: Yes Dementia: No Diabetes: Yes GI Disorders: Yes (Acid reflex) Disorders: Yes (renal insufficiency from NSAIDs) HTN: Yes Hypercholesterolemia: No Liver Disease: No Psychiatric Problems: Yes (DEPRESSION.) Seizures: No Thyroid Disease: No - Surgical History Abdominal Surgery: No Appendectomy: No Cardiac Surgery: Yes (stent) Cholecystectomy: No Lung Surgery: No Neurologic Surgery: No Orthopedic Surgery: Yes (C4 surgery) - Immunization History Immunization Up to Date: Yes - Psycho/Social/Smoking Cessation Hx Anxiety: No Suicidal Ideation: No Smoking Status: Yes Smoking History: Current every day smoker Have you smoked in the past 12 months: No Number of Cigarettes Smoked Daily: 3 If you are a former smoker, when did you quit?: 2007 Information on smoking cessation initiated: No 'Breaking Loose' booklet given: 03/27/17 Hx Alcohol Use: No Drug/Substance Use Hx: No Substance Use Type: None Hx Substance Use Treatment: No <Nicole King - Last Filed: 04/29/17 07:08> <Aleshia Simmons - Last Filed: 04/29/17 17:25> - Past Medical History Allergies/Adverse Reactions: Allergies Allergy/AdvReac Type Severity Reaction Status Date / Time No Known Allergies Allergy Verified 04/28/17 11:36 Home Medications: Ambulatory Orders Albuterol Sulfate Inhaler - [Ventolin HFA Inhaler -] 1 - 2 inh PO QID 09/27/16 Atorvastatin Ca [Lipitor] 10 mg PO HS 09/27/16 Bupropion HCl [Bupropion HCl ER] 150 mg PO DAILY 09/27/16 Dabigatran Etexilate Mesylate [Pradaxa -] 150 mg PO BID 09/27/16 Digoxin [Digitek] 125 mcg PO DAILY 09/27/16 Duloxetine HCl 30 mg PO DAILY 09/27/16 Isosorbide Mononitrate [Isosorbide Mononitrate ER] 30 mg PO DAILY 09/27/16 Montelukast Na [Singulair -] 10 mg PO HS 09/27/16 Prednisone 10 mg PO DAILY 09/27/16 Ranitidine [Zantac -] 150 mg PO DAILY 09/27/16 Furosemide [Lasix] 1 tab PO DAILY 03/20/17 Magnesium Chloride [Slow-Mag -] 500 mg PO DAILY 03/20/17 Oxycodone HCl/Acetaminophen [Percocet 10-325 mg Tablet] 1 tab PO BID 03/20/17 Pramipexole Di-HCl [Mirapex] 0.5 mg PO TID 03/20/17 Spironolactone [Aldactone] 1 tab PO DAILY 03/20/17 Amox-Tr/K Cl [Augmentin 875-125mg Tablet -] 1 tab PO BID #20 tablet 03/27/17 Collagenase Clostridium Hist. [Santyl -] 1 applic TP DAILY #1 tube 03/30/17 Metformin HCl [Metformin HCl ER] 500 mg PO AM #30 tab.er.24 03/30/17 Nystatin Powder [Nystop Powder -] 1 applic TP BID #1 applic 03/30/17 Silver Sulfadiaz/Foam Bandage [Allevyn Ag Adhesive 3"X3"] 1 each TP Q72H 14 Days 03/30/17 Review of Systems - Review of Systems Constitutional: Yes: Weakness. No: Chills, Fever HEENTM: No: Blurred Vision Respiratory: No: Cough, Shortness of Breath, Wheezing Cardiac (ROS): No: Chest Pain, Palpitations ABD/GI: No: Blood Streaked Bowels, Constipated, Diarrhea, Nausea, Vomiting : No: Dysuria Neurological: No: Headache, Dizziness <Nicole King - Last Filed: 04/29/17 07:08> *Physical Exam - Vital Signs Last Vital Signs Temp Pulse Resp BP Pulse Ox 100.3 F H 103 H 17 118/73 88 L 04/28/17 12:14 04/28/17 12:14 04/28/17 12:14 04/28/17 11:36 04/28/17 12:14 - Physical Exam Comments: 04/28/17 12:48 appears lethargic General Appearance: Yes: Appropriately Dressed HEENT: positive: Normal Voice Neck: positive: Supple Respiratory/Chest: positive: Lungs Clear, Normal Breath Sounds. negative: Respiratory Distress Cardiovascular: positive: Regular Rate, S1, S2 Gastrointestinal/Abdominal: positive: Soft, Other (annular patch of erythema to umbilicus, +ttp, possibly vandana). negative: Tender Musculoskeletal: negative: CVA Tenderness Integumentary: positive: Dry, Warm, Other (erythematous patch to intergluteal cleft c/w yeast, multiple small superficial ulcers to R gluteus, no obvious s/o infxn) Neurologic: positive: Fully Oriented, Motor Strength 5/5 <Nicole King - Last Filed: 04/29/17 07:08> - Vital Signs Last Vital Signs Temp Pulse Resp BP Pulse Ox 98.1 F 68 16 101/66 2 L 04/29/17 14:58 04/29/17 14:58 04/29/17 14:58 04/29/17 14:58 04/29/17 14:58 <Aleshia Simmons - Last Filed: 04/29/17 17:25> ED Treatment Course - LABORATORY CBC & Chemistry Diagram: 04/28/17 12:00 04/28/17 12:36 - ADDITIONAL ORDERS Additional order review: Laboratory Results 04/28/17 11:41 POC Glucometer [id number] 04/28/17 11:41 POC Glucometer [id number] - RADIOLOGY Radiology Studies Ordered: Category Date Time Status CHEST X-RAY PORTABLE* [RAD] Stat Radiology 04/28/17 11:50 Taken <Nicole King - Last Filed: 04/29/17 07:08> - LABORATORY CBC & Chemistry Diagram: 04/29/17 07:57 04/29/17 07:57 - ADDITIONAL ORDERS Additional order review: 04/28/17 14:02 Gram Stain - Final Abdomen 04/28/17 12:27 Blood Culture - Preliminary Blood - Peripheral Venous NO GROWTH OBTAINED AFTER 24 HOURS, INCUBATION TO CONTINUE FOR 4 DAYS. 04/28/17 12:27 Blood Culture - Preliminary Blood - Peripheral Venous NO GROWTH OBTAINED AFTER 24 HOURS, INCUBATION TO CONTINUE FOR 4 DAYS. 04/28/17 04/28/17 12:00 11:41 RBC 4.88 MCV 83.5 MCHC 31.2 L RDW 24.0 H D MPV 9.4 D Neutrophils % 81.4 Lymphocytes % 6.7 L D Monocytes % 11.7 H Eosinophils % 0.1 D Basophils % 0.1 POC Glucometer [id number] - Medications Given in the ED: ED Medications Discontinued Medications Generic Name Dose Route Start Last Admin Trade Name Breann PRN Reason Stop Dose Admin Acetaminophen 650 mg 04/28/17 12:18 04/28/17 13:03 Tylenol - PO 04/28/17 12:19 650 mg ONCE ONE Administration Aspirin 325 mg 04/28/17 11:51 04/28/17 12:00 Ecotrin - PO 04/28/17 11:52 325 mg ONCE ONE Administration Hydrocortisone Sodium Succinate 100 mg 04/28/17 14:42 04/28/17 18:51 Solu-Cortef - IVPB 04/28/17 14:43 100 mg ONCE ONE Administration Sodium Chloride 500 mls @ 1,000 mls/hr 04/28/17 12:17 04/28/17 12:42 Normal Saline - IV 04/28/17 12:46 1,000 mls/hr ASDIR STA Administration Vancomycin HCl 1,000 mg/ 250 mls @ 250 mls/hr 04/28/17 12:34 04/28/17 12:35 Dextrose IVPB 04/28/17 13:33 250 mls/hr ONCE ONE Administration Protocol Sodium Chloride 500 mls @ 1,000 mls/hr 04/28/17 13:21 04/28/17 13:24 Normal Saline - IV 04/28/17 13:50 1,000 mls/hr ASDIR STA Administration Ampicillin Sodium/Sulbactam 100 mls @ 200 mls/hr 04/28/17 21:00 04/29/17 16:45 Sodium 1.5 gm/ Sodium Chloride IVPB Not Given Q6H-IV OPAL Sodium Chloride 500 mls @ 1,000 mls/hr 04/28/17 19:15 04/28/17 19:00 Normal Saline - IV 04/28/17 19:44 1,000 mls/hr ASDIR STA Administration Methylprednisolone Sodium Succinate 20 mg 04/29/17 13:13 04/29/17 13:51 Solu-Medrol - IVPB 04/29/17 13:14 20 mg ONCE ONE Administration Piperacillin Sod/Tazobactam Sod 3.375 gm 04/28/17 12:35 04/28/17 12:00 Zosyn 3.375gm Ivpb (Pre-Docked) IV 04/28/17 12:36 3.375 gm ONCE ONE Administration Protocol <Aleshia Simmons - Last Filed: 04/29/17 17:25> Medical Decision Making - Medical Decision Making 04/28/17 12:31 62-year-old female, morbidly obese w/ h/o A. fib on pradaxa, CHF on Lasix, hyperlipidemia, xtp-[id number]-[id number] diabetes, COPD who is on steroids and O2 dependent ,sarcoids, takes percocet for low back pain and osteoarthritis, sent in by Dr. Estrada for altered mental status. As per patient's daughter, patient woke up in usual state of health this morning and was able to eat breakfast but while waiting in doctor's office, became lethargic and unresponsive with cold clammy skin. Daughter concerned that patient might have taken more than her usual dose of narcotics this a.m. however, patient denies this to me. Patient states she feels fine and and was just sleepy. Denies headache, dizziness, nausea, vomiting, focal weakness, chest pain or shortness of breath. No abd pain, change in BM, dysuria, n/v/f/c See exam R/o sepsis Pt febrile, hypertensive, tachy and hypoxic in ED Source possibly PNA vs UTI, has multiple rashes on exam that appears fungal, less likely infectious -sepsis order set -broad spectrum abx -supportive treatment -possible unit admission 04/28/17 12:50 EKG w/ ST depression in multiple leads, similar findings on prior ekg. Trop pending. ASA given. Pt denies CP or SOB 04/28/17 13:11 Possible retrocardiac infiltrate on CXR as per radiology. Abx in progress 04/28/17 13:43 Worsening renal function (2.1, K wnl) w/ lactate of 3.9. Gentle hydration and abx in progress. Will reassess. If lactate and vitals not improving, will admit to the ICU. Of note, initial trop neg 04/28/17 13:45 04/28/17 14:02 Dr. Estrada currently in ED, is aware of patient's condition. States patient is currently on bactrim for umbilical rash and was recently treated for UTI. Alyssa recommending that we take a culture of umbilicus. Placed HIDA scan presumedly for elevated bili 04/28/17 17:57 Pt ended up being in IR for several hrs getting HIDA scan. Returns now and continues to be hypotensive to 80s/50s on monitor. 2nd 500cc IVF still in progress. Rpt lacate sent 04/28/17 18:51 Pt signed out to AIDEE Robbins pending rpt lactate and rpt vitals after 2nd bag of fluids. If clinical condition improves, patient can go to telemetry under Dr. Estrada. If symptoms do not adequately improve, patient to go to the unit <Nicole King - Last Filed: 04/29/17 07:08> *DC/Admit/Observation/Transfer <Nicole King - Last Filed: 04/29/17 07:08> - Attestations Physician Attestion: I reviewed the case with the mid-level practitioner and agree with the mid- level practitioner's assessment, diagnosis and disposition. <Aleshia Simmons - Last Filed: 04/29/17 17:25> Diagnosis at time of Disposition: Sepsis Qualifiers: Sepsis type: sepsis due to unspecified organism Qualified Code(s): A41.9 - Sepsis, unspecified organism - Discharge Dispostion Condition at time of disposition: Guarded
[2017-04-28 12:35] LABS: VENOUS BLOOD GAS HCO3 23.9 meq/L (19-25); VENOUS PH 7.44 (7.32-7.42)
[2017-04-28] MEDS ORDERED: PIPERACILLIN/TAZOB 3.375 GM/50 ML PRE-DOCKED IV ONE (12:35)
[2017-04-28 12:55] LABS: BASOPHIL 0.1 % (0-2.0); EOSINOPHIL 0.1 % (0-4.5); MCH 26.1 pg (25.7-33.7); MCHC 31.2 g/dl (32.0-36.0); MEAN CELL VOLUME 83.5 fl (80-96); MEAN PLT VOLUME 9.4 fl (7.5-11.1); NEUTROPHILS 81.4 % (42.8-82.8); PLATELET COUNT 117 K/MM3 (134-434); WHITE BLOOD COUNT 7.7 K/mm3 (4.0-10.0)
[2017-04-28] MEDS ORDERED: PIPERACILLIN/TAZOB 3.375 GM 50 ML IVPB ONE (13:07)
[2017-04-28] MEDS ORDERED: VANCOMYCIN 1 GRAM (PRE-DOCKED) 250 ML IVPB ONE (13:07)
[2017-04-28] MEDS ORDERED: ACETAMINOPHEN 325 MG TABLET (FP) ONE (13:07)
[2017-04-28] MEDS ORDERED: ASPIRIN 325 MG ENTERIC COATED TABLET (FP) ONE (13:07)
[2017-04-28 13:12] LABS: ALBUMIN 2.7 g/dl (3.4-5.0); ANION GAP 13 (8-16); BILIRUBIN,TOTAL 4.2 mg/dL (0.2-1.0); CALCIUM 9.1 mg/dL (8.5-10.1); CO2 24 mmol/L (21-32); CREATININE 2.1 mg/dL (0.55-1.02); GLUCOSE,RANDOM 115 mg/dL (74-106); SGPT/ALT 36 U/L (12-78); TOT PROT 6.8 g/dl (6.4-8.2)
[2017-04-28 13:15] LABS: ALK PHOS 225 U/L (45-117); CPK 48 IU/L (26-192); TROPONIN I 0.05 ng/ml (0.00-0.05)
[2017-04-28 13:15] LABS: INR 2.44 (0.82-1.09); PROTHROMBIN TIME (PATIENT) 27.3 SEC (9.98-11.88)
[2017-04-28 13:18] LABS: ACTIVATED PTT 51.3 SECONDS (26.9-34.4)
[2017-04-28 13:30] LABS: SGOT/AST 45 U/L (15-37)
--- NOTE | 2017-04-28 14:20 | HP ---
Admitting History and Physical - Primary Care Physician PCP: Kt Estrada - Admission Chief Complaint: weakness History of Present Illness: 62-year-old female, morbidly obese with h/o A. fib (on pradaxa, BB & Dig,) LVDysf with hx of CHF (on Lasix), hyperlipidemia, nhp-dbrdqil-eiyorgqlg diabetes , sarcoid, COPD who is on steroids and O2 dependent; who presented for a scheduled office visit in a state of hypersomnolence, diaphoresis & weakness. Prior to this she had supposedly been in her usual mental state. Routine blood work done 1 week ago showed elevated Alk Ph and Total Bili; f/u US of abd showed possible inflamed GB and Ua revealed what presented a likely UTI. She refused to go to the hospital, as she had no Sx of abd pains, dysuria, fever. She had been taking Keflex for what was described as a discharge from the umbilicus (which was not present while previously hospitalized), and was switched to Bactrim after the UA was resulted. She was last hospitalized in early March for celluluitis of the LE (and the presence of a Lt lower Buttock pressure sore), and she had just been released from the SNF just a few days prior to her previous admission. She was then d'c'd back home with [facility] who was seeing her at regular intervals. According to laura, she had fallen several days ago on her left shoulder; but did not seek any medical attention. It is not known if has been taking her array of meds as of recent but does take percocet for low back pain and osteoarthritis but denied taking any prior to her office visit. While in the office, she kept falling asleep; appeared diaphoretic, and was unable to stand. She voiced no other complaints. 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 paroxysmal), CHF, HTN, Hyperlipdemia, Pulmonary Hypertension Pulmonary: Yes: COPD (ex-smoker), O2 Dependent, Other (Hx of sarcoid?) Gastrointestinal: Yes: Diverticulosis, GERD, Other (questionable cholecystitis) Hepatobiliary: Yes: Other (abnL LFTs) Renal/: Yes: Renal Inusuff, UTI ...: No Heme/Onc: Yes: Other (Hx of erythrocytosis) Psych: Yes: Depression Musculoskeletal: Yes: Chronic low back pain, Osteoarthritis (Rt hip) Rheumatology: Yes: Sarcoidosis Endocrine: Yes: Diabetes Mellitus (steroid related), Osteopenia, Other (obesity/ /Possible DM) - Smoking History Smoking history: Current every day smoker Have you smoked in the past 12 months: No Aproximately how many cigarettes per day: 3 If you are a former smoker, when did you quit?: 2007 - Alcohol/Substance Use Hx Alcohol Use: No History of Substance Use: reports: None - Social History Usual Living Arrangement: Yes: With Child (daughters) ADL: Family Assistance 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 Travel: No Home Medications - Allergies Allergies/Adverse Reactions: Allergies Allergy/AdvReac Type Severity Reaction Status Date / Time No Known Allergies Allergy Verified 04/28/17 11:36 - Home Medications Home Medications: Ambulatory Orders Albuterol Sulfate Inhaler - [Ventolin HFA Inhaler -] 1 - 2 inh PO QID 09/27/16 Atorvastatin Ca [Lipitor] 10 mg PO HS 09/27/16 Bupropion HCl [Bupropion HCl ER] 150 mg PO DAILY 09/27/16 Dabigatran Etexilate Mesylate [Pradaxa -] 150 mg PO BID 09/27/16 Digoxin [Digitek] 125 mcg PO DAILY 09/27/16 Duloxetine HCl 30 mg PO DAILY 09/27/16 Isosorbide Mononitrate [Isosorbide Mononitrate ER] 30 mg PO DAILY 09/27/16 Montelukast Na [Singulair -] 10 mg PO HS 09/27/16 Prednisone 10 mg PO DAILY 09/27/16 Ranitidine [Zantac -] 150 mg PO DAILY 09/27/16 Furosemide [Lasix] 1 tab PO DAILY 03/20/17 Magnesium Chloride [Slow-Mag -] 500 mg PO DAILY 03/20/17 Oxycodone HCl/Acetaminophen [Percocet 10-325 mg Tablet] 1 tab PO BID 03/20/17 Pramipexole Di-HCl [Mirapex] 0.5 mg PO TID 03/20/17 Spironolactone [Aldactone] 1 tab PO DAILY 03/20/17 Amox-Tr/K Cl [Augmentin 875-125mg Tablet -] 1 tab PO BID #20 tablet 03/27/17 Collagenase Clostridium Hist. [Santyl -] 1 applic TP DAILY #1 tube 03/30/17 Metformin HCl [Metformin HCl ER] 500 mg PO AM #30 tab.er.24 03/30/17 Nystatin Powder [Nystop Powder -] 1 applic TP BID #1 applic 03/30/17 Silver Sulfadiaz/Foam Bandage [Allevyn Ag Adhesive 3"X3"] 1 each TP Q72H 14 Days 03/30/17 Family Disease History - Family Disease History Family History: Unremarkable Review of Systems Findings/Remarks: unable to obtain realibe ROS due to clouded mental staus; but she does not voice any specific complaint Physical Examination Vital Signs: Vital Signs Temperature 100.3 F H 04/28/17 12:14 Pulse Rate 80 04/28/17 13:44 Respiratory Rate 22 04/28/17 13:44 Blood Pressure 89/61 04/28/17 13:22 O2 Sat by Pulse Oximetry (%) 100 04/28/17 13:44 Findings/Remarks: skin--cold extremties; diaphoretic head--NC eyes--questionable jaundice; eomi face--no droop oral--poor dentition neck--no masses, no goiter lungs--no wheezing; rhonchi appreciated; BS distant heart--RRR abd--possible bilat upper quad tenderness; no rebound; (+) navel redness & discharge buttock--Lt lower dermal lesion ext--1+ edema bilat LE; stasis changes on the skin of both LE's neuro--hypersomnolent; depressed sensorium/awareness; rousable but unable to remain awake for long; seems to be able to move all Extremities. Labs: CBC, BMP 04/28/17 12:00 04/28/17 12:36 CBCD WBC 7.7 K/mm3 (4.0-10.0) 04/28/17 12:00 RBC 4.88 M/mm3 (3.60-5.2) 04/28/17 12:00 Hgb 12.7 GM/dL (10.7-15.3) 04/28/17 12:00 Hct 40.8 % (32.4-45.2) 04/28/17 12:00 MCV 83.5 fl (80-96) 04/28/17 12:00 MCHC 31.2 g/dl (32.0-36.0) L 04/28/17 12:00 RDW 24.0 % (11.6-15.6) H D 04/28/17 12:00 Plt Count 117 K/MM3 (134-434) L D 04/28/17 12:00 MPV 9.4 fl (7.5-11.1) D 04/28/17 12:00 CMP Sodium 133 mmol/L (136-145) L 04/28/17 12:36 Potassium 4.1 mmol/L (3.5-5.1) 04/28/17 12:36 Chloride 96 mmol/L (98-107) L 04/28/17 12:36 Carbon Dioxide 24 mmol/L (21-32) D 04/28/17 12:36 Anion Gap 13 (8-16) 04/28/17 12:36 BUN 37 mg/dL (7-18) H D 04/28/17 12:36 Creatinine 2.1 mg/dL (0.55-1.02) H D 04/28/17 12:36 Creat Clearance w eGFR 23.86 (>60) 04/28/17 12:36 Random Glucose 115 mg/dL (74-106) H D 04/28/17 12:36 Calcium 9.1 mg/dL (8.5-10.1) 04/28/17 12:36 Total Bilirubin 4.2 mg/dL (0.2-1.0) H D 04/28/17 12:36 AST 45 U/L (15-37) H D 04/28/17 12:36 ALT 36 U/L (12-78) D 04/28/17 12:36 Alkaline Phosphatase 225 U/L (45-117) H D 04/28/17 12:36 Total Protein 6.8 g/dl (6.4-8.2) 04/28/17 12:36 Albumin 2.7 g/dl (3.4-5.0) L 04/28/17 12:36 CARDIAC ENZYMES Creatine Kinase 48 IU/L (26-192) 04/28/17 12:36 Troponin I 0.05 ng/ml (0.00-0.05) 04/28/17 12:36 INR, PTT INR 2.44 (0.82-1.09) H D 04/28/17 12:27 Baby's Blood Type, Atul Blood Type O POSITIVE 04/28/17 12:27 Assessment/Plan ill apearing borderline stable chronically ill female: 1) Hypotension--cause not fully established but must consider infection as a highly possible cause. PLAN: Cultures taken; IV Abs given : ID consult; support Tx. 2) altered mental status--toxic metabolic cause; high Lactate levels; PLAN Supportive measures (IVF); follow chemistry 3) ASHD w/ renal insuff--not new; on various cardiac meds and diurtics; BNP elevated but not sure how specific this is for heart failure at this point; check cardiac enzymes & chemistries; to get Cardio consult 4) ATF--not new; HR fast, possibly 2nd low BP; plan: Cont a-c; and rate lowering agents if needed 5) COPD--longstanding; PIckwikian; not compliant with CPAP; inhalers; PLAN: Oxygen as needed 6) DM--made worse by use of steroids; will check BGMs 7) abnl GB US--suggests cholecystitis; but will get HIDA scan 8) UTI--noted as OP; was on Bactrim; will need to get repeat Urine studies 9) Sarcoid--on chronic low dose steroid (10mg Prednisone QD); will give 1 IV infusion of Solucortef in event she may be in an adrenal crisis 10) chronic pain--2nd Low back and Rt hip pain for which she takes Percocet ( not a candidate for NSAID) ~~~~~~~~~~~~~~~~~~~~~~~~ Dr Estrada
[2017-04-28] MEDS ORDERED: HYDROCORTISONE SOD SUCCINATE 100 MG/2 ML VIAL IVPB ONE (14:42)
[2017-04-28 18:18] LABS: URINE APPEARANCE CLEAR; URINE BILIRUBIN NEGATIVE (NEGATIVE); URINE BLOOD 1+ (NEGATIVE); URINE COLOR YELLOW; URINE GLUCOSE (UA) NEGATIVE (NEGATIVE); URINE KETONE NEGATIVE (NEGATIVE); URINE LEUK ESTERASE NEGATIVE (NEGATIVE); URINE NITRITE NEGATIVE (NEGATIVE); URINE PROTEIN NEGATIVE (NEGATIVE); URINE UROBILINOGEN NEGATIVE mg/dL (0.2-1.0)
[2017-04-28 18:50] LABS: URINE HYALINE CAST 1 /lpf; URINE RBC 16 /hpf (0-3); URINE WBC 2 /hpf (3-5)
[2017-04-28 19:14] LABS: ANISOCYTOSIS 2+; PLATELET ESTIMATE SLT DECREASED (NORMAL); POLYCHROMASIA 1+
--- NOTE | 2017-04-28 20:44 | PDOC ---
*Physical Exam - Vital Signs Last Vital Signs Temp Pulse Resp BP Pulse Ox 97.0 F L 64 20 93/59 94 L 04/28/17 18:20 04/28/17 19:05 04/28/17 19:05 04/28/17 19:05 04/28/17 19:05 ED Treatment Course - LABORATORY CBC & Chemistry Diagram: 04/28/17 12:00 04/28/17 12:36 - ADDITIONAL ORDERS Additional order review: Laboratory Results 04/28/17 04/28/17 04/28/17 19:40 18:00 17:30 INR PTT (Actin FS) VBG pH POC VBG pCO2 POC VBG pO2 Mixed VBG HCO3 Sodium Potassium Chloride Carbon Dioxide Anion Gap BUN Creatinine Creat Clearance w eGFR POC Glucometer Random Glucose Lactic Acid 2.0 Calcium Total Bilirubin AST ALT Alkaline Phosphatase Creatine Kinase Troponin I 0.05 B-Natriuretic Peptide Total Protein Albumin Urine Color Yellow Urine Appearance Clear Urine pH 5.0 Ur Specific [place] 1.010 Urine Protein Negative Urine Glucose (UA) Negative Urine Ketones Negative Urine Blood 1+ H Urine Nitrite Negative Urine Bilirubin Negative Urine Urobilinogen Negative Ur Leukocyte Esterase Negative Urine RBC 16 Urine WBC 2 Hyaline Casts 1 Blood Type Antibody Screen 04/28/17 04/28/17 04/28/17 12:36 12:27 12:27 INR PTT (Actin FS) VBG pH POC VBG pCO2 POC VBG pO2 Mixed VBG HCO3 Sodium 133 L Potassium 4.1 Chloride 96 L Carbon Dioxide 24 D Anion Gap 13 BUN 37 H D Creatinine 2.1 H D Creat Clearance w eGFR 23.86 POC Glucometer Random Glucose 115 H D Lactic Acid 3.9 H* Calcium 9.1 Total Bilirubin 4.2 H D AST 45 H D ALT 36 D Alkaline Phosphatase 225 H D Creatine Kinase 48 Troponin I 0.05 B-Natriuretic Peptide 35404.77 H Total Protein 6.8 Albumin 2.7 L Urine Color Urine Appearance Urine pH Ur Specific [place] Urine Protein Urine Glucose (UA) Urine Ketones Urine Blood Urine Nitrite Urine Bilirubin Urine Urobilinogen Ur Leukocyte Esterase Urine RBC Urine WBC Hyaline Casts Blood Type O POSITIVE Antibody Screen Negative 04/28/17 04/28/17 04/28/17 12:27 12:15 12:14 INR 2.44 H D PTT (Actin FS) 51.3 H D VBG pH 7.44 H POC VBG pCO2 36.1 L POC VBG pO2 53.7 H Mixed VBG HCO3 23.9 Sodium Potassium Chloride Carbon Dioxide Anion Gap BUN Creatinine Creat Clearance w eGFR POC Glucometer Random Glucose Lactic Acid Calcium Total Bilirubin AST ALT Alkaline Phosphatase Creatine Kinase Troponin I B-Natriuretic Peptide Cancelled Total Protein Albumin Urine Color Urine Appearance Urine pH Ur Specific [place] Urine Protein Urine Glucose (UA) Urine Ketones Urine Blood Urine Nitrite Urine Bilirubin Urine Urobilinogen Ur Leukocyte Esterase Urine RBC Urine WBC Hyaline Casts Blood Type Antibody Screen 04/28/17 11:41 INR PTT (Actin FS) VBG pH POC VBG pCO2 POC VBG pO2 Mixed VBG HCO3 Sodium Potassium Chloride Carbon Dioxide Anion Gap BUN Creatinine Creat Clearance w eGFR POC Glucometer 168.04923 Random Glucose Lactic Acid Calcium Total Bilirubin AST ALT Alkaline Phosphatase Creatine Kinase Troponin I B-Natriuretic Peptide Total Protein Albumin Urine Color Urine Appearance Urine pH Ur Specific [place] Urine Protein Urine Glucose (UA) Urine Ketones Urine Blood Urine Nitrite Urine Bilirubin Urine Urobilinogen Ur Leukocyte Esterase Urine RBC Urine WBC Hyaline Casts Blood Type Antibody Screen 04/28/17 04/28/17 12:00 11:41 RBC 4.88 MCV 83.5 MCHC 31.2 L RDW 24.0 H D MPV 9.4 D Neutrophils % 81.4 Lymphocytes % 6.7 L D Monocytes % 11.7 H Eosinophils % 0.1 D Basophils % 0.1 POC Glucometer 168.21922 - Medications Given in the ED: ED Medications Discontinued Medications Generic Name Dose Route Start Last Admin Trade Name Freq PRN Reason Stop Dose Admin Acetaminophen 650 mg 04/28/17 12:18 04/28/17 13:03 Tylenol - PO 04/28/17 12:19 650 mg ONCE ONE Administration Aspirin 325 mg 04/28/17 11:51 04/28/17 12:00 Ecotrin - PO 04/28/17 11:52 325 mg ONCE ONE Administration Hydrocortisone Sodium Succinate 100 mg 04/28/17 14:42 04/28/17 18:51 Solu-Cortef - IVPB 04/28/17 14:43 100 mg ONCE ONE Administration Sodium Chloride 500 mls @ 1,000 mls/hr 04/28/17 12:17 04/28/17 12:42 Normal Saline - IV 04/28/17 12:46 1,000 mls/hr ASDIR STA Administration Vancomycin HCl 1,000 mg/ 250 mls @ 250 mls/hr 04/28/17 12:34 04/28/17 12:35 Dextrose IVPB 04/28/17 13:33 250 mls/hr ONCE ONE Administration Protocol Sodium Chloride 500 mls @ 1,000 mls/hr 04/28/17 13:21 04/28/17 13:24 Normal Saline - IV 04/28/17 13:50 1,000 mls/hr ASDIR STA Administration Sodium Chloride 500 mls @ 1,000 mls/hr 04/28/17 19:15 04/28/17 19:00 Normal Saline - IV 04/28/17 19:44 1,000 mls/hr ASDIR STA Administration Piperacillin Sod/Tazobactam Sod 3.375 gm 04/28/17 12:35 04/28/17 12:00 Zosyn 3.375gm Ivpb (Pre-Docked) IV 04/28/17 12:36 3.375 gm ONCE ONE Administration Protocol Progress Note - Progress Note Progress Note: 2032hrs: Spoke to Dr. Estrada/pt's PMD. admit to tele *DC/Admit/Observation/Transfer Diagnosis at time of Disposition: Sepsis Qualifiers: Sepsis type: sepsis due to unspecified organism Qualified Code(s): A41.9 - Sepsis, unspecified organism - Discharge Dispostion Condition at time of disposition: Guarded Admit: Yes - Referrals Referrals: Kt Estrada MD [Primary Care Provider] - - Patient Instructions - Post Discharge Activity
[2017-04-28] MEDS: AMPICILLIN NA/SULBACTAM NA 1.5 GM in SODIUM CHLORIDE 100 ML IVPB SCH (21:27)
--- NOTE | 2017-04-28 22:55 | CONSULT ---
Consult - text type - Consultation Consultation Note: ICU TRIAGE NOTE: Briefly, 62 y/o morbidly obese female with CHF, AF, DM2, COPD presents to the ED with what appears to be biliary sepsis. She was initially hypotensive with elevated Lactate (3.9) and DWAINE. She was cultured, started on abx and given about 1L of IVF. Her Lactate normalized with IV fluid and her BP is stable (MAP is in 70s). On my exam, she is awake, interactive, following commands, non-toxic , lungs are clear, her SpO2 is 97% on 2L NC. Further workup of her GB is planned for tomorrow. She can be monitored on a telemetry bed and does not meet ICU criteria at this time. 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
[2017-04-29] MEDS: AMPICILLIN NA/SULBACTAM NA 1.5 GM in SODIUM CHLORIDE 100 ML IVPB SCH ×3 (04:27→16:45)
--- NOTE | 2017-04-29 08:21 | CON.CARD ---
Consult Consult Specialty:: Cardiology (for Venita) Referred by:: Dr. Estrada Reason for Consultation:: Atrial fibrillation - History of Present Illness Chief Complaint: Fatigue, found to have sepsis History of Present Illness: 62F w/ chronic AF on Pradaxa, CAD w/ reported coronary PCI at [facility] in January, HTN, DM, CKD, COPD, CHF (mild LV dysfx on last echo), PHTN found by PMD to be lethargic in waiting room and sent to ER. In ER, febrile with elevated lactic acid. C/O periumbilical pain. HIDA scan showed likely acute cholecystitis. She denies SOB beyond baseline, no chest pain. Chronic LE edema. No PND. No syncope. She is a poor historian and unable to give me details surrounding placement of her stent in January. She was cultured and started on IV abx. 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 paroxysmal), CAD, CHF, HTN, Hyperlipdemia, Pulmonary Hypertension Pulmonary: Yes: COPD (ex-smoker), O2 Dependent, Other (Hx of sarcoid?) Gastrointestinal: Yes: Diverticulosis, GERD, Other (questionable cholecystitis) Hepatobiliary: Yes: Other (abnL LFTs) Renal/: Yes: Renal Inusuff, UTI ...: No Psych: Yes: Depression Musculoskeletal: Yes: Chronic low back pain, Osteoarthritis (Rt hip) Rheumatology: Yes: Sarcoidosis Endocrine: Yes: Diabetes Mellitus (steroid related), Osteopenia, Other (obesity/ /Possible DM) - Past Surgical History Additional Surgical History: C-spine surgery - Alcohol/Substance Use Hx Alcohol Use: No History of Substance Use: reports: None - Smoking History Smoking history: Current every day smoker Have you smoked in the past 12 months: No Aproximately how many cigarettes per day: 3 If you are a former smoker, when did you quit?: 2007 - Social History Usual Living Arrangement: With Child ADL: Family Assistance 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 Travel: No Home Medications - Allergies Allergies/Adverse Reactions: Allergies Allergy/AdvReac Type Severity Reaction Status Date / Time No Known Allergies Allergy Verified 04/28/17 11:36 - Home Medications Home Medications: Ambulatory Orders Albuterol Sulfate Inhaler - [Ventolin HFA Inhaler -] 1 - 2 inh PO QID 09/27/16 Atorvastatin Ca [Lipitor] 10 mg PO HS 09/27/16 Bupropion HCl [Bupropion HCl ER] 150 mg PO DAILY 09/27/16 Dabigatran Etexilate Mesylate [Pradaxa -] 150 mg PO BID 09/27/16 Digoxin [Digitek] 125 mcg PO DAILY 09/27/16 Duloxetine HCl 30 mg PO DAILY 09/27/16 Isosorbide Mononitrate [Isosorbide Mononitrate ER] 30 mg PO DAILY 09/27/16 Montelukast Na [Singulair -] 10 mg PO HS 09/27/16 Prednisone 10 mg PO DAILY 09/27/16 Ranitidine [Zantac -] 150 mg PO DAILY 09/27/16 Furosemide [Lasix] 1 tab PO DAILY 03/20/17 Magnesium Chloride [Slow-Mag -] 500 mg PO DAILY 03/20/17 Oxycodone HCl/Acetaminophen [Percocet 10-325 mg Tablet] 1 tab PO BID 03/20/17 Pramipexole Di-HCl [Mirapex] 0.5 mg PO TID 03/20/17 Spironolactone [Aldactone] 1 tab PO DAILY 03/20/17 Amox-Tr/K Cl [Augmentin 875-125mg Tablet -] 1 tab PO BID #20 tablet 03/27/17 Collagenase Clostridium Hist. [Santyl -] 1 applic TP DAILY #1 tube 03/30/17 Metformin HCl [Metformin HCl ER] 500 mg PO AM #30 tab.er.24 03/30/17 Nystatin Powder [Nystop Powder -] 1 applic TP BID #1 applic 03/30/17 Silver Sulfadiaz/Foam Bandage [Allevyn Ag Adhesive 3"X3"] 1 each TP Q72H 14 Days 03/30/17 Home Medications (free text): Patient reports she is on Plavix Family Disease History - Family Disease History Family History: Unremarkable (not pertinent to this presentation) Review of Systems Findings/Remarks: 62-year-old female, morbidly obese with h/o A. fib (on pradaxa, BB & Dig,) LVDysf with hx of CHF (on Lasix), hyperlipidemia, [id number] diabetes , sarcoid, COPD who is on steroids and O2 dependent; who presented for a scheduled office visit in a state of hypersomnolence, diaphoresis & weakness. Prior to this she had supposedly been in her usual mental state. Routine blood work done 1 week ago showed elevated Alk Ph and Total Bili; f/u US of abd showed possible inflamed GB and Ua revealed what presented a likely UTI. She refused to go to the hospital, as she had no Sx of abd pains, dysuria, fever. She had been taking Keflex for what was described as a discharge from the umbilicus (which was not present while previously hospitalized), and was switched to Bactrim after the UA was resulted. She was last hospitalized in early March for celluluitis of the LE (and the presence of a Lt lower Buttock pressure sore), and she had just been released from the SNF just a few days prior to her previous admission. She was then d'c'd back home with [facility] who was seeing her at regular intervals. According to laura, she had fallen several days ago on her left shoulder; but did not seek any medical attention. It is not known if has been taking her array of meds as of recent but does take percocet for low back pain and osteoarthritis but denied taking any prior to her office visit. While in the office, she kept falling asleep; appeared diaphoretic, and was unable to stand. She voiced no other complaints. - Review of Systems Constitutional: reports: Chills, Fever, Lethargy, Malaise Eyes: reports: No Symptoms HENT: reports: No Symptoms Neck: reports: No Symptoms Cardiovascular: reports: Shortness of Breath Respiratory: reports: SOB on Exertion (chronic) Gastrointestinal: reports: Abdominal Pain Genitourinary: reports: Burning Breasts: reports: No Symptoms Reported Musculoskeletal: reports: No Symptoms Integumentary: reports: No Symptoms Neurological: reports: No Symptoms Endocrine: reports: No Symptoms Hematology/Lymphatic: reports: No Symptoms Psychiatric: reports: No Symptoms - Risk Factors Known Risk Factors: Yes: Diabetes Mellitus, Hypercholesterolemia, Hypertension, Physical Inactivity, Smoking Vital Signs: Vital Signs Temperature 98.8 F 04/29/17 07:25 Pulse Rate 66 04/29/17 07:25 Respiratory Rate 16 04/29/17 07:25 Blood Pressure 110/69 04/29/17 07:25 O2 Sat by Pulse Oximetry (%) 99 04/29/17 07:25 Constitutional: Yes: Pallor Eyes: Yes: Conjunctiva Clear HENT: Yes: Atraumatic, Normocephalic Neck: Yes: Trachea Midline Respiratory: Yes: Other (decreased bilateral breath sounds c/w COPD, no rales) Gastrointestinal: Yes: Soft (no rebound or guarding. Negative Forbes's on my exam) Cardiovascular: Yes: Regular Rate and Rhythm JVD: No Carotid Bruit: No PMI: Non-Displaced Heart Sounds: Yes: S1, S2 (irregular no murmurs) Edema: Yes Edema: LLE: 1+, RLE: 1+ Peripheral Pulses WNL: Yes Neurological: Yes: Alert, Oriented ...Motor Strength: WNL Psychiatric: Yes: WNL - Other Data Labs, Other Data: INR, PTT INR 2.44 (0.82-1.09) H D 04/28/17 12:27 Microbiology Laboratory Tests 04/28/17 04/28/17 04/28/17 12:00 12:15 12:27 WBC 7.7 Hgb 12.7 Hct 40.8 Plt Count 117 L D INR 2.44 H D PTT (Actin FS) 51.3 H D VBG pH 7.44 H POC VBG pCO2 36.1 L POC VBG pO2 53.7 H Sodium Potassium BUN Creatinine Lactic Acid Total Bilirubin Alkaline Phosphatase Creatine Kinase Troponin I B-Natriuretic Peptide Albumin 04/28/17 04/28/17 04/28/17 12:27 12:36 19:40 WBC Hgb Hct Plt Count INR PTT (Actin FS) VBG pH POC VBG pCO2 POC VBG pO2 Sodium 133 L Potassium 4.1 BUN 37 H D Creatinine 2.1 H D Lactic Acid 3.9 H* Total Bilirubin 4.2 H D Alkaline Phosphatase 225 H D Creatine Kinase 48 Troponin I 0.05 0.05 B-Natriuretic Peptide 27504.77 H Albumin 2.7 L AF 115bpm, RBBB, NSST changes. Cannot r/o old lateral SC Echo: Report Reviewed (From January: mild LV dysfx, PHTN) Prior Cardiac Procedures: PTCA with Stent Ejection Fraction %: LVEF > or = 40 % Imaging - Results X-ray: Image Reviewed Ultrasound: Report Reviewed EKG: Image Reviewed Other: Other (HIDA report reviewed) Problem List - Problems (1) Sepsis Code(s): A41.9 - SEPSIS, UNSPECIFIED ORGANISM Qualifiers: Sepsis type: sepsis due to unspecified organism Qualified Code(s): A41.9 - Sepsis, unspecified organism (2) Cholecystitis Code(s): K81.9 - CHOLECYSTITIS, UNSPECIFIED (3) Diabetes Code(s): E11.9 - TYPE 2 DIABETES MELLITUS WITHOUT COMPLICATIONS Qualifiers: Diabetes mellitus type: type 2 Diabetes mellitus complication status: with circulatory complication Diabetes mellitus shelter insulin use: unspecified shelter insulin use status (4) Acute kidney injury Code(s): N17.9 - ACUTE KIDNEY FAILURE, UNSPECIFIED (5) A-fib Code(s): I48.91 - UNSPECIFIED ATRIAL FIBRILLATION Qualifiers: Atrial fibrillation type: chronic Qualified Code(s): I48.2 - Chronic atrial fibrillation (6) Chronic systolic CHF (congestive heart failure) Code(s): I50.22 - CHRONIC SYSTOLIC (CONGESTIVE) HEART FAILURE (7) Coronary artery disease Code(s): I25.10 - ATHSCL HEART DISEASE OF [place] CORONARY ARTERY W/O ANG PCTRS Qualifiers: Coronary Disease-Associated Artery/Lesion type: [place] artery Associated angina: without angina (8) Pulmonary hypertension Code(s): I27.2 - OTHER SECONDARY PULMONARY HYPERTENSION Assessment/Plan IMP: Sepsis probably due to acute cholecystitis DM Acute on chronic CKD Chronic AF Chronic systolic CHF (Mild LV dysfx) ?CAD REC: 1. Sepsis: -cultures, abx as per PMD -GI and Surgery consults recommended. 2. AF: -Rate controlled -Would continue dig -Can hold Pradaxa if surgery is required. 3. CHF: -Chronic systolic, w/ mild LV dysfx -Now septic, volume depleted -Hold all diuretcs -Maintain rate control 4. Periop stratification: -If cholecystectomy is required/felt to be urgent, then proceed without further workup as it would be considered an urgent/emergent procedure -She would be considered at moderate to high risk for [place] and post op cardiac events (SC, CHF, cardiac arrhythmia)
[2017-04-29 08:29] LABS: BASOPHIL 0.1 % (0-2.0); MCH 26.2 pg (25.7-33.7); MEAN CELL VOLUME 84.5 fl (80-96); MEAN PLT VOLUME 8.9 fl (7.5-11.1); NEUTROPHILS 86.3 % (42.8-82.8); PLATELET COUNT 81 K/MM3 (134-434); WHITE BLOOD COUNT 5.7 K/mm3 (4.0-10.0)
[2017-04-29 08:36] LABS: ALBUMIN 2.4 g/dl (3.4-5.0); ALK PHOS 160 U/L (45-117); ANION GAP 9 (8-16); BILIRUBIN,TOTAL 3.8 mg/dL (0.2-1.0); CALCIUM 8.4 mg/dL (8.5-10.1); CO2 27 mmol/L (21-32); CREATININE 1.8 mg/dL (0.55-1.02); GLUCOSE,RANDOM 80 mg/dL (74-106); SGPT/ALT 30 U/L (12-78); TOT PROT 5.7 g/dl (6.4-8.2)
[2017-04-29 08:42] LABS: TROPONIN I 0.04 ng/ml (0.00-0.05)
[2017-04-29 08:43] LABS: CPK 51 IU/L (26-192); SGOT/AST 40 U/L (15-37)
[2017-04-29 08:44] LABS: THYROID STIMULATING HORMONE 0.33 uIU/ml (0.358-3.74)
[2017-04-29 08:50] LABS: INR 1.97 (0.82-1.09)
[2017-04-29] MEDS ORDERED: DIGOXIN 0.125 MG TABLET (FP) ONE (09:20)
[2017-04-29] MEDS: DIGOXIN 0.125 MG TABLET (FP) PO SCH (09:21)
[2017-04-29] MEDS ORDERED: DABIGATRAN ETEXILATE MESYLATE 75 MG CAPSULE PO SCH (10:00)
[2017-04-29] MEDS ORDERED: methylPREDNISolone NA SUCC 40 MG/1 ML VIAL IVPB ONE (13:13)
[2017-04-29] MEDS ORDERED: DEXTROSE 5%-0.45% SALINE 1,000 ML IV SCH (13:30)
--- NOTE | 2017-04-29 13:33 | EKG ---
Test Reason : Blood Pressure : / mmHG Vent. Rate : 115 BPM Atrial Rate : 125 BPM P-R Int : 000 ms QRS Dur : 150 ms QT Int : 364 ms P-R-T Axes : 000 116 -82 degrees QTc Int : 503 ms ATRIAL FIBRILLATION WITH PREMATURE VENTRICULAR OR ABERRANTLY CONDUCTED COMPLEXES NOTE ERROR IN LIMB LEAD OCNNECTION, RECOMMEND REPEAT TRACING Confirmed by UNA BROWN MD ([id number]) on 04/29/2017 1:32:35 PM Referred By: Confirmed By:UNA BROWN MD
[2017-04-29] MEDS ORDERED: methylPREDNISolone NA SUCC 40 MG/1 ML VIAL ONE (13:36)
--- NOTE | 2017-04-29 13:44 | PN ---
Progress Note (short form) - Note Progress Note: Current Medications Digoxin (Lanoxin -) 0.125 mg PO DAILY OPAL Last Admin: 04/29/17 09:21 Dose: 0.125 mg Ampicillin Sodium/Sulbactam (Sodium 1.5 gm/ Sodium Chloride) 100 mls @ 200 mls/ hr IVPB Q6H-IV OPAL Last Admin: 04/29/17 09:21 Dose: 200 mls/hr Famotidine/Sodium Chloride (Pepcid 20 Mg Premixed Ivpb -) 50 mls @ 100 mls/hr IVPB BID OPAL Dextrose/Sodium Chloride (D5-1/2ns -) 1,000 mls @ 42 mls/hr IV ASDIR OPAL Nitroglycerin (Nitro-Dur Patch -) 0.1 mg TD DAILY OPAL Prednisone (Deltasone -) 10 mg PO DAILY [facility] Laboratory Results - last 24 hr 04/28/17 04/28/17 04/28/17 12:00 12:15 12:27 WBC 7.7 RBC 4.88 Hgb 12.7 Hct 40.8 MCV 83.5 MCH 26.1 MCHC 31.2 L RDW 24.0 H D Plt Count 117 L D MPV 9.4 D Neutrophils % 81.4 Lymphocytes % 6.7 L D Monocytes % 11.7 H Eosinophils % 0.1 D Basophils % 0.1 Platelet Estimate Slt decreased Polychromasia 1+ Basophilic Stippling Rare Anisocytosis 2+ Macrocytosis 2+ INR 2.44 H D PTT (Actin FS) 51.3 H D VBG pH 7.44 H POC VBG pCO2 36.1 L POC VBG pO2 53.7 H Mixed VBG HCO3 23.9 Sodium Potassium Chloride Carbon Dioxide Anion Gap BUN Creatinine Creat Clearance w eGFR Random Glucose Lactic Acid Calcium Total Bilirubin AST ALT Alkaline Phosphatase Creatine Kinase Troponin I B-Natriuretic Peptide Total Protein Albumin TSH Urine Color Urine Appearance Urine pH Ur Specific [place] Urine Protein Urine Glucose (UA) Urine Ketones Urine Blood Urine Nitrite Urine Bilirubin Urine Urobilinogen Ur Leukocyte Esterase Urine RBC Urine WBC Hyaline Casts Digoxin Blood Type Antibody Screen 04/28/17 04/28/17 04/28/17 12:27 12:27 12:36 WBC RBC Hgb Hct MCV MCH MCHC RDW Plt Count MPV Neutrophils % Lymphocytes % Monocytes % Eosinophils % Basophils % Platelet Estimate Polychromasia Basophilic Stippling Anisocytosis Macrocytosis INR PTT (Actin FS) VBG pH POC VBG pCO2 POC VBG pO2 Mixed VBG HCO3 Sodium 133 L Potassium 4.1 Chloride 96 L Carbon Dioxide 24 D Anion Gap 13 BUN 37 H D Creatinine 2.1 H D Creat Clearance w eGFR 23.86 Random Glucose 115 H D Lactic Acid 3.9 H* Calcium 9.1 Total Bilirubin 4.2 H D AST 45 H D ALT 36 D Alkaline Phosphatase 225 H D Creatine Kinase 48 Troponin I 0.05 B-Natriuretic Peptide 39956.77 H Total Protein 6.8 Albumin 2.7 L TSH Urine Color Urine Appearance Urine pH Ur Specific [place] Urine Protein Urine Glucose (UA) Urine Ketones Urine Blood Urine Nitrite Urine Bilirubin Urine Urobilinogen Ur Leukocyte Esterase Urine RBC Urine WBC Hyaline Casts Digoxin Blood Type O POSITIVE Antibody Screen Negative 04/28/17 04/28/17 04/28/17 17:30 18:00 19:36 WBC RBC Hgb Hct MCV MCH MCHC RDW Plt Count MPV Neutrophils % Lymphocytes % Monocytes % Eosinophils % Basophils % Platelet Estimate Polychromasia Basophilic Stippling Anisocytosis Macrocytosis INR PTT (Actin FS) VBG pH POC VBG pCO2 POC VBG pO2 Mixed VBG HCO3 Sodium Potassium Chloride Carbon Dioxide Anion Gap BUN Creatinine Creat Clearance w eGFR Random Glucose Lactic Acid 2.0 Calcium Total Bilirubin AST ALT Alkaline Phosphatase Creatine Kinase Troponin I B-Natriuretic Peptide Total Protein Albumin TSH Urine Color Yellow Urine Appearance Clear Urine pH 5.0 Ur Specific [place] 1.010 Urine Protein Negative Urine Glucose (UA) Negative Urine Ketones Negative Urine Blood 1+ H Urine Nitrite Negative Urine Bilirubin Negative Urine Urobilinogen Negative Ur Leukocyte Esterase Negative Urine RBC 16 Urine WBC 2 Hyaline Casts 1 Digoxin 1.0478 Blood Type Antibody Screen 04/28/17 04/29/17 04/29/17 19:40 07:57 07:57 WBC 5.7 RBC 4.36 Hgb 11.4 D Hct 36.8 MCV 84.5 MCH 26.2 MCHC 31.0 L RDW 23.0 H Plt Count 81 L D MPV 8.9 Neutrophils % 86.3 H Lymphocytes % 10.3 D Monocytes % 3.3 L Eosinophils % 0.0 D Basophils % 0.1 Platelet Estimate Polychromasia Basophilic Stippling Anisocytosis Macrocytosis INR PTT (Actin FS) VBG pH POC VBG pCO2 POC VBG pO2 Mixed VBG HCO3 Sodium Potassium Chloride Carbon Dioxide Anion Gap BUN Creatinine Creat Clearance w eGFR Random Glucose Lactic Acid Calcium Total Bilirubin AST ALT Alkaline Phosphatase Creatine Kinase Troponin I 0.05 B-Natriuretic Peptide Total Protein Albumin TSH Cancelled Urine Color Urine Appearance Urine pH Ur Specific [place] Urine Protein Urine Glucose (UA) Urine Ketones Urine Blood Urine Nitrite Urine Bilirubin Urine Urobilinogen Ur Leukocyte Esterase Urine RBC Urine WBC Hyaline Casts Digoxin Blood Type Antibody Screen 04/29/17 04/29/17 07:57 07:57 WBC RBC Hgb Hct MCV MCH MCHC RDW Plt Count MPV Neutrophils % Lymphocytes % Monocytes % Eosinophils % Basophils % Platelet Estimate Polychromasia Basophilic Stippling Anisocytosis Macrocytosis INR 1.97 H PTT (Actin FS) VBG pH POC VBG pCO2 POC VBG pO2 Mixed VBG HCO3 Sodium 135 L Potassium 3.9 Chloride 99 Carbon Dioxide 27 Anion Gap 9 BUN 36 H Creatinine 1.8 H Creat Clearance w eGFR 28.51 Random Glucose 80 D Lactic Acid Calcium 8.4 L Total Bilirubin 3.8 H AST 40 H ALT 30 Alkaline Phosphatase 160 H D Creatine Kinase 51 Troponin I 0.04 B-Natriuretic Peptide Total Protein 5.7 L Albumin 2.4 L TSH 0.33 L D Urine Color Urine Appearance Urine pH Ur Specific [place] Urine Protein Urine Glucose (UA) Urine Ketones Urine Blood Urine Nitrite Urine Bilirubin Urine Urobilinogen Ur Leukocyte Esterase Urine RBC Urine WBC Hyaline Casts Digoxin Blood Type Antibody Screen INR, PTT INR 1.97 (0.82-1.09) H 04/29/17 07:57 Vital Signs Temperature 98.0 F 04/29/17 12:46 Pulse Rate 67 04/29/17 12:46 Respiratory Rate 16 04/29/17 12:46 Blood Pressure 104/68 04/29/17 12:46 O2 Sat by Pulse Oximetry (%) 2 L 04/29/17 12:46 CC: no specific complaint `````````````````````````` skin--navel erythema eyes--midline lungs--distant heart--Irreg abd--soft, NT in RUQ neuro--drowsy but rousable; seems coherent; speech is clear and moves al limbs on command ````````````````````````````` Summ > Hypotension--Improved post IVF & IV Abs; corineley 2nd toxic-metabolic state 2nd acute infection PLAN: Cultures taken; IV Abs given : ID consult; will get Surg & GI consult. > Cholecystitis--see juan miguel CASTILLO & Scotty; likeliest cause for her acute presentation & ABnl LFTs. PLAN: IV Abs; specialty consults ordered; may need cholecystectomy when deemed more stable > altered mental status--toxic metabolic cause; seems more alert today; wants to eat > ASHD w/ renal insuff--not new; on various cardiac meds and diuretics;will resume NTG; Dig; will keep off anticoags given prospect for surgery; INR still High > ATF--not new; HR better controlled; will need to suspend a-c for now > COPD--longstanding; steroid dep; will resume steroids IV & PO to avert a hypoadrenal crisis > DM--made worse by use of steroids; will check BGMs > Sarcoid--on chronic low dose steroid (10mg Prednisone QD); will need to resume > chronic pain--2nd Low back and Rt hip pain for which she takes Percocet (not a candidate for NSAID); all opiates presently on hold. ~~~~~~~~~~~~~~~~~~~~~~~~ Dr Estrada
[2017-04-29] MEDS: NITROGLYCERIN 0.1 MG/HOUR TD PATCH TD SCH (13:52)
--- NOTE | 2017-04-29 15:58 | PN ---
Progress Note (short form) - Note Progress Note: ID Consult dictated
[2017-04-29] MEDS: PIPERACILLIN/TAZOB 4.5 GM 100 ML IVPB SCH (18:19)
[2017-04-29] MEDS: FAMOTIDINE 20 MG/50 ML IVPB 50 ML IVPB SCH (22:05)
[2017-04-30] MEDS ORDERED: ACETAMINOPHEN 325 MG TABLET (FP) PO PRN (01:58)
[2017-04-30] MEDS ORDERED: oxyCODONE HCL 5 MG TABLET PO PRN (01:58)
[2017-04-30] MEDS: PIPERACILLIN/TAZOB 4.5 GM 100 ML IVPB SCH ×3 (02:09→17:40)
[2017-04-30 08:32] LABS: BASOPHIL 0.1 % (0-2.0); EOSINOPHIL 0.3 % (0-4.5); MCH 25.9 pg (25.7-33.7); MCHC 30.6 g/dl (32.0-36.0); MEAN CELL VOLUME 84.7 fl (80-96); MEAN PLT VOLUME 8.7 fl (7.5-11.1); NEUTROPHILS 73.2 % (42.8-82.8); PLATELET COUNT 89 K/MM3 (134-434); RDW 24.3 % (11.6-15.6); WHITE BLOOD COUNT 6.4 K/mm3 (4.0-10.0)
[2017-04-30 08:39] LABS: ALBUMIN 2.2 g/dl (3.4-5.0); ALK PHOS 140 U/L (45-117); ANION GAP 12 (8-16); BILIRUBIN,TOTAL 3.5 mg/dL (0.2-1.0); CALCIUM 7.8 mg/dL (8.5-10.1); CO2 27 mmol/L (21-32); CREATININE 1.5 mg/dL (0.55-1.02); MAGNESIUM 2.2 mg/dL (1.8-2.4); SGOT/AST 28 U/L (15-37); SGPT/ALT 28 U/L (12-78); TOT PROT 5.5 g/dl (6.4-8.2)
[2017-04-30 08:43] LABS: GLUCOSE,RANDOM 352 mg/dL (74-106)
[2017-04-30 08:55] LABS: INR 1.63 (0.82-1.09); PROTHROMBIN TIME (PATIENT) 18.1 SEC (9.98-11.88)
[2017-04-30] MEDS: FAMOTIDINE 20 MG/50 ML IVPB 50 ML IVPB SCH ×2 (09:00→21:42)
[2017-04-30] MEDS ORDERED: VANCOMYCIN 1,250 MG in DEXTROSE 5%-WATER - 250 ML IVPB ONE (09:00)
[2017-04-30] MEDS: DIGOXIN 0.125 MG TABLET (FP) PO SCH (09:03)
[2017-04-30] MEDS: predniSONE 10 MG TABLET (UD) PO SCH (09:04)
[2017-04-30] MEDS: NITROGLYCERIN 0.1 MG/HOUR TD PATCH TD SCH (09:05)
--- NOTE | 2017-04-30 09:07 | PN ---
Progress Note, Physician Chief Complaint: more alert Blood cx with 1/4 bottles staph: ?contaminant TELE: rate controlled. - Current Medication List Current Medications: Active Medications Acetaminophen (Tylenol -) 325 mg PO Q6H PRN PRN Reason: PAIN Last Admin: 04/30/17 02:09 Dose: 325 mg Digoxin (Lanoxin -) 0.125 mg PO DAILY [facility] Last Admin: 04/30/17 09:03 Dose: 0.125 mg Famotidine/Sodium Chloride (Pepcid 20 Mg Premixed Ivpb -) 50 mls @ 100 mls/hr IVPB BID [facility] Last Admin: 04/30/17 09:00 Dose: 100 mls/hr Dextrose/Sodium Chloride (D5-1/2ns -) 1,000 mls @ 42 mls/hr IV ASDIR [facility] Last Admin: 04/29/17 13:51 Dose: 42 mls/hr Piperacillin Sod/Tazobactam Sod (Zosyn 4.5gm Ivpb (Pre-Docked)) 100 mls @ 200 mls/hr IVPB Q8H-IV [facility] PRN Reason: Protocol Last Admin: 04/30/17 09:00 Dose: 200 mls/hr Vancomycin HCl 1,250 mg/ (Dextrose) 250 mls @ 250 mls/2 hr IVPB ONCE ONE Stop: 04/30/17 10:59 Last Admin: 04/30/17 08:57 Dose: 250 mls/2 hr Nitroglycerin (Nitro-Dur Patch -) 0.1 mg TD DAILY [facility] Last Admin: 04/30/17 09:05 Dose: Not Given Oxycodone HCl (Roxicodone -) 5 mg PO Q6H PRN PRN Reason: PAIN Last Admin: 04/30/17 02:08 Dose: 5 mg Prednisone (Deltasone -) 10 mg PO DAILY [facility] Last Admin: 04/30/17 09:04 Dose: 10 mg - Objective Vital Signs: Vital Signs Temperature 97.7 F 04/30/17 08:02 Pulse Rate 75 04/30/17 09:03 Respiratory Rate 20 04/30/17 08:09 Blood Pressure 112/57 04/30/17 08:02 O2 Sat by Pulse Oximetry (%) 97 04/30/17 08:09 Constitutional: Yes: Calm Eyes: Yes: Conjunctiva Clear Cardiovascular: Yes: Regular Rate and Rhythm Respiratory: Yes: CTA Bilaterally Gastrointestinal: Yes: Soft (no rebound or guarding), Abdomen, Obese Edema: No Neurological: Yes: Alert, Oriented Labs: CBC, BMP 04/30/17 07:45 INR, PTT INR 1.97 (0.82-1.09) H 04/29/17 07:57 Microbiology 04/28/17 12:27 Blood - Peripheral Venous Blood Culture - Preliminary Pending Organism Laboratory Tests 04/28/17 04/29/17 04/29/17 19:40 07:57 07:57 WBC Hgb Plt Count INR 1.97 H Sodium Potassium BUN Creatinine Calcium Magnesium AST ALT Alkaline Phosphatase Troponin I 0.05 0.04 04/30/17 04/30/17 04/30/17 07:45 07:45 07:45 WBC Pending Hgb Pending Plt Count Pending INR Pending Sodium 134 L Potassium 3.2 L BUN 30 H Creatinine 1.5 H Calcium 7.8 L Magnesium 2.2 AST 28 D ALT 28 Alkaline Phosphatase 140 H Troponin I Laboratory Tests 04/28/17 04/29/17 12:00 07:57 Plt Count 117 L D 81 L D - ....Imaging EKG: Image Reviewed Problem List - Problems (1) Sepsis Code(s): A41.9 - SEPSIS, UNSPECIFIED ORGANISM Qualifiers: Sepsis type: sepsis due to unspecified organism Qualified Code(s): A41.9 - Sepsis, unspecified organism (2) Cholecystitis Code(s): K81.9 - CHOLECYSTITIS, UNSPECIFIED (3) Diabetes Code(s): E11.9 - TYPE 2 DIABETES MELLITUS WITHOUT COMPLICATIONS Qualifiers: Diabetes mellitus type: type 2 Diabetes mellitus complication status: with circulatory complication Diabetes mellitus rn long term care insulin use: unspecified rn long term care insulin use status (4) Acute kidney injury Code(s): N17.9 - ACUTE KIDNEY FAILURE, UNSPECIFIED (5) A-fib Code(s): I48.91 - UNSPECIFIED ATRIAL FIBRILLATION Qualifiers: Atrial fibrillation type: chronic Qualified Code(s): I48.2 - Chronic atrial fibrillation (6) Chronic systolic CHF (congestive heart failure) Code(s): I50.22 - CHRONIC SYSTOLIC (CONGESTIVE) HEART FAILURE (7) Coronary artery disease Code(s): I25.10 - ATHSCL HEART DISEASE OF [place] CORONARY ARTERY W/O ANG PCTRS Qualifiers: Coronary Disease-Associated Artery/Lesion type: [place] artery Associated angina: without angina (8) Pulmonary hypertension Code(s): I27.2 - OTHER SECONDARY PULMONARY HYPERTENSION Assessment/Plan IMP: Sepsis probably due to acute cholecystitis, True bacteremia vs contaminant DM Acute on chronic CKD Chronic AF Chronic systolic CHF (Mild LV dysfx) ?CAD Hypokalemia REC: 1. Sepsis: -cultures, abx as per PMD -GI and Surgery consults recommended. 2. AF: -Rate controlled -Would continue dig -Replete K+ -Holding Pradaxa in case surgery required. -Platelets also dropping, likely due to sepsis. Therefore, will hold heparin gtts until platelet count stabilizes. 3. CHF: -Chronic systolic, w/ mild LV dysfx -Now septic, volume depleted -Hold all diuretcs -Maintain rate control 4. Periop stratification: -If cholecystectomy is required/felt to be urgent, then proceed without further workup as it would be considered an urgent/emergent procedure -She would be considered at moderate to high risk for [place] and post op cardiac events (NC, CHF, cardiac arrhythmia)
[2017-04-30] MEDS ORDERED: POTASSIUM CHLORIDE TABS 20 MEQ TABLET.ER (FP) PO ONE (09:30)
--- NOTE | 2017-04-30 11:36 | PN ---
Progress Note, Physician History of Present Illness: More awake and alert today No c/o abdominal pain, N/V No fever/ chills WBC WNL Azotemia improved - Current Medication List Current Medications: Active Medications Acetaminophen (Tylenol -) 325 mg PO Q6H PRN PRN Reason: PAIN Last Admin: 04/30/17 02:09 Dose: 325 mg Digoxin (Lanoxin -) 0.125 mg PO DAILY [facility] Last Admin: 04/30/17 09:03 Dose: 0.125 mg Famotidine/Sodium Chloride (Pepcid 20 Mg Premixed Ivpb -) 50 mls @ 100 mls/hr IVPB BID [facility] Last Admin: 04/30/17 09:00 Dose: 100 mls/hr Piperacillin Sod/Tazobactam Sod (Zosyn 4.5gm Ivpb (Pre-Docked)) 100 mls @ 200 mls/hr IVPB Q8H-IV [facility] PRN Reason: Protocol Last Admin: 04/30/17 09:00 Dose: 200 mls/hr Sodium Chloride (1/2 Normal Saline) 1,000 mls @ 42 mls/hr IV ASDIR [facility] Nitroglycerin (Nitro-Dur Patch -) 0.1 mg TD DAILY [facility] Last Admin: 04/30/17 09:05 Dose: Not Given Oxycodone HCl (Roxicodone -) 5 mg PO Q6H PRN PRN Reason: PAIN Last Admin: 04/30/17 02:08 Dose: 5 mg Prednisone (Deltasone -) 10 mg PO DAILY [facility] Last Admin: 04/30/17 09:04 Dose: 10 mg - Objective Vital Signs: Vital Signs Temperature 97.7 F 04/30/17 08:02 Pulse Rate 75 04/30/17 09:03 Respiratory Rate 20 04/30/17 08:09 Blood Pressure 112/57 04/30/17 08:02 O2 Sat by Pulse Oximetry (%) 97 04/30/17 08:09 Constitutional: Yes: No Distress, Obese Eyes: Yes: Conjunctiva Clear Cardiovascular: Yes: Regular Rate and Rhythm, S1, S2 Respiratory: Yes: CTA Bilaterally Gastrointestinal: Yes: Normal Bowel Sounds, Soft, Abdomen, Obese, Other ( erythema, umbilicus no expressible pus). No: Tenderness Edema: Yes Edema: LLE: 1+, RLE: 1+ Integumentary: Yes: Other (Superficial ulcer L buttock) Labs: CBC, BMP 04/30/17 07:45 04/30/17 07:45 INR, PTT INR 1.63 (0.82-1.09) H 04/30/17 07:45 Assessment/Plan Sepsis Probable GB source Cholecystitis Toxic metabolic encephalopathy- improved Azotemia improved Lactic acidosis- improved Thrombocytopenia +BC ?significance Possible umbilical cellulitis Continue empiric coverage,biliary pathogens with zosyn. Blood c/s repeated Continue vancomycin pending BC result
--- NOTE | 2017-04-30 11:41 | PN ---
Progress Note (short form) - Note Progress Note: Current Medications Acetaminophen (Tylenol -) 325 mg PO Q6H PRN PRN Reason: PAIN Last Admin: 04/30/17 02:09 Dose: 325 mg Digoxin (Lanoxin -) 0.125 mg PO DAILY [facility] Last Admin: 04/30/17 09:03 Dose: 0.125 mg Famotidine/Sodium Chloride (Pepcid 20 Mg Premixed Ivpb -) 50 mls @ 100 mls/hr IVPB BID [facility] Last Admin: 04/30/17 09:00 Dose: 100 mls/hr Piperacillin Sod/Tazobactam Sod (Zosyn 4.5gm Ivpb (Pre-Docked)) 100 mls @ 200 mls/hr IVPB Q8H-IV [facility] PRN Reason: Protocol Last Admin: 04/30/17 09:00 Dose: 200 mls/hr Sodium Chloride (1/2 Normal Saline) 1,000 mls @ 42 mls/hr IV ASDIR [facility] Nitroglycerin (Nitro-Dur Patch -) 0.1 mg TD DAILY [facility] Last Admin: 04/30/17 09:05 Dose: Not Given Oxycodone HCl (Roxicodone -) 5 mg PO Q6H PRN PRN Reason: PAIN Last Admin: 04/30/17 02:08 Dose: 5 mg Prednisone (Deltasone -) 10 mg PO DAILY [facility] Last Admin: 04/30/17 09:04 Dose: 10 mg Laboratory Results - last 24 hr 04/29/17 04/29/17 04/30/17 13:30 16:57 07:45 WBC 6.4 RBC 4.59 Hgb 11.9 Hct 38.9 MCV 84.7 MCH 25.9 MCHC 30.6 L RDW 24.3 H Plt Count 89 L MPV 8.7 Neutrophils % 73.2 Lymphocytes % 15.1 D Monocytes % 11.3 H D Eosinophils % 0.3 D Basophils % 0.1 INR Sodium Potassium Chloride Carbon Dioxide Anion Gap BUN Creatinine Creat Clearance w eGFR POC Glucometer 113.66272 109 Random Glucose Calcium Magnesium Total Bilirubin AST ALT Alkaline Phosphatase Total Protein Albumin 04/30/17 04/30/17 04/30/17 07:45 07:45 11:09 WBC RBC Hgb Hct MCV MCH MCHC RDW Plt Count MPV Neutrophils % Lymphocytes % Monocytes % Eosinophils % Basophils % INR 1.63 H Sodium 134 L Potassium 3.2 L Chloride 95 L Carbon Dioxide 27 Anion Gap 12 BUN 30 H Creatinine 1.5 H Creat Clearance w eGFR 35.19 POC Glucometer 119 Random Glucose 352 H* D Calcium 7.8 L Magnesium 2.2 Total Bilirubin 3.5 H AST 28 D ALT 28 Alkaline Phosphatase 140 H Total Protein 5.5 L Albumin 2.2 L Vital Signs Temp 97.7 F 04/30/17 08:02 Pulse 75 04/30/17 09:03 Resp 20 04/30/17 08:09 BP 112/57 04/30/17 08:02 Pulse Ox 97 04/30/17 08:09 Intake & Output 04/29/17 04/29/17 04/30/17 11:59 23:59 11:59 Intake Total 720 Output Total 300 Balance 420 Intake: IV 620 D5-1/2Ns - 1,000 ml @ 42 620 mls/hr IV ASDIR [facility] Rx#: [id number] IVPB 100 Output: Urine 300 Mcgill 300 Other: Voiding Method Indwelling Catheter Indwelling Catheter Indwelling Catheter CC: had navel pain `````````````````````````` skin--navel erythema eyes--midline lungs--distant heart--Irreg abd--soft, NT in RUQ neuro--more alert; seems coherent; speech is clear and moves al limbs on command ````````````````````````````` Summ > Sepsis--/ bottles; Vs contaminant; clinically consistent w/ sepsis on admission now improved; see ID note > Cholecystitis--see abd US & Hida; likeliest cause for her acute presentation & ABnl LFTs. PLAN: Seen By Dr Khoa Gutierrez who feels she needs GI eval to explore issue of possible Biliary dz or CBD stone; cont Abs > ASHD w/ renal insuff--not new; on various cardiac meds and diuretics;will resume NTG; Dig; will keep off anticoags given prospect for surgery; INR still High > ATF--not new; HR better controlled; will need to suspend a-c for now > COPD--longstanding; steroid dep; will resume steroids to avert a hypoadrenal crisis > DM--BGM under 200 this AM;made worse by use of steroids; will check BGMs > Low Plt--not new; will need to track daily > Low potassium--replenish as needed > Sarcoid--on chronic low dose steroid (10mg Prednisone QD); will need to resume > chronic pain--2nd Low back and Rt hip pain for which she takes Percocet (not a candidate for NSAID); all opiates presently on hold. ~~~~~~~~~~~~~~~~~~~~~~~~ Dr Estrada
--- NOTE | 2017-04-30 12:37 | CON.GI ---
Consult Consult Specialty:: gastroenterology Referred by:: DR Estrada - History of Present Illness History of Present Illness: 62 y/o F morbidly obese, sarcoidosis, Prednisone dpendent, COPD, CHF, Afib was aske to be seen because of acute cholecystitis associated with mildly elevated T bilirubin associated with normal CBD by ultrasound. Pt will not fir the MRI machine. According to the daughter she is to be transferred to [facility] for further evaluation and management. - Past Medical History [employer]EDATORY [employer]IM[employer]PER: Yes: Parkinson's, Other Cardio/Vascular: Yes: AFIB (? paroxysmal), CAD, CHF, HTN, Hyperlipdemia, Pulmonary Hypertension Pulmonary: Yes: COPD (ex-smoker), O2 Dependent, Other (Hx of sarcoid?) Gastrointestinal: Yes: Diverticulosis, GERD, Other (questionable cholecystitis) Hepatobiliary: Yes: Other (abnL LFTs) Renal/: Yes: Renal Inusuff, UTI ...: No Psych: Yes: Depression Musculoskeletal: Yes: Chronic low back pain, Osteoarthritis (Rt hip) Rheumatology: Yes: Sarcoidosis Endocrine: Yes: Diabetes Mellitus (steroid related), Osteopenia, Other (obesity/ /Possible DM) - Past Surgical History Additional Surgical History: C-spine surgery - Alcohol/Substance Use Hx Alcohol Use: No History of Substance Use: reports: None - Smoking History Smoking history: Current every day smoker Have you smoked in the past 12 months: No Aproximately how many cigarettes per day: 3 If you are a former smoker, when did you quit?: 2007 - Social History Usual Living Arrangement: With Child ADL: Family Assistance 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 Travel: No Home Medications - Allergies Allergies/Adverse Reactions: Allergies Allergy/AdvReac Type Severity Reaction Status Date / Time No Known Allergies Allergy Verified 04/28/17 11:36 - Home Medications Home Medications: Ambulatory Orders Albuterol Sulfate Inhaler - [Ventolin HFA Inhaler -] 1 - 2 inh PO QID 09/27/16 Atorvastatin Ca [Lipitor] 10 mg PO HS 09/27/16 Bupropion HCl [Bupropion HCl ER] 150 mg PO DAILY 09/27/16 Dabigatran Etexilate Mesylate [Pradaxa -] 150 mg PO BID 09/27/16 Digoxin [Digitek] 125 mcg PO DAILY 09/27/16 Duloxetine HCl 30 mg PO DAILY 09/27/16 Isosorbide Mononitrate [Isosorbide Mononitrate ER] 30 mg PO DAILY 09/27/16 Montelukast Na [Singulair -] 10 mg PO HS 09/27/16 Prednisone 10 mg PO DAILY 09/27/16 Ranitidine [Zantac -] 150 mg PO DAILY 09/27/16 Furosemide [Lasix] 1 tab PO DAILY 03/20/17 Magnesium Chloride [Slow-Mag -] 500 mg PO DAILY 03/20/17 Oxycodone HCl/Acetaminophen [Percocet 10-325 mg Tablet] 1 tab PO BID 03/20/17 Pramipexole Di-HCl [Mirapex] 0.5 mg PO TID 03/20/17 Spironolactone [Aldactone] 1 tab PO DAILY 03/20/17 Amox-Tr/K Cl [Augmentin 875-125mg Tablet -] 1 tab PO BID #20 tablet 03/27/17 Collagenase Clostridium Hist. [Santyl -] 1 applic TP DAILY #1 tube 03/30/17 Metformin HCl [Metformin HCl ER] 500 mg PO AM #30 tab.er.24 03/30/17 Nystatin Powder [Nystop Powder -] 1 applic TP BID #1 applic 03/30/17 Silver Sulfadiaz/Foam Bandage [Allevyn Ag Adhesive 3"X3"] 1 each TP Q72H 14 Days 03/30/17 Physical Exam-GI Vital Signs: Vital Signs Temperature 97.7 F 04/30/17 08:02 Pulse Rate 75 04/30/17 09:03 Respiratory Rate 20 04/30/17 08:09 Blood Pressure 112/57 04/30/17 08:02 O2 Sat by Pulse Oximetry (%) 97 04/30/17 08:09 Constitutional: Yes: Obese Eyes: Yes: Conjunctiva Clear HENT: Yes: Atraumatic Neck: Yes: Supple Cardiovascular: Yes: Regular Rate and Rhythm Respiratory: Yes: CTA Bilaterally ...Palpate: Yes: Soft. No: Firm/Rigid, Guarding, Hepatomegaly, Mass, Pulsatile Mass, Splenomegaly, Tenderness Labs: CBC, BMP 04/30/17 07:45 04/30/17 07:45 INR, PTT INR 1.63 (0.82-1.09) H 04/30/17 07:45 Hepatic Panel Total Bilirubin 3.5 mg/dL (0.2-1.0) H 04/30/17 07:45 AST 28 U/L (15-37) D 04/30/17 07:45 ALT 28 U/L (12-78) 04/30/17 07:45 Alkaline Phosphatase 140 U/L (45-117) H 04/30/17 07:45 Albumin 2.2 g/dl (3.4-5.0) L 04/30/17 07:45 Problem List - Problems (1) Cholecystitis Assessment/Plan: r/o CBD sotne R> Will need cholecystectomy with possible intraoperative cholangiogram in the absence of dilated CBD please recall as necessary, message left with Dr Estrada's service Code(s): K81.9 - CHOLECYSTITIS, UNSPECIFIED
[2017-04-30] MEDS: SODIUM CHLORIDE 0.45% 1,000 ML IV SCH (13:52)
--- NOTE | 2017-04-30 15:42 | CONS ---
DATE OF CONSULTATION: 04/30/2017 REFERRING PHYSICIAN: Kt Estrada MD REASON FOR REFERRAL: Biliary disease. BRIEF HISTORY: This is a 62-year-old female who was undergoing her routine physical exam and follow up in Dr. Estrada's office, when she was noted to have abnormal labs and therefore subsequently referred to [facility] for further evaluation, workup and admission. At the time of that visit, she denies having abdominal pain. The patient was seen in Dr. Estrada's office and noted to have an elevated alkaline phosphatase, bilirubin, and an ultrasound performed at that time (April 24, 2017) demonstrated findings of small gallstone acute cholecystitis. Upon her arrival to [facility], she underwent a HIDA scan. The HIDA demonstrated delayed filling and was read out as possible chronic cholecystitis versus acute cholecystitis. Given the ultrasound findings of the thickened wall and mild amount of fluid, the HIDA was more leaning towards acute cholecystitis. At present, the patient has no complaints of abdominal pain. She has never had complaints of abdominal pain whatsoever. She has no elevated white count. Her white count on 2 accounts, April 28 and April 29, demonstrates 7.7 and 5.7. She is noted to have a mildly elevated bilirubin of 3.5 and 3.2 respectively. Her alkaline phosphatase is also mildly elevated as well, as well as a mild elevation in her AST. Patient denies change in stool color or urine color. She has had no nausea, no vomiting. She is not anorexic. PAST MEDICAL HISTORY: Morbid obesity, history of atrial fibrillation, on Pradaxa, beta abraham, digoxin, LV dysfunction, CHF, hyperlipidemia, [id number] diabetes, sarcoid, COPD, on steroids and O2 dependent. PAST SURGICAL HISTORY: MEDICATIONS: Refer to chart. SOCIAL HISTORY: Patient smokes and quit in 2007. She denies alcohol use. PHYSICAL EXAMINATION: HEENT: There is no icterus. Abdomen: Morbidly obese, soft, nontender, nondistended. IMPRESSION/PLAN: Cholelithiasis, chronic cholecystitis, abnormal liver function tests: This is a 62-year-old female with a multitude of medical issues, who presented to Dr. Estrada's office with followup visit, and at that time was noted to be diaphoretic, weak, and questionable passing out episode as per the patient, therefore, referred to [facility] for further workup and follow up of her abnormal liver chemistries. Based on the HIDA scan, she does have delayed filling; therefore, I would tend to think that this is not consistent with acute cholecystitis. The mild wall thickening in the gallbladder seen on ultrasound is most likely related to chronic cholecystitis. Clearly she has no evidence of acute findings on examination at this time. Her bilirubin is mildly elevated, which may be related to just intrinsic fatty liver disease (also mild elevation in AST and alkaline phosphatase) versus biliary stone disease. At this point I would recommend further evaluation and ruling out for a common duct stone by GI, either via MRCP or an ERCP. If these tests are negative, the patient clearly does not require an acute emergent operation and she is very high risk for surgery, based on my opinion as well as Cardiology's note stating that she is moderate to high risk due to her other medical comorbidities and especially given the fact that she has LV dysfunction, COPD on steroids, and she is O2 dependent. This patient should be initially managed medically. Clearly she has a positive blood culture that is gram-positive. This could be a contaminant. This is unlikely related to a biliary source, since typically those are gram-negative bacteria such as E coli, Enterobacter, and Klebsiella. Will plan to discuss this case with her primary care physician to discuss the pros and cons of elective cholecystectomy at possibly a tertiary care institution, given her co-morbidities and morbid obesity versus medical management with dissolution of the gallstones such as using ursodiol. At this point, the patient does not require acute surgical intervention, and I will discuss the case with Dr. Estrada and will be available on a p.r.n. basis. Thank you for allowing me to participate in the care of your patient. SANTOS PADILLA M.D. [id number] cc: MD Cezar Davidson MD
[2017-04-30] MEDS: ACETAMINOPHEN 325 MG TABLET (FP) PO PRN (16:23)
[2017-04-30] MEDS: oxyCODONE HCL 5 MG TABLET PO PRN (16:24)
--- NOTE | 2017-04-30 20:45 | CONS ---
DATE OF CONSULTATION: 04/29/2017 HISTORY OF PRESENT ILLNESS: The patient was seen in the emergency room. She is a 62-year-old female with a history of morbid obesity, evaluated for sepsis. History is obtained from the chart, as she cannot give a history secondary to her mental state. She is very lethargic. According to the notes, she had been seen in her primary care doctor's office, where she was very lethargic and poorly responsive. She became diaphoretic and was unable to stand. There was some concern over possibility of over-medication with opiate pain medicine. Upon visiting her primary care doctor, she was noted to have an elevated alkaline phosphatase and total bilirubin. Ultrasound showed possible inflamed gallbladder. She was referred to the emergency room, where she was febrile with tachycardia, hypotension, hypoxemia. She was empirically treated with antibiotics for possible pneumonia versus urinary tract infection. Prior to her admission, she had received Keflex and Bactrim for urinary tract infection and possible cellulitis of the umbilical area. At the present time, she is lethargic, she offers no complaints. She denies any abdominal pain. PAST MEDICAL HISTORY: Positive for morbid obesity, history of COPD, sarcoid, oxygen-dependent COPD, congestive heart failure, gastroesophageal reflux, depression, hyperlipidemia, sgo-[id number]-mybcmwhnp diabetes mellitus, atrial fibrillation. No known allergies. MEDICATIONS: Ventolin, Lipitor, Pradaxa, digoxin, isosorbide, Singulair, prednisone, Zantac, Lasix, oxycodone, spironolactone, Augmentin, metformin. SOCIAL HISTORY: She resides at home with family members. Nonsmoker, nondrinker. SYSTEMS REVIEW: Neurologic: Positive for altered mental status. No loss of consciousness, seizure activity, or focal weakness. Cardiac: Negative chest pain or palpitations. Positive atrial fibrillation. Respiratory: Negative cough or sputum production. Gastrointestinal: Negative vomiting or diarrhea. Genitourinary: Negative for urinary tract infection. LABORATORY DATA: White count 5.7, hematocrit 36.8, platelet count 81. Creatinine 1.8. Urinalysis: 2 white cells. PHYSICAL EXAMINATION: General: She is awake but very lethargic, in no acute distress. Her breathing is nonlabored. Vital Signs: Temperature 98.1. Blood pressure 101/66. Pulse 68, regular. Respirations 18 per minute. Eyes: Sclerae anicteric. Heart Sounds: S1, S2. Lungs: Diminished breath sounds bilaterally. Abdomen: Massively obese, soft, nontender. There is erythema present in the umbilical area, with no expressible pus. Extremities: Negative for edema. Superficial ulceration present on the left buttock. IMPRESSION: 1. Sepsis, probable gallbladder source. 2. Cholecystitis. 3. Toxic metabolic encephalopathy. 4. Azotemia. 5. Lactic acidosis. 6. Thrombocytopenia. 7. Positive blood culture, uncertain significance. Continue empiric coverage of biliary tract pathogens with Zosyn. Surgical evaluation. Case discussed with Dr. Estrada. Thank you for the kind referral. SHAKILA CLAYTON M.D. [id number]
[2017-04-30] MEDS: VANCOMYCIN 1 GRAM (PRE-DOCKED) 250 ML IVPB SCH (21:53)
[2017-05-01] MEDS: PIPERACILLIN/TAZOB 4.5 GM 100 ML IVPB SCH ×3 (03:18→17:40)
[2017-05-01] MEDS: ACETAMINOPHEN 325 MG TABLET (FP) PO PRN ×2 (06:11→23:31)
[2017-05-01] MEDS: oxyCODONE HCL 5 MG TABLET PO PRN ×2 (06:12→23:31)
[2017-05-01 07:47] LABS: MCHC 30.7 g/dl (32.0-36.0); MEAN CELL VOLUME 84.7 fl (80-96); MEAN PLT VOLUME 8.7 fl (7.5-11.1); PLATELET COUNT 82 K/MM3 (134-434); WHITE BLOOD COUNT 5.5 K/mm3 (4.0-10.0)
[2017-05-01 08:02] LABS: ALBUMIN 2.4 g/dl (3.4-5.0); ANION GAP 8 (8-16); CALCIUM 8.3 mg/dL (8.5-10.1); CO2 28 mmol/L (21-32); GLUCOSE,RANDOM 83 mg/dL (74-106)
[2017-05-01 08:06] LABS: ALK PHOS 148 U/L (45-117); BILIRUBIN,TOTAL 2.9 mg/dL (0.2-1.0); CREATININE 1.5 mg/dL (0.55-1.02); FREE T4 1.02 ng/dl (0.76-1.46); SGOT/AST 27 U/L (15-37); SGPT/ALT 28 U/L (12-78); TOT PROT 5.9 g/dl (6.4-8.2)
[2017-05-01 08:26] LABS: INR 1.43 (0.82-1.09); PROTHROMBIN TIME (PATIENT) 15.9 SEC (9.98-11.88)
--- NOTE | 2017-05-01 09:11 | PN ---
Progress Note (short form) - Note Progress Note: awake and alert no complaints Vital Signs Period Temp Pulse Resp BP Sys/Robins Pulse Ox Last 24 Hr 97.3 F-97.5 F 69-97 18-20 92-124/52-85 93 cor-rrr lungs decreased bs at bases abd soft, umbilicus dry stage 2 sacral ulcer- clean ext venous stasis changed CBC, BMP 05/01/17 05:35 05/01/17 05:35 Microbiology 04/30/17 08:40 Blood - Peripheral Venous Blood Culture - Preliminary NO GROWTH OBTAINED AFTER 24 HOURS, INCUBATION TO CONTINUE FOR 4 DAYS. 04/28/17 12:27 Blood - Peripheral Venous Blood Culture - Preliminary NO GROWTH OBTAINED AFTER 48 HOURS, INCUBATION TO CONTINUE FOR 3 DAYS. 04/28/17 14:02 Abdomen Gram Stain - Final 04/28/17 14:02 Abdomen Wound Culture - Preliminary Staphylococcus Latex Coag Pos Streptococcus Species Staphylococcus Coagulase Neg 04/28/17 18:00 Urine - Urine Clean Catch Urine Culture - Final NO GROWTH OBTAINED 04/28/17 12:27 Blood - Peripheral Venous Blood Culture - Preliminary Pending Organism a/p possible cholycystitis-management per surgery and gi positive blood culture- ID pending umbilical cellulitis-resolving vanco/zosyn to continue check vancomycin trough followup cultures
--- NOTE | 2017-05-01 09:22 | PN ---
Progress Note, Physician Chief Complaint: Pt sitting up at bedside after breakfast; no chest pain or dyspnea; no dizziness. History of Present Illness: 62-year-old female, morbidly obese with h/o A. fib (on pradaxa, BB & Dig,) LVDysf with hx of CHF (on Lasix), hyperlipidemia, rdi-bgzitob-contrbkal diabetes , sarcoid, COPD who is on steroids and O2 dependent; who presented for a scheduled office visit in a state of hypersomnolence, diaphoresis & weakness. Prior to this she had supposedly been in her usual mental state. Routine blood work done 1 week ago showed elevated Alk Ph and Total Bili; f/u US of abd showed possible inflamed GB and Ua revealed what presented a likely UTI. She refused to go to the hospital, as she had no Sx of abd pains, dysuria, fever. She had been taking Keflex for what was described as a discharge from the umbilicus (which was not present while previously hospitalized), and was switched to Bactrim after the UA was resulted. She was last hospitalized in early March for celluluitis of the LE (and the presence of a Lt lower Buttock pressure sore), and she had just been released from the SNF just a few days prior to her previous admission. She was then d'c'd back home with [facility] who was seeing her at regular intervals. According to laura, she had fallen several days ago on her left shoulder; but did not seek any medical attention. It is not known if has been taking her array of meds as of recent but does take percocet for low back pain and osteoarthritis but denied taking any prior to her office visit. While in the office, she kept falling asleep; appeared diaphoretic, and was unable to stand. She voiced no other complaints. History Source: Patient, Family Member Limitations to Obtaining History: Physical Impairment, Other (clouded mental status) - Current Medication List Current Medications: Active Medications Acetaminophen (Tylenol -) 325 mg PO Q6H PRN PRN Reason: PAIN Last Admin: 05/01/17 06:11 Dose: 325 mg Digoxin (Lanoxin -) 0.125 mg PO DAILY [facility] Last Admin: 04/30/17 09:03 Dose: 0.125 mg Famotidine/Sodium Chloride (Pepcid 20 Mg Premixed Ivpb -) 50 mls @ 100 mls/hr IVPB BID [facility] Last Admin: 04/30/17 21:42 Dose: 100 mls/hr Piperacillin Sod/Tazobactam Sod (Zosyn 4.5gm Ivpb (Pre-Docked)) 100 mls @ 200 mls/hr IVPB Q8H-IV [facility] PRN Reason: Protocol Last Admin: 05/01/17 03:18 Dose: 200 mls/hr Sodium Chloride (1/2 Normal Saline) 1,000 mls @ 42 mls/hr IV ASDIR [facility] Last Admin: 04/30/17 13:52 Dose: 42 mls/hr Vancomycin HCl (Vancomycin (Pre-Docked)) 250 mls @ 166.667 mls/hr IVPB Q12H [facility] Last Admin: 04/30/17 21:53 Dose: 166.667 mls/hr Nitroglycerin (Nitro-Dur Patch -) 0.1 mg TD DAILY [facility] Last Admin: 04/30/17 09:05 Dose: Not Given Oxycodone HCl (Roxicodone -) 5 mg PO Q6H PRN PRN Reason: PAIN Last Admin: 05/01/17 06:12 Dose: 5 mg Prednisone (Deltasone -) 10 mg PO DAILY [facility] Last Admin: 04/30/17 09:04 Dose: 10 mg - Objective Vital Signs: Vital Signs Temperature 97.4 F L 05/01/17 05:57 Pulse Rate 69 05/01/17 05:57 Respiratory Rate 20 05/01/17 05:57 Blood Pressure 97/62 05/01/17 05:57 O2 Sat by Pulse Oximetry (%) 93 L 04/30/17 21:00 Constitutional: Yes: Calm Eyes: Yes: WNL HENT: Yes: WNL Neck: Yes: WNL Cardiovascular: Yes: Regular Rate and Rhythm Respiratory: Yes: Regular Gastrointestinal: Yes: Soft ...Rectal Exam: Yes: Deferred Genitourinary: No: Anuria Breast(s): Yes: WNL Musculoskeletal: Yes: Muscle Weakness Extremities: Yes: Cool Edema: No Peripheral Pulses WNL: Yes Integumentary: Yes: WNL Neurological: Yes: Weakness Psychiatric: Yes: Alert, Oriented Labs: CBC, BMP 05/01/17 05:35 05/01/17 05:35 INR, PTT INR 1.43 (0.82-1.09) H 05/01/17 05:35 Problem List - Problems (1) Cholecystitis Code(s): K81.9 - CHOLECYSTITIS, UNSPECIFIED (2) Chronic kidney disease Code(s): N18.9 - CHRONIC KIDNEY DISEASE, UNSPECIFIED Qualifiers: Chronic kidney disease stage: stage 2 (mild) Qualified Code(s): N18.2 - Chronic kidney disease, stage 2 (mild) (3) Chronic systolic CHF (congestive heart failure) Assessment/Plan: F/u ECHO. Hx of right-sided heart failure predominately. Code(s): I50.22 - CHRONIC SYSTOLIC (CONGESTIVE) HEART FAILURE (4) Coronary artery disease Code(s): I25.10 - ATHSCL HEART DISEASE OF [place] CORONARY ARTERY W/O ANG PCTRS Qualifiers: Coronary Disease-Associated Artery/Lesion type: [place] artery Associated angina: without angina (5) Decubitus skin ulcer Code(s): L89.90 - PRESSURE ULCER OF UNSPECIFIED SITE, UNSPECIFIED STAGE Qualifiers: Pressure ulcer location: buttock Pressure ulcer stage: stage 2 Laterality: left Qualified Code(s): L89.322 - Pressure ulcer of left buttock , stage 2 (6) Diabetes Code(s): E11.9 - TYPE 2 DIABETES MELLITUS WITHOUT COMPLICATIONS Qualifiers: Diabetes mellitus type: type 2 Diabetes mellitus complication status: with circulatory complication Diabetes mellitus mcc insulin use: unspecified extermination inspector insulin use status (7) Pulmonary hypertension Code(s): I27.2 - OTHER SECONDARY PULMONARY HYPERTENSION (8) A-fib Code(s): I48.91 - UNSPECIFIED ATRIAL FIBRILLATION Qualifiers: Atrial fibrillation type: chronic Qualified Code(s): I48.2 - Chronic atrial fibrillation (9) Acute on chronic systolic and diastolic heart failure, NYHA class 3 Code(s): I50.43 - ACUTE ON CHRONIC COMBINED SYSTOLIC AND DIASTOLIC HRT FAIL (10) Cellulitis Code(s): L03.90 - CELLULITIS, UNSPECIFIED Qualifiers: Site of cellulitis: extremity Site of cellulitis of extremity: lower extremity Laterality: left Qualified Code(s): L03.116 - Cellulitis of left lower limb (11) Depression Code(s): F32.9 - MAJOR DEPRESSIVE DISORDER, SINGLE EPISODE, UNSPECIFIED (12) Hypertensive cardiovascular disease Code(s): I11.9 - HYPERTENSIVE HEART DISEASE WITHOUT HEART FAILURE (13) Sleep apnea Code(s): G47.30 - SLEEP APNEA, UNSPECIFIED Qualifiers: Sleep apnea type: unspecified type Qualified Code(s): G47.30 - Sleep apnea, unspecified (14) Syncope Code(s): R55 - SYNCOPE AND COLLAPSE (15) NSVT (nonsustained ventricular tachycardia) Code(s): I47.2 - VENTRICULAR TACHYCARDIA (16) Obesities, morbid Code(s): E66.01 - MORBID (SEVERE) OBESITY DUE TO EXCESS CALORIES (17) Cholecystitis, acute Assessment/Plan: f/u with GI/surgery Code(s): K81.0 - ACUTE CHOLECYSTITIS
[2017-05-01] MEDS: VANCOMYCIN 1 GRAM (PRE-DOCKED) 250 ML IVPB SCH ×2 (09:54→21:00)
[2017-05-01] MEDS: NITROGLYCERIN 0.1 MG/HOUR TD PATCH TD SCH (09:54)
[2017-05-01] MEDS: predniSONE 10 MG TABLET (UD) PO SCH (09:55)
[2017-05-01] MEDS: DIGOXIN 0.125 MG TABLET (FP) PO SCH (09:55)
[2017-05-01] MEDS: FAMOTIDINE 20 MG/50 ML IVPB 50 ML IVPB SCH ×2 (09:56→21:13)
--- NOTE | 2017-05-01 12:38 | PN ---
Progress Note (short form) - Note Progress Note: Current Medications Acetaminophen (Tylenol -) 325 mg PO Q6H PRN PRN Reason: PAIN Last Admin: 05/01/17 06:11 Dose: 325 mg Digoxin (Lanoxin -) 0.125 mg PO DAILY [facility] Last Admin: 05/01/17 09:55 Dose: 0.125 mg Famotidine/Sodium Chloride (Pepcid 20 Mg Premixed Ivpb -) 50 mls @ 100 mls/hr IVPB BID [facility] Last Admin: 05/01/17 09:56 Dose: 100 mls/hr Piperacillin Sod/Tazobactam Sod (Zosyn 4.5gm Ivpb (Pre-Docked)) 100 mls @ 200 mls/hr IVPB Q8H-IV [facility] PRN Reason: Protocol Last Admin: 05/01/17 09:55 Dose: 200 mls/hr Sodium Chloride (1/2 Normal Saline) 1,000 mls @ 42 mls/hr IV ASDIR [facility] Last Admin: 04/30/17 13:52 Dose: 42 mls/hr Vancomycin HCl (Vancomycin (Pre-Docked)) 250 mls @ 166.667 mls/hr IVPB Q12H [facility] Last Admin: 05/01/17 09:54 Dose: 166.667 mls/hr Nitroglycerin (Nitro-Dur Patch -) 0.1 mg TD DAILY [facility] Last Admin: 05/01/17 09:54 Dose: Not Given Oxycodone HCl (Roxicodone -) 5 mg PO Q6H PRN PRN Reason: PAIN Last Admin: 05/01/17 06:12 Dose: 5 mg Prednisone (Deltasone -) 10 mg PO DAILY [facility] Last Admin: 05/01/17 09:55 Dose: 10 mg Laboratory Results - last 24 hr 05/01/17 05/01/17 05/01/17 05:35 05:35 05:35 WBC 5.5 RBC 4.62 Hgb 12.0 Hct 39.1 MCV 84.7 MCH 26.0 MCHC 30.7 L RDW 24.0 H Plt Count 82 L MPV 8.7 INR 1.43 H Sodium 135 L Potassium 3.6 Chloride 99 Carbon Dioxide 28 Anion Gap 8 BUN 26 H Creatinine 1.5 H Creat Clearance w eGFR 35.19 POC Glucometer Random Glucose 83 D Calcium 8.3 L Total Bilirubin 2.9 H AST 27 ALT 28 Alkaline Phosphatase 148 H Total Protein 5.9 L Albumin 2.4 L Lipase 183 Free T4 1.02 D Vancomycin Pre-Dose 05/01/17 05/01/17 05/01/17 05:35 06:04 09:09 WBC RBC Hgb Hct MCV MCH MCHC RDW Plt Count MPV INR Sodium Potassium Chloride Carbon Dioxide Anion Gap BUN Creatinine Creat Clearance w eGFR POC Glucometer 94 Random Glucose Calcium Total Bilirubin AST ALT Alkaline Phosphatase Total Protein Albumin Lipase Free T4 Cancelled Vancomycin Pre-Dose 20.570 H* Vital Signs Temperature 98 F 05/01/17 10:00 Pulse Rate 70 05/01/17 10:00 Respiratory Rate 18 05/01/17 10:00 Blood Pressure 94/50 05/01/17 10:00 O2 Sat by Pulse Oximetry (%) 96 05/01/17 09:00 CC: no new issues `````````````````````````` skin--navel erythema eyes--midline lungs--distant heart--Irreg abd--soft, NT in RUQ neuro--alert & coherent; speech is clear and moves al limbs on command ````````````````````````````` Summ > Sepsis--09/21 bottles; Vs contaminant; clinically consistent w/ sepsis on admission now improved; await final ID > Cholecystitis--see abd US & Hida; likeliest cause for her acute presentation & ABnl LFTs. PLAN: Seen By Surg & GI. She is not a candidate for MRCP due to girth, and is considered high risk for ERCP at this facility; May need to transfer to [facility] facility once stable > ASHD w/ renal insuff--not new; currently off Lasix; Bun/cr stable; no signs of clinical CHF; echo pending > ATF--not new; HR controlled; will need to suspend a-c for now; INR 1.43 > COPD--longstanding; steroid dep; will resume steroids to avert a hypoadrenal crisis > DM--BGM in reasonable range > Low Plt--not new; will need to track daily > Low potassium--replenish as needed > Sarcoid--on chronic low dose steroid (10mg Prednisone QD); will need to resume > chronic pain--2nd Low back and Rt hip pain for which she takes Percocet (not a candidate for NSAID); all opiates presently on hold. ~~~~~~~~~~~~~~~~~~~~~~~~ NB: condition discussed at lent with daughter Carolina who was present Dr Estrada
[2017-05-01] MEDS: SODIUM CHLORIDE 0.45% 1,000 ML IV SCH (14:27)
[2017-05-01] MEDS: URSODIOL 300 MG CAPSULE PO SCH (21:13)
[2017-05-02] MEDS: PIPERACILLIN/TAZOB 4.5 GM 100 ML IVPB SCH ×2 (01:36→09:06)
[2017-05-02 08:10] LABS: INR 1.37 (0.82-1.09); PROTHROMBIN TIME (PATIENT) 15.2 SEC (9.98-11.88)
[2017-05-02 08:23] LABS: CALCIUM 8.3 mg/dL (8.5-10.1)
[2017-05-02 08:28] LABS: ALBUMIN 2.4 g/dl (3.4-5.0); ALK PHOS 146 U/L (45-117); ANION GAP 11 (8-16); BILIRUBIN,TOTAL 3.4 mg/dL (0.2-1.0); CO2 28 mmol/L (21-32); CREATININE 1.3 mg/dL (0.55-1.02); GLUCOSE,RANDOM 84 mg/dL (74-106); SGOT/AST 27 U/L (15-37); SGPT/ALT 28 U/L (12-78); TOT PROT 6.1 g/dl (6.4-8.2)
[2017-05-02] MEDS: URSODIOL 300 MG CAPSULE PO SCH ×2 (09:05→22:07)
[2017-05-02] MEDS: DIGOXIN 0.125 MG TABLET (FP) PO SCH (09:05)
[2017-05-02] MEDS: predniSONE 10 MG TABLET (UD) PO SCH (09:05)
[2017-05-02] MEDS: FAMOTIDINE 20 MG/50 ML IVPB 50 ML IVPB SCH ×2 (09:06→22:07)
[2017-05-02] MEDS: VANCOMYCIN 1 GRAM (PRE-DOCKED) 250 ML IVPB SCH (09:57)
[2017-05-02] MEDS: NITROGLYCERIN 0.1 MG/HOUR TD PATCH TD SCH (10:01)
[2017-05-02] MEDS ORDERED: POTASSIUM CHLORIDE TABS 10 MEQ TABLET.ER (FP) PO ONE (11:05)
[2017-05-02] MEDS ORDERED: SODIUM CHLORIDE 0.45% 1,000 ML IV SCH (11:31)
[2017-05-02] MEDS: ACETAMINOPHEN 325 MG TABLET (FP) PO PRN (12:37)
[2017-05-02] MEDS: oxyCODONE HCL 5 MG TABLET PO PRN (12:37)
--- NOTE | 2017-05-02 14:20 | PN ---
Progress Note (short form) - Note Progress Note: awake and alert no complaints feels well Vital Signs Period Temp Pulse Resp BP Sys/Robins Pulse Ox Last 24 Hr 97.4 F-98.0 F 65-93 18-20 93-160/51-87 97-98 cor-rrr lungs clear abd soft,nt +Umbilicus with no erythema no drainage ext no edema CBC, BMP 05/01/17 05:35 05/02/17 05:35 Microbiology 04/28/17 12:27 Blood - Peripheral Venous Blood Culture - Preliminary NO GROWTH OBTAINED AFTER 96 HOURS, INCUBATION TO CONTINUE FOR 1 DAYS. 04/28/17 14:02 Abdomen Gram Stain - Final 04/28/17 14:02 Abdomen Wound Culture - Preliminary Staphylococcus Aureus Enterococcus Faecalis Staphylococcus Coagulase Neg 04/28/17 12:27 Blood - Peripheral Venous Blood Culture - Preliminary Anaerobic Cocci 04/30/17 09:20 Blood - Peripheral Venous Blood Culture - Preliminary NO GROWTH OBTAINED AFTER 48 HOURS, INCUBATION TO CONTINUE FOR 3 DAYS. 04/30/17 08:40 Blood - Peripheral Venous Blood Culture - Preliminary NO GROWTH OBTAINED AFTER 48 HOURS, INCUBATION TO CONTINUE FOR 3 DAYS. 04/28/17 18:00 Urine - Urine Clean Catch Urine Culture - Final NO GROWTH OBTAINED Current Medications Acetaminophen (Tylenol -) 325 mg PO Q6H PRN PRN Reason: PAIN Last Admin: 05/02/17 12:37 Dose: 325 mg Digoxin (Lanoxin -) 0.125 mg PO DAILY [facility] Famotidine/Sodium Chloride (Pepcid 20 Mg Premixed Ivpb -) 50 mls @ 100 mls/hr IVPB BID [facility] Sodium Chloride (1/2 Normal Saline) 1,000 mls @ 42 mls/hr IV ASDIR [facility] Last Admin: 05/02/17 12:02 Dose: 42 mls/hr Piperacillin Sod/Tazobactam (Sod 4.5 gm/ Dextrose) 100 mls @ 200 mls/hr IVPB Q8H-IV [facility] PRN Reason: Protocol Nitroglycerin (Nitro-Dur Patch -) 0.1 mg TD DAILY [facility] Oxycodone HCl (Roxicodone -) 5 mg PO Q6H PRN PRN Reason: PAIN Last Admin: 05/02/17 12:37 Dose: 5 mg Prednisone (Deltasone -) 10 mg PO DAILY [facility] Ursodiol (Actigal -) 300 mg PO BID [facility] a/p possible cholycystitis-management per surgery and gi positive blood culture- suspect contaminant umbilical cellulitis-resolved vancomycin trough high, vancomycin d/gray also suspect blood culture is contaminant remains on zosyn for biliary coverage further plans per PMD
--- NOTE | 2017-05-02 15:49 | PN ---
Progress Note (short form) - Note Progress Note: Current Medications Acetaminophen (Tylenol -) 325 mg PO Q6H PRN PRN Reason: PAIN Last Admin: 05/02/17 12:37 Dose: 325 mg Digoxin (Lanoxin -) 0.125 mg PO DAILY [facility] Famotidine/Sodium Chloride (Pepcid 20 Mg Premixed Ivpb -) 50 mls @ 100 mls/hr IVPB BID [facility] Sodium Chloride (1/2 Normal Saline) 1,000 mls @ 42 mls/hr IV ASDIR [facility] Last Admin: 05/02/17 12:02 Dose: 42 mls/hr Piperacillin Sod/Tazobactam (Sod 4.5 gm/ Dextrose) 100 mls @ 200 mls/hr IVPB Q8H-IV [facility] PRN Reason: Protocol Nitroglycerin (Nitro-Dur Patch -) 0.1 mg TD DAILY [facility] Oxycodone HCl (Roxicodone -) 5 mg PO Q6H PRN PRN Reason: PAIN Last Admin: 05/02/17 12:37 Dose: 5 mg Prednisone (Deltasone -) 10 mg PO DAILY [facility] Ursodiol (Actigal -) 300 mg PO BID [facility] Laboratory Results - last 24 hr 05/02/17 05/02/17 05/02/17 05:35 05:35 06:50 INR 1.37 H Sodium 136 Potassium 3.4 L Chloride 97 L Carbon Dioxide 28 Anion Gap 11 BUN 21 H Creatinine 1.3 H Creat Clearance w eGFR 41.50 POC Glucometer 91 Random Glucose 84 Calcium 8.3 L Total Bilirubin 3.4 H AST 27 ALT 28 Alkaline Phosphatase 146 H Total Protein 6.1 L Albumin 2.4 L Vancomycin Pre-Dose 05/02/17 10:00 INR Sodium Potassium Chloride Carbon Dioxide Anion Gap BUN Creatinine Creat Clearance w eGFR POC Glucometer Random Glucose Calcium Total Bilirubin AST ALT Alkaline Phosphatase Total Protein Albumin Vancomycin Pre-Dose 16.997 H* INR, PTT INR 1.37 (0.82-1.09) H 05/02/17 05:35 Vital Signs Temp 98.0 F 05/02/17 13:49 Pulse 93 H 05/02/17 13:49 Resp 20 05/02/17 13:49 BP 93/51 05/02/17 13:49 Pulse Ox 98 05/02/17 09:00 Intake & Output 0805/02/17 05/02/17 23:59 11:59 23:59 Intake Total 920 290 Output Total 1350 700 Balance -430 -410 Weight 266 lb 2 oz Intake: IVPB 50 Oral 920 240 Output: Urine 1350 700 Mcgill 1350 700 Other: Voiding Method Indwelling Catheter Indwelling Catheter Bowel Movement No No Weight Measurement Method Standing Scale CC: no new issues `````````````````````````` skin--navel erythema eyes--midline lungs--distant heart--Irreg abd--soft, NT in RUQ neuro--alert & coherent; speech is clear and moves al limbs on command ````````````````````````````` Summ > Sepsis--09/21 bottles; Vs contaminant; clinically consistent w/ sepsis on admission, await final determination > Cholecystitis--see abd US & Hida; LFTs still high and not trending down PLAN: Seen By Surg & GI. She is not a candidate for MRCP due to girth, and is considered high risk for ERCP & cholecystectomy at this facility; May need to transfer to [facility] facility once stable > ASHD w/ renal insuff--not new; currently off Lasix; Bun/cr stable; no signs of clinical CHF; echo RV dysf (not new; previously noted on another Echo); Cardiac cath done at [facility] in November of this year showed no obstructive vessel dz. > ATF--not new; HR controlled; will need to suspend a-c for now; INR 1.37 > COPD--longstanding (bronciectasis & interstitial lung dz)is steroid dependent. > DM--BGM in reasonable range > Low Plt--not new; will need to track > Low potassium--replenish as needed > Sarcoid--on chronic low dose steroid (10mg Prednisone QD); will need to resume > chronic pain--2nd Low back and Rt hip pain for which she takes Percocet (not a candidate for NSAID); all opiates presently on hold. ~~~~~~~~~~~~~~~~~~~~~~~~ Dr Estrada
[2017-05-02] MEDS ORDERED: PIPERACILLIN/TAZOBACTAM 4.5 GM VIAL IVPB ONE ×2 (17:21→21:03)
[2017-05-02] MEDS ORDERED: DEXTROSE 5%-WATER 100 ML IVPB ONE (17:21)
[2017-05-02] MEDS: PIPERACILLIN/TAZOB 4.5 GM 4.5 GM in DEXTROSE 5%-WATER 100 ML IVPB SCH (17:47)
[2017-05-03] MEDS: PIPERACILLIN/TAZOB 4.5 GM 4.5 GM in DEXTROSE 5%-WATER 100 ML IVPB SCH ×2 (01:54→10:08)
[2017-05-03 07:14] LABS: MCH 26.7 pg (25.7-33.7); MCHC 31.4 g/dl (32.0-36.0); MEAN CELL VOLUME 85.3 fl (80-96); MEAN PLT VOLUME 8.6 fl (7.5-11.1); PLATELET COUNT 76 K/MM3 (134-434); RDW 24.6 % (11.6-15.6); WHITE BLOOD COUNT 6.4 K/mm3 (4.0-10.0)
[2017-05-03 07:46] LABS: ALBUMIN 2.7 g/dl (3.4-5.0); ANION GAP 9 (8-16); CALCIUM 8.8 mg/dL (8.5-10.1); CO2 30 mmol/L (21-32); CREATININE 1.1 mg/dL (0.55-1.02); GLUCOSE,RANDOM 82 mg/dL (74-106); SGOT/AST 27 U/L (15-37); SGPT/ALT 28 U/L (12-78)
[2017-05-03 08:00] LABS: ALK PHOS 149 U/L (45-117); BILIRUBIN,TOTAL 3.5 mg/dL (0.2-1.0); DIGOXIN LEVEL 0.9682 ng/ml (0.8-2.0); TOT PROT 6.6 g/dl (6.4-8.2)
[2017-05-03] MEDS ORDERED: PT OWN MED DRAWER 7, Y5N ONE (10:01)
[2017-05-03] MEDS ORDERED: DEXTROSE 5%-WATER 100 ML IVPB ONE (10:02)
[2017-05-03] MEDS ORDERED: PIPERACILLIN/TAZOBACTAM 4.5 GM VIAL IVPB ONE (10:02)
[2017-05-03] MEDS: DIGOXIN 0.125 MG TABLET (FP) PO SCH (10:05)
[2017-05-03] MEDS: predniSONE 10 MG TABLET (UD) PO SCH (10:05)
[2017-05-03] MEDS: NITROGLYCERIN 0.1 MG/HOUR TD PATCH TD SCH (10:06)
[2017-05-03] MEDS: FAMOTIDINE 20 MG/50 ML IVPB 50 ML IVPB SCH (10:06)
[2017-05-03] MEDS: URSODIOL 300 MG CAPSULE PO SCH ×2 (10:07→22:24)
--- NOTE | 2017-05-03 12:24 | PN ---
Progress Note (short form) - Note Progress Note: VAscular Surgery Pt seen and examined. Right posterior thigh stage 2 Some slough. offload. will order santyl to wound Tariq Flynn DO
--- NOTE | 2017-05-03 16:07 | PN ---
Progress Note (short form) - Note Progress Note: Current Medications Acetaminophen (Tylenol -) 325 mg PO Q6H PRN PRN Reason: PAIN Last Admin: 05/02/17 12:37 Dose: 325 mg Digoxin (Lanoxin -) 0.125 mg PO DAILY [facility] Last Admin: 05/03/17 10:05 Dose: 0.125 mg Famotidine/Sodium Chloride (Pepcid 20 Mg Premixed Ivpb -) 50 mls @ 100 mls/hr IVPB BID [facility] Last Admin: 05/03/17 10:06 Dose: 100 mls/hr Piperacillin Sod/Tazobactam (Sod 4.5 gm/ Dextrose) 100 mls @ 200 mls/hr IVPB Q8H-IV [facility] PRN Reason: Protocol Last Admin: 05/03/17 10:08 Dose: 200 mls/hr Metoprolol Succinate (Toprol Xl -) 12.5 mg PO DAILY [facility] Nitroglycerin (Nitro-Dur Patch -) 0.1 mg TD DAILY [facility] Last Admin: 05/03/17 10:06 Dose: 0.1 mg Oxycodone HCl (Roxicodone -) 5 mg PO Q6H PRN PRN Reason: PAIN Last Admin: 05/02/17 12:37 Dose: 5 mg Prednisone (Deltasone -) 10 mg PO DAILY [facility] Last Admin: 05/03/17 10:05 Dose: 10 mg Ursodiol (Actigal -) 300 mg PO BID [facility] Last Admin: 05/03/17 10:07 Dose: 300 mg Laboratory Results - last 24 hr 04/28/17 04/28/17 05/03/17 12:15 12:27 06:30 WBC 6.4 RBC 4.87 Hgb 13.0 Hct 41.5 MCV 85.3 MCH 26.7 MCHC 31.4 L RDW 24.6 H Plt Count 76 L MPV 8.6 VBG pH 7.44 H POC VBG pCO2 36.1 L POC VBG pO2 53.7 H Mixed VBG HCO3 23.9 Sodium Potassium Chloride Carbon Dioxide Anion Gap BUN Creatinine Creat Clearance w eGFR POC Glucometer Random Glucose Lactic Acid 3.9 H* Calcium Total Bilirubin AST ALT Alkaline Phosphatase Total Protein Albumin Digoxin 05/03/17 05/03/17 06:30 07:01 WBC RBC Hgb Hct MCV MCH MCHC RDW Plt Count MPV VBG pH POC VBG pCO2 POC VBG pO2 Mixed VBG HCO3 Sodium 141 Potassium 3.6 Chloride 102 Carbon Dioxide 30 Anion Gap 9 BUN 19 H Creatinine 1.1 H Creat Clearance w eGFR 50.33 POC Glucometer 86 Random Glucose 82 Lactic Acid Calcium 8.8 Total Bilirubin 3.5 H AST 27 ALT 28 Alkaline Phosphatase 149 H Total Protein 6.6 Albumin 2.7 L Digoxin 0.9682 Vital Signs Temp 98.1 F 05/03/17 15:39 Pulse 104 H 05/03/17 15:39 Resp 20 05/03/17 15:39 BP 97/52 05/03/17 09:00 Pulse Ox 98 05/03/17 09:00 Intake & Output 05/02/17 05/03/17 05/03/17 23:59 11:59 23:59 Intake Total 754 340 400 Output Total 900 500 Balance -146 340 -100 Intake: IV 504 1/2 Normal Saline 1,000 504 ml @ 42 mls/hr IV ASDIR [facility] Rx#:[id number] IVPB 100 100 Oral 150 240 400 Output: Urine 900 500 Mcgill 900 500 Other: Voiding Method Indwelling Catheter Indwelling Catheter Bowel Movement No CC: no new issues `````````````````````````` skin--navel erythema eyes--midline lungs--distant heart--Irreg abd--soft, NT in RUQ neuro--alert & coherent; speech is clear and moves al limbs on command ````````````````````````````` Summ > Bacteremia--not suggestive of definite sepsis but appeared clinicaly septic on admission > Cholecystitis--see abd US & Hida; LFTs still high and not trending down PLAN: Seen By Surg & GI. She is not a candidate for MRCP due to girth, and is considered high risk for ERCP & cholecystectomy at this facility; May need to transfer to [facility] facility once stable; contacts with [facility] facility in progress. > ASHD w/ renal insuff--not new; currently off Lasix; Bun/cr stable; no signs of clinical CHF; echo RV dysf (not new; previously noted on another Echo); Cardiac cath done at [facility] in November of this year showed no obstructive vessel dz. Will start low dose BB > ATF--not new; HR controlled; will need to suspend a-c for now > COPD--longstanding (bronciectasis & interstitial lung dz)is steroid dependent. > DM--BGM in reasonable range > Low Plt--not new; trending down; ? effect of Zosyn > Low potassium--replenish as needed > Sarcoid--on chronic low dose steroid (10mg Prednisone QD); will need to resume > chronic pain--2nd Low back and Rt hip pain for which she takes Percocet (not a candidate for NSAID); all opiates presently on hold. ~~~~~~~~~~~~~~~~~~~~~~~~ Dr Estrada
[2017-05-03] MEDS: COLLAGENASE CLOSTRIDIUM HIST. 30 GRAMS TUBE TP SCH (18:10)
[2017-05-03] MEDS: METOPROLOL SUCCINATE 25 MG TAB.SR.24H (FP) PO SCH (18:10)
[2017-05-03] MEDS: oxyCODONE HCL 5 MG TABLET PO PRN (22:21)
[2017-05-03] MEDS: ACETAMINOPHEN 325 MG TABLET (FP) PO PRN (22:22)
[2017-05-04] MEDS ORDERED: PT OWN MED DRAWER 7, Y5N ONE (09:56)
[2017-05-04] MEDS ORDERED: cefTRIAXone SODIUM 1 GM VIAL ONE (09:57)
[2017-05-04] MEDS ORDERED: DEXTROSE 5%-WATER - 50 ML IVPB ONE (09:57)
[2017-05-04] MEDS: URSODIOL 300 MG CAPSULE PO SCH ×2 (09:59→22:22)
[2017-05-04] MEDS: METOPROLOL SUCCINATE 25 MG TAB.SR.24H (FP) PO SCH (09:59)
[2017-05-04] MEDS: COLLAGENASE CLOSTRIDIUM HIST. 30 GRAMS TUBE TP SCH (10:00)
[2017-05-04] MEDS: CEFTRIAXONE 1 GM in DEXTROSE 5%-WATER - 50 ML IVPB SCH (10:00)
[2017-05-04] MEDS: NITROGLYCERIN 0.1 MG/HOUR TD PATCH TD SCH (10:01)
[2017-05-04] MEDS: predniSONE 10 MG TABLET (UD) PO SCH (10:01)
[2017-05-04] MEDS: RANITIDINE HCL 150 MG TABLET (FP) PO SCH (10:01)
[2017-05-04] MEDS: DIGOXIN 0.125 MG TABLET (FP) PO SCH (10:01)
[2017-05-04 15:49] LABS: MCH 26.6 pg (25.7-33.7); MCHC 30.6 g/dl (32.0-36.0); PLATELET COUNT 97 K/MM3 (134-434); WHITE BLOOD COUNT 6.9 K/mm3 (4.0-10.0)
--- NOTE | 2017-05-04 18:26 | DS ---
Physical Examination Vital Signs: Vital Signs Temperature 97.8 F 05/04/17 17:11 Pulse Rate 77 05/04/17 17:11 Respiratory Rate 20 05/04/17 17:11 Blood Pressure 114/73 05/04/17 17:11 O2 Sat by Pulse Oximetry (%) 98 05/04/17 09:00 Findings/Remarks: skin--stage 2 sore Lt lower buttock; scattered ecchymosis of arms; no petechiae eyes--eomi; pupills equal oral--poor dentition lungs--dimnished BS; grossly clear, unlabored heart--irreg; under 100BPM breasts--pendulous; no lesions appreciated abd--soft, BS+, NT ext--2+ (chronic) edema of the LE's w/ stasis changes neuro--awake, alert; coherent in NAD; no gross focal deficits; no rigidity or tremors Labs: CBC, BMP 05/04/17 14:55 05/03/17 06:30 Discharge Summary Reason For Visit: SEPSIS Current Active Problems Cholecystitis (Acute) Chronic kidney disease --> stage 2 Right ventricular dysf--> by Cardiac cath Non obstructive ASHD COPD--history of smoking Decubitus ulcer of buttock--stage 2 (Acute) Pre-Diabetes--made worse by steroids Pulmonary hypertension (2nd COPD)--see cath report Sarcoidosis--chronic 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 Restless legs syndrome--may need Mirapex .5mg TID if c/o discomfort Stasis dermatitis--legs 2nd chronic edema; may need lasix if edema worsens Mild thrombocytopenia--chronic; runs between 90--100k Hospital Course: Admitted ill appearing; clinically "septic"; likely 2nd acute cholecystitis ( Abnl Abd US; HIDA, and elevated Total Bilirubin; Alk Phosp); Tx with IV antibiotics, seen by GI and surgeon. Surgeon was of the opinion that she needed EWRCP or MRCP but was reluctant to under take surgery due to multiple co- morbidities; was also seen by GI who advised cholecystectomy (see note) but was unwilling to do ERCP in this setting for reasons cited above. She improved clinically although LFTs did NOT normalize fully; she had no abd complaints, and tolerated PO meals. co-incidentally, she was found to have a discharge from the umbilicus, which grew Coag -negative staph. BC was (+) but 1/4 and was suggestive of a contamination. Her vitals remaoined stable throughout her stay. her Platelets dropped to 76K but then rebounded to over 90 K once Zosyn was stopped and changed to Rocephin. Anticoag was stopped on admission due to the prospect of her undergoing a possible urgent procedure. As of today, her VS are stable Condition: Guarded - Instructions Diet, Activity, Other Instructions: Low sodium diet; no added sugars Medical consult GI consult Pulm & cardio consult as needed pre-post op Follow finger-stick blood sugars check daily LFTs & CBC; check Digoxin level as needed Daily pressure sore dressing as needed watch for volume overload Administer SC anti-coag if surgery is to be delayed or resume short acting oral anticoagulant (NOAC) Textile Examiner--> Dr Nathan Overhead Door Technician--> dr Estrada [phone] ......................................................... Contact jace Figueroa for any updates or plans @ [phone] Referrals: Kt Estrada MD [Primary Care Provider] - Disposition: TRANSFER ACUTE CARE/OTHER HOSP - Home Medications Comprehensive Discharge Medication List: Ambulatory Orders Albuterol Sulfate Inhaler - [Ventolin HFA Inhaler -] 1 - 2 inh PO QID Prn Atorvastatin Ca [Lipitor] 10 mg PO HS 09/27/16 Bupropion HCl [Bupropion HCl ER] 150 mg PO DAILY Digoxin [Digitek] 125 mcg PO DAILY Isosorbide Mononitrate [Isosorbide Mononitrate ER] 30 mg PO DAILY Montelukast Na [Singulair -] 10 mg PO HS Prednisone 10 mg PO DAILY Ranitidine [Zantac -] 150 mg PO DAILY Pramipexole Di-HCl [Mirapex] 0.5 mg PO TID Collagenase Clostridium Hist. [Santyl -] 1 applic TP DAILY #1 tube 03/30/17 actigal 300mg Cap BID Rocephin 1gm IVBP QD Oxycodone 5mg Q6 PRN Pain Toprol XR 12.5mg QD
[2017-05-04 21:29] LABS: PLATELET COMMENT2 NO CLOTTING DETECTED
[2017-05-04 21:30] LABS: ANISOCYTOSIS 2+; PLATELET ESTIMATE DECREASED
[2017-05-05] MEDS: oxyCODONE HCL 5 MG TABLET PO PRN ×2 (00:17→10:13)
[2017-05-05] MEDS ORDERED: cefTRIAXone SODIUM 1 GM VIAL ONE (10:09)
[2017-05-05] MEDS ORDERED: PT OWN MED DRAWER 7, Y5N ONE (10:09)
[2017-05-05] MEDS ORDERED: DEXTROSE 5%-WATER - 50 ML IVPB ONE (10:10)
[2017-05-05] MEDS: METOPROLOL SUCCINATE 25 MG TAB.SR.24H (FP) PO SCH (10:11)
[2017-05-05] MEDS: DIGOXIN 0.125 MG TABLET (FP) PO SCH (10:11)
[2017-05-05] MEDS: URSODIOL 300 MG CAPSULE PO SCH (10:12)
[2017-05-05] MEDS: ACETAMINOPHEN 325 MG TABLET (FP) PO PRN (10:12)
[2017-05-05] MEDS: predniSONE 10 MG TABLET (UD) PO SCH (10:12)
[2017-05-05] MEDS: RANITIDINE HCL 150 MG TABLET (FP) PO SCH (10:13)
[2017-05-05] MEDS: COLLAGENASE CLOSTRIDIUM HIST. 30 GRAMS TUBE TP SCH (10:14)
[2017-05-05] MEDS: NITROGLYCERIN 0.1 MG/HOUR TD PATCH TD SCH (10:14)
[2017-05-05] MEDS: CEFTRIAXONE 1 GM in DEXTROSE 5%-WATER - 50 ML IVPB SCH (10:14)
[2017-05-05 14:19] VITALS: BP 121/81; PULSE 87; TEMP 97.8
--- NOTE | 2017-05-05 14:36 | PN ---
Progress Note (short form) - Note Progress Note: Current Medications Acetaminophen (Tylenol -) 325 mg PO Q6H PRN PRN Reason: PAIN Last Admin: 05/05/17 10:12 Dose: 325 mg Collagenase (Santyl -) 1 applic TP DAILY [facility] Last Admin: 05/05/17 10:14 Dose: 1 applic Digoxin (Lanoxin -) 0.125 mg PO DAILY [facility] Last Admin: 05/05/17 10:11 Dose: 0.125 mg Ceftriaxone Sodium 1 gm/ (Dextrose) 50 mls @ 100 mls/hr IVPB DAILY [facility] Last Admin: 05/05/17 10:14 Dose: 100 mls/hr Metoprolol Succinate (Toprol Xl -) 12.5 mg PO DAILY [facility] Last Admin: 05/05/17 10:11 Dose: 12.5 mg Nitroglycerin (Nitro-Dur Patch -) 0.1 mg TD DAILY [facility] Last Admin: 05/05/17 10:14 Dose: 0.1 mg Oxycodone HCl (Roxicodone -) 5 mg PO Q6H PRN PRN Reason: PAIN Last Admin: 05/05/17 10:13 Dose: 5 mg Prednisone (Deltasone -) 10 mg PO DAILY [facility] Last Admin: 05/05/17 10:12 Dose: 10 mg Ranitidine HCl (Zantac -) 150 mg PO DAILY [facility] Last Admin: 05/05/17 10:13 Dose: 150 mg Ursodiol (Actigal -) 300 mg PO BID [facility] Last Admin: 05/05/17 10:12 Dose: 300 mg Vital Signs Temperature 97.8 F 05/05/17 14:18 Pulse Rate 87 05/05/17 14:18 Respiratory Rate 18 05/05/17 14:18 Blood Pressure 121/81 05/05/17 14:18 O2 Sat by Pulse Oximetry (%) 98 05/04/17 21:00 CC: no new complaints ```````````````````` lungs--dimnished BS;unlabored heart--Irreg abd--obese, benign ext--1+ edema neuro--awake, alert; coherent, moves all Extremities ```````````````````````` Summ > Sub acute cholecystitis--subclinical disease; VSS since given IV Abs; but Alk Ph & Bilirubin still high. PLAN: to be transfered to [facility] (case discussed with accepting staff) for further evaluation to see if she can undergo definitive procedure. > COPD--no signs of decompensation; cont PO steroids > ATF--HR okay, will keep off a-c; as she is being transfered in anticipitation for possible surgical intervention ```````````````````````````` Dr Estrada
== END 2017-05-05 18:56 | disposition short-term general hospital (02) | DRG 871 ==
LOC: JER 11:27 → JERBED 20:44 → J4W 04-29 15:33 → J8W 05-02 11:24
PROVIDERS: ADMIT Internal Medicine; ATTEND Internal Medicine
DX: A41.9 Sepsis, unspecified organism (principal); G92 Toxic encephalopathy; K81.0 Acute cholecystitis; L03.316 Cellulitis of umbilicus; Z68.41 Body mass index [BMI] 40.0-44.9, adult; E87.2 Acidosis; I50.22 Chronic systolic (congestive) heart failure; I25.10 Atherosclerotic heart disease of native coronary artery without angina pectoris; J44.9 Chronic obstructive pulmonary disease, unspecified; I27.2 Other secondary pulmonary hypertension; D86.9 Sarcoidosis, unspecified; D69.6 Thrombocytopenia, unspecified; I48.91 Unspecified atrial fibrillation; R26.89 Other abnormalities of gait and mobility; G25.81 Restless legs syndrome; I87.2 Venous insufficiency (chronic) (peripheral); E83.39 Other disorders of phosphorus metabolism; E78.5 Hyperlipidemia, unspecified; L89.322 Pressure ulcer of left buttock, stage 2; E66.01 Morbid (severe) obesity due to excess calories; F17.210 Nicotine dependence, cigarettes, uncomplicated; E87.6 Hypokalemia
CPT/HCPCS: 36415; 71010-TC; 78226-TC; 80053; 80162; 81003; 81015; 82803; 83605; 83690; 83735; 83880; 84439; 84443; 84484; 85025; 85027; 85610; 85730; 86850; 86900; 86901; 87040; 87070; 87076; 87077; 87086; 87186; 87205; 93005; 93010; 93306-TC; 99285-25; A9537; G0480

== ENCOUNTER 2017-05-25 01:33 | Emergency (ER) | payer OTHER ==
--- NOTE | 2017-05-25 01:37 | PDOC ---
History of Present Illness - General History Source: EMS <Darell Gottlieb - Last Filed: 05/25/17 01:50> - General History Source: EMS Exam Limitations: Intubated <Blu Stuart - Last Filed: 05/25/17 19:35> - General Chief Complaint: Cardiac Arrest Stated Complaint: CARDIAC ARREST Time Seen by Provider: 05/25/17 01:36 - History of Present Illness Initial Comments: 05/25/17 01:55 Patient is a 62 year old female with significant past medical history of A. fib (on pradaxa, BB & Dig,) LVDysf with hx of CHF (on Lasix), hyperlipidemia, non- insulin-dependent diabetes, sarcoid, COPD who is on steroids and O2 dependent presented from care home Due to cardiac arrest. Cardiac arrest was unwitnessed 15 minutes prior to EMS arrival to care home. As per EMS patient had been intubated in the field with 8.5 tube, given EPI x3, and in total coded for 35 minutes. Patient had no spontaneous vital signs within the field. On presentation CPR is in progress, as patient is being bagged by [facility]. Patient had no spontaneous vital signs here in the ED. (Blu Stuart) Past History - Past Medical History Anemia: No Asthma: No Cancer: No Cardiac Disorders: No CVA: No COPD: (SARCOIDOSIS/home O2 prn) CHF: Yes Dementia: No Diabetes: Yes GI Disorders: Yes (Acid reflex) Disorders: Yes (renal insufficiency from NSAIDs) HTN: Yes Hypercholesterolemia: No Liver Disease: No Psychiatric Problems: Yes (DEPRESSION.) Seizures: No Thyroid Disease: No - Surgical History Abdominal Surgery: No Appendectomy: No Cardiac Surgery: Yes (stent) Cholecystectomy: No Lung Surgery: No Neurologic Surgery: No Orthopedic Surgery: Yes (C4 surgery) - Immunization History Immunization Up to Date: Yes - Psycho/Social/Smoking Cessation Hx Anxiety: No Suicidal Ideation: No Smoking Status: Yes Smoking History: Current every day smoker Have you smoked in the past 12 months: No Number of Cigarettes Smoked Daily: 3 If you are a former smoker, when did you quit?: 2007 'Breaking Loose' booklet given: 03/27/17 Hx Alcohol Use: No Drug/Substance Use Hx: No Substance Use Type: None Hx Substance Use Treatment: No <Darell Gottlieb - Last Filed: 05/25/17 01:50> <Blu Stuart - Last Filed: 05/25/17 19:35> - Past Medical History Allergies/Adverse Reactions: Allergies Allergy/AdvReac Type Severity Reaction Status Date / Time No Known Allergies Allergy Verified 05/25/17 01:36 Home Medications: Ambulatory Orders Albuterol Sulfate Inhaler - [Ventolin HFA Inhaler -] 1 - 2 inh PO QID 09/27/16 Atorvastatin Ca [Lipitor] 10 mg PO HS 09/27/16 Bupropion HCl [Bupropion HCl ER] 150 mg PO DAILY 09/27/16 Digoxin [Digitek] 125 mcg PO DAILY 09/27/16 Isosorbide Mononitrate [Isosorbide Mononitrate ER] 30 mg PO DAILY 09/27/16 Montelukast Na [Singulair -] 10 mg PO HS 09/27/16 Prednisone 10 mg PO DAILY 09/27/16 Ranitidine [Zantac -] 150 mg PO DAILY 09/27/16 Ceftriaxone [Rocephin -] 1 gm IVPB DAILY vial 05/04/17 Collagenase Clostridium Hist. [Santyl -] 1 applic TP DAILY #1 applic NS Collagenase Clostridium Hist. [Santyl -] 1 applic TP DAILY #1 tube 05/04/17 Digoxin [Lanoxin -] 0.125 mg PO DAILY tablet 05/04/17 Metoprolol Succinate [Toprol XL -] 12.5 mg PO DAILY #30 tab.sr 05/04/17 Oxycodone HCl [Roxicodone -] 5 mg PO Q6H PRN #20 tablet MDD 4 05/04/17 Ursodiol [Actigal -] 300 mg PO BID #60 cap 05/04/17 Cardiac Specific PMH - Complaint Specific PMHX Angina: No Cardiac Arrhythmia: No GERD: No Pacemaker: No Pulmonary Embolus: No Peripheral Vascular Disease: No <Darell Gottlieb - Last Filed: 05/25/17 01:50> Review of Systems <Darell Gottlieb - Last Filed: 05/25/17 01:50> - Review of Systems Able to Perform ROS?: No <Blu Stuart - Last Filed: 05/25/17 19:35> - Review of Systems Comments:: 05/25/17 01:56 ROS Unattainable due to patients condition. (Blu Stuart) *Physical Exam <Darell Gottlieb - Last Filed: 05/25/17 01:50> <Blu Stuart - Last Filed: 05/25/17 19:35> - Physical Exam Comments: 05/25/17 01:55 GENERAL: + Morbidly obese. HEENT: No racoon or sesay sign, Pupils fixed and dilated. Normocephalic, atraumatic. PERRL, EOM intact. CARDIOVASCULAR: No spontaneous heart signs Normal S1, S2. Regular rate and rhythm. PULMONARY: Lung sounds clear. Osculated by BBM. Clear to auscultation bilaterally. ABDOMEN: Morbidly obese. Soft, non-distended, non-tender. EXTREMITIES: No club cyanosis. No edema. No bone deformities. Normal ROM in all four extremities. No gross deformities. SKIN: Warm, dry. No rash NEUROLOGICAL: No neurological activity scene No focal neurological deficits. 05/25/17 19:35 (Blu Stuart) Medical Decision Making <Darell Gottlieb - Last Filed: 05/25/17 01:50> <Blu Stuart - Last Filed: 05/25/17 19:35> - Medical Decision Making 05/25/17 01:43 Pt had no spontaneous vitals. No cardiac activity seen on [facility]. Pt pronounced by me at 1:27am. [place] informed. [place] called case declined . PCP called to write certificate. Daughter Carolina Hart informed by Nurse Nicanor Harris. ( Darell Gottlieb) 05/25/17 01:[address] Nina Cruz @1:47am. Dr. Aguilar covering. Awaiting call back, Dr. Aguilar called back @1:56am. Case discussed. (Blu Stuart) *DC/Admit/Observation/Transfer <Darell Gottlieb - Last Filed: 05/25/17 01:50> <Blu Stuart - Last Filed: 05/25/17 19:35> Diagnosis at time of Disposition: Cardiac arrest - Discharge Dispostion Disposition: Condition at time of disposition: - Attestations Scribe Attestion: 05/25/17 01:58 Documentation prepared by Blu Stuart, acting as medical instructor for Darell Gottlieb MD. (Blu Stuart)
[2017-05-25] MEDS ORDERED: CALCIUM CHLORIDE 1 GM/10 ML *DISP.SYRIN ONE (02:02)
[2017-05-25] MEDS ORDERED: SODIUM BICARBONATE 8.4% 50 MEQ/50 ML VIAL ONE (02:02)
== END 2017-05-25 02:42 | disposition expired ==
LOC: JER 01:33
PROC: 5A02210 Assistance with Cardiac Output using Balloon Pump, Continuous (ICD-10-PCS; principal; 2017-05-25)
DX: I46.9 Cardiac arrest, cause unspecified (principal); I48.91 Unspecified atrial fibrillation; Z79.01 Long term (current) use of anticoagulants; I25.10 Atherosclerotic heart disease of native coronary artery without angina pectoris; I13.0 Hypertensive heart and chronic kidney disease with heart failure and stage 1 through stage 4 chronic kidney disease, or unspecified chronic kidney disease; N18.9 Chronic kidney disease, unspecified; I50.9 Heart failure, unspecified; F17.210 Nicotine dependence, cigarettes, uncomplicated; E11.9 Type 2 diabetes mellitus without complications; Z79.84 Long term (current) use of oral hypoglycemic drugs; J44.9 Chronic obstructive pulmonary disease, unspecified; D86.9 Sarcoidosis, unspecified; Z99.81 Dependence on supplemental oxygen; F32.9 Major depressive disorder, single episode, unspecified
CPT/HCPCS: 99283-25